=== PATIENT | female | born 1945 | race Caucasian/White ===

== ENCOUNTER 2021-10-17 12:26 | Inpatient (IN) | payer MEDICARE, OTHER ==
[~2021-10-17] VITALS: Ht 152.4 cm; Wt 55.3 kg
[2021-10-17 14:52] LABS: Mean Corpuscular Hgb Conc. 32.7 g/dL (32.0-36.0)
[2021-10-17 14:56] LABS: Hematocrit 18.5 % (36.0-46.0); Mean Corpuscular Hemoglobin 25.4 pg (28.0-32.0); Mean Corpuscular Volume 77.9 fL (80.0-100.0); Red Blood Cells 2.38 10^6/uL (4.0-5.20); White Blood Cell 13.1 10^3/uL (4.4-10.8)
[2021-10-17 15:13] LABS: Albumin 1.8 g/dL (3.4-5.0); BUN/Creatinine Ratio 8.9; Calcium 7.8 mg/dL (8.5-10.1); Potassium 3.3 mmol/L (3.5-5.1)
[2021-10-17 15:16] LABS: Bilirubin, Total 0.4 mg/dL (0.2-1.0); Total Protein 5.5 g/dL (6.4-8.2)
[2021-10-17 15:26] LABS: Red Cell Distribution Width 22.9 % (11.8-14.3)
[2021-10-17 15:28] LABS: Basophils % (manual) 0 (0.0-2.0); Blast Cells 0; Metamyelocytes % 0; Myelocytes % 0; Promyelocytes % 0; Reactive Lymphocytes 0
[2021-10-17 15:30] LABS: INR 1.09 (0.9-1.15); Partial Thromboplastin Time 49.6 sec (23.6-33.0)
[2021-10-17 15:41] LABS: Band Neutrophils % (manual) 1; Eosinophils % (manual) 1 (0-7); Lymphocytes % (manual) 7 (10.0-50.0); Monocytes % (manual) 2 (0-12)
[2021-10-17 20:47] VITALS: BP 120/39
[2021-10-17 21:04] VITALS: BP 115/40
[2021-10-17] MEDS ORDERED: DEXTROSE (50%) 50ML SYRG IV PRN (21:15)
[2021-10-17] MEDS ORDERED: ACETAMINOPHEN 325 MG TAB PO PRN (21:15)
[2021-10-17] MEDS ORDERED: POTASSIUM CHL 20 Meq TABLET PO ONE (21:15)
[2021-10-17] MEDS ORDERED: DOCUSATE SOD 100 MG CAP PO PRN (21:15)
[2021-10-17] MEDS ORDERED: ONDANSETRON HCL 4 MG/2 ML VIAL IV PRN (21:15)
[2021-10-17] MEDS ORDERED: HYDROcodone-ACET 5/325MG TAB PO PRN (21:15)
[2021-10-17] MEDS ORDERED: InsuLIN REG 1unit/0.01ml Soln (100units/ml) SC SCH (22:00)
[2021-10-17] MEDS ORDERED: FAMOTIDINE (10MG/ML) 2ML VL IV SCH (22:00)
[2021-10-17] MEDS: ALBUMIN 25% 50 ML IV SCH (22:30)
[2021-10-17] MEDS ORDERED: POTASSIUM EFFERVESENT TAB 25 MEQ GT ONE (23:00)
[2021-10-17 23:34] VITALS: BP 129/50
[2021-10-17] MEDS: ASCORBIC ACID 500 MG TAB PO SCH (23:36)
[2021-10-17] MEDS: APIXABAN 2.5 MG TAB PO SCH (23:36)
[2021-10-17] MEDS: ACCU-CHEK COMFORT CURVE STRIP VI SCH (23:37)
[2021-10-18 02:47] LABS: Basophils # (auto) 0 10 ^3/uL (0-0.2); Basophils % (auto) 0.3 % (0.0-2.0); Eosinophils # (auto) 0.1 10 ^3/uL (0-0.8); Eosinophils % (auto) 0.5 % (0.0-7.0); Hematocrit 24.2 % (36.0-46.0); Hemoglobin 8.1 g/dL (12.2-16.2); Lymphocytes # (auto) 1.2 10 ^3/uL (0.4-5.4); Lymphocytes % (auto) 8.6 % (10.0-50.0); Mean Corpuscular Hemoglobin 26.6 pg (28.0-32.0); Mean Corpuscular Hgb Conc. 33.5 g/dL (32.0-36.0); Mean Corpuscular Volume 79.4 fL (80.0-100.0); Monocytes % (auto) 6.8 % (0.0-12.0); Neutrophils # (auto) 11.8 10 ^3/uL (1.6-8.6); Neutrophils % (auto) 83.8 % (37.0-80.0); Nucleated Red Blood Cells % 0.2 %; Red Blood Cells 3.05 10^6/uL (4.0-5.20); White Blood Cell 14.1 10^3/uL (4.4-10.8)
[2021-10-18 03:11] LABS: Albumin 1.9 g/dL (3.4-5.0); Potassium 3.7 mmol/L (3.5-5.1)
[2021-10-18 03:13] LABS: BUN/Creatinine Ratio 9.6
[2021-10-18 03:25] LABS: Bilirubin, Total 0.5 mg/dL (0.2-1.0); Total Protein 5.7 g/dL (6.4-8.2)
[2021-10-18 04:59] VITALS: BP 150/58
[2021-10-18 05:00] VITALS: BP 150/58
[2021-10-18] MEDS ORDERED: ALBUMIN 25% 50 ML IV ONE ×2 (05:26→14:27)
[2021-10-18] MEDS: ALBUMIN 25% 50 ML IV SCH ×2 (05:36→14:37)
[2021-10-18] MEDS: InsuLIN REG 1unit/0.01ml Soln (100units/ml) SC SCH ×3 (05:44→17:00)
[2021-10-18] MEDS: ACCU-CHEK COMFORT CURVE STRIP VI SCH ×3 (05:44→17:16)
[2021-10-18 09:00] VITALS: BP 145/105
[2021-10-18] MEDS ORDERED: cefTRIAXone 1GM/50ML D5W 50 ML IV SCH (09:00)
[2021-10-18] MEDS ORDERED: cefTRIAXone 1GM/50ML D5W 50 ML IV ONE (09:01)
[2021-10-18] MEDS ORDERED: MULTIPLE VITAMIN TAB ONE (09:51)
[2021-10-18] MEDS ORDERED: APIXABAN 2.5 MG TAB ONE (09:51)
[2021-10-18] MEDS ORDERED: ASCORBIC ACID 500 MG TAB ONE (09:51)
[2021-10-18] MEDS ORDERED: AZITHROMYCIN 500MG/ 250ML 250 ML IV ONE (09:52)
[2021-10-18] MEDS ORDERED: MULTIPLE VITAMIN TAB PO SCH (10:00)
[2021-10-18] MEDS ORDERED: ZINC SULFATE 220mg CAP or TAB PO SCH (10:00)
[2021-10-18] MEDS ORDERED: AZITHROMYCIN 500MG/ 250ML 250 ML IV SCH (10:00)
[2021-10-18] MEDS: ASCORBIC ACID 500 MG TAB PO SCH (10:12)
[2021-10-18] MEDS: APIXABAN 2.5 MG TAB PO SCH (10:12)
[2021-10-18 13:07] VITALS: BP 156/49
[2021-10-18 17:10] VITALS: BP 150/57
[2021-10-18 21:38] VITALS: BP 155/64
[2021-10-18] MEDS ORDERED: NITROGLYCERIN 0.4 MG SL TAB SL PRN ×2 (23:45)
[2021-10-18] MEDS ORDERED: DEXTROSE (50%) 50ML SYRG IV PRN (23:45)
[2021-10-18] MEDS ORDERED: FAMOTIDINE (10MG/ML) 2ML VL IV SCH (23:45)
[2021-10-18] MEDS ORDERED: DOCUSATE SOD 100 MG CAP PO PRN (23:45)
[2021-10-18] MEDS ORDERED: MORPHINE SULFATE INJECTION 2 MG/ML SYRG IV PRN ×2 (23:45)
[2021-10-18] MEDS ORDERED: HYDROcodone-ACET 5/325MG TAB PO PRN (23:45)
[2021-10-18] MEDS ORDERED: ONDANSETRON HCL 4 MG/2 ML VIAL IV PRN (23:45)
[2021-10-18] MEDS ORDERED: InsuLIN REG 1unit/0.01ml Soln (100units/ml) SC SCH (23:45)
[2021-10-18] MEDS ORDERED: ACETAMINOPHEN 325 MG TAB PO PRN (23:45)
[2021-10-19] MEDS: ASCORBIC ACID 500 MG TAB PO SCH ×2 (00:25→09:19)
[2021-10-19] MEDS: APIXABAN 2.5 MG TAB PO SCH ×2 (00:25→09:19)
[2021-10-19] MEDS: ACCU-CHEK COMFORT CURVE STRIP VI SCH ×3 (00:26→11:09)
[2021-10-19 05:00] VITALS: BP 136/54
[2021-10-19] MEDS: InsuLIN REG 1unit/0.01ml Soln (100units/ml) SC SCH ×2 (06:48→11:09)
[2021-10-19 07:55] VITALS: BP 197/65
[2021-10-19] MEDS ORDERED: cefTRIAXone 1GM/50ML D5W 50 ML IV SCH (09:00)
[2021-10-19 09:59] VITALS: BP 186/63
[2021-10-19] MEDS ORDERED: ZINC SULFATE 220mg CAP or TAB PO SCH (10:00)
[2021-10-19] MEDS ORDERED: MULTIPLE VITAMIN TAB PO SCH (10:00)
[2021-10-19] MEDS ORDERED: AZITHROMYCIN 500MG/ 250ML 250 ML IV SCH (10:00)
[2021-10-19] MEDS ORDERED: hydrALAZINE HCL 20 MG/ML VL IV ONE (10:45)
[2021-10-19 12:11] VITALS: BP 158/50
== END 2021-10-19 14:00 | DRG 871 ==
LOC: ER 12:26 → EDBD 12:26 → CENTRAL 23:52 → ER 10-18 02:42
PROVIDERS: ADMIT Nurse Practitioner Family; ATTEND Nurse Practitioner Family
PROC: 30233N1 Transfusion of Nonautologous Red Blood Cells into Peripheral Vein, Percutaneous Approach (ICD-10-PCS; principal; 2021-10-17)
DX: A41.9 Sepsis, unspecified organism (principal); J18.9 Pneumonia, unspecified organism; N18.6 End stage renal disease; I13.2 Hypertensive heart and chronic kidney disease with heart failure and with stage 5 chronic kidney disease, or end stage renal disease; E87.6 Hypokalemia; E88.09 Other disorders of plasma-protein metabolism, not elsewhere classified; E11.40 Type 2 diabetes mellitus with diabetic neuropathy, unspecified; E78.00 Pure hypercholesterolemia, unspecified; F32.A Depression, unspecified; Z20.822 Contact with and (suspected) exposure to COVID-19; E11.22 Type 2 diabetes mellitus with diabetic chronic kidney disease; D63.8 Anemia in other chronic diseases classified elsewhere; E78.5 Hyperlipidemia, unspecified; F03.90 Unspecified dementia, unspecified severity, without behavioral disturbance, psychotic disturbance, mood disturbance, and anxiety; I48.91 Unspecified atrial fibrillation; I50.9 Heart failure, unspecified; Z99.2 Dependence on renal dialysis; Z79.01 Long term (current) use of anticoagulants; Z86.73 Personal history of transient ischemic attack (TIA), and cerebral infarction without residual deficits
CPT/HCPCS: 36415; 36430; 70450; 71045; 80053; 82962; 83036; 85007; 85025; 85027; 85610; 85730; 86850; 86900; 86901; 86920; 87040; 87081; 87426; 93005; 96365; 96372; G0378; J0696; J3490

== ENCOUNTER 2021-11-02 13:39 | Inpatient (IN) | payer MEDICARE ==
[~2021-11-02] VITALS: Ht 157.5 cm; Wt 57.4 kg
[2021-11-02 15:03] LABS: Basophils # (auto) 0.1 10 ^3/uL (0-0.2); Basophils % (auto) 0.6 % (0.0-2.0); Eosinophils # (auto) 0.1 10 ^3/uL (0-0.8); Hemoglobin 7.1 g/dL (12.2-16.2); Monocytes # (auto) 1.1 10 ^3/uL (0-1.3); White Blood Cell 18.7 10^3/uL (4.4-10.8)
[2021-11-02 15:04] LABS: Eosinophils % (auto) 0.5 % (0.0-7.0); Hematocrit 21.2 % (36.0-46.0); Lymphocytes # (auto) 1.1 10 ^3/uL (0.4-5.4); Mean Corpuscular Hgb Conc. 33.2 g/dL (32.0-36.0); Mean Corpuscular Volume 84.3 fL (80.0-100.0); Neutrophils # (auto) 16.2 10 ^3/uL (1.6-8.6); Neutrophils % (auto) 86.9 % (37.0-80.0); Nucleated Red Blood Cells % 0.8 %; Red Blood Cells 2.52 10^6/uL (4.0-5.20)
[2021-11-02 15:13] LABS: Red Cell Distribution Width 21.8 % (11.8-14.3)
[2021-11-02 15:17] LABS: Calcium 7.9 mg/dL (8.5-10.1)
[2021-11-02 15:23] LABS: BUN/Creatinine Ratio 6.1; Bilirubin, Total 0.5 mg/dL (0.2-1.0); Total Protein 6.3 g/dL (6.4-8.2)
[2021-11-02 15:28] LABS: Potassium 2.7 mmol/L (3.5-5.1)
[2021-11-02] MEDS ORDERED: NITROGLYCERIN 0.4 MG SL TAB SL PRN (16:15)
[2021-11-02] MEDS ORDERED: MORPHINE SULFATE INJECTION 2 MG/ML SYRG IV PRN (16:15)
[2021-11-02] MEDS ORDERED: ACETAMINOPHEN 325 MG TAB PO PRN (16:15)
[2021-11-02] MEDS: POTASSIUM CHL 10MEQ/50ML 50 ML IV SCH ×2 (19:10→20:10)
[2021-11-02] MEDS ORDERED: POTASSIUM CHL 10MEQ/50ML 50 ML IV ONE (20:06)
[2021-11-02] MEDS: ASCORBIC ACID 500 MG TAB PO SCH (22:00)
[2021-11-02 22:31] LABS: Urine Bacteria MANY /hpf (None Seen); Urine Blood 2+ /uL (Negative); Urine WBC 1510 /hpf (0 - 5); Urine WBC Clumps PRESENT /hpf (None Seen)
[2021-11-03] MEDS ORDERED: cefTRIAXone 1GM/50ML D5W 50 ML IV ONE (03:30)
[2021-11-03 04:05] VITALS: BP 150/56
[2021-11-03 04:35] VITALS: BP 142/53
[2021-11-03 07:06] VITALS: BP 164/70
[2021-11-03 09:20] LABS: Basophils # (auto) 0.1 10 ^3/uL (0-0.2); Basophils % (auto) 0.6 % (0.0-2.0); Eosinophils # (auto) 0.1 10 ^3/uL (0-0.8); Eosinophils % (auto) 0.6 % (0.0-7.0); Hematocrit 33.5 % (36.0-46.0); Hemoglobin 11.2 g/dL (12.2-16.2); Lymphocytes # (auto) 0.5 10 ^3/uL (0.4-5.4); Mean Corpuscular Hemoglobin 27.9 pg (28.0-32.0); Mean Corpuscular Hgb Conc. 33.4 g/dL (32.0-36.0); Mean Corpuscular Volume 83.6 fL (80.0-100.0); Monocytes # (auto) 0.4 10 ^3/uL (0-1.3); Monocytes % (auto) 2.9 % (0.0-12.0); Neutrophils # (auto) 14.1 10 ^3/uL (1.6-8.6); Neutrophils % (auto) 92.9 % (37.0-80.0); Nucleated Red Blood Cells % 0.4 %; Red Blood Cells 4.01 10^6/uL (4.0-5.20); Red Cell Distribution Width 18.1 % (11.8-14.3); White Blood Cell 15.2 10^3/uL (4.4-10.8)
[2021-11-03 09:31] LABS: Albumin 2.2 g/dL (3.4-5.0); Calcium 7.7 mg/dL (8.5-10.1); Potassium 3.5 mmol/L (3.5-5.1)
[2021-11-03 09:34] LABS: BUN/Creatinine Ratio 6.7; Bilirubin, Total 0.8 mg/dL (0.2-1.0)
[2021-11-03] MEDS: ZINC SULFATE 220mg CAP or TAB PO SCH (10:58)
[2021-11-03] MEDS: MULTIPLE VITAMIN TAB PO SCH (10:58)
[2021-11-03] MEDS: ASCORBIC ACID 500 MG TAB PO SCH ×2 (10:58→21:36)
[2021-11-03 23:00] VITALS: BP 150/87
[2021-11-04 08:00] VITALS: BP 165/66
[2021-11-04] MEDS: cefTRIAXone 1GM/50ML D5W 50 ML IV SCH (08:47)
[2021-11-04 09:00] VITALS: BP 165/66
[2021-11-04] MEDS: ASCORBIC ACID 500 MG TAB PO SCH ×2 (10:00→21:20)
[2021-11-04] MEDS: ZINC SULFATE 220mg CAP or TAB PO SCH (10:00)
[2021-11-04] MEDS: MULTIPLE VITAMIN TAB PO SCH (10:00)
[2021-11-04] MEDS ORDERED: D5W 5% 1,000 ML IV SCH (12:00)
[2021-11-04 13:00] VITALS: BP 158/64
[2021-11-04 17:14] VITALS: BP 167/62
[2021-11-04 22:16] VITALS: BP 130/50
[2021-11-05 04:00] VITALS: BP 136/51
[2021-11-05 05:47] LABS: Anion Gap 9 (5-15); BUN/Creatinine Ratio 6.3; Blood Urea Nitrogen 23 mg/dL (7-18); Calcium 7.4 mg/dL (8.5-10.1); Carbon Dioxide 22 mmol/L (21-32); Chloride 106 mmol/L (98-107); GFR African American 15 mL/min; GFR Non-African American 13 mL/min; Glucose 279 mg/dL (74-106); Potassium 3.3 mmol/L (3.5-5.1); Sodium 137 mmol/L (136-145)
[2021-11-05 08:00] VITALS: BP 142/57
[2021-11-05] MEDS ORDERED: SODIUM CHL 0.9% 1000 ML BAG XX ONE (08:15)
[2021-11-05 09:00] VITALS: BP 142/57
[2021-11-05] MEDS: ZINC SULFATE 220mg CAP or TAB PO SCH (09:13)
[2021-11-05] MEDS: MULTIPLE VITAMIN TAB PO SCH (09:13)
[2021-11-05] MEDS: ASCORBIC ACID 500 MG TAB PEG SCH ×2 (09:14→21:27)
[2021-11-05] MEDS: cefTRIAXone 1GM/50ML D5W 50 ML IV SCH (12:06)
[2021-11-05 13:00] VITALS: BP 144/65
[2021-11-05 16:52] VITALS: BP 134/58
[2021-11-05] MEDS: Nepro With Carb Steady 1 Liter Bottle GT SCH (21:49)
[2021-11-05 23:58] VITALS: BP 147/56
[2021-11-06] MEDS: Nepro With Carb Steady 1 Liter Bottle GT SCH ×6 (01:59→23:28)
[2021-11-06 05:23] VITALS: BP 136/61
[2021-11-06 05:48] LABS: Basophils # (auto) 0.1 10 ^3/uL (0-0.2); Basophils % (auto) 0.7 % (0.0-2.0); Eosinophils # (auto) 0.2 10 ^3/uL (0-0.8); Eosinophils % (auto) 0.9 % (0.0-7.0); Hematocrit 31.5 % (36.0-46.0); Hemoglobin 10.3 g/dL (12.2-16.2); Lymphocytes # (auto) 0.7 10 ^3/uL (0.4-5.4); Lymphocytes % (auto) 4.1 % (10.0-50.0); Mean Corpuscular Hgb Conc. 32.7 g/dL (32.0-36.0); Mean Corpuscular Volume 85.7 fL (80.0-100.0); Monocytes # (auto) 0.7 10 ^3/uL (0-1.3); Monocytes % (auto) 4.1 % (0.0-12.0); Neutrophils # (auto) 15.2 10 ^3/uL (1.6-8.6); Neutrophils % (auto) 90.2 % (37.0-80.0); Nucleated Red Blood Cells % 0.1 %; Red Blood Cells 3.67 10^6/uL (4.0-5.20); Red Cell Distribution Width 21.9 % (11.8-14.3); White Blood Cell 16.8 10^3/uL (4.4-10.8)
[2021-11-06 05:54] LABS: BUN/Creatinine Ratio 6.2; Calcium 7.7 mg/dL (8.5-10.1); Potassium 3.6 mmol/L (3.5-5.1)
[2021-11-06 08:00] VITALS: BP 181/63
[2021-11-06] MEDS: cefTRIAXone 1GM/50ML D5W 50 ML IV SCH (09:00)
[2021-11-06] MEDS: ZINC SULFATE 220mg CAP or TAB PO SCH (09:51)
[2021-11-06] MEDS: MULTIPLE VITAMIN TAB PO SCH (09:51)
[2021-11-06] MEDS: ASCORBIC ACID 500 MG TAB PEG SCH ×2 (09:51→23:29)
[2021-11-06] MEDS ORDERED: SIMV-8 PO (11:52)
[2021-11-06 12:50] VITALS: BP 164/75
[2021-11-06 16:38] VITALS: BP 163/79
[2021-11-06 22:00] VITALS: BP 155/74
[2021-11-07 05:00] VITALS: BP 140/65
[2021-11-07] MEDS: Nepro With Carb Steady 1 Liter Bottle GT SCH ×3 (06:07→14:00)
[2021-11-07] MEDS ORDERED: SODIUM CHL 0.9% 1000 ML BAG XX ONE (07:00)
[2021-11-07 09:00] VITALS: BP 167/91
[2021-11-07] MEDS: METOPROLOL TARTRATE 25 MG TAB PO SCH ×2 (10:00→11:00)
[2021-11-07] MEDS ORDERED: hydrALAZINE HCL 25 MG TAB PO SCH (10:00)
[2021-11-07] MEDS: MULTIPLE VITAMIN TAB PO SCH (10:00)
[2021-11-07] MEDS: ZINC SULFATE 220mg CAP or TAB PO SCH (10:00)
[2021-11-07] MEDS ORDERED: DOXYCYCLINE 100 MG TAB/CAP PO SCH (10:00)
[2021-11-07] MEDS: ASCORBIC ACID 500 MG TAB PEG SCH (10:00)
[2021-11-07] MEDS ORDERED: ACETAMINOPHEN 650 mg PER 20.3 mL UD GT PRN (10:45)
[2021-11-07] MEDS ORDERED: ACETAMINOPHEN 650 mg PER 20.3 mL UD PO PRN (10:45)
[2021-11-07 13:00] VITALS: BP 154/70
== END 2021-11-07 16:00 | DRG 640 ==
LOC: EDBD 13:39 → ER 13:39 → TELE 16:12 → TELE-CENTR 11-03 22:46
PROVIDERS: ADMIT Internal Medicine; ATTEND Internal Medicine
PROC: 30233N1 Transfusion of Nonautologous Red Blood Cells into Peripheral Vein, Percutaneous Approach (ICD-10-PCS; 2021-11-03)
PROC: 5A1D70Z Performance of Urinary Filtration, Intermittent, Less than 6 Hours Per Day (ICD-10-PCS; 2021-11-05)
PROC: 5A1D70Z Performance of Urinary Filtration, Intermittent, Less than 6 Hours Per Day (ICD-10-PCS; principal; 2021-11-07)
DX: E87.6 Hypokalemia (principal); N18.6 End stage renal disease; N39.0 Urinary tract infection, site not specified; I13.2 Hypertensive heart and chronic kidney disease with heart failure and with stage 5 chronic kidney disease, or end stage renal disease; F03.90 Unspecified dementia, unspecified severity, without behavioral disturbance, psychotic disturbance, mood disturbance, and anxiety; I48.91 Unspecified atrial fibrillation; I49.5 Sick sinus syndrome; D63.1 Anemia in chronic kidney disease; H91.90 Unspecified hearing loss, unspecified ear; E11.40 Type 2 diabetes mellitus with diabetic neuropathy, unspecified; Z20.822 Contact with and (suspected) exposure to COVID-19; I50.9 Heart failure, unspecified; Z86.73 Personal history of transient ischemic attack (TIA), and cerebral infarction without residual deficits; Z93.1 Gastrostomy status; Z99.2 Dependence on renal dialysis
CPT/HCPCS: 36415; 71045; 80048; 80053; 81001; 82962; 83735; 85025; 86850; 86900; 86901; 86920; 87081; 87086; 87088; 87186; 87426; 90935; 93005; 93306; 96365; 96366; 96368; G0378; J0696; J1642

== ENCOUNTER 2021-11-07 23:26 | Inpatient (IN) | payer MEDICARE, OTHER ==
[~2021-11-07] VITALS: Ht 154.9 cm; Wt 49.8 kg
[2021-11-08] MEDS ORDERED: PIPERACILLIN-TAZO 4.5GM 100 ML IV ONE
[2021-11-08 00:22] LABS: Urine Blood 2+ /uL (Negative); Urine WBC 2368 /hpf (0 - 5); Urine WBC Clumps PRESENT /hpf (None Seen)
[2021-11-08 00:22] LABS: Basophils # (auto) 0.1 10 ^3/uL (0-0.2); Basophils % (auto) 0.2 % (0.0-2.0); Eosinophils # (auto) 0.1 10 ^3/uL (0-0.8); Eosinophils % (auto) 0.4 % (0.0-7.0); Hematocrit 32.2 % (36.0-46.0); Hemoglobin 10.4 g/dL (12.2-16.2); Lymphocytes # (auto) 0.5 10 ^3/uL (0.4-5.4); Lymphocytes % (auto) 2.1 % (10.0-50.0); Mean Corpuscular Hemoglobin 27.6 pg (28.0-32.0); Mean Corpuscular Hgb Conc. 32.3 g/dL (32.0-36.0); Mean Corpuscular Volume 85.5 fL (80.0-100.0); Monocytes # (auto) 0.8 10 ^3/uL (0-1.3); Monocytes % (auto) 3.3 % (0.0-12.0); Neutrophils # (auto) 23.2 10 ^3/uL (1.6-8.6); Nucleated Red Blood Cells % 0.1 %; Red Blood Cells 3.76 10^6/uL (4.0-5.20); White Blood Cell 24.7 10^3/uL (4.4-10.8)
[2021-11-08 00:23] LABS: Urine Bacteria FEW /hpf (None Seen)
[2021-11-08 00:25] LABS: Albumin 1.9 g/dL (3.4-5.0); Calcium 7.8 mg/dL (8.5-10.1); Potassium 3.6 mmol/L (3.5-5.1)
[2021-11-08 00:30] LABS: BUN/Creatinine Ratio 6.9; Bilirubin, Total 0.4 mg/dL (0.2-1.0); Total Protein 6.6 g/dL (6.4-8.2)
[2021-11-08 00:40] LABS: INR 1.05 (0.9-1.15)
[2021-11-08] MEDS ORDERED: PIPERACILLIN-TAZOB 2.25GM 50 ML IV ONE (04:00)
[2021-11-08] MEDS ORDERED: ONDANSETRON HCL 4 MG/2 ML VIAL IV PRN (04:00)
[2021-11-08] MEDS ORDERED: ALBUMIN 25% 100 ML IV ONE ×2 (04:00→07:52)
[2021-11-08] MEDS ORDERED: DOCUSATE SOD 100 MG CAP PO PRN (04:00)
[2021-11-08] MEDS ORDERED: MORPHINE SULFATE INJ 2 MG/ml SYRG IV PRN (04:45)
[2021-11-08] MEDS ORDERED: NITROGLYCERIN 0.4 MG SL TAB SL PRN (04:45)
[2021-11-08] MEDS: SODIUM CHLOR 0.9% PF (SALINE LOCK) 10ML VIAL/SYR IV SCH ×3 (06:23→22:00)
[2021-11-08 07:12] LABS: Hematocrit 32.4 % (36.0-46.0); Hemoglobin 10.6 g/dL (12.2-16.2); Mean Corpuscular Hgb Conc. 32.8 g/dL (32.0-36.0); Mean Corpuscular Volume 85.4 fL (80.0-100.0); Red Cell Distribution Width 22.1 % (11.8-14.3); White Blood Cell 25.9 10^3/uL (4.4-10.8)
[2021-11-08 07:13] LABS: Albumin 1.8 g/dL (3.4-5.0); Calcium 7.9 mg/dL (8.5-10.1); Potassium 4.6 mmol/L (3.5-5.1)
[2021-11-08 07:16] LABS: Basophils % (manual) 0 (0.0-2.0); Blast Cells 0; Metamyelocytes % 0; Myelocytes % 0; Promyelocytes % 0; Reactive Lymphocytes 0
[2021-11-08 07:17] LABS: Bilirubin, Total 0.5 mg/dL (0.2-1.0); Total Protein 6.7 g/dL (6.4-8.2)
[2021-11-08 08:07] LABS: Band Neutrophils % (manual) 1; Eosinophils % (manual) 2 (0-7); Lymphocytes % (manual) 1 (10.0-50.0); Monocytes % (manual) 2 (0-12)
[2021-11-08] MEDS: SEVELAMER 800 MG TAB PO SCH ×3 (08:34→18:38)
[2021-11-08 09:00] VITALS: BP 168/77
[2021-11-08] MEDS: ASPirin 81 mg TAB PO SCH (09:38)
[2021-11-08] MEDS: FAMOTIDINE (10MG/ML) 2ML VL IV SCH (09:38)
[2021-11-08] MEDS: ZINC SULFATE 220mg CAP or TAB PO SCH (09:39)
[2021-11-08] MEDS: B-COMPLEX W/ C & FOLIC ACID(NEPHROVITE TAB) PO SCH (09:39)
[2021-11-08] MEDS: ASCORBIC ACID 500 MG TAB PO SCH ×2 (09:40→22:00)
[2021-11-08] MEDS: HEPARIN SODIUM (PORCINE) 5000 UNITS/ML 1ML VIAL SC SCH ×2 (09:41→22:00)
[2021-11-08] MEDS: PIPERACILLIN-TAZOB 2.25GM 50 ML IV SCH (11:34)
[2021-11-08 13:00] VITALS: BP 157/66
[2021-11-08 17:00] VITALS: BP 146/68
[2021-11-08 22:00] VITALS: BP 152/57
[2021-11-08] MEDS: ATORVASTATIN 20 MG TAB PO SCH (22:00)
[2021-11-09] MEDS: PIPERACILLIN-TAZOB 2.25GM 50 ML IV SCH (00:24)
[2021-11-09 05:00] VITALS: BP 138/53
[2021-11-09] MEDS: SODIUM CHLOR 0.9% PF (SALINE LOCK) 10ML VIAL/SYR IV SCH ×3 (05:31→22:43)
[2021-11-09 09:30] VITALS: BP 184/80
[2021-11-09] MEDS: ASPirin 81 mg TAB PO SCH (09:47)
[2021-11-09] MEDS: B-COMPLEX W/ C & FOLIC ACID(NEPHROVITE TAB) PO SCH (09:47)
[2021-11-09] MEDS: FAMOTIDINE (10MG/ML) 2ML VL IV SCH (09:47)
[2021-11-09] MEDS: ASCORBIC ACID 500 MG TAB PO SCH ×2 (09:48→22:43)
[2021-11-09] MEDS: HEPARIN SODIUM (PORCINE) 5000 UNITS/ML 1ML VIAL SC SCH ×2 (09:51→23:09)
[2021-11-09] MEDS: SEVELAMER 800 MG TAB PO SCH ×3 (09:55→19:35)
[2021-11-09] MEDS: ZINC SULFATE 220mg CAP or TAB PO SCH (10:15)
[2021-11-09] MEDS: hydrALAZINE HCL 20 MG/ML VL IV PRN (11:10)
[2021-11-09 12:00] VITALS: BP 137/52
[2021-11-09] MEDS ORDERED: VANCOMYCIN PER PHARMACY 0 MG IV SCH (12:30)
[2021-11-09] MEDS ORDERED: VANCOMYCIN 1GM/250ML 250 ML IV ONE (14:30)
[2021-11-09 17:00] VITALS: BP 145/76
[2021-11-09 22:00] VITALS: BP 174/63
[2021-11-09] MEDS: ATORVASTATIN 20 MG TAB PO SCH (22:43)
[2021-11-09] MEDS: ACETAMINOPHEN 325 MG TAB PO PRN (22:44)
[2021-11-10] MEDS: hydrALAZINE HCL 20 MG/ML VL IV PRN ×2 (05:33→18:03)
[2021-11-10] MEDS: SODIUM CHLOR 0.9% PF (SALINE LOCK) 10ML VIAL/SYR IV SCH ×3 (05:39→22:00)
[2021-11-10 05:56] LABS: Basophils # (auto) 0.1 10 ^3/uL (0-0.2); Basophils % (auto) 0.7 % (0.0-2.0); Eosinophils # (auto) 0.2 10 ^3/uL (0-0.8); Eosinophils % (auto) 0.9 % (0.0-7.0); Hematocrit 31.5 % (36.0-46.0); Hemoglobin 10.1 g/dL (12.2-16.2); Lymphocytes # (auto) 0.6 10 ^3/uL (0.4-5.4); Lymphocytes % (auto) 3.3 % (10.0-50.0); Mean Corpuscular Hemoglobin 27.6 pg (28.0-32.0); Mean Corpuscular Volume 86.1 fL (80.0-100.0); Monocytes # (auto) 0.8 10 ^3/uL (0-1.3); Monocytes % (auto) 4.5 % (0.0-12.0); Neutrophils % (auto) 90.6 % (37.0-80.0); Red Blood Cells 3.66 10^6/uL (4.0-5.20); White Blood Cell 17.6 10^3/uL (4.4-10.8)
[2021-11-10 06:00] VITALS: BP 178/76
[2021-11-10 06:04] LABS: Red Cell Distribution Width 22.3 % (11.8-14.3)
[2021-11-10 06:34] LABS: Calcium 8.2 mg/dL (8.5-10.1); Potassium 3.3 mmol/L (3.5-5.1)
[2021-11-10 06:36] LABS: BUN/Creatinine Ratio 7.7
[2021-11-10 09:30] VITALS: BP 153/75
[2021-11-10] MEDS: B-COMPLEX W/ C & FOLIC ACID(NEPHROVITE TAB) PO SCH (10:32)
[2021-11-10] MEDS: ASCORBIC ACID 500 MG TAB PO SCH ×2 (10:32→23:11)
[2021-11-10] MEDS: ZINC SULFATE 220mg CAP or TAB PO SCH (10:32)
[2021-11-10] MEDS: ASPirin 81 mg TAB PO SCH (10:32)
[2021-11-10] MEDS: SEVELAMER 800 MG TAB PO SCH ×3 (10:32→18:02)
[2021-11-10] MEDS: FAMOTIDINE (10MG/ML) 2ML VL IV SCH (10:33)
[2021-11-10] MEDS: HEPARIN SODIUM (PORCINE) 5000 UNITS/ML 1ML VIAL SC SCH ×2 (10:45→23:11)
[2021-11-10] MEDS ORDERED: VANCOMYCIN 1GM/250ML 250 ML IV ONE (12:00)
[2021-11-10 12:52] LABS: Magnesium 2.3 mg/dL (1.6-2.6); Phosphorus 2.3 mg/dL (2.5-4.90)
[2021-11-10 13:04] VITALS: BP 155/86
[2021-11-10] MEDS: POTASSIUM CHL 10MEQ/50ML 50 ML IV SCH ×4 (15:14→18:54)
[2021-11-10 17:55] VITALS: BP 170/85
[2021-11-10] MEDS: PANTOPRAZOLE 40 MG TAB PO SCH (22:00)
[2021-11-10] MEDS: ATORVASTATIN 20 MG TAB PO SCH (23:11)
[2021-11-11] MEDS: hydrALAZINE HCL 20 MG/ML VL IV PRN ×2 (03:11→22:09)
[2021-11-11] MEDS: SODIUM CHLOR 0.9% PF (SALINE LOCK) 10ML VIAL/SYR IV SCH ×3 (06:00→22:07)
[2021-11-11 06:46] LABS: Potassium 3.9 mmol/L (3.5-5.1)
[2021-11-11 06:53] LABS: Basophils # (auto) 0.1 10 ^3/uL (0-0.2); Basophils % (auto) 0.6 % (0.0-2.0); Eosinophils # (auto) 0.1 10 ^3/uL (0-0.8); Eosinophils % (auto) 0.3 % (0.0-7.0); Hematocrit 30.1 % (36.0-46.0); Hemoglobin 9.7 g/dL (12.2-16.2); Lymphocytes # (auto) 0.7 10 ^3/uL (0.4-5.4); Lymphocytes % (auto) 3.8 % (10.0-50.0); Mean Corpuscular Hemoglobin 27.7 pg (28.0-32.0); Mean Corpuscular Hgb Conc. 32.2 g/dL (32.0-36.0); Monocytes # (auto) 0.7 10 ^3/uL (0-1.3); Monocytes % (auto) 3.7 % (0.0-12.0); Neutrophils # (auto) 17.5 10 ^3/uL (1.6-8.6); Neutrophils % (auto) 91.6 % (37.0-80.0); Nucleated Red Blood Cells % 0.1 %; White Blood Cell 19.1 10^3/uL (4.4-10.8)
[2021-11-11] MEDS ORDERED: SODIUM CHL 0.9% 1000 ML BAG XX ONE (07:00)
[2021-11-11] MEDS: SEVELAMER 800 MG TAB PO SCH ×3 (08:00→17:52)
[2021-11-11 09:00] VITALS: BP 145/83
[2021-11-11] MEDS: PANTOPRAZOLE 40 MG TAB PO SCH (09:35)
[2021-11-11] MEDS: ZINC SULFATE 220mg CAP or TAB PO SCH (09:45)
[2021-11-11] MEDS: ASPirin 81 mg TAB PO SCH (09:45)
[2021-11-11] MEDS: B-COMPLEX W/ C & FOLIC ACID(NEPHROVITE TAB) PO SCH (09:47)
[2021-11-11] MEDS: METOPROLOL TARTRATE 25 MG TAB PO SCH ×2 (09:47→22:08)
[2021-11-11] MEDS: ASCORBIC ACID 500 MG TAB PO SCH ×2 (09:47→22:08)
[2021-11-11] MEDS: HEPARIN SODIUM (PORCINE) 5000 UNITS/ML 1ML VIAL SC SCH (10:39)
[2021-11-11] MEDS: Nepro With Carb Steady 1 Liter Bottle GT SCH ×3 (12:45→22:07)
[2021-11-11 13:00] VITALS: BP 171/77
[2021-11-11] MEDS: ACETAMINOPHEN 325 MG TAB PO PRN (15:27)
[2021-11-11 17:00] VITALS: BP 157/71
[2021-11-11] MEDS ORDERED: EPOETIN ALFA-EPBX 10,000 UNIT/1ML VIAL SC ONE (21:00)
[2021-11-11 22:00] VITALS: BP 179/68
[2021-11-11] MEDS: ATORVASTATIN 20 MG TAB PO SCH (22:07)
[2021-11-11] MEDS: HYDROcodone-ACET 5/325MG TAB PO PRN (22:10)
[2021-11-12 05:00] VITALS: BP 156/64
[2021-11-12] MEDS: Nepro With Carb Steady 1 Liter Bottle GT SCH ×4 (05:58→23:05)
[2021-11-12] MEDS: SODIUM CHLOR 0.9% PF (SALINE LOCK) 10ML VIAL/SYR IV SCH ×3 (05:59→21:20)
[2021-11-12] MEDS: HEPARIN SODIUM (PORCINE) 5000 UNITS/ML 1ML VIAL SC SCH ×3 (06:00→21:20)
[2021-11-12 06:34] LABS: Potassium 3.8 mmol/L (3.5-5.1)
[2021-11-12 06:36] LABS: BUN/Creatinine Ratio 7.8
[2021-11-12 09:09] VITALS: BP 156/63
[2021-11-12] MEDS: SEVELAMER 800 MG TAB PO SCH ×3 (09:30→17:16)
[2021-11-12] MEDS: OMEPRAZOLE 20MG/10ML ORAL SUSP GT SCH (09:31)
[2021-11-12] MEDS: ASPirin 81 mg TAB PO SCH (09:31)
[2021-11-12] MEDS: ZINC SULFATE 220mg CAP or TAB PO SCH (09:32)
[2021-11-12] MEDS: B-COMPLEX W/ C & FOLIC ACID(NEPHROVITE TAB) PO SCH (09:33)
[2021-11-12] MEDS: METOPROLOL TARTRATE 25 MG TAB PO SCH ×2 (09:33→21:19)
[2021-11-12] MEDS: ASCORBIC ACID 500 MG TAB PO SCH ×2 (09:34→21:19)
[2021-11-12] MEDS: ACETAMINOPHEN 325 MG TAB PO PRN (09:34)
[2021-11-12 12:10] LABS: Basophils # (auto) 0.1 10 ^3/uL (0-0.2); Basophils % (auto) 0.9 % (0.0-2.0); Eosinophils # (auto) 0.2 10 ^3/uL (0-0.8); Hematocrit 30.9 % (36.0-46.0); Hemoglobin 9.9 g/dL (12.2-16.2); Lymphocytes # (auto) 0.5 10 ^3/uL (0.4-5.4); Lymphocytes % (auto) 3.5 % (10.0-50.0); Mean Corpuscular Hemoglobin 27.9 pg (28.0-32.0); Mean Corpuscular Hgb Conc. 31.9 g/dL (32.0-36.0); Mean Corpuscular Volume 87.3 fL (80.0-100.0); Monocytes # (auto) 0.8 10 ^3/uL (0-1.3); Monocytes % (auto) 5.1 % (0.0-12.0); Neutrophils # (auto) 13.7 10 ^3/uL (1.6-8.6); Neutrophils % (auto) 89.5 % (37.0-80.0); Red Blood Cells 3.54 10^6/uL (4.0-5.20); Red Cell Distribution Width 22.1 % (11.8-14.3); White Blood Cell 15.3 10^3/uL (4.4-10.8)
[2021-11-12 12:55] VITALS: BP 110/65
[2021-11-12 16:37] VITALS: BP 173/80
[2021-11-12] MEDS: hydrALAZINE HCL 20 MG/ML VL IV PRN ×2 (17:19→23:07)
[2021-11-12] MEDS: ATORVASTATIN 20 MG TAB PO SCH (21:19)
[2021-11-12] MEDS: MEROPENEM 500MG IVPB 50 ML IV SCH (21:25)
[2021-11-12 22:00] VITALS: BP 188/89
[2021-11-12] MEDS ORDERED: MEROPENEM 500MG IVPB 50 ML IV SCH (22:00)
[2021-11-12] MEDS ORDERED: MEROPENEM 1GM IVPB 100 ML IV SCH (22:00)
[2021-11-13 05:00] VITALS: BP 168/69
[2021-11-13] MEDS: Nepro With Carb Steady 1 Liter Bottle GT SCH ×4 (05:45→22:03)
[2021-11-13] MEDS: SODIUM CHLOR 0.9% PF (SALINE LOCK) 10ML VIAL/SYR IV SCH ×3 (05:56→22:25)
[2021-11-13 05:58] LABS: Basophils # (auto) 0.2 10 ^3/uL (0-0.2); Basophils % (auto) 0.9 % (0.0-2.0); Eosinophils # (auto) 0.2 10 ^3/uL (0-0.8); Eosinophils % (auto) 1.5 % (0.0-7.0); Hematocrit 31.7 % (36.0-46.0); Hemoglobin 10.4 g/dL (12.2-16.2); Lymphocytes # (auto) 0.5 10 ^3/uL (0.4-5.4); Lymphocytes % (auto) 2.7 % (10.0-50.0); Mean Corpuscular Hemoglobin 28.9 pg (28.0-32.0); Mean Corpuscular Hgb Conc. 32.8 g/dL (32.0-36.0); Monocytes # (auto) 0.7 10 ^3/uL (0-1.3); Neutrophils # (auto) 15.5 10 ^3/uL (1.6-8.6); Neutrophils % (auto) 90.9 % (37.0-80.0); White Blood Cell 17.1 10^3/uL (4.4-10.8)
[2021-11-13 06:20] LABS: Red Cell Distribution Width 21.3 % (11.8-14.3)
[2021-11-13 06:33] LABS: Potassium 3.6 mmol/L (3.5-5.1)
[2021-11-13 06:38] LABS: BUN/Creatinine Ratio 10.1; Calcium 7.8 mg/dL (8.5-10.1)
[2021-11-13] MEDS: SEVELAMER 800 MG TAB PO SCH ×3 (08:00→18:00)
[2021-11-13] MEDS ORDERED: SODIUM CHL 0.9% 1000 ML BAG XX ONE (08:15)
[2021-11-13 09:00] VITALS: BP 169/70
[2021-11-13] MEDS: MEROPENEM 500MG IVPB 50 ML IV SCH (10:42)
[2021-11-13 13:00] VITALS: BP 158/65
[2021-11-13] MEDS ORDERED: LIDOCAINE 2%HCL (LOCAL ANESTH.) INJ 20ML MDV ONE (15:59)
[2021-11-13] MEDS ORDERED: VANCOMYCIN 1GM/250ML 250 ML IV ONE (16:00)
[2021-11-13] MEDS: OMEPRAZOLE 20MG/10ML ORAL SUSP GT SCH (16:40)
[2021-11-13] MEDS: ASPirin 81 mg TAB PO SCH (16:41)
[2021-11-13] MEDS: ZINC SULFATE 220mg CAP or TAB PO SCH (16:44)
[2021-11-13] MEDS: METOPROLOL TARTRATE 25 MG TAB PO SCH ×2 (16:45→22:25)
[2021-11-13] MEDS: ASCORBIC ACID 500 MG TAB PO SCH ×2 (16:46→22:04)
[2021-11-13] MEDS: B-COMPLEX W/ C & FOLIC ACID(NEPHROVITE TAB) PO SCH (16:46)
[2021-11-13] MEDS: HEPARIN SODIUM (PORCINE) 5000 UNITS/ML 1ML VIAL SC SCH ×2 (16:46→22:17)
[2021-11-13 17:00] VITALS: BP 171/67
[2021-11-13] MEDS ORDERED: MICAFUNGIN SODIUM 100 MG in SODIUM CHL 0.9% 100 ML IV ONE (17:00)
[2021-11-13] MEDS ORDERED: EPOETIN ALFA-EPBX 10,000 UNIT/1ML VIAL SC ONE (21:00)
[2021-11-13 22:00] VITALS: BP 165/72
[2021-11-13] MEDS: ATORVASTATIN 20 MG TAB PO SCH (22:04)
[2021-11-14 05:00] VITALS: BP 187/94
[2021-11-14] MEDS: Nepro With Carb Steady 1 Liter Bottle GT SCH ×4 (06:00→22:00)
[2021-11-14] MEDS: hydrALAZINE HCL 20 MG/ML VL IV PRN (06:03)
[2021-11-14] MEDS: SODIUM CHLOR 0.9% PF (SALINE LOCK) 10ML VIAL/SYR IV SCH ×3 (06:04→22:00)
[2021-11-14 06:56] LABS: INR 1.03 (0.9-1.15); Partial Thromboplastin Time 38.9 sec (23.6-33.0)
[2021-11-14 09:00] VITALS: BP 148/76
[2021-11-14] MEDS: OMEPRAZOLE 20MG/10ML ORAL SUSP GT SCH (10:00)
[2021-11-14] MEDS: HEPARIN SODIUM (PORCINE) 5000 UNITS/ML 1ML VIAL SC SCH ×2 (10:00→22:00)
[2021-11-14] MEDS: ASPirin 81 mg TAB PO SCH (10:00)
[2021-11-14] MEDS: B-COMPLEX W/ C & FOLIC ACID(NEPHROVITE TAB) PO SCH (10:00)
[2021-11-14] MEDS: ZINC SULFATE 220mg CAP or TAB PO SCH (11:05)
[2021-11-14] MEDS: SEVELAMER 800 MG TAB PO SCH ×3 (11:05→18:00)
[2021-11-14] MEDS: ASCORBIC ACID 500 MG TAB PO SCH ×2 (11:06→22:00)
[2021-11-14] MEDS: METOPROLOL TARTRATE 25 MG TAB PO SCH ×2 (11:06→22:00)
[2021-11-14 13:00] VITALS: BP 167/81
[2021-11-14] MEDS ORDERED: DEXTROSE (50%) 50ML SYRG IV PRN (15:45)
[2021-11-14 17:00] VITALS: BP 163/68
[2021-11-14] MEDS: ACCU-CHEK COMFORT CURVE STRIP VI SCH ×2 (17:00→22:00)
[2021-11-14] MEDS: MICAFUNGIN SODIUM 100 MG in SODIUM CHL 0.9% 100 ML IV SCH (17:00)
[2021-11-14] MEDS: InsuLIN REG 1unit/0.01ml Soln (100units/ml) SC SCH ×2 (17:00→22:00)
[2021-11-14 22:00] VITALS: BP 156/77
[2021-11-14] MEDS: ATORVASTATIN 20 MG TAB PO SCH (22:00)
[2021-11-15 05:00] VITALS: BP 174/87
[2021-11-15] MEDS: Nepro With Carb Steady 1 Liter Bottle GT SCH ×3 (06:00→22:00)
[2021-11-15] MEDS: SODIUM CHLOR 0.9% PF (SALINE LOCK) 10ML VIAL/SYR IV SCH ×3 (06:00→22:00)
[2021-11-15 06:38] LABS: Hematocrit 29.4 % (36.0-46.0); Hemoglobin 9.8 g/dL (12.2-16.2); Mean Corpuscular Hemoglobin 28.9 pg (28.0-32.0); Mean Corpuscular Hgb Conc. 33.3 g/dL (32.0-36.0); Mean Corpuscular Volume 86.6 fL (80.0-100.0); Red Blood Cells 3.39 10^6/uL (4.0-5.20); White Blood Cell 27.6 10^3/uL (4.4-10.8)
[2021-11-15 06:54] LABS: Albumin 1.7 g/dL (3.4-5.0); Calcium 8.1 mg/dL (8.5-10.1); Potassium 3.6 mmol/L (3.5-5.1)
[2021-11-15 06:58] LABS: BUN/Creatinine Ratio 10.9; Bilirubin, Total 0.4 mg/dL (0.2-1.0); Total Protein 6.1 g/dL (6.4-8.2)
[2021-11-15] MEDS: ACCU-CHEK COMFORT CURVE STRIP VI SCH ×4 (07:02→22:00)
[2021-11-15 07:03] LABS: Red Cell Distribution Width 20.9 % (11.8-14.3)
[2021-11-15] MEDS: InsuLIN REG 1unit/0.01ml Soln (100units/ml) SC SCH ×4 (07:03→22:00)
[2021-11-15 07:05] LABS: Basophils % (manual) 0 (0.0-2.0); Blast Cells 0; Eosinophils % (manual) 0 (0-7); Metamyelocytes % 0; Myelocytes % 0; Promyelocytes % 0; Reactive Lymphocytes 0
[2021-11-15 09:00] VITALS: BP 157/63
[2021-11-15] MEDS: ASPirin 81 mg TAB PO SCH (09:57)
[2021-11-15] MEDS: HEPARIN SODIUM (PORCINE) 5000 UNITS/ML 1ML VIAL SC SCH ×2 (09:57→22:00)
[2021-11-15] MEDS: SEVELAMER 800 MG TAB PO SCH ×3 (09:57→17:17)
[2021-11-15] MEDS: ZINC SULFATE 220mg CAP or TAB PO SCH (09:57)
[2021-11-15] MEDS: METOPROLOL TARTRATE 25 MG TAB PO SCH ×2 (09:58→22:00)
[2021-11-15] MEDS: ASCORBIC ACID 500 MG TAB PO SCH ×2 (09:58→22:00)
[2021-11-15 11:44] LABS: Band Neutrophils % (manual) 2; Lymphocytes % (manual) 3 (10.0-50.0); Monocytes % (manual) 1 (0-12)
[2021-11-15 13:00] VITALS: BP 157/61
[2021-11-15] MEDS: OMEPRAZOLE 20MG/10ML ORAL SUSP GT SCH (14:20)
[2021-11-15] MEDS: B-COMPLEX W/ C & FOLIC ACID(NEPHROVITE TAB) PO SCH (14:20)
[2021-11-15 17:00] VITALS: BP 137/58
[2021-11-15] MEDS: MICAFUNGIN SODIUM 100 MG in SODIUM CHL 0.9% 100 ML IV SCH (18:02)
[2021-11-15] MEDS: ATORVASTATIN 20 MG TAB PO SCH (22:00)
[2021-11-16 04:31] VITALS: BP 166/64
[2021-11-16] MEDS: SODIUM CHLOR 0.9% PF (SALINE LOCK) 10ML VIAL/SYR IV SCH ×3 (06:00→22:00)
[2021-11-16] MEDS: Nepro With Carb Steady 1 Liter Bottle GT SCH ×4 (06:00→22:00)
[2021-11-16] MEDS: InsuLIN REG 1unit/0.01ml Soln (100units/ml) SC SCH ×4 (07:02→22:00)
[2021-11-16] MEDS: ACCU-CHEK COMFORT CURVE STRIP VI SCH ×4 (07:02→22:00)
[2021-11-16] MEDS: SEVELAMER 800 MG TAB PO SCH ×3 (07:10→18:00)
[2021-11-16] MEDS: ASPirin 81 mg TAB PO SCH (08:14)
[2021-11-16] MEDS: METOPROLOL TARTRATE 25 MG TAB PO SCH ×2 (08:14→22:00)
[2021-11-16] MEDS: ZINC SULFATE 220mg CAP or TAB PO SCH (08:14)
[2021-11-16] MEDS: B-COMPLEX W/ C & FOLIC ACID(NEPHROVITE TAB) PO SCH (08:14)
[2021-11-16] MEDS: ASCORBIC ACID 500 MG TAB PO SCH ×2 (08:15→22:00)
[2021-11-16] MEDS: HYDROcodone-ACET 5/325MG TAB PO PRN (08:16)
[2021-11-16 09:00] VITALS: BP 133/56
[2021-11-16] MEDS: HEPARIN SODIUM (PORCINE) 5000 UNITS/ML 1ML VIAL SC SCH ×2 (10:36→22:00)
[2021-11-16] MEDS: OMEPRAZOLE 20MG/10ML ORAL SUSP GT SCH (11:46)
[2021-11-16 13:00] VITALS: BP 147/51
[2021-11-16 17:00] VITALS: BP 147/53
[2021-11-16] MEDS: MICAFUNGIN SODIUM 100 MG in SODIUM CHL 0.9% 100 ML IV SCH (18:26)
[2021-11-16] MEDS: ATORVASTATIN 20 MG TAB PO SCH (22:00)
[2021-11-17] MEDS: HYDROcodone-ACET 5/325MG TAB PO PRN (01:24)
[2021-11-17 05:36] VITALS: BP 189/85
[2021-11-17] MEDS: SODIUM CHLOR 0.9% PF (SALINE LOCK) 10ML VIAL/SYR IV SCH ×3 (06:26→22:00)
[2021-11-17] MEDS: Nepro With Carb Steady 1 Liter Bottle GT SCH ×4 (06:26→22:00)
[2021-11-17] MEDS: ACCU-CHEK COMFORT CURVE STRIP VI SCH ×4 (06:27→22:00)
[2021-11-17] MEDS: InsuLIN REG 1unit/0.01ml Soln (100units/ml) SC SCH ×4 (06:28→22:00)
[2021-11-17 09:00] VITALS: BP 119/69
[2021-11-17] MEDS: ASPirin 81 mg TAB PO SCH (11:33)
[2021-11-17] MEDS: METOPROLOL TARTRATE 25 MG TAB PO SCH ×3 (11:33→23:34)
[2021-11-17] MEDS: ZINC SULFATE 220mg CAP or TAB PO SCH (11:33)
[2021-11-17] MEDS: ASCORBIC ACID 500 MG TAB PO SCH ×2 (11:33→22:00)
[2021-11-17] MEDS: HEPARIN SODIUM (PORCINE) 5000 UNITS/ML 1ML VIAL SC SCH ×2 (11:44→22:00)
[2021-11-17] MEDS: SEVELAMER 800 MG TAB PO SCH ×3 (12:07→18:52)
[2021-11-17] MEDS: B-COMPLEX W/ C & FOLIC ACID(NEPHROVITE TAB) PO SCH (12:07)
[2021-11-17] MEDS: OMEPRAZOLE 20MG/10ML ORAL SUSP GT SCH (12:08)
[2021-11-17 13:00] VITALS: BP 151/66
[2021-11-17 16:44] LABS: Basophils # (auto) 0.2 10 ^3/uL (0-0.2); Basophils % (auto) 0.6 % (0.0-2.0); Eosinophils # (auto) 0 10 ^3/uL (0-0.8); Eosinophils % (auto) 0.1 % (0.0-7.0); Hematocrit 30.6 % (36.0-46.0); Hemoglobin 9.7 g/dL (12.2-16.2); Lymphocytes # (auto) 0.6 10 ^3/uL (0.4-5.4); Lymphocytes % (auto) 2.1 % (10.0-50.0); Mean Corpuscular Hemoglobin 27.8 pg (28.0-32.0); Mean Corpuscular Hgb Conc. 31.6 g/dL (32.0-36.0); Monocytes % (auto) 3.7 % (0.0-12.0); Neutrophils # (auto) 26.3 10 ^3/uL (1.6-8.6); Neutrophils % (auto) 93.5 % (37.0-80.0); Red Blood Cells 3.48 10^6/uL (4.0-5.20); White Blood Cell 28.1 10^3/uL (4.4-10.8)
[2021-11-17 16:48] LABS: Red Cell Distribution Width 21.2 % (11.8-14.3)
[2021-11-17 17:00] VITALS: BP 177/76
[2021-11-17 17:26] LABS: Albumin 1.8 g/dL (3.4-5.0); Calcium 8.4 mg/dL (8.5-10.1); Potassium 3.6 mmol/L (3.5-5.1)
[2021-11-17 17:30] LABS: BUN/Creatinine Ratio 14.9; Bilirubin, Total 0.3 mg/dL (0.2-1.0); Total Protein 6.8 g/dL (6.4-8.2)
[2021-11-17] MEDS: MICAFUNGIN SODIUM 100 MG in SODIUM CHL 0.9% 100 ML IV SCH (18:52)
[2021-11-17 20:00] VITALS: BP 177/74
[2021-11-17] MEDS: ATORVASTATIN 20 MG TAB PO SCH (22:00)
[2021-11-18] MEDS: Nepro With Carb Steady 1 Liter Bottle GT SCH ×4 (06:00→22:29)
[2021-11-18] MEDS: SODIUM CHLOR 0.9% PF (SALINE LOCK) 10ML VIAL/SYR IV SCH ×3 (06:00→22:00)
[2021-11-18] MEDS ORDERED: AMIODARONE 450mg/250ml AE 250 ML IV SCH (06:30)
[2021-11-18] MEDS ORDERED: AMIODARONE HCL 150 MG in D5W 5% 100 ML IV ONE (06:30)
[2021-11-18] MEDS: InsuLIN REG 1unit/0.01ml Soln (100units/ml) SC SCH ×4 (06:51→22:28)
[2021-11-18] MEDS: ACCU-CHEK COMFORT CURVE STRIP VI SCH ×4 (06:54→22:00)
[2021-11-18 08:43] LABS: Basophils # (auto) 0.1 10 ^3/uL (0-0.2); Basophils % (auto) 0.4 % (0.0-2.0); Eosinophils # (auto) 0 10 ^3/uL (0-0.8); Eosinophils % (auto) 0.1 % (0.0-7.0); Hematocrit 29.1 % (36.0-46.0); Hemoglobin 9.2 g/dL (12.2-16.2); Lymphocytes # (auto) 0.5 10 ^3/uL (0.4-5.4); Lymphocytes % (auto) 2.1 % (10.0-50.0); Mean Corpuscular Hemoglobin 27.5 pg (28.0-32.0); Mean Corpuscular Hgb Conc. 31.4 g/dL (32.0-36.0); Mean Corpuscular Volume 87.6 fL (80.0-100.0); Monocytes # (auto) 1.1 10 ^3/uL (0-1.3); Monocytes % (auto) 4.2 % (0.0-12.0); Neutrophils # (auto) 23.3 10 ^3/uL (1.6-8.6); Neutrophils % (auto) 93.2 % (37.0-80.0); Nucleated Red Blood Cells % 0.1 %; Red Blood Cells 3.33 10^6/uL (4.0-5.20); Red Cell Distribution Width 21.6 % (11.8-14.3)
[2021-11-18 09:00] VITALS: BP 128/51
[2021-11-18] MEDS ORDERED: HEPARIN SODIUM (PORCINE) 5000 UNITS/ML 1ML VIAL IV ONE ×2 (09:00→10:00)
[2021-11-18] MEDS ORDERED: HEPARIN DRIP/D5W 100UNITS/ML 250 ML IV SCH (09:15)
[2021-11-18] MEDS: ASCORBIC ACID 500 MG TAB PO SCH ×2 (11:37→22:00)
[2021-11-18] MEDS: B-COMPLEX W/ C & FOLIC ACID(NEPHROVITE TAB) PO SCH (11:37)
[2021-11-18] MEDS: METOPROLOL TARTRATE 25 MG TAB PO SCH ×3 (11:38→23:00)
[2021-11-18] MEDS: ASPirin 81 mg TAB PO SCH (11:39)
[2021-11-18] MEDS: OMEPRAZOLE 20MG/10ML ORAL SUSP GT SCH (11:40)
[2021-11-18] MEDS: SEVELAMER 800 MG TAB PO SCH ×3 (11:50→20:10)
[2021-11-18] MEDS: ZINC SULFATE 220mg CAP or TAB PO SCH (11:50)
[2021-11-18] MEDS: amLODIPine BESYLATE 5 MG TAB PEG SCH (11:51)
[2021-11-18] MEDS: HEPARIN DRIP/D5W 100UNITS/ML 250 ML IV SCH (12:50)
[2021-11-18 13:00] VITALS: BP 117/42
[2021-11-18] MEDS: AMIODARONE 450mg/250ml AE 250 ML IV SCH (14:48)
[2021-11-18 17:00] VITALS: BP 141/56
[2021-11-18] MEDS: MICAFUNGIN SODIUM 100 MG in SODIUM CHL 0.9% 100 ML IV SCH (17:00)
[2021-11-18 18:58] LABS: INR 0.97 (0.9-1.15)
[2021-11-18 19:48] LABS: Partial Thromboplastin Time > 139.0 sec (23.6-33.0)
[2021-11-18 22:00] VITALS: BP 144/59
[2021-11-18] MEDS: ATORVASTATIN 20 MG TAB PO SCH (22:00)
[2021-11-19] MEDS: AMIODARONE 450mg/250ml AE 250 ML IV SCH (03:30)
[2021-11-19 04:13] LABS: Basophils # (auto) 0.1 10 ^3/uL (0-0.2); Basophils % (auto) 0.5 % (0.0-2.0); Eosinophils # (auto) 0.3 10 ^3/uL (0-0.8); Eosinophils % (auto) 1.4 % (0.0-7.0); Hematocrit 27.7 % (36.0-46.0); Hemoglobin 8.9 g/dL (12.2-16.2); Lymphocytes # (auto) 0.6 10 ^3/uL (0.4-5.4); Lymphocytes % (auto) 2.5 % (10.0-50.0); Mean Corpuscular Hgb Conc. 32.3 g/dL (32.0-36.0); Mean Corpuscular Volume 86.8 fL (80.0-100.0); Monocytes # (auto) 1.1 10 ^3/uL (0-1.3); Monocytes % (auto) 4.8 % (0.0-12.0); Neutrophils # (auto) 21.4 10 ^3/uL (1.6-8.6); Neutrophils % (auto) 90.8 % (37.0-80.0); Red Blood Cells 3.19 10^6/uL (4.0-5.20); White Blood Cell 23.6 10^3/uL (4.4-10.8)
[2021-11-19 04:30] LABS: BUN/Creatinine Ratio 17.8; Calcium 8.1 mg/dL (8.5-10.1); Potassium 4.1 mmol/L (3.5-5.1)
[2021-11-19 04:33] LABS: INR 0.96 (0.9-1.15)
[2021-11-19 04:34] LABS: Red Cell Distribution Width 20.7 % (11.8-14.3)
[2021-11-19 05:00] VITALS: BP 152/71
[2021-11-19 05:05] LABS: Partial Thromboplastin Time 79.1 sec (23.6-33.0)
[2021-11-19] MEDS: SODIUM CHLOR 0.9% PF (SALINE LOCK) 10ML VIAL/SYR IV SCH ×3 (06:00→22:00)
[2021-11-19] MEDS: Nepro With Carb Steady 1 Liter Bottle GT SCH ×4 (06:00→22:00)
[2021-11-19] MEDS: InsuLIN REG 1unit/0.01ml Soln (100units/ml) SC SCH ×4 (06:58→22:00)
[2021-11-19] MEDS: HEPARIN DRIP/D5W 100UNITS/ML 250 ML IV SCH ×2 (07:17→20:27)
[2021-11-19] MEDS: ACCU-CHEK COMFORT CURVE STRIP VI SCH ×4 (07:18→22:00)
[2021-11-19] MEDS: SEVELAMER 800 MG TAB PO SCH ×3 (08:44→17:56)
[2021-11-19 09:00] VITALS: BP 123/54
[2021-11-19] MEDS: B-COMPLEX W/ C & FOLIC ACID(NEPHROVITE TAB) PO SCH (10:00)
[2021-11-19] MEDS: AMIODARONE HCL 200 MG TAB PO SCH ×2 (10:33→22:00)
[2021-11-19] MEDS: METOPROLOL TARTRATE 25 MG TAB PO SCH ×2 (10:34→22:00)
[2021-11-19] MEDS: amLODIPine BESYLATE 5 MG TAB PEG SCH (10:35)
[2021-11-19] MEDS: ZINC SULFATE 220mg CAP or TAB PO SCH (10:35)
[2021-11-19] MEDS: ASPirin 81 mg TAB PO SCH (10:35)
[2021-11-19] MEDS: OMEPRAZOLE 20MG/10ML ORAL SUSP GT SCH (10:36)
[2021-11-19] MEDS: ASCORBIC ACID 500 MG TAB PO SCH ×2 (10:36→22:00)
[2021-11-19 12:15] LABS: INR 0.94 (0.9-1.15); Partial Thromboplastin Time 53.2 sec (23.6-33.0)
[2021-11-19 12:36] VITALS: BP 150/62
[2021-11-19 16:36] VITALS: BP 114/53
[2021-11-19] MEDS: MICAFUNGIN SODIUM 100 MG in SODIUM CHL 0.9% 100 ML IV SCH (18:35)
[2021-11-19 19:41] LABS: INR 0.95 (0.9-1.15); Partial Thromboplastin Time 52.9 sec (23.6-33.0)
[2021-11-19 22:00] VITALS: BP 152/63
[2021-11-19] MEDS: ATORVASTATIN 20 MG TAB PO SCH (22:00)
[2021-11-20 02:24] LABS: INR 0.94 (0.9-1.15); Partial Thromboplastin Time 37.4 sec (23.6-33.0)
[2021-11-20] MEDS ORDERED: NOREPINEPHRINE 8 MG/250ML KIT 250 ML IV ONE (03:38)
[2021-11-20 05:00] VITALS: BP 171/70
[2021-11-20 05:58] LABS: Basophils # (auto) 0.2 10 ^3/uL (0-0.2); Eosinophils # (auto) 0.3 10 ^3/uL (0-0.8); Eosinophils % (auto) 1.1 % (0.0-7.0); Hematocrit 28.1 % (36.0-46.0); Hemoglobin 9.2 g/dL (12.2-16.2); Lymphocytes # (auto) 0.7 10 ^3/uL (0.4-5.4); Mean Corpuscular Hemoglobin 28.8 pg (28.0-32.0); Mean Corpuscular Hgb Conc. 32.9 g/dL (32.0-36.0); Mean Corpuscular Volume 87.5 fL (80.0-100.0); Monocytes % (auto) 4.3 % (0.0-12.0); Neutrophils # (auto) 21.5 10 ^3/uL (1.6-8.6); Neutrophils % (auto) 90.6 % (37.0-80.0); Nucleated Red Blood Cells % 0.1 %; White Blood Cell 23.8 10^3/uL (4.4-10.8)
[2021-11-20] MEDS: Nepro With Carb Steady 1 Liter Bottle GT SCH ×4 (06:00→23:46)
[2021-11-20 06:10] LABS: INR 0.95 (0.9-1.15); Partial Thromboplastin Time 32.4 sec (23.6-33.0)
[2021-11-20 06:21] LABS: Potassium 4.4 mmol/L (3.5-5.1)
[2021-11-20 06:24] LABS: BUN/Creatinine Ratio 19.6
[2021-11-20 06:25] LABS: Red Cell Distribution Width 20.3 % (11.8-14.3)
[2021-11-20] MEDS: ACCU-CHEK COMFORT CURVE STRIP VI SCH ×4 (06:26→23:46)
[2021-11-20] MEDS: SODIUM CHLOR 0.9% PF (SALINE LOCK) 10ML VIAL/SYR IV SCH ×3 (06:26→23:46)
[2021-11-20] MEDS: InsuLIN REG 1unit/0.01ml Soln (100units/ml) SC SCH ×4 (06:51→23:59)
[2021-11-20 08:34] VITALS: BP 138/72
[2021-11-20] MEDS: SEVELAMER 800 MG TAB PO SCH ×3 (08:42→18:30)
[2021-11-20] MEDS: ASPirin 81 mg TAB PO SCH (10:45)
[2021-11-20] MEDS: AMIODARONE HCL 200 MG TAB PO SCH (10:45)
[2021-11-20] MEDS: OMEPRAZOLE 20MG/10ML ORAL SUSP GT SCH (10:45)
[2021-11-20] MEDS: B-COMPLEX W/ C & FOLIC ACID(NEPHROVITE TAB) PO SCH (10:45)
[2021-11-20] MEDS: amLODIPine BESYLATE 5 MG TAB PEG SCH (10:45)
[2021-11-20] MEDS: ZINC SULFATE 220mg CAP or TAB PO SCH (10:45)
[2021-11-20] MEDS: METOPROLOL TARTRATE 25 MG TAB PO SCH (10:45)
[2021-11-20] MEDS: ASCORBIC ACID 500 MG TAB PO SCH (11:15)
[2021-11-20] MEDS ORDERED: VANCOMYCIN 750mg/250ml 250 ML IV ONE (16:00)
[2021-11-20 17:00] VITALS: BP 117/36
[2021-11-20 17:31] LABS: INR 0.97 (0.9-1.15); Partial Thromboplastin Time 27.6 sec (23.6-33.0)
[2021-11-20 22:00] VITALS: BP 145/50
[2021-11-20] MEDS: B-COMPLEX W/ C & FOLIC ACID(NEPHROVITE TAB) PEG SCH (23:30)
[2021-11-20] MEDS: AMIODARONE HCL 200 MG TAB PEG SCH (23:47)
[2021-11-20] MEDS: METOPROLOL TARTRATE 25 MG TAB GT SCH (23:47)
[2021-11-20] MEDS: ATORVASTATIN 20 MG TAB PEG SCH (23:48)
[2021-11-20] MEDS: ASCORBIC ACID 500 MG TAB PEG SCH (23:49)
[2021-11-20 23:57] LABS: INR 0.98 (0.9-1.15); Partial Thromboplastin Time 50.9 sec (23.6-33.0)
[2021-11-21] MEDS: MICAFUNGIN SODIUM 100 MG in SODIUM CHL 0.9% 100 ML IV SCH ×2 (00:38→20:28)
[2021-11-21] MEDS: HEPARIN DRIP/D5W 100UNITS/ML 250 ML IV SCH ×2 (00:38→22:56)
[2021-11-21 05:00] VITALS: BP 161/51
[2021-11-21 06:10] LABS: Basophils # (auto) 0.1 10 ^3/uL (0-0.2); Basophils % (auto) 0.5 % (0.0-2.0); Eosinophils # (auto) 0.2 10 ^3/uL (0-0.8); Eosinophils % (auto) 1.3 % (0.0-7.0); Hematocrit 24.4 % (36.0-46.0); Hemoglobin 8.4 g/dL (12.2-16.2); Lymphocytes # (auto) 0.6 10 ^3/uL (0.4-5.4); Lymphocytes % (auto) 4.2 % (10.0-50.0); Mean Corpuscular Hemoglobin 29.9 pg (28.0-32.0); Mean Corpuscular Hgb Conc. 34.3 g/dL (32.0-36.0); Mean Corpuscular Volume 87.2 fL (80.0-100.0); Monocytes # (auto) 0.6 10 ^3/uL (0-1.3); Monocytes % (auto) 4.2 % (0.0-12.0); Neutrophils # (auto) 13.7 10 ^3/uL (1.6-8.6); Neutrophils % (auto) 89.8 % (37.0-80.0); White Blood Cell 15.3 10^3/uL (4.4-10.8)
[2021-11-21 06:15] LABS: Red Cell Distribution Width 20.6 % (11.8-14.3)
[2021-11-21] MEDS: Nepro With Carb Steady 1 Liter Bottle GT SCH ×4 (06:23→23:30)
[2021-11-21] MEDS: SODIUM CHLOR 0.9% PF (SALINE LOCK) 10ML VIAL/SYR IV SCH ×3 (06:24→23:31)
[2021-11-21] MEDS: ACCU-CHEK COMFORT CURVE STRIP VI SCH ×4 (06:24→23:32)
[2021-11-21] MEDS: InsuLIN REG 1unit/0.01ml Soln (100units/ml) SC SCH ×4 (06:28→23:33)
[2021-11-21 06:41] LABS: Potassium 4.6 mmol/L (3.5-5.1)
[2021-11-21 06:48] LABS: Albumin 1.5 g/dL (3.4-5.0); BUN/Creatinine Ratio 19.7; Calcium 7.9 mg/dL (8.5-10.1)
[2021-11-21 06:54] LABS: Bilirubin, Total 0.3 mg/dL (0.2-1.0); Total Protein 6.1 g/dL (6.4-8.2)
[2021-11-21] MEDS ORDERED: SODIUM CHL 0.9% 1000 ML BAG XX ONE (07:00)
[2021-11-21] MEDS: SEVELAMER 800 MG TAB PO SCH ×3 (08:00→18:00)
[2021-11-21 09:00] VITALS: BP 158/81
[2021-11-21] MEDS: ASPirin 81 mg TAB PEG SCH (09:05)
[2021-11-21] MEDS: METOPROLOL TARTRATE 25 MG TAB GT SCH ×2 (09:05→22:00)
[2021-11-21] MEDS: OMEPRAZOLE 20MG/10ML ORAL SUSP GT SCH (09:05)
[2021-11-21] MEDS: B-COMPLEX W/ C & FOLIC ACID(NEPHROVITE TAB) PEG SCH (09:06)
[2021-11-21] MEDS: AMIODARONE HCL 200 MG TAB PEG SCH ×2 (09:06→22:00)
[2021-11-21] MEDS: ZINC SULFATE 220mg CAP or TAB PO SCH (09:07)
[2021-11-21] MEDS: ASCORBIC ACID 500 MG TAB PEG SCH ×2 (09:07→23:32)
[2021-11-21] MEDS ORDERED: APIXABAN 2.5 MG TAB PEG SCH (10:00)
[2021-11-21] MEDS ORDERED: amLODIPine BESYLATE 5 MG TAB PEG SCH (10:00)
[2021-11-21 10:24] LABS: INR 0.96 (0.9-1.15); Partial Thromboplastin Time 32.7 sec (23.6-33.0)
[2021-11-21] MEDS: amLODIPine BESYLATE 5 MG TAB PEG SCH (11:00)
[2021-11-21 13:00] VITALS: BP 145/59
[2021-11-21] MEDS ORDERED: LIDOCAINE 2%HCL (LOCAL ANESTH.) INJ 20ML MDV ONE (15:07)
[2021-11-21] MEDS ORDERED: HEPARIN SODIUM (PORCINE) 5000 UNITS/ML 1ML VIAL ONE (16:38)
[2021-11-21] MEDS ORDERED: HEPARIN SODIUM (PORCINE) 5000 UNITS/ML 1ML VIAL IV ONE (20:30)
[2021-11-21] MEDS ORDERED: EPOETIN ALFA-EPBX 10,000 UNIT/1ML VIAL SC ONE (21:00)
[2021-11-21 21:37] LABS: Basophils # (auto) 0 10 ^3/uL (0-0.2); Basophils % (auto) 0.1 % (0.0-2.0); Eosinophils # (auto) 0.1 10 ^3/uL (0-0.8); Eosinophils % (auto) 0.6 % (0.0-7.0); Hematocrit 27.3 % (36.0-46.0); Lymphocytes # (auto) 0.6 10 ^3/uL (0.4-5.4); Lymphocytes % (auto) 2.4 % (10.0-50.0); Mean Corpuscular Hemoglobin 28.5 pg (28.0-32.0); Mean Corpuscular Hgb Conc. 32.8 g/dL (32.0-36.0); Mean Corpuscular Volume 86.9 fL (80.0-100.0); Monocytes # (auto) 0.9 10 ^3/uL (0-1.3); Monocytes % (auto) 3.5 % (0.0-12.0); Neutrophils # (auto) 23.9 10 ^3/uL (1.6-8.6); Neutrophils % (auto) 93.4 % (37.0-80.0); Red Blood Cells 3.15 10^6/uL (4.0-5.20); Red Cell Distribution Width 21.1 % (11.8-14.3); White Blood Cell 25.6 10^3/uL (4.4-10.8)
[2021-11-21 22:00] VITALS: BP 132/46
[2021-11-21] MEDS: ATORVASTATIN 20 MG TAB PEG SCH (23:32)
[2021-11-22] MEDS: InsuLIN REG 1unit/0.01ml Soln (100units/ml) SC SCH ×5 (01:54→23:23)
[2021-11-22 02:59] LABS: INR 1.01 (0.9-1.15); Partial Thromboplastin Time 68.8 sec (23.6-33.0)
[2021-11-22 05:00] VITALS: BP 128/48
[2021-11-22 06:21] LABS: Basophils # (auto) 0 10 ^3/uL (0-0.2); Basophils % (auto) 0.1 % (0.0-2.0); Eosinophils # (auto) 0 10 ^3/uL (0-0.8); Eosinophils % (auto) 0.1 % (0.0-7.0); Hematocrit 26.6 % (36.0-46.0); Hemoglobin 8.7 g/dL (12.2-16.2); Lymphocytes # (auto) 0.5 10 ^3/uL (0.4-5.4); Lymphocytes % (auto) 2.2 % (10.0-50.0); Mean Corpuscular Hemoglobin 28.9 pg (28.0-32.0); Mean Corpuscular Hgb Conc. 32.8 g/dL (32.0-36.0); Monocytes # (auto) 0.6 10 ^3/uL (0-1.3); Monocytes % (auto) 2.9 % (0.0-12.0); Neutrophils # (auto) 20.7 10 ^3/uL (1.6-8.6); Neutrophils % (auto) 94.7 % (37.0-80.0); Red Blood Cells 3.03 10^6/uL (4.0-5.20); Red Cell Distribution Width 20.9 % (11.8-14.3); White Blood Cell 21.9 10^3/uL (4.4-10.8)
[2021-11-22 06:36] LABS: Calcium 7.8 mg/dL (8.5-10.1)
[2021-11-22 06:38] LABS: BUN/Creatinine Ratio 18.9
[2021-11-22] MEDS: SODIUM CHLOR 0.9% PF (SALINE LOCK) 10ML VIAL/SYR IV SCH ×3 (07:36→23:15)
[2021-11-22] MEDS: ACCU-CHEK COMFORT CURVE STRIP VI SCH ×4 (07:37→22:00)
[2021-11-22] MEDS: Nepro With Carb Steady 1 Liter Bottle GT SCH ×4 (07:37→23:15)
[2021-11-22] MEDS: SEVELAMER 800 MG TAB PO SCH ×3 (07:59→17:44)
[2021-11-22 08:43] VITALS: BP 123/55
[2021-11-22] MEDS: AMIODARONE HCL 200 MG TAB PEG SCH ×2 (10:00→23:16)
[2021-11-22] MEDS: amLODIPine BESYLATE 5 MG TAB PEG SCH (10:00)
[2021-11-22] MEDS: OMEPRAZOLE 20MG/10ML ORAL SUSP GT SCH (10:14)
[2021-11-22] MEDS: FUROSEMIDE 100 MG/10ML VIAL IV SCH (10:14)
[2021-11-22] MEDS: METOPROLOL TARTRATE 25 MG TAB GT SCH ×2 (10:14→23:15)
[2021-11-22] MEDS: ASPirin 81 mg TAB PEG SCH (10:15)
[2021-11-22] MEDS: B-COMPLEX W/ C & FOLIC ACID(NEPHROVITE TAB) PEG SCH (10:15)
[2021-11-22] MEDS: ZINC SULFATE 220mg CAP or TAB PO SCH (10:16)
[2021-11-22] MEDS: ASCORBIC ACID 500 MG TAB PEG SCH ×2 (10:16→23:17)
[2021-11-22 10:20] LABS: INR 0.97 (0.9-1.15)
[2021-11-22 12:00] VITALS: BP 137/61
[2021-11-22 16:31] VITALS: BP 154/58
[2021-11-22] MEDS: MICAFUNGIN SODIUM 100 MG in SODIUM CHL 0.9% 100 ML IV SCH (17:00)
[2021-11-22 18:18] LABS: INR 0.97 (0.9-1.15); Partial Thromboplastin Time 61.2 sec (23.6-33.0)
[2021-11-22 22:00] VITALS: BP 168/60
[2021-11-22] MEDS: ATORVASTATIN 20 MG TAB PEG SCH (23:17)
[2021-11-23] MEDS: HEPARIN DRIP/D5W 100UNITS/ML 250 ML IV SCH ×2 (00:27→20:30)
[2021-11-23 05:00] VITALS: BP 169/68
[2021-11-23 06:22] LABS: Basophils # (auto) 0.1 10 ^3/uL (0-0.2); Basophils % (auto) 0.3 % (0.0-2.0); Eosinophils # (auto) 0.1 10 ^3/uL (0-0.8); Eosinophils % (auto) 0.6 % (0.0-7.0); Hematocrit 26.6 % (36.0-46.0); Hemoglobin 8.7 g/dL (12.2-16.2); Lymphocytes # (auto) 0.5 10 ^3/uL (0.4-5.4); Lymphocytes % (auto) 2.1 % (10.0-50.0); Mean Corpuscular Hemoglobin 28.5 pg (28.0-32.0); Mean Corpuscular Hgb Conc. 32.7 g/dL (32.0-36.0); Monocytes # (auto) 0.7 10 ^3/uL (0-1.3); Monocytes % (auto) 3.1 % (0.0-12.0); Neutrophils % (auto) 93.9 % (37.0-80.0); Red Blood Cells 3.05 10^6/uL (4.0-5.20); White Blood Cell 21.4 10^3/uL (4.4-10.8)
[2021-11-23] MEDS: Nepro With Carb Steady 1 Liter Bottle GT SCH ×4 (06:23→23:08)
[2021-11-23] MEDS: SODIUM CHLOR 0.9% PF (SALINE LOCK) 10ML VIAL/SYR IV SCH ×3 (06:25→23:08)
[2021-11-23 07:00] LABS: Red Cell Distribution Width 20.4 % (11.8-14.3)
[2021-11-23] MEDS: ACCU-CHEK COMFORT CURVE STRIP VI SCH ×4 (07:09→23:11)
[2021-11-23 09:00] VITALS: BP 184/74
[2021-11-23] MEDS: ZINC SULFATE 220mg CAP or TAB PO SCH (09:03)
[2021-11-23] MEDS: B-COMPLEX W/ C & FOLIC ACID(NEPHROVITE TAB) PEG SCH (09:03)
[2021-11-23] MEDS: ASPirin 81 mg TAB PEG SCH (09:04)
[2021-11-23] MEDS: SEVELAMER 800 MG TAB PO SCH ×3 (09:04→17:30)
[2021-11-23] MEDS: ASCORBIC ACID 500 MG TAB PEG SCH ×2 (09:04→23:06)
[2021-11-23] MEDS: AMIODARONE HCL 200 MG TAB PEG SCH ×2 (09:04→23:07)
[2021-11-23] MEDS: OMEPRAZOLE 20MG/10ML ORAL SUSP GT SCH (09:05)
[2021-11-23] MEDS: FUROSEMIDE 100 MG/10ML VIAL IV SCH (09:07)
[2021-11-23] MEDS: METOPROLOL TARTRATE 25 MG TAB GT SCH ×2 (09:08→23:11)
[2021-11-23] MEDS: amLODIPine BESYLATE 5 MG TAB PEG SCH (09:08)
[2021-11-23] MEDS: InsuLIN REG 1unit/0.01ml Soln (100units/ml) SC SCH ×4 (09:09→23:32)
[2021-11-23 09:35] LABS: Partial Thromboplastin Time 34.5 sec (23.6-33.0)
[2021-11-23] MEDS ORDERED: SODIUM CHL 0.9% 1000 ML BAG XX ONE (10:00)
[2021-11-23 13:00] VITALS: BP 136/64
[2021-11-23] MEDS ORDERED: VANCOMYCIN 500 MG in D5W 5% 100 ML IV ONE (16:00)
[2021-11-23 17:00] VITALS: BP 158/59
[2021-11-23] MEDS: MICAFUNGIN SODIUM 100 MG in SODIUM CHL 0.9% 100 ML IV SCH (17:10)
[2021-11-23] MEDS ORDERED: EPOETIN ALFA-EPBX 10,000 UNIT/1ML VIAL SC ONE (21:00)
[2021-11-23 22:00] VITALS: BP 161/58
[2021-11-23] MEDS: ATORVASTATIN 20 MG TAB PEG SCH (23:06)
[2021-11-24 05:00] VITALS: BP 172/54
[2021-11-24 05:03] LABS: Basophils # (auto) 0.1 10 ^3/uL (0-0.2); Basophils % (auto) 0.3 % (0.0-2.0); Eosinophils # (auto) 0.2 10 ^3/uL (0-0.8); Eosinophils % (auto) 0.9 % (0.0-7.0)
[2021-11-24 05:06] LABS: Hematocrit 24.9 % (36.0-46.0); Hemoglobin 8.3 g/dL (12.2-16.2); Lymphocytes # (auto) 0.6 10 ^3/uL (0.4-5.4); Lymphocytes % (auto) 2.8 % (10.0-50.0); Mean Corpuscular Hemoglobin 28.7 pg (28.0-32.0); Mean Corpuscular Hgb Conc. 33.2 g/dL (32.0-36.0); Mean Corpuscular Volume 86.3 fL (80.0-100.0); Monocytes # (auto) 0.6 10 ^3/uL (0-1.3); Monocytes % (auto) 2.9 % (0.0-12.0); Neutrophils # (auto) 19.1 10 ^3/uL (1.6-8.6); Neutrophils % (auto) 93.1 % (37.0-80.0); Red Blood Cells 2.89 10^6/uL (4.0-5.20); White Blood Cell 20.5 10^3/uL (4.4-10.8)
[2021-11-24 05:20] LABS: Red Cell Distribution Width 20.8 % (11.8-14.3)
[2021-11-24 05:30] LABS: Calcium 8.1 mg/dL (8.5-10.1)
[2021-11-24] MEDS: Nepro With Carb Steady 1 Liter Bottle GT SCH ×4 (06:22→23:21)
[2021-11-24] MEDS: SODIUM CHLOR 0.9% PF (SALINE LOCK) 10ML VIAL/SYR IV SCH ×3 (06:22→23:21)
[2021-11-24] MEDS: ACCU-CHEK COMFORT CURVE STRIP VI SCH ×4 (07:28→23:22)
[2021-11-24] MEDS: InsuLIN REG 1unit/0.01ml Soln (100units/ml) SC SCH ×4 (08:00→23:24)
[2021-11-24] MEDS: SEVELAMER 800 MG TAB PO SCH ×3 (08:00→18:39)
[2021-11-24 09:26] VITALS: BP 210/50
[2021-11-24 12:40] VITALS: BP 155/39
[2021-11-24] MEDS: FUROSEMIDE 100 MG/10ML VIAL IV SCH (13:27)
[2021-11-24] MEDS: AMIODARONE HCL 200 MG TAB PEG SCH ×2 (13:27→23:22)
[2021-11-24] MEDS: ASPirin 81 mg TAB PEG SCH (13:27)
[2021-11-24] MEDS: METOPROLOL TARTRATE 25 MG TAB GT SCH ×2 (13:27→23:21)
[2021-11-24] MEDS: B-COMPLEX W/ C & FOLIC ACID(NEPHROVITE TAB) PEG SCH (13:28)
[2021-11-24] MEDS: ZINC SULFATE 220mg CAP or TAB PO SCH (13:28)
[2021-11-24] MEDS: ASCORBIC ACID 500 MG TAB PEG SCH ×2 (13:28→23:22)
[2021-11-24] MEDS: OMEPRAZOLE 20MG/10ML ORAL SUSP GT SCH (13:32)
[2021-11-24 16:52] VITALS: BP 167/43
[2021-11-24] MEDS: amLODIPine BESYLATE 5 MG TAB PEG SCH (17:25)
[2021-11-24] MEDS: MICAFUNGIN SODIUM 100 MG in SODIUM CHL 0.9% 100 ML IV SCH (17:26)
[2021-11-24] MEDS: HEPARIN DRIP/D5W 100UNITS/ML 250 ML IV SCH (20:30)
[2021-11-24] MEDS ORDERED: EPOETIN ALFA-EPBX 10,000 UNIT/1ML VIAL SC ONE (21:00)
[2021-11-24 22:21] VITALS: BP 125/74
[2021-11-24] MEDS: ATORVASTATIN 20 MG TAB PEG SCH (23:22)
[2021-11-25 04:39] VITALS: BP 105/66
[2021-11-25 05:09] LABS: Basophils # (auto) 0.2 10 ^3/uL (0-0.2); Eosinophils # (auto) 0.3 10 ^3/uL (0-0.8); Eosinophils % (auto) 1.5 % (0.0-7.0); Hematocrit 24.9 % (36.0-46.0); Hemoglobin 8.2 g/dL (12.2-16.2); Lymphocytes # (auto) 0.4 10 ^3/uL (0.4-5.4); Lymphocytes % (auto) 2.1 % (10.0-50.0); Mean Corpuscular Hemoglobin 28.9 pg (28.0-32.0); Mean Corpuscular Hgb Conc. 32.8 g/dL (32.0-36.0); Mean Corpuscular Volume 88.2 fL (80.0-100.0); Monocytes # (auto) 0.7 10 ^3/uL (0-1.3); Monocytes % (auto) 3.9 % (0.0-12.0); Neutrophils # (auto) 15.7 10 ^3/uL (1.6-8.6); Neutrophils % (auto) 91.5 % (37.0-80.0); Red Blood Cells 2.83 10^6/uL (4.0-5.20); White Blood Cell 17.2 10^3/uL (4.4-10.8)
[2021-11-25 05:11] LABS: Red Cell Distribution Width 20.9 % (11.8-14.3)
[2021-11-25 05:30] LABS: Potassium 3.6 mmol/L (3.5-5.1)
[2021-11-25 05:37] LABS: Calcium 8.4 mg/dL (8.5-10.1)
[2021-11-25] MEDS: Nepro With Carb Steady 1 Liter Bottle GT SCH ×4 (06:00→22:04)
[2021-11-25] MEDS: SODIUM CHLOR 0.9% PF (SALINE LOCK) 10ML VIAL/SYR IV SCH ×3 (06:00→22:04)
[2021-11-25] MEDS: InsuLIN REG 1unit/0.01ml Soln (100units/ml) SC SCH ×4 (07:00→22:27)
[2021-11-25] MEDS: ACCU-CHEK COMFORT CURVE STRIP VI SCH ×4 (07:00→22:05)
[2021-11-25] MEDS: SEVELAMER 800 MG TAB PO SCH ×3 (08:00→18:28)
[2021-11-25] MEDS: OMEPRAZOLE 20MG/10ML ORAL SUSP GT SCH (11:35)
[2021-11-25] MEDS: METOPROLOL TARTRATE 25 MG TAB GT SCH ×2 (11:35→22:00)
[2021-11-25] MEDS: AMIODARONE HCL 200 MG TAB PEG SCH ×2 (11:35→22:04)
[2021-11-25] MEDS: FUROSEMIDE 100 MG/10ML VIAL IV SCH (11:36)
[2021-11-25] MEDS: amLODIPine BESYLATE 5 MG TAB PEG SCH (11:36)
[2021-11-25] MEDS: B-COMPLEX W/ C & FOLIC ACID(NEPHROVITE TAB) PEG SCH (11:36)
[2021-11-25] MEDS: ASPirin 81 mg TAB PEG SCH (11:36)
[2021-11-25] MEDS: ASCORBIC ACID 500 MG TAB PEG SCH ×2 (11:37→22:05)
[2021-11-25] MEDS: ZINC SULFATE 220mg CAP or TAB PO SCH (11:37)
[2021-11-25 13:00] VITALS: BP 124/49
[2021-11-25 17:00] VITALS: BP 133/56
[2021-11-25] MEDS: MICAFUNGIN SODIUM 100 MG in SODIUM CHL 0.9% 100 ML IV SCH (18:28)
[2021-11-25] MEDS: HEPARIN DRIP/D5W 100UNITS/ML 250 ML IV SCH (20:30)
[2021-11-25 21:25] LABS: INR 1.02 (0.9-1.15); Partial Thromboplastin Time 33.9 sec (23.6-33.0)
[2021-11-25 21:53] VITALS: BP 128/49
[2021-11-25] MEDS: ATORVASTATIN 20 MG TAB PEG SCH (22:04)
[2021-11-26 03:17] LABS: Partial Thromboplastin Time 33.3 sec (23.6-33.0)
[2021-11-26 05:00] VITALS: BP 135/49
[2021-11-26] MEDS: Nepro With Carb Steady 1 Liter Bottle GT SCH ×4 (05:47→22:00)
[2021-11-26] MEDS: SODIUM CHLOR 0.9% PF (SALINE LOCK) 10ML VIAL/SYR IV SCH ×3 (05:47→23:05)
[2021-11-26] MEDS: ACCU-CHEK COMFORT CURVE STRIP VI SCH ×4 (06:17→22:00)
[2021-11-26] MEDS: InsuLIN REG 1unit/0.01ml Soln (100units/ml) SC SCH ×4 (06:19→23:08)
[2021-11-26] MEDS ORDERED: SODIUM CHL 0.9% 1000 ML BAG XX ONE (07:00)
[2021-11-26] MEDS: SEVELAMER 800 MG TAB PO SCH ×3 (08:00→18:00)
[2021-11-26 08:19] LABS: Calcium 8.7 mg/dL (8.5-10.1); Potassium 3.8 mmol/L (3.5-5.1)
[2021-11-26 08:21] LABS: BUN/Creatinine Ratio 18.3
[2021-11-26 08:22] LABS: INR 0.98 (0.9-1.15); Partial Thromboplastin Time 32.8 sec (23.6-33.0)
[2021-11-26 09:00] VITALS: BP 194/68
[2021-11-26] MEDS: amLODIPine BESYLATE 5 MG TAB PEG SCH (10:00)
[2021-11-26] MEDS: ZINC SULFATE 220mg CAP or TAB PO SCH (10:00)
[2021-11-26] MEDS: FUROSEMIDE 100 MG/10ML VIAL IV SCH (10:00)
[2021-11-26] MEDS: OMEPRAZOLE 20MG/10ML ORAL SUSP GT SCH (10:00)
[2021-11-26] MEDS: APIXABAN 2.5 MG TAB PO SCH ×2 (10:00→23:06)
[2021-11-26] MEDS: ASPirin 81 mg TAB PEG SCH (10:00)
[2021-11-26] MEDS: B-COMPLEX W/ C & FOLIC ACID(NEPHROVITE TAB) PEG SCH (10:00)
[2021-11-26] MEDS: ASCORBIC ACID 500 MG TAB PEG SCH ×2 (10:00→23:05)
[2021-11-26] MEDS: AMIODARONE HCL 200 MG TAB PEG SCH ×2 (10:00→23:05)
[2021-11-26] MEDS: METOPROLOL TARTRATE 25 MG TAB GT SCH ×2 (10:00→22:00)
[2021-11-26 12:30] VITALS: BP 153/48
[2021-11-26 17:00] VITALS: BP 156/41
[2021-11-26] MEDS: MICAFUNGIN SODIUM 100 MG in SODIUM CHL 0.9% 100 ML IV SCH ×2 (17:00→18:12)
[2021-11-26] MEDS ORDERED: EPOETIN ALFA-EPBX 10,000 UNIT/1ML VIAL SC ONE (21:00)
[2021-11-26 22:00] VITALS: BP 107/46
[2021-11-26] MEDS: ATORVASTATIN 20 MG TAB PEG SCH (23:05)
[2021-11-27 05:00] VITALS: BP 153/72
[2021-11-27 06:30] LABS: Potassium 3.7 mmol/L (3.5-5.1)
[2021-11-27 06:36] LABS: BUN/Creatinine Ratio 16.9; Calcium 8.6 mg/dL (8.5-10.1)
[2021-11-27] MEDS: Nepro With Carb Steady 1 Liter Bottle GT SCH ×3 (06:45→21:51)
[2021-11-27] MEDS: SODIUM CHLOR 0.9% PF (SALINE LOCK) 10ML VIAL/SYR IV SCH ×3 (06:45→21:51)
[2021-11-27] MEDS: ACCU-CHEK COMFORT CURVE STRIP VI SCH ×4 (06:45→21:52)
[2021-11-27] MEDS: InsuLIN REG 1unit/0.01ml Soln (100units/ml) SC SCH ×4 (06:58→22:22)
[2021-11-27] MEDS: SEVELAMER 800 MG TAB PO SCH ×2 (08:00→12:00)
[2021-11-27 08:42] VITALS: BP 164/61
[2021-11-27] MEDS: OMEPRAZOLE 20MG/10ML ORAL SUSP GT SCH (10:00)
[2021-11-27] MEDS: ZINC SULFATE 220mg CAP or TAB PO SCH (10:00)
[2021-11-27] MEDS: ASCORBIC ACID 500 MG TAB PEG SCH ×2 (11:21→21:52)
[2021-11-27] MEDS: amLODIPine BESYLATE 5 MG TAB PEG SCH (11:22)
[2021-11-27] MEDS: APIXABAN 2.5 MG TAB PO SCH (11:22)
[2021-11-27] MEDS: AMIODARONE HCL 200 MG TAB PEG SCH ×2 (11:22→21:51)
[2021-11-27] MEDS: B-COMPLEX W/ C & FOLIC ACID(NEPHROVITE TAB) PEG SCH (11:22)
[2021-11-27] MEDS: ASPirin 81 mg TAB PEG SCH (11:22)
[2021-11-27] MEDS: METOPROLOL TARTRATE 25 MG TAB GT SCH ×2 (11:23→21:52)
[2021-11-27] MEDS: FUROSEMIDE 100 MG/10ML VIAL IV SCH (11:32)
[2021-11-27 13:00] VITALS: BP 149/49
[2021-11-27 16:48] VITALS: BP 138/51
[2021-11-27] MEDS: CALCIUM ACETATE 667 MG CAP PEG SCH (17:51)
[2021-11-27 21:18] VITALS: BP 142/59
[2021-11-27] MEDS: APIXABAN 2.5 MG TAB PEG SCH (21:52)
[2021-11-27] MEDS: ATORVASTATIN 20 MG TAB PEG SCH (21:52)
[2021-11-28] VITALS (22 sets, daily range): BP systolic 95–163; BP diastolic 32–60
[2021-11-28] MEDS: METOPROLOL TARTRATE 25 MG TAB GT SCH ×2 (01:03→10:00)
[2021-11-28 05:55] LABS: Basophils # (auto) 0.1 10 ^3/uL (0-0.2); Eosinophils # (auto) 0.1 10 ^3/uL (0-0.8); Eosinophils % (auto) 0.6 % (0.0-7.0); Lymphocytes # (auto) 0.7 10 ^3/uL (0.4-5.4); Monocytes # (auto) 0.6 10 ^3/uL (0-1.3); White Blood Cell 23.3 10^3/uL (4.4-10.8)
[2021-11-28 05:57] LABS: Basophils % (auto) 0.3 % (0.0-2.0); Hematocrit 24.9 % (36.0-46.0); Mean Corpuscular Hemoglobin 28.9 pg (28.0-32.0); Mean Corpuscular Hgb Conc. 32.1 g/dL (32.0-36.0); Monocytes % (auto) 2.6 % (0.0-12.0); Neutrophils # (auto) 21.8 10 ^3/uL (1.6-8.6); Neutrophils % (auto) 93.5 % (37.0-80.0); Nucleated Red Blood Cells % 0.1 %; Red Blood Cells 2.77 10^6/uL (4.0-5.20)
[2021-11-28 06:11] LABS: Calcium 8.4 mg/dL (8.5-10.1); Potassium 4.2 mmol/L (3.5-5.1)
[2021-11-28 06:13] LABS: BUN/Creatinine Ratio 18.3
[2021-11-28 06:23] LABS: Red Cell Distribution Width 20.9 % (11.8-14.3)
[2021-11-28] MEDS: SODIUM CHLOR 0.9% PF (SALINE LOCK) 10ML VIAL/SYR IV SCH ×3 (06:40→22:06)
[2021-11-28] MEDS: Nepro With Carb Steady 1 Liter Bottle GT SCH ×4 (06:40→22:06)
[2021-11-28] MEDS: InsuLIN REG 1unit/0.01ml Soln (100units/ml) SC SCH ×4 (06:41→22:08)
[2021-11-28] MEDS: ACCU-CHEK COMFORT CURVE STRIP VI SCH ×4 (06:42→22:06)
[2021-11-28] MEDS ORDERED: SODIUM CHL 0.9% 1000 ML BAG XX ONE (07:00)
[2021-11-28] MEDS: CALCIUM ACETATE 667 MG CAP PEG SCH ×3 (08:00→17:49)
[2021-11-28] MEDS: OMEPRAZOLE 20MG/10ML ORAL SUSP GT SCH (10:00)
[2021-11-28] MEDS: ASPirin 81 mg TAB PEG SCH (10:00)
[2021-11-28] MEDS: ASCORBIC ACID 500 MG TAB PEG SCH ×2 (10:00→22:06)
[2021-11-28] MEDS: ZINC SULFATE 220mg CAP or TAB PO SCH (10:00)
[2021-11-28] MEDS: amLODIPine BESYLATE 5 MG TAB PEG SCH (10:00)
[2021-11-28] MEDS: FUROSEMIDE 100 MG/10ML VIAL IV SCH (10:00)
[2021-11-28] MEDS: APIXABAN 2.5 MG TAB PEG SCH ×2 (10:00→22:06)
[2021-11-28] MEDS: AMIODARONE HCL 200 MG TAB PEG SCH (10:00)
[2021-11-28] MEDS: B-COMPLEX W/ C & FOLIC ACID(NEPHROVITE TAB) PEG SCH (10:00)
[2021-11-28] MEDS: MICAFUNGIN SODIUM 100 MG in SODIUM CHL 0.9% 100 ML IV SCH (17:00)
[2021-11-28] MEDS: PROPOFOL 100 ML IV SCH (20:30)
[2021-11-28] MEDS ORDERED: MORPHINE SULFATE 4 MG/ML SYR/VIAL IV PRN (20:30)
[2021-11-28] MEDS: fentaNYL Drip 2500mCg/250mlNS 250 ML IV SCH (20:47)
[2021-11-28] MEDS ORDERED: EPOETIN ALFA-EPBX 10,000 UNIT/1ML VIAL SC ONE (21:00)
[2021-11-28] MEDS ORDERED: VANCOMYCIN PER PHARMACY 0 MG IV SCH (21:15)
[2021-11-28 21:31] LABS: Basophils # (auto) 0 10 ^3/uL (0-0.2); Basophils % (auto) 0.2 % (0.0-2.0); Eosinophils # (auto) 0.1 10 ^3/uL (0-0.8); Eosinophils % (auto) 0.3 % (0.0-7.0); Hemoglobin 7.1 g/dL (12.2-16.2); Lymphocytes # (auto) 0.3 10 ^3/uL (0.4-5.4); Mean Corpuscular Hemoglobin 29.1 pg (28.0-32.0); Mean Corpuscular Hgb Conc. 32.4 g/dL (32.0-36.0); Mean Corpuscular Volume 89.6 fL (80.0-100.0); Monocytes # (auto) 0.5 10 ^3/uL (0-1.3); Monocytes % (auto) 1.8 % (0.0-12.0); Neutrophils % (auto) 96.7 % (37.0-80.0); Red Blood Cells 2.46 10^6/uL (4.0-5.20); White Blood Cell 26.8 10^3/uL (4.4-10.8)
[2021-11-28 21:44] LABS: Albumin 1.5 g/dL (3.4-5.0); Calcium 8.5 mg/dL (8.5-10.1)
[2021-11-28 21:50] LABS: BUN/Creatinine Ratio 16.1; Bilirubin, Total 0.3 mg/dL (0.2-1.0); Total Protein 5.9 g/dL (6.4-8.2)
[2021-11-28 22:00] LABS: Red Cell Distribution Width 20.8 % (11.8-14.3)
[2021-11-28] MEDS ORDERED: IPRATROPIUM BROM 0.5 MG/2.5ML INH SOL NEB SCH (22:00)
[2021-11-28] MEDS: DOPamine 1600MCG/ML D5W 250 ML IV SCH (22:05)
[2021-11-28] MEDS: ATORVASTATIN 20 MG TAB PEG SCH (22:06)
[2021-11-29] VITALS (93 sets, daily range): BP systolic 63–173; BP diastolic 25–113
[2021-11-29] MEDS: ACCU-CHEK COMFORT CURVE STRIP VI SCH ×4 (06:33→22:50)
[2021-11-29] MEDS: SODIUM CHLOR 0.9% PF (SALINE LOCK) 10ML VIAL/SYR IV SCH ×3 (06:33→22:55)
[2021-11-29] MEDS: Nepro With Carb Steady 1 Liter Bottle GT SCH ×4 (06:33→22:55)
[2021-11-29] MEDS: InsuLIN REG 1unit/0.01ml Soln (100units/ml) SC SCH ×4 (06:34→22:00)
[2021-11-29] MEDS: CALCIUM ACETATE 667 MG CAP PEG SCH ×3 (09:52→17:55)
[2021-11-29] MEDS: ZINC SULFATE 220mg CAP or TAB PO SCH (09:53)
[2021-11-29] MEDS: APIXABAN 2.5 MG TAB PEG SCH ×2 (09:53→22:54)
[2021-11-29] MEDS: ASPirin 81 mg TAB PEG SCH (09:53)
[2021-11-29] MEDS: amLODIPine BESYLATE 5 MG TAB PEG SCH (09:53)
[2021-11-29] MEDS: ASCORBIC ACID 500 MG TAB PEG SCH ×2 (09:53→22:56)
[2021-11-29] MEDS: B-COMPLEX W/ C & FOLIC ACID(NEPHROVITE TAB) PEG SCH (09:54)
[2021-11-29] MEDS: FUROSEMIDE 100 MG/10ML VIAL IV SCH (09:54)
[2021-11-29] MEDS: OMEPRAZOLE 20MG/10ML ORAL SUSP GT SCH (10:30)
[2021-11-29] MEDS ORDERED: NOREPINEPHRINE 8 MG/250ML KIT 250 ML IV ONE (11:30)
[2021-11-29] MEDS: NOREPINEPHRINE 8 MG/250ML KIT 250 ML IV SCH (14:58)
[2021-11-29] MEDS ORDERED: VANCOMYCIN 750mg/250ml 250 ML IV ONE (15:30)
[2021-11-29] MEDS: MICAFUNGIN SODIUM 100 MG in SODIUM CHL 0.9% 100 ML IV SCH (17:54)
[2021-11-29] MEDS: DOPamine 1600MCG/ML D5W 250 ML IV SCH (17:56)
[2021-11-29] MEDS: PROPOFOL 100 ML IV SCH (20:30)
[2021-11-29] MEDS: fentaNYL Drip 2500mCg/250mlNS 250 ML IV SCH (20:30)
[2021-11-29 22:32] LABS: Albumin 1.7 g/dL (3.4-5.0); Calcium 8.9 mg/dL (8.5-10.1); Magnesium 2.4 mg/dL (1.6-2.6); Potassium 3.9 mmol/L (3.5-5.1)
[2021-11-29 22:34] LABS: BUN/Creatinine Ratio 17.3
[2021-11-29 22:37] LABS: Bilirubin, Total 0.3 mg/dL (0.2-1.0); Total Protein 6.5 g/dL (6.4-8.2)
[2021-11-29] MEDS: ATORVASTATIN 20 MG TAB PEG SCH (22:54)
[2021-11-30] VITALS (90 sets, daily range): BP systolic 87–172; BP diastolic 24–98
[2021-11-30] MEDS: fentaNYL Drip 2500mCg/250mlNS 250 ML IV SCH (06:17)
[2021-11-30] MEDS: Nepro With Carb Steady 1 Liter Bottle GT SCH ×4 (06:18→22:40)
[2021-11-30] MEDS: SODIUM CHLOR 0.9% PF (SALINE LOCK) 10ML VIAL/SYR IV SCH ×3 (06:19→22:40)
[2021-11-30] MEDS: InsuLIN REG 1unit/0.01ml Soln (100units/ml) SC SCH ×4 (06:20→21:53)
[2021-11-30] MEDS: ACCU-CHEK COMFORT CURVE STRIP VI SCH ×4 (06:23→21:54)
[2021-11-30] MEDS: ACETAMINOPHEN 325 MG TAB PO PRN ×2 (06:53→17:00)
[2021-11-30] MEDS: CALCIUM ACETATE 667 MG CAP PEG SCH ×3 (08:44→18:10)
[2021-11-30] MEDS: B-COMPLEX W/ C & FOLIC ACID(NEPHROVITE TAB) PEG SCH (09:11)
[2021-11-30] MEDS: ASPirin 81 mg TAB PEG SCH (09:11)
[2021-11-30] MEDS: ZINC SULFATE 220mg CAP or TAB PO SCH (09:11)
[2021-11-30] MEDS: APIXABAN 2.5 MG TAB PEG SCH ×2 (09:11→22:40)
[2021-11-30] MEDS: ASCORBIC ACID 500 MG TAB PEG SCH ×2 (09:11→22:40)
[2021-11-30] MEDS: OMEPRAZOLE 20MG/10ML ORAL SUSP GT SCH (09:12)
[2021-11-30] MEDS: FUROSEMIDE 100 MG/10ML VIAL IV SCH (09:12)
[2021-11-30] MEDS: amLODIPine BESYLATE 5 MG TAB PEG SCH (10:00)
[2021-11-30] MEDS: NOREPINEPHRINE 8 MG/250ML KIT 250 ML IV SCH (11:00)
[2021-11-30] MEDS: DOPamine 1600MCG/ML D5W 250 ML IV SCH (14:22)
[2021-11-30] MEDS: MICAFUNGIN SODIUM 100 MG in SODIUM CHL 0.9% 100 ML IV SCH (16:59)
[2021-11-30] MEDS: ATORVASTATIN 20 MG TAB PEG SCH (22:40)
[2021-12-01] VITALS (62 sets, daily range): BP systolic 93–182; BP diastolic 32–92
[2021-12-01 04:49] LABS: Hematocrit 20.5 % (36.0-46.0); Mean Corpuscular Hemoglobin 28.9 pg (28.0-32.0); Mean Corpuscular Hgb Conc. 31.9 g/dL (32.0-36.0); Red Blood Cells 2.26 10^6/uL (4.0-5.20)
[2021-12-01 04:54] LABS: Mean Corpuscular Volume 90.6 fL (80.0-100.0); White Blood Cell 27.3 10^3/uL (4.4-10.8)
[2021-12-01 05:43] LABS: Hemoglobin 6.5 g/dL (12.2-16.2)
[2021-12-01 05:45] LABS: Basophils % (manual) 0 (0.0-2.0); Blast Cells 0; Eosinophils % (manual) 0 (0-7); Metamyelocytes % 0; Myelocytes % 0; Promyelocytes % 0; Reactive Lymphocytes 0
[2021-12-01 05:51] LABS: Albumin 1.4 g/dL (3.4-5.0); Calcium 8.6 mg/dL (8.5-10.1); Potassium 4.1 mmol/L (3.5-5.1)
[2021-12-01 05:54] LABS: BUN/Creatinine Ratio 17.4
[2021-12-01 05:56] LABS: Bilirubin, Total 0.4 mg/dL (0.2-1.0); Total Protein 5.7 g/dL (6.4-8.2)
[2021-12-01] MEDS: Nepro With Carb Steady 1 Liter Bottle GT SCH ×4 (06:00→21:33)
[2021-12-01] MEDS: SODIUM CHLOR 0.9% PF (SALINE LOCK) 10ML VIAL/SYR IV SCH ×3 (06:00→21:33)
[2021-12-01] MEDS ORDERED: SODIUM CHL 0.9% 1000 ML BAG XX ONE (06:15)
[2021-12-01] MEDS: InsuLIN REG 1unit/0.01ml Soln (100units/ml) SC SCH ×4 (06:32→21:34)
[2021-12-01] MEDS: ACCU-CHEK COMFORT CURVE STRIP VI SCH ×4 (06:32→21:34)
[2021-12-01 07:01] LABS: Band Neutrophils % (manual) 7; Lymphocytes % (manual) 3 (10.0-50.0); Monocytes % (manual) 2 (0-12)
[2021-12-01] MEDS: CALCIUM ACETATE 667 MG CAP PEG SCH ×3 (07:14→17:24)
[2021-12-01] MEDS: PROPOFOL 100 ML IV SCH ×2 (07:16→20:30)
[2021-12-01] MEDS: APIXABAN 2.5 MG TAB PEG SCH ×2 (07:16→21:33)
[2021-12-01] MEDS: ASPirin 81 mg TAB PEG SCH (07:17)
[2021-12-01] MEDS: amLODIPine BESYLATE 5 MG TAB PEG SCH (07:17)
[2021-12-01] MEDS: B-COMPLEX W/ C & FOLIC ACID(NEPHROVITE TAB) PEG SCH (07:18)
[2021-12-01] MEDS: fentaNYL Drip 2500mCg/250mlNS 250 ML IV SCH ×2 (07:59→18:37)
[2021-12-01] MEDS: FUROSEMIDE 100 MG/10ML VIAL IV SCH (08:25)
[2021-12-01] MEDS: ASCORBIC ACID 500 MG TAB PEG SCH ×2 (08:25→21:33)
[2021-12-01] MEDS: OMEPRAZOLE 20MG/10ML ORAL SUSP GT SCH ×2 (08:25→15:24)
[2021-12-01] MEDS: ZINC SULFATE 220mg CAP or TAB PO SCH (08:25)
[2021-12-01] MEDS: NOREPINEPHRINE 8 MG/250ML KIT 250 ML IV SCH (08:26)
[2021-12-01] MEDS: DOPamine 1600MCG/ML D5W 250 ML IV SCH (08:26)
[2021-12-01] MEDS: MEROPENEM 500MG IVPB 50 ML IV SCH (14:42)
[2021-12-01] MEDS: MICAFUNGIN SODIUM 100 MG in SODIUM CHL 0.9% 100 ML IV SCH (18:05)
[2021-12-01] MEDS: ACETAMINOPHEN 325 MG TAB PO PRN (19:30)
[2021-12-01] MEDS ORDERED: EPOETIN ALFA-EPBX 4,000 UNIT/ML VIAL SC ONE (21:00)
[2021-12-01] MEDS: ATORVASTATIN 20 MG TAB PEG SCH (21:33)
[2021-12-02] VITALS (70 sets, daily range): BP systolic 92–163; BP diastolic 33–102
[2021-12-02] MEDS: MEROPENEM 500MG IVPB 50 ML IV SCH ×2 (03:27→14:09)
[2021-12-02 04:47] LABS: Hematocrit 28.5 % (36.0-46.0); Mean Corpuscular Volume 85.3 fL (80.0-100.0); Red Blood Cells 3.34 10^6/uL (4.0-5.20)
[2021-12-02 04:51] LABS: Hemoglobin 9.3 g/dL (12.2-16.2); Mean Corpuscular Hemoglobin 27.8 pg (28.0-32.0); Mean Corpuscular Hgb Conc. 32.6 g/dL (32.0-36.0)
[2021-12-02 05:08] LABS: Potassium 3.6 mmol/L (3.5-5.1)
[2021-12-02 05:15] LABS: Albumin 1.5 g/dL (3.4-5.0); BUN/Creatinine Ratio 13.5; Calcium 8.4 mg/dL (8.5-10.1)
[2021-12-02 05:28] LABS: Bilirubin, Total 0.7 mg/dL (0.2-1.0); Total Protein 6.3 g/dL (6.4-8.2)
[2021-12-02] MEDS: SODIUM CHLOR 0.9% PF (SALINE LOCK) 10ML VIAL/SYR IV SCH ×3 (05:44→22:05)
[2021-12-02] MEDS: Nepro With Carb Steady 1 Liter Bottle GT SCH ×5 (05:44→22:00)
[2021-12-02] MEDS: fentaNYL Drip 2500mCg/250mlNS 250 ML IV SCH (05:49)
[2021-12-02 05:53] LABS: White Blood Cell 38.9 10^3/uL (4.4-10.8)
[2021-12-02 05:54] LABS: Basophils % (manual) 0 (0.0-2.0); Blast Cells 0; Eosinophils % (manual) 0 (0-7); Metamyelocytes % 0; Myelocytes % 0; Promyelocytes % 0; Reactive Lymphocytes 0; Red Cell Distribution Width 22.6 % (11.8-14.3)
[2021-12-02] MEDS ORDERED: AMIODARONE 450mg/250ml AE 250 ML IV ONE (06:20)
[2021-12-02] MEDS ORDERED: AMIODARONE 450mg/250ml AE 250 ML IV SCH ×2 (06:30→12:30)
[2021-12-02] MEDS: InsuLIN REG 1unit/0.01ml Soln (100units/ml) SC SCH ×4 (07:00→22:08)
[2021-12-02] MEDS: ACCU-CHEK COMFORT CURVE STRIP VI SCH ×4 (07:00→22:07)
[2021-12-02] MEDS: DOPamine 1600MCG/ML D5W 250 ML IV SCH (07:14)
[2021-12-02] MEDS: CALCIUM ACETATE 667 MG CAP PEG SCH ×3 (08:00→18:00)
[2021-12-02 09:15] LABS: Band Neutrophils % (manual) 18; Lymphocytes % (manual) 1 (10.0-50.0); Monocytes % (manual) 1 (0-12)
[2021-12-02] MEDS: amLODIPine BESYLATE 5 MG TAB PEG SCH (09:59)
[2021-12-02] MEDS: ASCORBIC ACID 500 MG TAB PEG SCH ×2 (10:17→22:06)
[2021-12-02] MEDS: B-COMPLEX W/ C & FOLIC ACID(NEPHROVITE TAB) PEG SCH (10:17)
[2021-12-02] MEDS: APIXABAN 2.5 MG TAB PEG SCH ×2 (10:17→22:06)
[2021-12-02] MEDS: ZINC SULFATE 220mg CAP or TAB PO SCH (10:17)
[2021-12-02] MEDS: FUROSEMIDE 100 MG/10ML VIAL IV SCH (10:18)
[2021-12-02] MEDS: OMEPRAZOLE 20MG/10ML ORAL SUSP GT SCH (10:30)
[2021-12-02] MEDS: NOREPINEPHRINE 8 MG/250ML KIT 250 ML IV SCH (11:00)
[2021-12-02 11:50] LABS: INR 1.21 (0.9-1.15); Partial Thromboplastin Time 44.8 sec (23.6-33.0)
[2021-12-02] MEDS ORDERED: AMIODARONE HCL 200 MG TAB PO ONE (12:45)
[2021-12-02] MEDS: MICAFUNGIN SODIUM 100 MG in SODIUM CHL 0.9% 100 ML IV SCH (17:28)
[2021-12-02] MEDS: PROPOFOL 100 ML IV SCH (20:30)
[2021-12-02] MEDS ORDERED: AMIODARONE HCL 200 MG TAB PO SCH (22:00)
[2021-12-02] MEDS: ATORVASTATIN 20 MG TAB PEG SCH (22:06)
[2021-12-03] VITALS (96 sets, daily range): BP systolic 69–207; BP diastolic 26–107
[2021-12-03] MEDS: ACETAMINOPHEN 325 MG TAB PO PRN (00:20)
[2021-12-03] MEDS: MEROPENEM 500MG IVPB 50 ML IV SCH (02:58)
[2021-12-03] MEDS: DOPamine 1600MCG/ML D5W 250 ML IV SCH ×3 (03:45→10:45)
[2021-12-03 04:14] LABS: Hemoglobin 9.3 g/dL (12.2-16.2); Mean Corpuscular Volume 82.7 fL (80.0-100.0)
[2021-12-03 04:16] LABS: Calcium 8.5 mg/dL (8.5-10.1); Potassium 3.6 mmol/L (3.5-5.1)
[2021-12-03 04:18] LABS: Hematocrit 27.9 % (36.0-46.0); Mean Corpuscular Hemoglobin 27.7 pg (28.0-32.0); Mean Corpuscular Hgb Conc. 33.4 g/dL (32.0-36.0); Red Blood Cells 3.37 10^6/uL (4.0-5.20)
[2021-12-03 04:19] LABS: Albumin 1.6 g/dL (3.4-5.0); BUN/Creatinine Ratio 14.3
[2021-12-03 04:22] LABS: Bilirubin, Total 0.5 mg/dL (0.2-1.0); Total Protein 6.3 g/dL (6.4-8.2)
[2021-12-03 04:49] LABS: Red Cell Distribution Width 22.8 % (11.8-14.3); White Blood Cell 38.6 10^3/uL (4.4-10.8)
[2021-12-03 04:50] LABS: Basophils % (manual) 0 (0.0-2.0); Blast Cells 0; Metamyelocytes % 0; Promyelocytes % 0; Reactive Lymphocytes 0
[2021-12-03 05:25] LABS: Band Neutrophils % (manual) 15; Eosinophils % (manual) 1 (0-7); Lymphocytes % (manual) 1 (10.0-50.0); Monocytes % (manual) 3 (0-12); Myelocytes % 2
[2021-12-03] MEDS: Nepro With Carb Steady 1 Liter Bottle GT SCH ×4 (06:41→22:51)
[2021-12-03] MEDS: SODIUM CHLOR 0.9% PF (SALINE LOCK) 10ML VIAL/SYR IV SCH ×3 (06:42→22:34)
[2021-12-03] MEDS: ACCU-CHEK COMFORT CURVE STRIP VI SCH ×4 (06:42→22:35)
[2021-12-03] MEDS: InsuLIN REG 1unit/0.01ml Soln (100units/ml) SC SCH ×4 (06:45→22:54)
[2021-12-03] MEDS ORDERED: LORazepam 2MG/ML-1ML VIAL IV ONE (07:15)
[2021-12-03] MEDS: CALCIUM ACETATE 667 MG CAP PEG SCH ×3 (07:37→18:00)
[2021-12-03] MEDS: amLODIPine BESYLATE 5 MG TAB PEG SCH (10:00)
[2021-12-03] MEDS: Pro-Stat SF 30ml Vanilla GT SCH ×2 (10:00→22:00)
[2021-12-03] MEDS: OMEPRAZOLE 20MG/10ML ORAL SUSP GT SCH (10:14)
[2021-12-03] MEDS: APIXABAN 2.5 MG TAB PEG SCH ×2 (10:15→22:34)
[2021-12-03] MEDS: FUROSEMIDE 100 MG/10ML VIAL IV SCH (10:15)
[2021-12-03] MEDS: ASCORBIC ACID 500 MG TAB PEG SCH ×2 (10:16→22:35)
[2021-12-03] MEDS: ZINC SULFATE 220mg CAP or TAB PO SCH (10:16)
[2021-12-03] MEDS: B-COMPLEX W/ C & FOLIC ACID(NEPHROVITE TAB) PEG SCH (10:16)
[2021-12-03] MEDS: AMIODARONE HCL 200 MG TAB PO SCH (10:16)
[2021-12-03] MEDS: NOREPINEPHRINE 8 MG/250ML KIT 250 ML IV SCH (11:00)
[2021-12-03] MEDS ORDERED: CeftoloZANE-TAZOB 1g/0.5g VL 1.5 GM in SODIUM CHL 0.9% 100 ML IV ONE (12:30)
[2021-12-03] MEDS: METOCLOPRAMIDE HCL 5MG/ml INJ 2ml VIAL IV SCH ×2 (15:35→22:34)
[2021-12-03] MEDS ORDERED: VANCOMYCIN 1GM/250ML 250 ML IV ONE (16:00)
[2021-12-03] MEDS: [UNRECOGNIZED DRUG - OTHER] IV SCH (18:00)
[2021-12-03] MEDS: CEFTOLOZANE TAZOB IV SCH (18:00)
[2021-12-03] MEDS: SODIUM CHL 0.9% IV SCH (18:00)
[2021-12-03] MEDS: PROPOFOL 100 ML IV SCH (20:30)
[2021-12-03] MEDS: fentaNYL Drip 2500mCg/250mlNS 250 ML IV SCH (21:12)
[2021-12-03] MEDS: ATORVASTATIN 20 MG TAB PEG SCH (22:35)
[2021-12-04] VITALS (90 sets, daily range): BP systolic 65–187; BP diastolic 34–158
[2021-12-04] MEDS: [UNRECOGNIZED DRUG - OTHER] IV SCH ×3 (01:30→18:10)
[2021-12-04] MEDS: CEFTOLOZANE TAZOB IV SCH ×3 (01:30→18:10)
[2021-12-04] MEDS: SODIUM CHL 0.9% IV SCH ×3 (01:30→18:10)
[2021-12-04 04:28] LABS: BUN/Creatinine Ratio 14.2; Calcium 8.5 mg/dL (8.5-10.1); Potassium 3.9 mmol/L (3.5-5.1)
[2021-12-04] MEDS: METOCLOPRAMIDE HCL 5MG/ml INJ 2ml VIAL IV SCH ×3 (06:39→21:57)
[2021-12-04] MEDS: Nepro With Carb Steady 1 Liter Bottle GT SCH ×4 (06:39→22:00)
[2021-12-04] MEDS: SODIUM CHLOR 0.9% PF (SALINE LOCK) 10ML VIAL/SYR IV SCH ×3 (06:40→22:00)
[2021-12-04] MEDS: ACCU-CHEK COMFORT CURVE STRIP VI SCH ×4 (06:40→21:59)
[2021-12-04] MEDS: InsuLIN REG 1unit/0.01ml Soln (100units/ml) SC SCH ×4 (06:42→22:14)
[2021-12-04] MEDS: DOPamine 1600MCG/ML D5W 250 ML IV SCH (06:43)
[2021-12-04] MEDS: CALCIUM ACETATE 667 MG CAP PEG SCH ×3 (08:33→18:10)
[2021-12-04] MEDS: Pro-Stat SF 30ml Vanilla GT SCH ×2 (09:38→21:59)
[2021-12-04] MEDS: OMEPRAZOLE 20MG/10ML ORAL SUSP GT SCH (09:38)
[2021-12-04] MEDS: FUROSEMIDE 100 MG/10ML VIAL IV SCH (09:39)
[2021-12-04] MEDS: amLODIPine BESYLATE 5 MG TAB PEG SCH (09:40)
[2021-12-04] MEDS: B-COMPLEX W/ C & FOLIC ACID(NEPHROVITE TAB) PEG SCH (09:40)
[2021-12-04] MEDS: APIXABAN 2.5 MG TAB PEG SCH ×2 (09:40→21:59)
[2021-12-04] MEDS: ZINC SULFATE 220mg CAP or TAB PO SCH (09:41)
[2021-12-04] MEDS: ASCORBIC ACID 500 MG TAB PEG SCH ×2 (09:41→21:59)
[2021-12-04] MEDS: AMIODARONE HCL 200 MG TAB PO SCH (09:42)
[2021-12-04] MEDS: NOREPINEPHRINE 8 MG/250ML KIT 250 ML IV SCH (10:50)
[2021-12-04] MEDS: ACETAMINOPHEN 325 MG TAB PO PRN (11:11)
[2021-12-04] MEDS: fentaNYL Drip 2500mCg/250mlNS 250 ML IV SCH ×2 (12:21→22:26)
[2021-12-04] MEDS: PROPOFOL 100 ML IV SCH (20:30)
[2021-12-04] MEDS: ATORVASTATIN 20 MG TAB PEG SCH (21:59)
[2021-12-05] VITALS (98 sets, daily range): BP systolic 81–180; BP diastolic 35–105
[2021-12-05] MEDS: [UNRECOGNIZED DRUG - OTHER] IV SCH ×3 (01:50→18:00)
[2021-12-05] MEDS: SODIUM CHL 0.9% IV SCH ×3 (01:50→18:00)
[2021-12-05] MEDS: CEFTOLOZANE TAZOB IV SCH ×3 (01:50→18:00)
[2021-12-05] MEDS: DOPamine 1600MCG/ML D5W 250 ML IV SCH ×2 (03:37→06:25)
[2021-12-05] MEDS: PROPOFOL 100 ML IV SCH ×2 (04:45→15:52)
[2021-12-05 04:55] LABS: Basophils # (auto) 0.2 10 ^3/uL (0-0.2); Basophils % (auto) 0.6 % (0.0-2.0); Eosinophils # (auto) 0.3 10 ^3/uL (0-0.8); Eosinophils % (auto) 1.4 % (0.0-7.0); Hematocrit 25.9 % (36.0-46.0); Hemoglobin 8.7 g/dL (12.2-16.2); Lymphocytes % (auto) 4.1 % (10.0-50.0); Mean Corpuscular Hemoglobin 27.5 pg (28.0-32.0); Mean Corpuscular Hgb Conc. 33.4 g/dL (32.0-36.0); Mean Corpuscular Volume 82.4 fL (80.0-100.0); Monocytes # (auto) 1.2 10 ^3/uL (0-1.3); Monocytes % (auto) 5.2 % (0.0-12.0); Neutrophils # (auto) 21.1 10 ^3/uL (1.6-8.6); Neutrophils % (auto) 88.7 % (37.0-80.0); Red Blood Cells 3.14 10^6/uL (4.0-5.20); White Blood Cell 23.8 10^3/uL (4.4-10.8)
[2021-12-05 05:00] LABS: Red Cell Distribution Width 22.1 % (11.8-14.3)
[2021-12-05 05:13] LABS: BUN/Creatinine Ratio 15.5; Calcium 8.2 mg/dL (8.5-10.1); Magnesium 2.2 mg/dL (1.6-2.6); Potassium 3.5 mmol/L (3.5-5.1)
[2021-12-05 05:18] LABS: % Iron Saturation 23.6 % (15-50)
[2021-12-05] MEDS: SODIUM CHLOR 0.9% PF (SALINE LOCK) 10ML VIAL/SYR IV SCH ×3 (06:12→21:05)
[2021-12-05] MEDS: METOCLOPRAMIDE HCL 5MG/ml INJ 2ml VIAL IV SCH ×3 (06:12→21:05)
[2021-12-05] MEDS: Nepro With Carb Steady 1 Liter Bottle GT SCH ×4 (06:12→21:06)
[2021-12-05] MEDS: ACCU-CHEK COMFORT CURVE STRIP VI SCH ×4 (06:12→21:07)
[2021-12-05] MEDS: InsuLIN REG 1unit/0.01ml Soln (100units/ml) SC SCH ×4 (06:18→21:22)
[2021-12-05] MEDS ORDERED: SODIUM CHL 0.9% 1000 ML BAG XX ONE (07:00)
[2021-12-05] MEDS: CALCIUM ACETATE 667 MG CAP PEG SCH ×3 (08:00→18:00)
[2021-12-05] MEDS: ZINC SULFATE 220mg CAP or TAB PO SCH (10:00)
[2021-12-05] MEDS: Pro-Stat SF 30ml Vanilla GT SCH ×2 (10:00→21:06)
[2021-12-05] MEDS: OMEPRAZOLE 20MG/10ML ORAL SUSP GT SCH (10:00)
[2021-12-05] MEDS: FUROSEMIDE 100 MG/10ML VIAL IV SCH (10:00)
[2021-12-05] MEDS: ASCORBIC ACID 500 MG TAB PEG SCH ×2 (10:18→21:05)
[2021-12-05] MEDS: AMIODARONE HCL 200 MG TAB PO SCH (10:18)
[2021-12-05] MEDS: APIXABAN 2.5 MG TAB PEG SCH ×2 (10:18→21:05)
[2021-12-05] MEDS: B-COMPLEX W/ C & FOLIC ACID(NEPHROVITE TAB) PEG SCH (10:18)
[2021-12-05] MEDS: amLODIPine BESYLATE 5 MG TAB PEG SCH (10:20)
[2021-12-05] MEDS: NOREPINEPHRINE 8 MG/250ML KIT 250 ML IV SCH (11:00)
[2021-12-05] MEDS: fentaNYL Drip 2500mCg/250mlNS 250 ML IV SCH (15:51)
[2021-12-05] MEDS ORDERED: VANCOMYCIN 1GM/250ML 250 ML IV ONE (17:00)
[2021-12-05 20:10] LABS: Folate (Folic Acid) 19.6 ng/mL (5.38-24)
[2021-12-05] MEDS: ATORVASTATIN 20 MG TAB PEG SCH (21:05)
[2021-12-06] VITALS (100 sets, daily range): BP systolic 92–151; BP diastolic 35–85
[2021-12-06] MEDS: CEFTOLOZANE TAZOB IV SCH ×3 (03:33→18:41)
[2021-12-06] MEDS: [UNRECOGNIZED DRUG - OTHER] IV SCH ×3 (03:33→18:41)
[2021-12-06] MEDS: SODIUM CHL 0.9% IV SCH ×3 (03:33→18:41)
[2021-12-06] MEDS: PROPOFOL 100 ML IV SCH ×2 (04:25→07:49)
[2021-12-06 04:42] LABS: Basophils # (auto) 0.1 10 ^3/uL (0-0.2); Eosinophils # (auto) 0.5 10 ^3/uL (0-0.8); Eosinophils % (auto) 3.1 % (0.0-7.0); Hemoglobin 8.2 g/dL (12.2-16.2); Lymphocytes # (auto) 0.8 10 ^3/uL (0.4-5.4); Monocytes # (auto) 0.8 10 ^3/uL (0-1.3)
[2021-12-06 04:44] LABS: Basophils % (auto) 0.8 % (0.0-2.0); Hematocrit 24.3 % (36.0-46.0); Lymphocytes % (auto) 4.9 % (10.0-50.0); Mean Corpuscular Hgb Conc. 33.8 g/dL (32.0-36.0); Mean Corpuscular Volume 82.7 fL (80.0-100.0); Monocytes % (auto) 5.3 % (0.0-12.0); Neutrophils # (auto) 13.7 10 ^3/uL (1.6-8.6); Neutrophils % (auto) 85.9 % (37.0-80.0); Nucleated Red Blood Cells % 0.1 %; Red Blood Cells 2.93 10^6/uL (4.0-5.20); Red Cell Distribution Width 21.7 % (11.8-14.3); White Blood Cell 15.9 10^3/uL (4.4-10.8)
[2021-12-06 04:47] LABS: BUN/Creatinine Ratio 16.1; Calcium 7.3 mg/dL (8.5-10.1); Magnesium 2.1 mg/dL (1.6-2.6); Potassium 3.2 mmol/L (3.5-5.1)
[2021-12-06] MEDS: fentaNYL Drip 2500mCg/250mlNS 250 ML IV SCH (05:27)
[2021-12-06] MEDS: METOCLOPRAMIDE HCL 5MG/ml INJ 2ml VIAL IV SCH ×3 (05:32→21:56)
[2021-12-06] MEDS: Nepro With Carb Steady 1 Liter Bottle GT SCH ×4 (05:32→21:56)
[2021-12-06] MEDS: SODIUM CHLOR 0.9% PF (SALINE LOCK) 10ML VIAL/SYR IV SCH ×3 (05:33→21:56)
[2021-12-06] MEDS: ACCU-CHEK COMFORT CURVE STRIP VI SCH ×4 (06:14→21:57)
[2021-12-06] MEDS: InsuLIN REG 1unit/0.01ml Soln (100units/ml) SC SCH ×4 (06:15→22:09)
[2021-12-06] MEDS: CALCIUM ACETATE 667 MG CAP PEG SCH ×3 (08:25→18:41)
[2021-12-06] MEDS: OMEPRAZOLE 20MG/10ML ORAL SUSP GT SCH (10:11)
[2021-12-06] MEDS: FUROSEMIDE 100 MG/10ML VIAL IV SCH (10:12)
[2021-12-06] MEDS: B-COMPLEX W/ C & FOLIC ACID(NEPHROVITE TAB) PEG SCH (10:12)
[2021-12-06] MEDS: APIXABAN 2.5 MG TAB PEG SCH ×2 (10:12→21:56)
[2021-12-06] MEDS: ASCORBIC ACID 500 MG TAB PEG SCH ×2 (10:12→21:57)
[2021-12-06] MEDS: ZINC SULFATE 220mg CAP or TAB PO SCH (10:12)
[2021-12-06] MEDS: AMIODARONE HCL 200 MG TAB PO SCH (10:12)
[2021-12-06] MEDS: NOREPINEPHRINE 8 MG/250ML KIT 250 ML IV SCH (11:00)
[2021-12-06] MEDS: amLODIPine BESYLATE 5 MG TAB PEG SCH (12:51)
[2021-12-06] MEDS ORDERED: POTASSIUM EFFERVESENT TAB 25 MEQ ONE (14:07)
[2021-12-06] MEDS: Pro-Stat SF 30ml Vanilla GT SCH ×2 (14:11→21:56)
[2021-12-06] MEDS ORDERED: POTASSIUM EFFERVESENT TAB 25 MEQ GT ONE (14:15)
[2021-12-06] MEDS: DOPamine 1600MCG/ML D5W 250 ML IV SCH (20:29)
[2021-12-06] MEDS: ATORVASTATIN 20 MG TAB PEG SCH (21:56)
[2021-12-07] VITALS (85 sets, daily range): BP systolic 94–146; BP diastolic 37–85
[2021-12-07] MEDS: SODIUM CHL 0.9% IV SCH ×3 (03:29→17:48)
[2021-12-07] MEDS: [UNRECOGNIZED DRUG - OTHER] IV SCH ×3 (03:29→17:48)
[2021-12-07] MEDS: CEFTOLOZANE TAZOB IV SCH ×3 (03:29→17:48)
[2021-12-07] MEDS: fentaNYL Drip 2500mCg/250mlNS 250 ML IV SCH (04:31)
[2021-12-07 04:34] LABS: Basophils # (auto) 0.1 10 ^3/uL (0-0.2); Basophils % (auto) 0.6 % (0.0-2.0); Eosinophils # (auto) 0.7 10 ^3/uL (0-0.8); Eosinophils % (auto) 4.2 % (0.0-7.0); Hematocrit 25.2 % (36.0-46.0); Hemoglobin 8.4 g/dL (12.2-16.2); Lymphocytes % (auto) 6.6 % (10.0-50.0); Mean Corpuscular Hemoglobin 27.4 pg (28.0-32.0); Mean Corpuscular Hgb Conc. 33.1 g/dL (32.0-36.0); Mean Corpuscular Volume 82.8 fL (80.0-100.0); Monocytes # (auto) 0.7 10 ^3/uL (0-1.3); Monocytes % (auto) 4.3 % (0.0-12.0); Neutrophils # (auto) 13.1 10 ^3/uL (1.6-8.6); Neutrophils % (auto) 84.3 % (37.0-80.0); Nucleated Red Blood Cells % 0.2 %; Red Blood Cells 3.05 10^6/uL (4.0-5.20); White Blood Cell 15.5 10^3/uL (4.4-10.8)
[2021-12-07 04:35] LABS: Red Cell Distribution Width 21.8 % (11.8-14.3)
[2021-12-07 05:04] LABS: Calcium 7.7 mg/dL (8.5-10.1); Magnesium 2.2 mg/dL (1.6-2.6); Potassium 4.2 mmol/L (3.5-5.1)
[2021-12-07 05:06] LABS: BUN/Creatinine Ratio 18.4
[2021-12-07] MEDS: Nepro With Carb Steady 1 Liter Bottle GT SCH ×4 (06:03→22:20)
[2021-12-07] MEDS: SODIUM CHLOR 0.9% PF (SALINE LOCK) 10ML VIAL/SYR IV SCH ×3 (06:04→22:20)
[2021-12-07] MEDS: METOCLOPRAMIDE HCL 5MG/ml INJ 2ml VIAL IV SCH ×3 (06:04→22:20)
[2021-12-07] MEDS: ACCU-CHEK COMFORT CURVE STRIP VI SCH ×4 (06:04→22:00)
[2021-12-07] MEDS: InsuLIN REG 1unit/0.01ml Soln (100units/ml) SC SCH ×4 (06:05→22:00)
[2021-12-07] MEDS: amLODIPine BESYLATE 5 MG TAB PEG SCH (10:00)
[2021-12-07] MEDS: NOREPINEPHRINE 8 MG/250ML KIT 250 ML IV SCH (11:00)
[2021-12-07] MEDS: PROPOFOL 100 ML IV SCH ×2 (11:48→16:48)
[2021-12-07] MEDS: B-COMPLEX W/ C & FOLIC ACID(NEPHROVITE TAB) PEG SCH (13:59)
[2021-12-07] MEDS: APIXABAN 2.5 MG TAB PEG SCH ×2 (13:59→22:20)
[2021-12-07] MEDS: ASCORBIC ACID 500 MG TAB PEG SCH ×2 (13:59→22:20)
[2021-12-07] MEDS: ZINC SULFATE 220mg CAP or TAB PO SCH (13:59)
[2021-12-07] MEDS: AMIODARONE HCL 200 MG TAB PO SCH (14:00)
[2021-12-07] MEDS: OMEPRAZOLE 20MG/10ML ORAL SUSP GT SCH (14:04)
[2021-12-07] MEDS: Pro-Stat SF 30ml Vanilla GT SCH ×2 (14:05→22:00)
[2021-12-07] MEDS: DOPamine 1600MCG/ML D5W 250 ML IV SCH (15:41)
[2021-12-07] MEDS: ATORVASTATIN 20 MG TAB PEG SCH (22:20)
[2021-12-08] VITALS (90 sets, daily range): BP systolic 91–136; BP diastolic 34–53
[2021-12-08] MEDS: PROPOFOL 100 ML IV SCH ×2 (01:00→14:27)
[2021-12-08] MEDS: [UNRECOGNIZED DRUG - OTHER] IV SCH ×3 (02:05→18:00)
[2021-12-08] MEDS: CEFTOLOZANE TAZOB IV SCH ×3 (02:05→18:00)
[2021-12-08] MEDS: SODIUM CHL 0.9% IV SCH ×3 (02:05→18:00)
[2021-12-08] MEDS: fentaNYL Drip 2500mCg/250mlNS 250 ML IV SCH (03:45)
[2021-12-08 04:47] LABS: Hematocrit 21.1 % (36.0-46.0); Hemoglobin 7.1 g/dL (12.2-16.2); Mean Corpuscular Hemoglobin 27.9 pg (28.0-32.0); Mean Corpuscular Hgb Conc. 33.9 g/dL (32.0-36.0); Mean Corpuscular Volume 82.4 fL (80.0-100.0); Red Blood Cells 2.56 10^6/uL (4.0-5.20); White Blood Cell 25.6 10^3/uL (4.4-10.8)
[2021-12-08 04:49] LABS: Red Cell Distribution Width 21.8 % (11.8-14.3)
[2021-12-08 04:50] LABS: Basophils % (manual) 0 (0.0-2.0); Blast Cells 0; Metamyelocytes % 0; Myelocytes % 0; Promyelocytes % 0; Reactive Lymphocytes 0
[2021-12-08 05:05] LABS: BUN/Creatinine Ratio 20.4; Calcium 7.3 mg/dL (8.5-10.1); Magnesium 2.1 mg/dL (1.6-2.6)
[2021-12-08] MEDS: METOCLOPRAMIDE HCL 5MG/ml INJ 2ml VIAL IV SCH ×3 (05:45→22:00)
[2021-12-08] MEDS: Nepro With Carb Steady 1 Liter Bottle GT SCH ×4 (05:45→22:00)
[2021-12-08] MEDS: SODIUM CHLOR 0.9% PF (SALINE LOCK) 10ML VIAL/SYR IV SCH (05:45)
[2021-12-08] MEDS: InsuLIN REG 1unit/0.01ml Soln (100units/ml) SC SCH ×4 (06:54→17:27)
[2021-12-08] MEDS: ACCU-CHEK COMFORT CURVE STRIP VI SCH ×4 (06:54→22:00)
[2021-12-08] MEDS: OMEPRAZOLE 20MG/10ML ORAL SUSP GT SCH (10:00)
[2021-12-08] MEDS: Pro-Stat SF 30ml Vanilla GT SCH ×2 (10:00→22:00)
[2021-12-08] MEDS: ASCORBIC ACID 500 MG TAB PEG SCH ×2 (10:11→22:00)
[2021-12-08] MEDS: B-COMPLEX W/ C & FOLIC ACID(NEPHROVITE TAB) PEG SCH (10:11)
[2021-12-08] MEDS: APIXABAN 2.5 MG TAB PEG SCH ×2 (10:11→22:00)
[2021-12-08] MEDS: AMIODARONE HCL 200 MG TAB PO SCH (10:11)
[2021-12-08] MEDS: NOREPINEPHRINE 8 MG/250ML KIT 250 ML IV SCH (10:11)
[2021-12-08 12:14] LABS: Band Neutrophils % (manual) 7; Eosinophils % (manual) 1 (0-7); Lymphocytes % (manual) 4 (10.0-50.0); Monocytes % (manual) 2 (0-12)
[2021-12-08] MEDS: DOPamine 1600MCG/ML D5W 250 ML IV SCH (13:21)
[2021-12-08] MEDS: ATORVASTATIN 20 MG TAB PEG SCH (22:00)
[2021-12-09] VITALS (83 sets, daily range): BP systolic 83–132; BP diastolic 32–90
[2021-12-09] MEDS: [UNRECOGNIZED DRUG - OTHER] IV SCH ×3 (02:00→18:00)
[2021-12-09] MEDS: CEFTOLOZANE TAZOB IV SCH ×3 (02:00→18:00)
[2021-12-09] MEDS: SODIUM CHL 0.9% IV SCH ×3 (02:00→18:00)
[2021-12-09 04:27] LABS: Hemoglobin 7.2 g/dL (12.2-16.2); Mean Corpuscular Hemoglobin 26.9 pg (28.0-32.0); Mean Corpuscular Hgb Conc. 32.9 g/dL (32.0-36.0); Mean Corpuscular Volume 81.8 fL (80.0-100.0); Red Blood Cells 2.69 10^6/uL (4.0-5.20)
[2021-12-09 04:31] LABS: BUN/Creatinine Ratio 18.7; Calcium 7.3 mg/dL (8.5-10.1); Magnesium 2.1 mg/dL (1.6-2.6); Potassium 3.9 mmol/L (3.5-5.1)
[2021-12-09 05:07] LABS: Red Cell Distribution Width 21.1 % (11.8-14.3); White Blood Cell 33.7 10^3/uL (4.4-10.8)
[2021-12-09 05:09] LABS: Basophils % (manual) 0 (0.0-2.0); Blast Cells 0; Metamyelocytes % 0; Myelocytes % 0; Promyelocytes % 0; Reactive Lymphocytes 0
[2021-12-09 05:38] LABS: Band Neutrophils % (manual) 18; Eosinophils % (manual) 1 (0-7); Lymphocytes % (manual) 4 (10.0-50.0); Monocytes % (manual) 1 (0-12)
[2021-12-09] MEDS: METOCLOPRAMIDE HCL 5MG/ml INJ 2ml VIAL IV SCH ×3 (06:00→22:00)
[2021-12-09] MEDS: Nepro With Carb Steady 1 Liter Bottle GT SCH ×4 (06:00→22:15)
[2021-12-09] MEDS ORDERED: SODIUM CHL 0.9% 1000 ML BAG XX ONE (07:00)
[2021-12-09] MEDS: InsuLIN REG 1unit/0.01ml Soln (100units/ml) SC SCH ×4 (07:00→22:00)
[2021-12-09] MEDS: ACCU-CHEK COMFORT CURVE STRIP VI SCH ×4 (07:01→22:18)
[2021-12-09] MEDS: DOPamine 1600MCG/ML D5W 250 ML IV SCH (09:47)
[2021-12-09] MEDS: OMEPRAZOLE 20MG/10ML ORAL SUSP GT SCH (10:00)
[2021-12-09] MEDS: PROPOFOL 100 ML IV SCH (10:00)
[2021-12-09] MEDS: Pro-Stat SF 30ml Vanilla GT SCH ×2 (10:00→22:16)
[2021-12-09] MEDS: B-COMPLEX W/ C & FOLIC ACID(NEPHROVITE TAB) PEG SCH (10:21)
[2021-12-09] MEDS: AMIODARONE HCL 200 MG TAB PO SCH (10:21)
[2021-12-09] MEDS: APIXABAN 2.5 MG TAB PEG SCH ×2 (10:21→22:16)
[2021-12-09] MEDS: ASCORBIC ACID 500 MG TAB PEG SCH ×2 (10:21→22:17)
[2021-12-09] MEDS: NOREPINEPHRINE 8 MG/250ML KIT 250 ML IV SCH (11:00)
[2021-12-09] MEDS ORDERED: VANCOMYCIN 1GM/250ML 250 ML IV ONE (17:00)
[2021-12-09] MEDS ORDERED: EPOETIN ALFA-EPBX 10,000 UNIT/1ML VIAL SC ONE (21:00)
[2021-12-09] MEDS: ATORVASTATIN 20 MG TAB PEG SCH (22:17)
[2021-12-10] VITALS (82 sets, daily range): BP systolic 89–131; BP diastolic 31–55
[2021-12-10] MEDS: CEFTOLOZANE TAZOB IV SCH ×3 (02:40→18:23)
[2021-12-10] MEDS: [UNRECOGNIZED DRUG - OTHER] IV SCH ×3 (02:40→18:23)
[2021-12-10] MEDS: SODIUM CHL 0.9% IV SCH ×3 (02:40→18:23)
[2021-12-10 04:23] LABS: Basophils # (auto) 0.1 10 ^3/uL (0-0.2); Eosinophils # (auto) 0.6 10 ^3/uL (0-0.8); Mean Corpuscular Volume 82.1 fL (80.0-100.0); Monocytes # (auto) 0.7 10 ^3/uL (0-1.3); Red Blood Cells 2.53 10^6/uL (4.0-5.20)
[2021-12-10 04:25] LABS: Basophils % (auto) 0.2 % (0.0-2.0); Eosinophils % (auto) 2.4 % (0.0-7.0); Hematocrit 20.8 % (36.0-46.0); Lymphocytes # (auto) 0.7 10 ^3/uL (0.4-5.4); Lymphocytes % (auto) 2.7 % (10.0-50.0); Mean Corpuscular Hemoglobin 26.9 pg (28.0-32.0); Mean Corpuscular Hgb Conc. 32.8 g/dL (32.0-36.0); Monocytes % (auto) 2.9 % (0.0-12.0); Neutrophils # (auto) 22.6 10 ^3/uL (1.6-8.6); Neutrophils % (auto) 91.8 % (37.0-80.0); White Blood Cell 24.6 10^3/uL (4.4-10.8)
[2021-12-10 04:40] LABS: Calcium 7.3 mg/dL (8.5-10.1); Hemoglobin 6.8 g/dL (12.2-16.2); Magnesium 2.1 mg/dL (1.6-2.6); Potassium 3.6 mmol/L (3.5-5.1); Red Cell Distribution Width 20.1 % (11.8-14.3)
[2021-12-10] MEDS: Nepro With Carb Steady 1 Liter Bottle GT SCH ×4 (06:00→22:00)
[2021-12-10] MEDS: METOCLOPRAMIDE HCL 5MG/ml INJ 2ml VIAL IV SCH ×3 (06:00→22:00)
[2021-12-10] MEDS: DOPamine 1600MCG/ML D5W 250 ML IV SCH (06:13)
[2021-12-10] MEDS: ACCU-CHEK COMFORT CURVE STRIP VI SCH ×4 (06:55→22:00)
[2021-12-10] MEDS: InsuLIN REG 1unit/0.01ml Soln (100units/ml) SC SCH ×4 (06:56→22:00)
[2021-12-10] MEDS: fentaNYL Drip 2500mCg/250mlNS 250 ML IV SCH ×2 (08:45→17:52)
[2021-12-10] MEDS: NOREPINEPHRINE 8 MG/250ML KIT 250 ML IV SCH (11:00)
[2021-12-10] MEDS: APIXABAN 2.5 MG TAB PEG SCH ×2 (11:21→22:00)
[2021-12-10] MEDS: ASCORBIC ACID 500 MG TAB PEG SCH ×2 (11:21→22:00)
[2021-12-10] MEDS: B-COMPLEX W/ C & FOLIC ACID(NEPHROVITE TAB) PEG SCH (11:21)
[2021-12-10] MEDS: OMEPRAZOLE 20MG/10ML ORAL SUSP GT SCH (11:22)
[2021-12-10] MEDS: AMIODARONE HCL 200 MG TAB PO SCH (11:22)
[2021-12-10] MEDS: Pro-Stat SF 30ml Vanilla GT SCH ×2 (11:22→22:00)
[2021-12-10] MEDS: PROPOFOL 100 ML IV SCH ×2 (17:05→20:30)
[2021-12-10] MEDS: ATORVASTATIN 20 MG TAB PEG SCH (22:00)
[2021-12-11] VITALS (87 sets, daily range): BP systolic 90–141; BP diastolic 36–104
[2021-12-11] MEDS: [UNRECOGNIZED DRUG - OTHER] IV SCH ×2 (02:00→10:10)
[2021-12-11] MEDS: CEFTOLOZANE TAZOB IV SCH ×3 (02:00→17:22)
[2021-12-11] MEDS: SODIUM CHL 0.9% IV SCH ×2 (02:00→10:10)
[2021-12-11] MEDS: DOPamine 1600MCG/ML D5W 250 ML IV SCH ×2 (02:39→23:05)
[2021-12-11] MEDS: METOCLOPRAMIDE HCL 5MG/ml INJ 2ml VIAL IV SCH ×3 (06:00→21:38)
[2021-12-11] MEDS: Nepro With Carb Steady 1 Liter Bottle GT SCH ×4 (06:14→21:55)
[2021-12-11] MEDS: ACCU-CHEK COMFORT CURVE STRIP VI SCH ×4 (06:28→21:55)
[2021-12-11] MEDS: InsuLIN REG 1unit/0.01ml Soln (100units/ml) SC SCH ×4 (06:28→21:51)
[2021-12-11] MEDS ORDERED: SODIUM CHL 0.9% 1000 ML BAG XX ONE (07:00)
[2021-12-11 07:03] LABS: Basophils # (auto) 0.1 10 ^3/uL (0-0.2); Basophils % (auto) 0.3 % (0.0-2.0); Eosinophils # (auto) 0.5 10 ^3/uL (0-0.8); Eosinophils % (auto) 2.5 % (0.0-7.0); Hematocrit 27.8 % (36.0-46.0); Hemoglobin 9.2 g/dL (12.2-16.2); Lymphocytes # (auto) 0.5 10 ^3/uL (0.4-5.4); Lymphocytes % (auto) 2.8 % (10.0-50.0); Mean Corpuscular Hemoglobin 27.4 pg (28.0-32.0); Mean Corpuscular Hgb Conc. 33.2 g/dL (32.0-36.0); Mean Corpuscular Volume 82.5 fL (80.0-100.0); Monocytes # (auto) 0.5 10 ^3/uL (0-1.3); Monocytes % (auto) 2.8 % (0.0-12.0); Neutrophils # (auto) 17.6 10 ^3/uL (1.6-8.6); Neutrophils % (auto) 91.6 % (37.0-80.0); Red Blood Cells 3.37 10^6/uL (4.0-5.20); Red Cell Distribution Width 19.4 % (11.8-14.3); White Blood Cell 19.2 10^3/uL (4.4-10.8)
[2021-12-11 07:37] LABS: Potassium 3.6 mmol/L (3.5-5.1)
[2021-12-11 07:44] LABS: BUN/Creatinine Ratio 14.6; Calcium 7.3 mg/dL (8.5-10.1); Magnesium 2.3 mg/dL (1.6-2.6)
[2021-12-11] MEDS: fentaNYL Drip 2500mCg/250mlNS 250 ML IV SCH ×2 (08:45→16:00)
[2021-12-11] MEDS: OMEPRAZOLE 20MG/10ML ORAL SUSP GT SCH (10:09)
[2021-12-11] MEDS: ASCORBIC ACID 500 MG TAB PEG SCH ×2 (10:09→21:38)
[2021-12-11] MEDS: Pro-Stat SF 30ml Vanilla GT SCH ×2 (10:09→23:26)
[2021-12-11] MEDS: APIXABAN 2.5 MG TAB PEG SCH ×2 (10:09→21:38)
[2021-12-11] MEDS: B-COMPLEX W/ C & FOLIC ACID(NEPHROVITE TAB) PEG SCH (10:09)
[2021-12-11] MEDS: AMIODARONE HCL 200 MG TAB PO SCH (10:10)
[2021-12-11] MEDS: NOREPINEPHRINE 8 MG/250ML KIT 250 ML IV SCH (10:43)
[2021-12-11] MEDS: PROPOFOL 100 ML IV SCH ×2 (13:55→18:51)
[2021-12-11] MEDS: [UNRECOGNIZED DRUG - OTHER] IV SCH (17:22)
[2021-12-11] MEDS: D5W 5% IV SCH (17:22)
[2021-12-11] MEDS ORDERED: EPOETIN ALFA-EPBX 10,000 UNIT/1ML VIAL SC ONE (21:00)
[2021-12-11] MEDS: ATORVASTATIN 20 MG TAB PEG SCH (21:38)
[2021-12-12] VITALS (101 sets, daily range): BP systolic 104–171; BP diastolic 38–101
[2021-12-12] MEDS: [UNRECOGNIZED DRUG - OTHER] IV SCH ×2 (02:28→10:42)
[2021-12-12] MEDS: CEFTOLOZANE TAZOB IV SCH ×3 (02:28→18:32)
[2021-12-12] MEDS: D5W 5% IV SCH ×2 (02:28→10:42)
[2021-12-12 02:51] LABS: Basophils # (auto) 0.1 10 ^3/uL (0-0.2); Basophils % (auto) 0.4 % (0.0-2.0); Eosinophils # (auto) 0.4 10 ^3/uL (0-0.8); Eosinophils % (auto) 2.6 % (0.0-7.0); Hematocrit 27.8 % (36.0-46.0); Hemoglobin 9.1 g/dL (12.2-16.2); Lymphocytes # (auto) 0.6 10 ^3/uL (0.4-5.4); Lymphocytes % (auto) 3.4 % (10.0-50.0); Mean Corpuscular Hemoglobin 27.2 pg (28.0-32.0); Mean Corpuscular Hgb Conc. 32.8 g/dL (32.0-36.0); Mean Corpuscular Volume 82.9 fL (80.0-100.0); Monocytes # (auto) 0.6 10 ^3/uL (0-1.3); Monocytes % (auto) 3.2 % (0.0-12.0); Neutrophils # (auto) 15.6 10 ^3/uL (1.6-8.6); Neutrophils % (auto) 90.4 % (37.0-80.0); Red Blood Cells 3.35 10^6/uL (4.0-5.20); Red Cell Distribution Width 19.2 % (11.8-14.3); White Blood Cell 17.2 10^3/uL (4.4-10.8)
[2021-12-12 02:52] LABS: Calcium 7.3 mg/dL (8.5-10.1); Potassium 3.7 mmol/L (3.5-5.1)
[2021-12-12 02:54] LABS: BUN/Creatinine Ratio 11.6
[2021-12-12] MEDS: METOCLOPRAMIDE HCL 5MG/ml INJ 2ml VIAL IV SCH ×3 (05:29→22:51)
[2021-12-12] MEDS: Nepro With Carb Steady 1 Liter Bottle GT SCH ×4 (05:30→22:50)
[2021-12-12] MEDS: InsuLIN REG 1unit/0.01ml Soln (100units/ml) SC SCH ×4 (06:14→22:00)
[2021-12-12] MEDS: ACCU-CHEK COMFORT CURVE STRIP VI SCH ×4 (07:06→22:52)
[2021-12-12] MEDS: PROPOFOL 100 ML IV SCH ×2 (08:46→15:18)
[2021-12-12] MEDS: B-COMPLEX W/ C & FOLIC ACID(NEPHROVITE TAB) PEG SCH (10:42)
[2021-12-12] MEDS: APIXABAN 2.5 MG TAB PEG SCH ×2 (10:42→22:51)
[2021-12-12] MEDS: OMEPRAZOLE 20MG/10ML ORAL SUSP GT SCH (10:42)
[2021-12-12] MEDS: Pro-Stat SF 30ml Vanilla GT SCH ×2 (10:42→22:00)
[2021-12-12] MEDS: AMIODARONE HCL 200 MG TAB PO SCH (10:43)
[2021-12-12] MEDS: ASCORBIC ACID 500 MG TAB PEG SCH ×2 (10:43→22:51)
[2021-12-12] MEDS: NOREPINEPHRINE 8 MG/250ML KIT 250 ML IV SCH (11:00)
[2021-12-12] MEDS: [UNRECOGNIZED DRUG - OTHER] IV SCH (18:32)
[2021-12-12] MEDS: SODIUM CHL 0.9% IV SCH (18:32)
[2021-12-12] MEDS: DOPamine 1600MCG/ML D5W 250 ML IV SCH (19:31)
[2021-12-12] MEDS: ATORVASTATIN 20 MG TAB PEG SCH (22:51)
[2021-12-13] VITALS (84 sets, daily range): BP systolic 99–188; BP diastolic 44–83
[2021-12-13] MEDS: [UNRECOGNIZED DRUG - OTHER] IV SCH ×3 (02:00→17:34)
[2021-12-13] MEDS: CEFTOLOZANE TAZOB IV SCH ×3 (02:00→17:34)
[2021-12-13] MEDS: SODIUM CHL 0.9% IV SCH ×3 (02:00→17:34)
[2021-12-13 03:53] LABS: Basophils # (auto) 0.2 10 ^3/uL (0-0.2); Basophils % (auto) 1.3 % (0.0-2.0); Eosinophils # (auto) 0.4 10 ^3/uL (0-0.8); Eosinophils % (auto) 2.4 % (0.0-7.0); Hematocrit 28.2 % (36.0-46.0); Hemoglobin 9.4 g/dL (12.2-16.2); Lymphocytes # (auto) 0.7 10 ^3/uL (0.4-5.4); Mean Corpuscular Hemoglobin 27.4 pg (28.0-32.0); Mean Corpuscular Hgb Conc. 33.4 g/dL (32.0-36.0); Mean Corpuscular Volume 82.1 fL (80.0-100.0); Monocytes # (auto) 0.7 10 ^3/uL (0-1.3); Neutrophils # (auto) 14.9 10 ^3/uL (1.6-8.6); Neutrophils % (auto) 88.3 % (37.0-80.0); Red Blood Cells 3.43 10^6/uL (4.0-5.20); White Blood Cell 16.9 10^3/uL (4.4-10.8)
[2021-12-13 04:53] LABS: BUN/Creatinine Ratio 12.8; Calcium 7.8 mg/dL (8.5-10.1); Magnesium 2.2 mg/dL (1.6-2.6)
[2021-12-13] MEDS: METOCLOPRAMIDE HCL 5MG/ml INJ 2ml VIAL IV SCH ×3 (05:42→22:00)
[2021-12-13] MEDS: Nepro With Carb Steady 1 Liter Bottle GT SCH ×4 (05:42→22:35)
[2021-12-13] MEDS: PROPOFOL 100 ML IV SCH (05:43)
[2021-12-13] MEDS: ACCU-CHEK COMFORT CURVE STRIP VI SCH ×4 (06:29→22:00)
[2021-12-13] MEDS: InsuLIN REG 1unit/0.01ml Soln (100units/ml) SC SCH ×4 (06:41→22:00)
[2021-12-13] MEDS ORDERED: SODIUM CHL 0.9% 1000 ML BAG XX ONE (07:00)
[2021-12-13] MEDS: fentaNYL Drip 2500mCg/250mlNS 250 ML IV SCH (08:45)
[2021-12-13] MEDS: AMIODARONE HCL 200 MG TAB PO SCH (09:59)
[2021-12-13] MEDS: ASCORBIC ACID 500 MG TAB PEG SCH ×2 (09:59→22:36)
[2021-12-13] MEDS: APIXABAN 2.5 MG TAB PEG SCH ×2 (09:59→22:36)
[2021-12-13] MEDS: B-COMPLEX W/ C & FOLIC ACID(NEPHROVITE TAB) PEG SCH (09:59)
[2021-12-13] MEDS: Pro-Stat SF 30ml Vanilla GT SCH ×2 (09:59→22:36)
[2021-12-13] MEDS: NOREPINEPHRINE 8 MG/250ML KIT 250 ML IV SCH (10:40)
[2021-12-13] MEDS: ALBUMIN 25% 100 ML IV SCH ×2 (13:42→14:47)
[2021-12-13] MEDS: DOPamine 1600MCG/ML D5W 250 ML IV SCH (15:39)
[2021-12-13] MEDS ORDERED: VANCOMYCIN 500 MG in D5W 5% 100 ML IV ONE ×2 (18:00→20:00)
[2021-12-13] MEDS: hydrALAZINE HCL 20 MG/ML VL IV PRN (19:16)
[2021-12-13] MEDS ORDERED: EPOETIN ALFA-EPBX 10,000 UNIT/1ML VIAL SC ONE (21:00)
[2021-12-13] MEDS: ATORVASTATIN 20 MG TAB PEG SCH (22:36)
[2021-12-14] VITALS (88 sets, daily range): BP systolic 101–188; BP diastolic 29–93
[2021-12-14] MEDS: fentaNYL Drip 2500mCg/250mlNS 250 ML IV SCH
[2021-12-14] MEDS: CEFTOLOZANE TAZOB IV SCH ×3 (01:55→18:29)
[2021-12-14] MEDS: [UNRECOGNIZED DRUG - OTHER] IV SCH ×3 (01:55→18:29)
[2021-12-14] MEDS: SODIUM CHL 0.9% IV SCH ×3 (01:55→18:29)
[2021-12-14 04:12] LABS: Basophils # (auto) 0.1 10 ^3/uL (0-0.2); Basophils % (auto) 0.9 % (0.0-2.0); Eosinophils # (auto) 0.3 10 ^3/uL (0-0.8); Eosinophils % (auto) 2.4 % (0.0-7.0); Hematocrit 27.8 % (36.0-46.0); Hemoglobin 9.3 g/dL (12.2-16.2); Lymphocytes # (auto) 0.8 10 ^3/uL (0.4-5.4); Lymphocytes % (auto) 5.6 % (10.0-50.0); Mean Corpuscular Hemoglobin 27.5 pg (28.0-32.0); Mean Corpuscular Hgb Conc. 33.4 g/dL (32.0-36.0); Mean Corpuscular Volume 82.3 fL (80.0-100.0); Monocytes # (auto) 0.6 10 ^3/uL (0-1.3); Monocytes % (auto) 4.3 % (0.0-12.0); Neutrophils # (auto) 12.5 10 ^3/uL (1.6-8.6); Neutrophils % (auto) 86.8 % (37.0-80.0); Nucleated Red Blood Cells % 0.1 %; Red Blood Cells 3.38 10^6/uL (4.0-5.20); Red Cell Distribution Width 19.1 % (11.8-14.3); White Blood Cell 14.4 10^3/uL (4.4-10.8)
[2021-12-14 04:28] LABS: BUN/Creatinine Ratio 11.1; Calcium 7.7 mg/dL (8.5-10.1); Magnesium 2.2 mg/dL (1.6-2.6); Potassium 3.7 mmol/L (3.5-5.1)
[2021-12-14] MEDS: METOCLOPRAMIDE HCL 5MG/ml INJ 2ml VIAL IV SCH ×3 (06:00→22:22)
[2021-12-14] MEDS: Nepro With Carb Steady 1 Liter Bottle GT SCH ×4 (06:00→22:21)
[2021-12-14] MEDS: hydrALAZINE HCL 20 MG/ML VL IV PRN ×2 (06:19→16:59)
[2021-12-14] MEDS: InsuLIN REG 1unit/0.01ml Soln (100units/ml) SC SCH ×4 (06:37→22:46)
[2021-12-14] MEDS: ACCU-CHEK COMFORT CURVE STRIP VI SCH ×3 (06:38→18:00)
[2021-12-14] MEDS: APIXABAN 2.5 MG TAB PEG SCH ×2 (09:59→22:22)
[2021-12-14] MEDS: AMIODARONE HCL 200 MG TAB PO SCH (09:59)
[2021-12-14] MEDS: ASCORBIC ACID 500 MG TAB PEG SCH ×2 (09:59→22:22)
[2021-12-14] MEDS: B-COMPLEX W/ C & FOLIC ACID(NEPHROVITE TAB) PEG SCH (09:59)
[2021-12-14] MEDS: Pro-Stat SF 30ml Vanilla GT SCH ×2 (09:59→22:22)
[2021-12-14] MEDS: NOREPINEPHRINE 8 MG/250ML KIT 250 ML IV SCH (11:00)
[2021-12-14] MEDS: DOPamine 1600MCG/ML D5W 250 ML IV SCH (12:23)
[2021-12-14] MEDS: PROPOFOL 100 ML IV SCH ×2 (14:28→22:00)
[2021-12-14] MEDS ORDERED: AMIODARONE 450mg/250ml AE 250 ML IV SCH (17:45)
[2021-12-14] MEDS: ATORVASTATIN 20 MG TAB PEG SCH (22:22)
[2021-12-14] MEDS: AMIODARONE 450mg/250ml AE 250 ML IV SCH (23:45)
[2021-12-15] VITALS (106 sets, daily range): BP systolic 106–186; BP diastolic 41–114
[2021-12-15] MEDS: [UNRECOGNIZED DRUG - OTHER] IV SCH ×3 (02:00→17:21)
[2021-12-15] MEDS: CEFTOLOZANE TAZOB IV SCH ×3 (02:00→17:21)
[2021-12-15] MEDS: SODIUM CHL 0.9% IV SCH ×3 (02:00→17:21)
[2021-12-15 04:11] LABS: Basophils # (auto) 0.2 10 ^3/uL (0-0.2); Basophils % (auto) 1.3 % (0.0-2.0); Eosinophils # (auto) 0.4 10 ^3/uL (0-0.8); Eosinophils % (auto) 3.5 % (0.0-7.0); Hematocrit 27.9 % (36.0-46.0); Hemoglobin 9.2 g/dL (12.2-16.2); Lymphocytes % (auto) 8.2 % (10.0-50.0); Mean Corpuscular Hemoglobin 27.1 pg (28.0-32.0); Mean Corpuscular Hgb Conc. 32.9 g/dL (32.0-36.0); Mean Corpuscular Volume 82.3 fL (80.0-100.0); Monocytes # (auto) 0.6 10 ^3/uL (0-1.3); Monocytes % (auto) 5.1 % (0.0-12.0); Neutrophils % (auto) 81.9 % (37.0-80.0); Nucleated Red Blood Cells % 0.3 %; Red Blood Cells 3.39 10^6/uL (4.0-5.20); Red Cell Distribution Width 18.9 % (11.8-14.3); White Blood Cell 12.2 10^3/uL (4.4-10.8)
[2021-12-15 04:29] LABS: Calcium 7.7 mg/dL (8.5-10.1); Potassium 3.7 mmol/L (3.5-5.1)
[2021-12-15 04:50] LABS: BUN/Creatinine Ratio 12.3
[2021-12-15] MEDS: hydrALAZINE HCL 20 MG/ML VL IV PRN (05:01)
[2021-12-15] MEDS: METOCLOPRAMIDE HCL 5MG/ml INJ 2ml VIAL IV SCH ×3 (06:00→22:00)
[2021-12-15] MEDS: Nepro With Carb Steady 1 Liter Bottle GT SCH ×4 (06:21→22:00)
[2021-12-15] MEDS: InsuLIN REG 1unit/0.01ml Soln (100units/ml) SC SCH ×3 (06:30→17:00)
[2021-12-15] MEDS: fentaNYL Drip 2500mCg/250mlNS 250 ML IV SCH (08:45)
[2021-12-15] MEDS: DOPamine 1600MCG/ML D5W 250 ML IV SCH (08:49)
[2021-12-15] MEDS: NOREPINEPHRINE 8 MG/250ML KIT 250 ML IV SCH (09:21)
[2021-12-15] MEDS: ASCORBIC ACID 500 MG TAB PEG SCH ×2 (09:21→22:07)
[2021-12-15] MEDS: B-COMPLEX W/ C & FOLIC ACID(NEPHROVITE TAB) PEG SCH (09:21)
[2021-12-15] MEDS: APIXABAN 2.5 MG TAB PEG SCH ×2 (09:21→22:07)
[2021-12-15] MEDS: Pro-Stat SF 30ml Vanilla GT SCH ×2 (09:21→22:00)
[2021-12-15] MEDS ORDERED: ONDANSETRON HCL 4 MG/2 ML VIAL IV PRN (13:00)
[2021-12-15] MEDS: AMIODARONE 450mg/250ml AE 250 ML IV SCH (14:03)
[2021-12-15] MEDS: PROPOFOL 100 ML IV SCH (16:00)
[2021-12-15] MEDS: ATORVASTATIN 20 MG TAB PEG SCH (22:07)
[2021-12-15] MEDS ORDERED: AMIODARONE 450mg/250ml AE 250 ML IV SCH (22:45)
[2021-12-16] VITALS (91 sets, daily range): BP systolic 64–223; BP diastolic 32–81
[2021-12-16] MEDS: SODIUM CHL 0.9% IV SCH ×3 (02:00→17:33)
[2021-12-16] MEDS: [UNRECOGNIZED DRUG - OTHER] IV SCH ×3 (02:00→17:33)
[2021-12-16] MEDS: CEFTOLOZANE TAZOB IV SCH ×3 (02:00→17:33)
[2021-12-16 04:53] LABS: Basophils # (auto) 0.2 10 ^3/uL (0-0.2); Basophils % (auto) 1.2 % (0.0-2.0); Eosinophils # (auto) 0.3 10 ^3/uL (0-0.8); Hematocrit 28.5 % (36.0-46.0); Hemoglobin 9.5 g/dL (12.2-16.2); Lymphocytes # (auto) 1.1 10 ^3/uL (0.4-5.4); Lymphocytes % (auto) 6.6 % (10.0-50.0); Mean Corpuscular Hemoglobin 27.4 pg (28.0-32.0); Mean Corpuscular Hgb Conc. 33.3 g/dL (32.0-36.0); Mean Corpuscular Volume 82.1 fL (80.0-100.0); Monocytes # (auto) 0.5 10 ^3/uL (0-1.3); Monocytes % (auto) 3.2 % (0.0-12.0); Neutrophils # (auto) 14.6 10 ^3/uL (1.6-8.6); Nucleated Red Blood Cells % 0.5 %; Red Blood Cells 3.47 10^6/uL (4.0-5.20); Red Cell Distribution Width 19.1 % (11.8-14.3); White Blood Cell 16.8 10^3/uL (4.4-10.8)
[2021-12-16 05:13] LABS: BUN/Creatinine Ratio 13.3; Potassium 3.5 mmol/L (3.5-5.1)
[2021-12-16] MEDS: DOPamine 1600MCG/ML D5W 250 ML IV SCH (05:15)
[2021-12-16] MEDS: AMIODARONE 450mg/250ml AE 250 ML IV SCH (05:45)
[2021-12-16] MEDS: METOCLOPRAMIDE HCL 5MG/ml INJ 2ml VIAL IV SCH ×3 (06:00→22:00)
[2021-12-16] MEDS: Nepro With Carb Steady 1 Liter Bottle GT SCH ×4 (06:00→22:00)
[2021-12-16] MEDS: InsuLIN REG 1unit/0.01ml Soln (100units/ml) SC SCH ×3 (07:00→17:00)
[2021-12-16] MEDS ORDERED: SODIUM CHL 0.9% 1000 ML BAG XX ONE (07:00)
[2021-12-16] MEDS: fentaNYL Drip 2500mCg/250mlNS 250 ML IV SCH (08:45)
[2021-12-16] MEDS: NOREPINEPHRINE 8 MG/250ML KIT 250 ML IV SCH (09:00)
[2021-12-16] MEDS: ASCORBIC ACID 500 MG TAB PEG SCH ×2 (09:53→22:00)
[2021-12-16] MEDS: APIXABAN 2.5 MG TAB PEG SCH ×2 (09:53→22:00)
[2021-12-16] MEDS: Pro-Stat SF 30ml Vanilla GT SCH ×2 (09:53→22:00)
[2021-12-16] MEDS: B-COMPLEX W/ C & FOLIC ACID(NEPHROVITE TAB) PEG SCH (09:53)
[2021-12-16] MEDS: PROPOFOL 100 ML IV SCH (10:30)
[2021-12-16] MEDS ORDERED: EPOETIN ALFA-EPBX 10,000 UNIT/1ML VIAL SC ONE (21:00)
[2021-12-16] MEDS: ATORVASTATIN 20 MG TAB PEG SCH (22:00)
[2021-12-17] VITALS (79 sets, daily range): BP systolic 121–177; BP diastolic 45–78
[2021-12-17] MEDS: AMIODARONE 450mg/250ml AE 250 ML IV SCH ×2 (01:00→10:30)
[2021-12-17] MEDS: DOPamine 1600MCG/ML D5W 250 ML IV SCH ×2 (01:41→22:07)
[2021-12-17] MEDS: CEFTOLOZANE TAZOB IV SCH ×2 (02:00→10:04)
[2021-12-17] MEDS: SODIUM CHL 0.9% IV SCH ×2 (02:00→10:04)
[2021-12-17] MEDS: [UNRECOGNIZED DRUG - OTHER] IV SCH ×2 (02:00→10:04)
[2021-12-17] MEDS: Nepro With Carb Steady 1 Liter Bottle GT SCH ×4 (06:00→21:33)
[2021-12-17] MEDS: METOCLOPRAMIDE HCL 5MG/ml INJ 2ml VIAL IV SCH ×3 (06:00→21:34)
[2021-12-17] MEDS: InsuLIN REG 1unit/0.01ml Soln (100units/ml) SC SCH ×3 (07:00→17:00)
[2021-12-17 07:20] LABS: BUN/Creatinine Ratio 10.3; Calcium 7.9 mg/dL (8.5-10.1); Potassium 3.6 mmol/L (3.5-5.1)
[2021-12-17] MEDS: fentaNYL Drip 2500mCg/250mlNS 250 ML IV SCH (08:45)
[2021-12-17] MEDS: PROPOFOL 100 ML IV SCH (09:30)
[2021-12-17] MEDS: NOREPINEPHRINE 8 MG/250ML KIT 250 ML IV SCH (10:00)
[2021-12-17] MEDS: Pro-Stat SF 30ml Vanilla GT SCH ×2 (10:03→21:33)
[2021-12-17] MEDS: ASCORBIC ACID 500 MG TAB PEG SCH ×2 (10:04→21:34)
[2021-12-17] MEDS: APIXABAN 2.5 MG TAB PEG SCH ×2 (10:04→21:34)
[2021-12-17] MEDS: B-COMPLEX W/ C & FOLIC ACID(NEPHROVITE TAB) PEG SCH (10:04)
[2021-12-17] MEDS: ATORVASTATIN 20 MG TAB PEG SCH (21:34)
[2021-12-17] MEDS: hydrALAZINE HCL 20 MG/ML VL IV PRN (22:48)
[2021-12-18] VITALS (102 sets, daily range): BP systolic 96–184; BP diastolic 37–104
[2021-12-18] MEDS: AMIODARONE 450mg/250ml AE 250 ML IV SCH ×2 (00:40→17:19)
[2021-12-18] MEDS: hydrALAZINE HCL 20 MG/ML VL IV PRN (05:36)
[2021-12-18] MEDS: METOCLOPRAMIDE HCL 5MG/ml INJ 2ml VIAL IV SCH ×3 (05:37→20:52)
[2021-12-18] MEDS: Nepro With Carb Steady 1 Liter Bottle GT SCH ×4 (05:37→20:51)
[2021-12-18] MEDS: PROPOFOL 100 ML IV SCH (05:58)
[2021-12-18] MEDS: InsuLIN REG 1unit/0.01ml Soln (100units/ml) SC SCH ×3 (06:40→17:00)
[2021-12-18] MEDS ORDERED: SODIUM CHL 0.9% 1000 ML BAG XX ONE (07:00)
[2021-12-18] MEDS: fentaNYL Drip 2500mCg/250mlNS 250 ML IV SCH (08:45)
[2021-12-18] MEDS: APIXABAN 2.5 MG TAB PEG SCH ×2 (09:20→21:04)
[2021-12-18] MEDS: B-COMPLEX W/ C & FOLIC ACID(NEPHROVITE TAB) PEG SCH (09:20)
[2021-12-18] MEDS: Pro-Stat SF 30ml Vanilla GT SCH ×2 (09:20→21:00)
[2021-12-18] MEDS: ASCORBIC ACID 500 MG TAB PEG SCH ×2 (09:21→21:04)
[2021-12-18] MEDS: NOREPINEPHRINE 8 MG/250ML KIT 250 ML IV SCH (13:30)
[2021-12-18] MEDS: DOPamine 1600MCG/ML D5W 250 ML IV SCH (17:19)
[2021-12-18] MEDS: ATORVASTATIN 20 MG TAB PEG SCH (21:04)
[2021-12-19] VITALS (96 sets, daily range): BP systolic 83–177; BP diastolic 41–81
[2021-12-19] MEDS: hydrALAZINE HCL 20 MG/ML VL IV PRN (01:53)
[2021-12-19] MEDS: METOCLOPRAMIDE HCL 5MG/ml INJ 2ml VIAL IV SCH ×3 (01:56→21:38)
[2021-12-19 04:34] LABS: Hematocrit 27.7 % (36.0-46.0); Hemoglobin 9.1 g/dL (12.2-16.2)
[2021-12-19] MEDS: Nepro With Carb Steady 1 Liter Bottle GT SCH ×4 (05:10→21:38)
[2021-12-19] MEDS: InsuLIN REG 1unit/0.01ml Soln (100units/ml) SC SCH ×3 (05:29→17:00)
[2021-12-19] MEDS ORDERED: SODIUM CHL 0.9% 1000 ML BAG XX ONE (07:00)
[2021-12-19] MEDS: fentaNYL Drip 2500mCg/250mlNS 250 ML IV SCH (08:45)
[2021-12-19] MEDS: NOREPINEPHRINE 8 MG/250ML KIT 250 ML IV SCH (10:00)
[2021-12-19] MEDS: Pro-Stat SF 30ml Vanilla GT SCH ×2 (10:17→21:38)
[2021-12-19] MEDS: APIXABAN 2.5 MG TAB PEG SCH ×2 (10:17→21:39)
[2021-12-19] MEDS: B-COMPLEX W/ C & FOLIC ACID(NEPHROVITE TAB) PEG SCH (10:17)
[2021-12-19] MEDS: ASCORBIC ACID 500 MG TAB PEG SCH ×2 (10:17→21:39)
[2021-12-19] MEDS: AMIODARONE HCL 200 MG TAB PO SCH (10:21)
[2021-12-19] MEDS: DOPamine 1600MCG/ML D5W 250 ML IV SCH (13:12)
[2021-12-19] MEDS: PROPOFOL 100 ML IV SCH (20:26)
[2021-12-19] MEDS ORDERED: EPOETIN ALFA-EPBX 10,000 UNIT/1ML VIAL SC ONE (21:00)
[2021-12-19] MEDS: ATORVASTATIN 20 MG TAB PEG SCH (21:39)
[2021-12-20] VITALS (96 sets, daily range): BP systolic 104–150; BP diastolic 41–58
[2021-12-20] MEDS: METOCLOPRAMIDE HCL 5MG/ml INJ 2ml VIAL IV SCH ×3 (01:55→22:22)
[2021-12-20] MEDS: Nepro With Carb Steady 1 Liter Bottle GT SCH ×4 (01:55→22:00)
[2021-12-20 04:25] LABS: Basophils # (auto) 0.1 10 ^3/uL (0-0.2); Hemoglobin 9.2 g/dL (12.2-16.2); Lymphocytes # (auto) 0.7 10 ^3/uL (0.4-5.4); Neutrophils # (auto) 19.5 10 ^3/uL (1.6-8.6); Red Blood Cells 3.41 10^6/uL (4.0-5.20); White Blood Cell 21.1 10^3/uL (4.4-10.8)
[2021-12-20 04:27] LABS: Basophils % (auto) 0.6 % (0.0-2.0); Eosinophils # (auto) 0 10 ^3/uL (0-0.8); Eosinophils % (auto) 0.1 % (0.0-7.0); Hematocrit 27.9 % (36.0-46.0); Lymphocytes % (auto) 3.4 % (10.0-50.0); Monocytes # (auto) 0.6 10 ^3/uL (0-1.3); Monocytes % (auto) 3.1 % (0.0-12.0); Neutrophils % (auto) 92.8 % (37.0-80.0); Nucleated Red Blood Cells % 0.3 %; Red Cell Distribution Width 18.9 % (11.8-14.3)
[2021-12-20 04:48] LABS: Calcium 7.9 mg/dL (8.5-10.1); Potassium 3.8 mmol/L (3.5-5.1)
[2021-12-20 04:50] LABS: Albumin 1.3 g/dL (3.4-5.0); BUN/Creatinine Ratio 9.6
[2021-12-20 04:54] LABS: Bilirubin, Total 0.3 mg/dL (0.2-1.0); Total Protein 5.7 g/dL (6.4-8.2)
[2021-12-20] MEDS: InsuLIN REG 1unit/0.01ml Soln (100units/ml) SC SCH ×3 (05:39→17:00)
[2021-12-20] MEDS: fentaNYL Drip 2500mCg/250mlNS 250 ML IV SCH (08:45)
[2021-12-20] MEDS: APIXABAN 2.5 MG TAB PEG SCH ×2 (09:51→22:22)
[2021-12-20] MEDS: B-COMPLEX W/ C & FOLIC ACID(NEPHROVITE TAB) PEG SCH (09:51)
[2021-12-20] MEDS: ASCORBIC ACID 500 MG TAB PEG SCH ×2 (09:51→22:22)
[2021-12-20] MEDS: Pro-Stat SF 30ml Vanilla GT SCH ×2 (09:51→22:00)
[2021-12-20] MEDS: AMIODARONE HCL 200 MG TAB PO SCH (09:55)
[2021-12-20] MEDS: DOPamine 1600MCG/ML D5W 250 ML IV SCH (10:06)
[2021-12-20] MEDS: NOREPINEPHRINE 8 MG/250ML KIT 250 ML IV SCH (10:06)
[2021-12-20] MEDS: PROPOFOL 100 ML IV SCH (20:30)
[2021-12-20] MEDS: ATORVASTATIN 20 MG TAB PEG SCH (22:22)
[2021-12-21] VITALS (101 sets, daily range): BP systolic 83–185; BP diastolic 38–60
[2021-12-21 04:50] LABS: Basophils # (auto) 0.1 10 ^3/uL (0-0.2); Eosinophils # (auto) 0.1 10 ^3/uL (0-0.8); Lymphocytes # (auto) 0.9 10 ^3/uL (0.4-5.4)
[2021-12-21 04:51] LABS: Basophils % (auto) 0.8 % (0.0-2.0); Eosinophils % (auto) 0.4 % (0.0-7.0); Hematocrit 29.3 % (36.0-46.0); Hemoglobin 9.6 g/dL (12.2-16.2); Lymphocytes % (auto) 4.8 % (10.0-50.0); Mean Corpuscular Hemoglobin 26.8 pg (28.0-32.0); Mean Corpuscular Hgb Conc. 32.8 g/dL (32.0-36.0); Mean Corpuscular Volume 81.9 fL (80.0-100.0); Monocytes # (auto) 0.8 10 ^3/uL (0-1.3); Monocytes % (auto) 4.5 % (0.0-12.0); Neutrophils # (auto) 15.8 10 ^3/uL (1.6-8.6); Neutrophils % (auto) 89.5 % (37.0-80.0); Nucleated Red Blood Cells % 0.1 %; Red Blood Cells 3.57 10^6/uL (4.0-5.20); Red Cell Distribution Width 19.1 % (11.8-14.3); White Blood Cell 17.7 10^3/uL (4.4-10.8)
[2021-12-21 05:07] LABS: Albumin 1.2 g/dL (3.4-5.0); Calcium 7.8 mg/dL (8.5-10.1); Potassium 3.7 mmol/L (3.5-5.1)
[2021-12-21 05:11] LABS: BUN/Creatinine Ratio 9.1; Bilirubin, Total 0.4 mg/dL (0.2-1.0); Total Protein 5.7 g/dL (6.4-8.2)
[2021-12-21] MEDS: Nepro With Carb Steady 1 Liter Bottle GT SCH ×4 (06:00→23:15)
[2021-12-21] MEDS: METOCLOPRAMIDE HCL 5MG/ml INJ 2ml VIAL IV SCH ×3 (06:02→23:16)
[2021-12-21] MEDS: InsuLIN REG 1unit/0.01ml Soln (100units/ml) SC SCH ×3 (06:54→17:00)
[2021-12-21] MEDS: DOPamine 1600MCG/ML D5W 250 ML IV SCH (07:51)
[2021-12-21] MEDS: fentaNYL Drip 2500mCg/250mlNS 250 ML IV SCH (08:45)
[2021-12-21] MEDS: AMIODARONE HCL 200 MG TAB PO SCH (09:11)
[2021-12-21] MEDS: Pro-Stat SF 30ml Vanilla GT SCH ×2 (09:11→22:00)
[2021-12-21] MEDS: APIXABAN 2.5 MG TAB PEG SCH ×2 (09:11→23:16)
[2021-12-21] MEDS: NOREPINEPHRINE 8 MG/250ML KIT 250 ML IV SCH (09:11)
[2021-12-21] MEDS: PROPOFOL 100 ML IV SCH (20:30)
[2021-12-22] VITALS (99 sets, daily range): BP systolic 120–175; BP diastolic 45–67
[2021-12-22] MEDS: DOPamine 1600MCG/ML D5W 250 ML IV SCH (04:17)
[2021-12-22] MEDS: METOCLOPRAMIDE HCL 5MG/ml INJ 2ml VIAL IV SCH ×3 (05:58→21:16)
[2021-12-22] MEDS: Nepro With Carb Steady 1 Liter Bottle GT SCH ×4 (05:58→22:07)
[2021-12-22] MEDS: InsuLIN REG 1unit/0.01ml Soln (100units/ml) SC SCH (06:36)
[2021-12-22] MEDS: NOREPINEPHRINE 8 MG/250ML KIT 250 ML IV SCH (09:47)
[2021-12-22] MEDS: Pro-Stat SF 30ml Vanilla GT SCH ×2 (09:47→21:16)
[2021-12-22] MEDS: AMIODARONE HCL 200 MG TAB PO SCH (09:47)
[2021-12-22] MEDS: APIXABAN 2.5 MG TAB PEG SCH ×2 (09:47→22:08)
[2021-12-22] MEDS: PROPOFOL 100 ML IV SCH (20:30)
[2021-12-23] VITALS (69 sets, daily range): BP systolic 91–182; BP diastolic 38–70
[2021-12-23] MEDS: hydrALAZINE HCL 20 MG/ML VL IV PRN (00:27)
[2021-12-23] MEDS: DOPamine 1600MCG/ML D5W 250 ML IV SCH ×2 (00:43→21:09)
[2021-12-23 05:21] LABS: Hematocrit 29.7 % (36.0-46.0); Hemoglobin 9.8 g/dL (12.2-16.2)
[2021-12-23] MEDS: METOCLOPRAMIDE HCL 5MG/ml INJ 2ml VIAL IV SCH ×3 (05:53→22:00)
[2021-12-23] MEDS: Nepro With Carb Steady 1 Liter Bottle GT SCH ×4 (05:53→22:00)
[2021-12-23] MEDS: ALBUMIN 25% 100 ML IV SCH ×2 (07:00→08:00)
[2021-12-23] MEDS ORDERED: SODIUM CHL 0.9% 1000 ML BAG XX ONE (07:00)
[2021-12-23] MEDS: APIXABAN 2.5 MG TAB PEG SCH ×2 (10:00→22:00)
[2021-12-23] MEDS: Pro-Stat SF 30ml Vanilla GT SCH ×2 (10:04→22:00)
[2021-12-23] MEDS: AMIODARONE HCL 200 MG TAB PO SCH (10:05)
[2021-12-23] MEDS: NOREPINEPHRINE 8 MG/250ML KIT 250 ML IV SCH (10:06)
[2021-12-23] MEDS: PROPOFOL 100 ML IV SCH (20:30)
[2021-12-23] MEDS ORDERED: EPOETIN ALFA-EPBX 10,000 UNIT/1ML VIAL SC ONE (21:00)
[2021-12-24] VITALS (57 sets, daily range): BP systolic 118–163; BP diastolic 44–63
[2021-12-24 05:56] LABS: Basophils # (auto) 0.1 10 ^3/uL (0-0.2); Lymphocytes # (auto) 0.7 10 ^3/uL (0.4-5.4); Lymphocytes % (auto) 4.6 % (10.0-50.0); Monocytes # (auto) 0.7 10 ^3/uL (0-1.3); Nucleated Red Blood Cells % 0.1 %
[2021-12-24 05:59] LABS: Basophils % (auto) 0.6 % (0.0-2.0); Eosinophils # (auto) 0 10 ^3/uL (0-0.8); Eosinophils % (auto) 0.2 % (0.0-7.0); Hematocrit 29.2 % (36.0-46.0); Hemoglobin 9.4 g/dL (12.2-16.2); Mean Corpuscular Hemoglobin 26.7 pg (28.0-32.0); Mean Corpuscular Hgb Conc. 32.4 g/dL (32.0-36.0); Mean Corpuscular Volume 82.4 fL (80.0-100.0); Monocytes % (auto) 4.2 % (0.0-12.0); Neutrophils # (auto) 14.5 10 ^3/uL (1.6-8.6); Neutrophils % (auto) 90.4 % (37.0-80.0); Red Blood Cells 3.54 10^6/uL (4.0-5.20); Red Cell Distribution Width 19.5 % (11.8-14.3); White Blood Cell 16.1 10^3/uL (4.4-10.8)
[2021-12-24] MEDS: Nepro With Carb Steady 1 Liter Bottle GT SCH ×4 (06:00→22:31)
[2021-12-24 06:14] LABS: BUN/Creatinine Ratio 6.8; Calcium 7.7 mg/dL (8.5-10.1); Magnesium 2.1 mg/dL (1.6-2.6); Potassium 3.2 mmol/L (3.5-5.1)
[2021-12-24] MEDS: METOCLOPRAMIDE HCL 5MG/ml INJ 2ml VIAL IV SCH ×3 (06:45→22:31)
[2021-12-24] MEDS: APIXABAN 2.5 MG TAB PEG SCH ×2 (10:00→22:00)
[2021-12-24] MEDS: Pro-Stat SF 30ml Vanilla GT SCH ×2 (10:00→22:00)
[2021-12-24] MEDS: AMIODARONE HCL 200 MG TAB PO SCH (10:00)
[2021-12-24] MEDS: NOREPINEPHRINE 8 MG/250ML KIT 250 ML IV SCH (10:41)
[2021-12-24] MEDS: POTASSIUM CHL 20MEQ/100ML 100 ML IV SCH ×3 (11:15→15:15)
[2021-12-24] MEDS: DOPamine 1600MCG/ML D5W 250 ML IV SCH (12:43)
[2021-12-24] MEDS: PROPOFOL 100 ML IV SCH (20:30)
[2021-12-25] VITALS (56 sets, daily range): BP systolic 95–185; BP diastolic 34–88
[2021-12-25] MEDS: Nepro With Carb Steady 1 Liter Bottle GT SCH ×5 (06:00→21:06)
[2021-12-25 06:43] LABS: Basophils # (auto) 0.1 10 ^3/uL (0-0.2); Basophils % (auto) 0.4 % (0.0-2.0); Eosinophils # (auto) 0.1 10 ^3/uL (0-0.8); Hemoglobin 10.1 g/dL (12.2-16.2); Nucleated Red Blood Cells % 0.1 %
[2021-12-25 06:46] LABS: Eosinophils % (auto) 0.6 % (0.0-7.0); Hematocrit 30.8 % (36.0-46.0); INR 1.18 (0.9-1.15); Lymphocytes % (auto) 5.3 % (10.0-50.0); Mean Corpuscular Hgb Conc. 32.7 g/dL (32.0-36.0); Mean Corpuscular Volume 82.6 fL (80.0-100.0); Monocytes # (auto) 0.8 10 ^3/uL (0-1.3); Monocytes % (auto) 4.1 % (0.0-12.0); Neutrophils # (auto) 17.3 10 ^3/uL (1.6-8.6); Neutrophils % (auto) 89.6 % (37.0-80.0); Partial Thromboplastin Time 36.2 sec (23.6-33.0); Red Blood Cells 3.73 10^6/uL (4.0-5.20); Red Cell Distribution Width 19.3 % (11.8-14.3); White Blood Cell 19.3 10^3/uL (4.4-10.8)
[2021-12-25] MEDS: METOCLOPRAMIDE HCL 5MG/ml INJ 2ml VIAL IV SCH ×4 (06:48→21:06)
[2021-12-25] MEDS: hydrALAZINE HCL 20 MG/ML VL IV PRN (06:55)
[2021-12-25] MEDS ORDERED: SODIUM CHL 0.9% 1000 ML BAG XX ONE (07:00)
[2021-12-25 07:24] LABS: BUN/Creatinine Ratio 6.6; Calcium 7.8 mg/dL (8.5-10.1); Magnesium 2.3 mg/dL (1.6-2.6); Potassium 4.4 mmol/L (3.5-5.1)
[2021-12-25] MEDS: APIXABAN 2.5 MG TAB PEG SCH ×2 (09:42→20:52)
[2021-12-25] MEDS: Pro-Stat SF 30ml Vanilla GT SCH ×2 (09:42→19:37)
[2021-12-25] MEDS: AMIODARONE HCL 200 MG TAB PO SCH (09:42)
[2021-12-25] MEDS ORDERED: SUCCINYLCHOLINE CHLORIDE 20 MG/ML 10ML VIAL IV ONE (10:28)
[2021-12-25] MEDS ORDERED: ROCURONIUM 10MG/ML 10ML VIAL IV ONE (10:28)
[2021-12-25] MEDS ORDERED: MIDAZOLAM HCL 2MG/2ML 2ml VIAL (1mg/ml) ONE (10:36)
[2021-12-25] MEDS ORDERED: ceFAZolin 1GM VL ONE (10:53)
[2021-12-25] MEDS ORDERED: fentaNYL CITRATE 100 MCG/2 ML VL ONE (10:54)
[2021-12-25] MEDS: NOREPINEPHRINE 8 MG/250ML KIT 250 ML IV SCH (11:00)
[2021-12-25] MEDS ORDERED: DEXMEDETOMIDINE IV ONE (12:29)
[2021-12-25] MEDS: DOPamine 1600MCG/ML D5W 250 ML IV SCH (14:01)
[2021-12-25] MEDS: PROPOFOL 100 ML IV SCH (19:33)
[2021-12-26] VITALS (39 sets, daily range): BP systolic 93–171; BP diastolic 41–72
[2021-12-26 04:24] LABS: Hematocrit 29.5 % (36.0-46.0); Hemoglobin 9.6 g/dL (12.2-16.2); Mean Corpuscular Hgb Conc. 32.6 g/dL (32.0-36.0); Mean Corpuscular Volume 82.7 fL (80.0-100.0); Red Blood Cells 3.56 10^6/uL (4.0-5.20); Red Cell Distribution Width 19.7 % (11.8-14.3)
[2021-12-26 04:39] LABS: Calcium 7.7 mg/dL (8.5-10.1); Magnesium 2.1 mg/dL (1.6-2.6); Potassium 4.2 mmol/L (3.5-5.1)
[2021-12-26 04:43] LABS: BUN/Creatinine Ratio 6.8
[2021-12-26 04:53] LABS: White Blood Cell 30.3 10^3/uL (4.4-10.8)
[2021-12-26 04:54] LABS: Band Neutrophils % (manual) 0; Basophils % (manual) 0 (0.0-2.0); Blast Cells 0; Eosinophils % (manual) 0 (0-7); Metamyelocytes % 0; Myelocytes % 0; Promyelocytes % 0; Reactive Lymphocytes 0
[2021-12-26] MEDS: Nepro With Carb Steady 1 Liter Bottle GT SCH ×4 (06:00→20:14)
[2021-12-26] MEDS ORDERED: SODIUM CHLORIDE 0.9% 2,000 ML IV ONE (07:00)
[2021-12-26] MEDS ORDERED: HEPARIN 1,000 UNITS/ml 1ML VIAL IV ONE ×2 (07:00)
[2021-12-26] MEDS: DOPamine 1600MCG/ML D5W 250 ML IV SCH ×2 (10:27→19:32)
[2021-12-26 10:59] LABS: Lymphocytes % (manual) 3 (10.0-50.0); Monocytes % (manual) 4 (0-12)
[2021-12-26] MEDS: NOREPINEPHRINE 8 MG/250ML KIT 250 ML IV SCH (11:00)
[2021-12-26 13:47] LABS: Hemoglobin 8.4 g/dL (12.2-16.2); Red Blood Cells 3.13 10^6/uL (4.0-5.20); White Blood Cell 24.5 10^3/uL (4.4-10.8)
[2021-12-26 13:49] LABS: Hematocrit 25.6 % (36.0-46.0); Mean Corpuscular Hemoglobin 26.8 pg (28.0-32.0); Mean Corpuscular Hgb Conc. 32.7 g/dL (32.0-36.0); Mean Corpuscular Volume 81.9 fL (80.0-100.0); Red Cell Distribution Width 19.6 % (11.8-14.3)
[2021-12-26 13:55] LABS: Basophils % (manual) 0 (0.0-2.0); Blast Cells 0; Eosinophils % (manual) 0 (0-7); Metamyelocytes % 0; Myelocytes % 0; Promyelocytes % 0; Reactive Lymphocytes 0
[2021-12-26] MEDS: METOCLOPRAMIDE HCL 5MG/ml INJ 2ml VIAL IV SCH ×2 (14:00→19:29)
[2021-12-26 15:06] LABS: Band Neutrophils % (manual) 6; Lymphocytes % (manual) 4 (10.0-50.0); Monocytes % (manual) 3 (0-12)
[2021-12-26] MEDS ORDERED: CHOLESTYRAMINE 4 GM POWDER GT ONE (16:30)
[2021-12-26] MEDS: Pro-Stat SF 30ml Vanilla GT SCH ×2 (19:04→20:14)
[2021-12-26] MEDS: ALBUMIN 25% 100 ML IV SCH ×2 (19:05→19:13)
[2021-12-26] MEDS: APIXABAN 2.5 MG TAB PEG SCH ×2 (19:05→20:14)
[2021-12-26] MEDS: AMIODARONE HCL 200 MG TAB PO SCH (19:06)
[2021-12-26] MEDS: PROPOFOL 100 ML IV SCH (19:29)
[2021-12-26] MEDS ORDERED: EPOETIN ALFA-EPBX 10,000 UNIT/1ML VIAL SC ONE (21:00)
[2021-12-26] MEDS: CHOLESTYRAMINE 4 GM POWDER GT SCH (23:15)
[2021-12-27] VITALS (41 sets, daily range): BP systolic 120–176; BP diastolic 53–98
[2021-12-27 04:15] LABS: Hemoglobin 9.4 g/dL (12.2-16.2); Mean Corpuscular Hemoglobin 26.5 pg (28.0-32.0)
[2021-12-27 04:22] LABS: BUN/Creatinine Ratio 5.8; Calcium 8.2 mg/dL (8.5-10.1); Magnesium 2.1 mg/dL (1.6-2.6); Potassium 3.8 mmol/L (3.5-5.1)
[2021-12-27 04:27] LABS: Hematocrit 29.4 % (36.0-46.0); Mean Corpuscular Hgb Conc. 32.1 g/dL (32.0-36.0); Mean Corpuscular Volume 82.7 fL (80.0-100.0); Red Blood Cells 3.55 10^6/uL (4.0-5.20); White Blood Cell 29.8 10^3/uL (4.4-10.8)
[2021-12-27 04:28] LABS: Red Cell Distribution Width 20.2 % (11.8-14.3)
[2021-12-27 04:29] LABS: Basophils % (manual) 0 (0.0-2.0); Blast Cells 0; Metamyelocytes % 0; Myelocytes % 0; Promyelocytes % 0; Reactive Lymphocytes 0
[2021-12-27] MEDS: METOCLOPRAMIDE HCL 5MG/ml INJ 2ml VIAL IV SCH ×3 (04:47→22:48)
[2021-12-27] MEDS: Nepro With Carb Steady 1 Liter Bottle GT SCH ×3 (04:47→18:00)
[2021-12-27 06:28] LABS: Band Neutrophils % (manual) 2; Eosinophils % (manual) 1 (0-7); Lymphocytes % (manual) 4 (10.0-50.0); Monocytes % (manual) 6 (0-12)
[2021-12-27] MEDS: NOREPINEPHRINE 8 MG/250ML KIT 250 ML IV SCH (11:00)
[2021-12-27] MEDS: Pro-Stat SF 30ml Vanilla GT SCH ×2 (11:11→22:48)
[2021-12-27] MEDS: APIXABAN 2.5 MG TAB PEG SCH ×2 (11:12→22:49)
[2021-12-27] MEDS: AMIODARONE HCL 200 MG TAB PO SCH (11:21)
[2021-12-27] MEDS: CHOLESTYRAMINE 4 GM POWDER GT SCH ×2 (11:22→22:49)
[2021-12-27] MEDS: PROPOFOL 100 ML IV SCH (20:30)
[2021-12-27] MEDS: hydrALAZINE HCL 20 MG/ML VL IV PRN (22:50)
[2021-12-28] VITALS (94 sets, daily range): BP systolic 125–175; BP diastolic 34–73
[2021-12-28] MEDS: DOPamine 1600MCG/ML D5W 250 ML IV SCH ×2 (03:19→23:45)
[2021-12-28 03:49] LABS: Basophils # (auto) 0.1 10 ^3/uL (0-0.2); Basophils % (auto) 0.4 % (0.0-2.0); Eosinophils # (auto) 0.1 10 ^3/uL (0-0.8); Eosinophils % (auto) 0.2 % (0.0-7.0); Red Cell Distribution Width 19.9 % (11.8-14.3)
[2021-12-28 03:53] LABS: Hematocrit 26.7 % (36.0-46.0); Hemoglobin 8.9 g/dL (12.2-16.2); Lymphocytes # (auto) 0.5 10 ^3/uL (0.4-5.4); Lymphocytes % (auto) 2.2 % (10.0-50.0); Mean Corpuscular Hemoglobin 27.7 pg (28.0-32.0); Mean Corpuscular Hgb Conc. 33.5 g/dL (32.0-36.0); Mean Corpuscular Volume 82.7 fL (80.0-100.0); Monocytes % (auto) 4.2 % (0.0-12.0); Neutrophils # (auto) 21.8 10 ^3/uL (1.6-8.6); Red Blood Cells 3.23 10^6/uL (4.0-5.20); White Blood Cell 23.4 10^3/uL (4.4-10.8)
[2021-12-28 04:05] LABS: BUN/Creatinine Ratio 6.1; Calcium 7.7 mg/dL (8.5-10.1); Magnesium 2.1 mg/dL (1.6-2.6); Potassium 3.9 mmol/L (3.5-5.1)
[2021-12-28] MEDS: hydrALAZINE HCL 20 MG/ML VL IV PRN (04:41)
[2021-12-28] MEDS: METOCLOPRAMIDE HCL 5MG/ml INJ 2ml VIAL IV SCH ×3 (06:54→22:01)
[2021-12-28] MEDS: AMIODARONE HCL 200 MG TAB PO SCH (09:51)
[2021-12-28] MEDS: Pro-Stat SF 30ml Vanilla GT SCH ×2 (09:52→22:01)
[2021-12-28] MEDS: METOPROLOL TARTRATE 25 MG TAB PO SCH ×2 (09:52→22:01)
[2021-12-28] MEDS: CHOLESTYRAMINE 4 GM POWDER GT SCH ×2 (10:40→23:56)
[2021-12-28] MEDS: NOREPINEPHRINE 8 MG/250ML KIT 250 ML IV SCH (11:00)
[2021-12-28] MEDS ORDERED: HALOPERIDOL LACTATE 5 MG/ML INJ VIAL IM PRN (15:30)
[2021-12-28] MEDS: PROPOFOL 100 ML IV SCH (20:03)
[2021-12-29] VITALS (93 sets, daily range): BP systolic 112–179; BP diastolic 33–113
[2021-12-29] MEDS: hydrALAZINE HCL 20 MG/ML VL IV PRN ×2 (00:27→12:02)
[2021-12-29 03:21] LABS: Eosinophils # (auto) 0.2 10 ^3/uL (0-0.8); Eosinophils % (auto) 1.2 % (0.0-7.0); Hematocrit 27.4 % (36.0-46.0); Lymphocytes # (auto) 0.7 10 ^3/uL (0.4-5.4)
[2021-12-29 03:23] LABS: Basophils # (auto) 0.1 10 ^3/uL (0-0.2); Basophils % (auto) 0.6 % (0.0-2.0); Hemoglobin 8.7 g/dL (12.2-16.2); Mean Corpuscular Hemoglobin 26.3 pg (28.0-32.0); Mean Corpuscular Hgb Conc. 31.9 g/dL (32.0-36.0); Mean Corpuscular Volume 82.7 fL (80.0-100.0); Monocytes % (auto) 5.3 % (0.0-12.0); Neutrophils # (auto) 16.1 10 ^3/uL (1.6-8.6); Neutrophils % (auto) 88.9 % (37.0-80.0); Nucleated Red Blood Cells % 0.1 %; Red Blood Cells 3.32 10^6/uL (4.0-5.20); Red Cell Distribution Width 19.8 % (11.8-14.3); White Blood Cell 18.1 10^3/uL (4.4-10.8)
[2021-12-29 03:29] LABS: BUN/Creatinine Ratio 6.6; Magnesium 2.2 mg/dL (1.6-2.6); Potassium 3.9 mmol/L (3.5-5.1)
[2021-12-29] MEDS: METOCLOPRAMIDE HCL 5MG/ml INJ 2ml VIAL IV SCH ×3 (06:03→21:18)
[2021-12-29] MEDS: Pro-Stat SF 30ml Vanilla GT SCH ×2 (10:00→21:08)
[2021-12-29] MEDS: AMIODARONE HCL 200 MG TAB PO SCH (10:02)
[2021-12-29] MEDS: METOPROLOL TARTRATE 25 MG TAB PO SCH ×2 (10:03→21:19)
[2021-12-29] MEDS: CHOLESTYRAMINE 4 GM POWDER GT SCH ×2 (11:17→23:03)
[2021-12-29] MEDS ORDERED: TPN PER PHARMACY 0 ML IV SCH (16:15)
[2021-12-29] MEDS: CLINIMIX PER PHARMACY IV NR (19:58)
[2021-12-29] MEDS: DOPamine 1600MCG/ML D5W 250 ML IV SCH (20:11)
[2021-12-29] MEDS: ACCU-CHEK COMFORT CURVE STRIP VI SCH (23:55)
[2021-12-29] MEDS: InsuLIN REG 1unit/0.01ml Soln (100units/ml) SC SCH (23:55)
[2021-12-30] VITALS (66 sets, daily range): BP systolic 115–176; BP diastolic 52–76
[2021-12-30] MEDS ORDERED: DEXTROSE (50%) 50ML SYRG IV SCH
[2021-12-30] MEDS: hydrALAZINE HCL 20 MG/ML VL IV PRN ×2 (00:26→20:42)
[2021-12-30 03:34] LABS: Basophils # (auto) 0.1 10 ^3/uL (0-0.2); Basophils % (auto) 0.6 % (0.0-2.0); Eosinophils # (auto) 0.1 10 ^3/uL (0-0.8); Eosinophils % (auto) 0.6 % (0.0-7.0); Hematocrit 30.1 % (36.0-46.0); Hemoglobin 9.6 g/dL (12.2-16.2); Lymphocytes # (auto) 0.9 10 ^3/uL (0.4-5.4); Lymphocytes % (auto) 4.5 % (10.0-50.0); Mean Corpuscular Hemoglobin 26.3 pg (28.0-32.0); Mean Corpuscular Hgb Conc. 31.9 g/dL (32.0-36.0); Mean Corpuscular Volume 82.4 fL (80.0-100.0); Monocytes # (auto) 1.3 10 ^3/uL (0-1.3); Monocytes % (auto) 6.9 % (0.0-12.0); Neutrophils # (auto) 16.6 10 ^3/uL (1.6-8.6); Neutrophils % (auto) 87.4 % (37.0-80.0); Nucleated Red Blood Cells % 0.1 %; Red Blood Cells 3.65 10^6/uL (4.0-5.20); Red Cell Distribution Width 19.8 % (11.8-14.3)
[2021-12-30 04:10] LABS: Albumin 1.7 g/dL (3.4-5.0); Anion Gap 8 (5-15); Blood Urea Nitrogen 25 mg/dL (7-18); Carbon Dioxide 23 mmol/L (21-32); Chloride 105 mmol/L (98-107); Glucose 213 mg/dL (74-106); Magnesium 2.3 mg/dL (1.6-2.6); Sodium 136 mmol/L (136-145)
[2021-12-30 04:16] LABS: Alanine Aminotransferase < 6 U/L (13-56); Alkaline Phosphatase 207 U/L (45-117); Aspartate Aminotransferase 17 U/L (15-37); BUN/Creatinine Ratio 7.2; Bilirubin, Total 0.3 mg/dL (0.2-1.0); GFR African American 16 mL/min; GFR Non-African American 13 mL/min; Phosphorus 2.1 mg/dL (2.5-4.90); Pre Albumin 9.6 mg/dL (20.0-40.0); Total Protein 6.3 g/dL (6.4-8.2); Triglycerides 96 mg/dL (< 150)
[2021-12-30] MEDS: METOCLOPRAMIDE HCL 5MG/ml INJ 2ml VIAL IV SCH (05:29)
[2021-12-30] MEDS: ACCU-CHEK COMFORT CURVE STRIP VI SCH ×3 (05:29→18:18)
[2021-12-30] MEDS: InsuLIN REG 1unit/0.01ml Soln (100units/ml) SC SCH ×3 (05:32→18:19)
[2021-12-30] MEDS: AMIODARONE HCL 200 MG TAB PO SCH (09:56)
[2021-12-30] MEDS: METOPROLOL TARTRATE 25 MG TAB PO SCH ×2 (09:56→22:22)
[2021-12-30] MEDS ORDERED: SODIUM PHOSP 20MEQ(15MMOL) IN NS 100 ML IV ONE (10:00)
[2021-12-30] MEDS: Pro-Stat SF 30ml Vanilla GT SCH ×2 (10:00→22:00)
[2021-12-30] MEDS: CHOLESTYRAMINE 4 GM POWDER GT SCH ×2 (11:27→22:22)
[2021-12-30] MEDS ORDERED: PANTOPRAZOLE 40 MG/10 ML VIAL INJ IV ONE (14:45)
[2021-12-30] MEDS: DOPamine 1600MCG/ML D5W 250 ML IV SCH (15:01)
[2021-12-30] MEDS: CLINIMIX PER PHARMACY IV NR (19:35)
[2021-12-30] MEDS ORDERED: TPN PER PHARMACY IV NR ×9 (20:00)
[2021-12-31] VITALS (102 sets, daily range): BP systolic 119–180; BP diastolic 48–109
[2021-12-31] MEDS: InsuLIN REG 1unit/0.01ml Soln (100units/ml) SC SCH ×5 (00:05→23:58)
[2021-12-31] MEDS: ACCU-CHEK COMFORT CURVE STRIP VI SCH ×5 (00:07→23:58)
[2021-12-31 04:27] LABS: Hematocrit 30.1 % (36.0-46.0); Hemoglobin 10.2 g/dL (12.2-16.2); Mean Corpuscular Hemoglobin 27.7 pg (28.0-32.0); Mean Corpuscular Hgb Conc. 33.8 g/dL (32.0-36.0); Red Blood Cells 3.67 10^6/uL (4.0-5.20); Red Cell Distribution Width 19.2 % (11.8-14.3); White Blood Cell 28.4 10^3/uL (4.4-10.8)
[2021-12-31 04:29] LABS: Band Neutrophils % (manual) 0; Basophils % (manual) 0 (0.0-2.0); Blast Cells 0; Metamyelocytes % 0; Myelocytes % 0; Promyelocytes % 0; Reactive Lymphocytes 0
[2021-12-31 05:01] LABS: Magnesium 2.2 mg/dL (1.6-2.6)
[2021-12-31 05:48] LABS: Albumin 1.5 g/dL (3.4-5.0); Anion Gap 11 (5-15); BUN/Creatinine Ratio 9.4; Blood Urea Nitrogen 34 mg/dL (7-18); Calcium 7.8 mg/dL (8.5-10.1); Carbon Dioxide 22 mmol/L (21-32); Chloride 102 mmol/L (98-107); GFR African American 16 mL/min; GFR Non-African American 13 mL/min; Glucose 153 mg/dL (74-106); Potassium 3.8 mmol/L (3.5-5.1); Sodium 135 mmol/L (136-145)
[2021-12-31 05:51] LABS: Alanine Aminotransferase < 6 U/L (13-56); Alkaline Phosphatase 169 U/L (45-117); Aspartate Aminotransferase 15 U/L (15-37); Bilirubin, Total 0.3 mg/dL (0.2-1.0); Total Protein 5.9 g/dL (6.4-8.2)
[2021-12-31] MEDS ORDERED: SODIUM CHL 0.9% 1000 ML BAG XX ONE (07:00)
[2021-12-31 07:34] LABS: Eosinophils % (manual) 2 (0-7); Lymphocytes % (manual) 2 (10.0-50.0); Monocytes % (manual) 5 (0-12)
[2021-12-31] MEDS: PANTOPRAZOLE 40 MG/10 ML VIAL INJ IV SCH (09:17)
[2021-12-31] MEDS: AMIODARONE HCL 200 MG TAB PO SCH (09:18)
[2021-12-31] MEDS: Pro-Stat SF 30ml Vanilla GT SCH ×2 (09:18→22:00)
[2021-12-31] MEDS: METOPROLOL TARTRATE 25 MG TAB PO SCH ×2 (09:18→22:58)
[2021-12-31] MEDS: CHOLESTYRAMINE 4 GM POWDER GT SCH ×2 (12:06→22:58)
[2021-12-31] MEDS: DOPamine 1600MCG/ML D5W 250 ML IV SCH (13:03)
[2021-12-31] MEDS ORDERED: CATHFLO ACTIVASE (ALTEPLASE) 2 MG VIAL IV ONE (16:30)
[2021-12-31] MEDS ORDERED: TPN PER PHARMACY IV NR ×8 (20:00)
[2021-12-31] MEDS ORDERED: EPOETIN ALFA-EPBX 10,000 UNIT/1ML VIAL SC ONE (21:00)
[2022-01-01] VITALS (47 sets, daily range): BP systolic 126–173; BP diastolic 50–89
[2022-01-01 04:03] LABS: Hematocrit 28.4 % (36.0-46.0); Hemoglobin 9.1 g/dL (12.2-16.2); Mean Corpuscular Hemoglobin 26.3 pg (28.0-32.0); Mean Corpuscular Hgb Conc. 32.1 g/dL (32.0-36.0); Mean Corpuscular Volume 81.9 fL (80.0-100.0); Red Blood Cells 3.46 10^6/uL (4.0-5.20); Red Cell Distribution Width 19.6 % (11.8-14.3)
[2022-01-01 04:27] LABS: Alanine Aminotransferase < 6 U/L (13-56); Albumin 1.4 g/dL (3.4-5.0); Anion Gap 8 (5-15); Aspartate Aminotransferase 23 U/L (15-37); BUN/Creatinine Ratio 9.6; Blood Urea Nitrogen 26 mg/dL (7-18); Calcium 7.3 mg/dL (8.5-10.1); Carbon Dioxide 26 mmol/L (21-32); Chloride 103 mmol/L (98-107); GFR African American 22 mL/min; GFR Non-African American 18 mL/min; Glucose 146 mg/dL (74-106); Potassium 3.6 mmol/L (3.5-5.1); Sodium 137 mmol/L (136-145)
[2022-01-01 04:29] LABS: Alkaline Phosphatase 177 U/L (45-117); Bilirubin, Total 0.3 mg/dL (0.2-1.0); Phosphorus 2.6 mg/dL (2.5-4.90); Total Protein 5.6 g/dL (6.4-8.2)
[2022-01-01 04:49] LABS: White Blood Cell 33.1 10^3/uL (4.4-10.8)
[2022-01-01 04:50] LABS: Basophils % (manual) 0 (0.0-2.0); Blast Cells 0; Metamyelocytes % 0; Myelocytes % 0; Promyelocytes % 0; Reactive Lymphocytes 0
[2022-01-01] MEDS: ACCU-CHEK COMFORT CURVE STRIP VI SCH ×4 (06:04→23:53)
[2022-01-01] MEDS: InsuLIN REG 1unit/0.01ml Soln (100units/ml) SC SCH ×4 (06:04→23:55)
[2022-01-01 06:47] LABS: Band Neutrophils % (manual) 4; Eosinophils % (manual) 1 (0-7); Lymphocytes % (manual) 3 (10.0-50.0); Monocytes % (manual) 5 (0-12)
[2022-01-01] MEDS: DOPamine 1600MCG/ML D5W 250 ML IV SCH (08:42)
[2022-01-01] MEDS: PANTOPRAZOLE 40 MG/10 ML VIAL INJ IV SCH (09:59)
[2022-01-01] MEDS: METOPROLOL TARTRATE 25 MG TAB PO SCH ×2 (10:00→21:25)
[2022-01-01] MEDS: AMIODARONE HCL 200 MG TAB PO SCH (10:00)
[2022-01-01] MEDS: Pro-Stat SF 30ml Vanilla GT SCH ×2 (10:00→21:16)
[2022-01-01] MEDS: CHOLESTYRAMINE 4 GM POWDER GT SCH ×2 (11:35→21:25)
[2022-01-01] MEDS: hydrALAZINE HCL 20 MG/ML VL IV PRN ×2 (13:45→23:53)
[2022-01-01] MEDS: MEROPENEM 500MG IVPB 50 ML IV SCH (17:05)
[2022-01-01] MEDS ORDERED: TPN PER PHARMACY IV NR ×9 (20:00)
[2022-01-02] VITALS (54 sets, daily range): BP systolic 100–153; BP diastolic 45–97
[2022-01-02 03:48] LABS: Eosinophils # (auto) 0.3 10 ^3/uL (0-0.8); Eosinophils % (auto) 1.1 % (0.0-7.0); Neutrophils % (auto) 91.1 % (37.0-80.0)
[2022-01-02 03:51] LABS: Basophils # (auto) 0.1 10 ^3/uL (0-0.2); Basophils % (auto) 0.6 % (0.0-2.0); Hematocrit 25.1 % (36.0-46.0); Hemoglobin 8.3 g/dL (12.2-16.2); Lymphocytes # (auto) 0.7 10 ^3/uL (0.4-5.4); Mean Corpuscular Hemoglobin 26.9 pg (28.0-32.0); Mean Corpuscular Hgb Conc. 33.1 g/dL (32.0-36.0); Mean Corpuscular Volume 81.5 fL (80.0-100.0); Monocytes % (auto) 4.2 % (0.0-12.0); Neutrophils # (auto) 22.5 10 ^3/uL (1.6-8.6); Red Blood Cells 3.08 10^6/uL (4.0-5.20); Red Cell Distribution Width 19.3 % (11.8-14.3); White Blood Cell 24.7 10^3/uL (4.4-10.8)
[2022-01-02 04:06] LABS: Albumin 1.2 g/dL (3.4-5.0); Calcium 7.2 mg/dL (8.5-10.1); Potassium 3.5 mmol/L (3.5-5.1)
[2022-01-02 04:11] LABS: Bilirubin, Total 0.2 mg/dL (0.2-1.0); Phosphorus 3.4 mg/dL (2.5-4.90); Total Protein 5.2 g/dL (6.4-8.2)
[2022-01-02 04:15] LABS: BUN/Creatinine Ratio 12.7
[2022-01-02] MEDS: MEROPENEM 500MG IVPB 50 ML IV SCH ×2 (05:10→16:55)
[2022-01-02] MEDS: ACCU-CHEK COMFORT CURVE STRIP VI SCH ×3 (05:11→18:01)
[2022-01-02] MEDS: InsuLIN REG 1unit/0.01ml Soln (100units/ml) SC SCH ×3 (05:11→18:03)
[2022-01-02] MEDS: DOPamine 1600MCG/ML D5W 250 ML IV SCH (05:55)
[2022-01-02] MEDS ORDERED: SODIUM CHL 0.9% 1000 ML BAG XX ONE (07:00)
[2022-01-02] MEDS: Pro-Stat SF 30ml Vanilla GT SCH (10:00)
[2022-01-02] MEDS: CHOLESTYRAMINE 4 GM POWDER GT SCH ×2 (12:15→22:04)
[2022-01-02] MEDS: METOPROLOL TARTRATE 25 MG TAB PO SCH ×2 (12:16→22:04)
[2022-01-02] MEDS: AMIODARONE HCL 200 MG TAB PO SCH (12:16)
[2022-01-02] MEDS: PANTOPRAZOLE 40 MG/10 ML VIAL INJ IV SCH (12:23)
[2022-01-02] MEDS ORDERED: TPN PER PHARMACY IV NR ×10 (20:00)
[2022-01-02] MEDS ORDERED: EPOETIN ALFA-EPBX 10,000 UNIT/1ML VIAL SC ONE (21:00)
[2022-01-03] VITALS (69 sets, daily range): BP systolic 55–173; BP diastolic 43–62
[2022-01-03] MEDS: ACCU-CHEK COMFORT CURVE STRIP VI SCH ×5 (00:06→23:53)
[2022-01-03] MEDS: InsuLIN REG 1unit/0.01ml Soln (100units/ml) SC SCH ×5 (00:27→23:53)
[2022-01-03 04:16] LABS: Potassium 3.3 mmol/L (3.5-5.1)
[2022-01-03 04:21] LABS: Albumin 1.3 g/dL (3.4-5.0); BUN/Creatinine Ratio 14.9; Calcium 7.3 mg/dL (8.5-10.1); Magnesium 2.1 mg/dL (1.6-2.6)
[2022-01-03 04:35] LABS: Bilirubin, Total 0.3 mg/dL (0.2-1.0); Total Protein 5.5 g/dL (6.4-8.2)
[2022-01-03] MEDS: MEROPENEM 500MG IVPB 50 ML IV SCH ×2 (05:00→18:23)
[2022-01-03] MEDS: hydrALAZINE HCL 20 MG/ML VL IV PRN (05:01)
[2022-01-03] MEDS: AMIODARONE HCL 200 MG TAB PO SCH (10:07)
[2022-01-03] MEDS: METOPROLOL TARTRATE 25 MG TAB PO SCH ×2 (10:07→22:00)
[2022-01-03] MEDS: PANTOPRAZOLE 40 MG/10 ML VIAL INJ IV SCH (10:07)
[2022-01-03] MEDS ORDERED: POTASSIUM CHL 20MEQ/100ML 100 ML IV ONE (10:45)
[2022-01-03] MEDS: CHOLESTYRAMINE 4 GM POWDER GT SCH ×2 (11:30→23:01)
[2022-01-03 19:14] LABS: Albumin 1.3 g/dL (3.4-5.0); BUN/Creatinine Ratio 17.9; Calcium 7.3 mg/dL (8.5-10.1)
[2022-01-03 19:16] LABS: Bilirubin, Total 0.2 mg/dL (0.2-1.0); Total Protein 5.6 g/dL (6.4-8.2)
[2022-01-03] MEDS ORDERED: TPN PER PHARMACY IV NR ×9 (20:00)
[2022-01-04] VITALS (71 sets, daily range): BP systolic 125–164; BP diastolic 50–72
[2022-01-04] MEDS: MEROPENEM 500MG IVPB 50 ML IV SCH ×2 (04:54→16:28)
[2022-01-04 05:07] LABS: Basophils # (auto) 0.1 10 ^3/uL (0-0.2); Basophils % (auto) 0.7 % (0.0-2.0); Eosinophils # (auto) 0.2 10 ^3/uL (0-0.8); Eosinophils % (auto) 1.5 % (0.0-7.0); Monocytes # (auto) 0.7 10 ^3/uL (0-1.3)
[2022-01-04 05:11] LABS: Hematocrit 25.9 % (36.0-46.0); Hemoglobin 8.4 g/dL (12.2-16.2); Lymphocytes % (auto) 6.2 % (10.0-50.0); Mean Corpuscular Hemoglobin 26.5 pg (28.0-32.0); Mean Corpuscular Hgb Conc. 32.4 g/dL (32.0-36.0); Mean Corpuscular Volume 81.7 fL (80.0-100.0); Monocytes % (auto) 4.5 % (0.0-12.0); Neutrophils # (auto) 14.2 10 ^3/uL (1.6-8.6); Neutrophils % (auto) 87.1 % (37.0-80.0); Red Blood Cells 3.17 10^6/uL (4.0-5.20); Red Cell Distribution Width 18.5 % (11.8-14.3); White Blood Cell 16.2 10^3/uL (4.4-10.8)
[2022-01-04 05:33] LABS: Albumin 1.3 g/dL (3.4-5.0); BUN/Creatinine Ratio 19.2; Calcium 7.2 mg/dL (8.5-10.1); Magnesium 2.4 mg/dL (1.6-2.6); Potassium 4.1 mmol/L (3.5-5.1)
[2022-01-04 05:36] LABS: Bilirubin, Total 0.3 mg/dL (0.2-1.0); Phosphorus 3.8 mg/dL (2.5-4.90); Total Protein 5.9 g/dL (6.4-8.2)
[2022-01-04] MEDS: InsuLIN REG 1unit/0.01ml Soln (100units/ml) SC SCH ×4 (05:55→23:40)
[2022-01-04] MEDS: ACCU-CHEK COMFORT CURVE STRIP VI SCH ×4 (05:56→23:40)
[2022-01-04] MEDS: AMIODARONE HCL 200 MG TAB PO SCH (09:33)
[2022-01-04] MEDS: METOPROLOL TARTRATE 25 MG TAB PO SCH ×2 (09:34→21:55)
[2022-01-04] MEDS: PANTOPRAZOLE 40 MG/10 ML VIAL INJ IV SCH (09:34)
[2022-01-04] MEDS: CHOLESTYRAMINE 4 GM POWDER GT SCH ×2 (14:24→22:57)
[2022-01-04] MEDS: TPN PER PHARMACY IV NR ×8 (20:00)
[2022-01-04] MEDS: LINEZOLID 600MG/300ML 300 ML IV SCH (21:55)
[2022-01-05] VITALS (84 sets, daily range): BP systolic 103–170; BP diastolic 40–67
[2022-01-05 03:15] LABS: Hemoglobin 7.8 g/dL (12.2-16.2)
[2022-01-05 03:16] LABS: Hematocrit 24.2 % (36.0-46.0); Mean Corpuscular Hemoglobin 26.2 pg (28.0-32.0); Mean Corpuscular Hgb Conc. 32.3 g/dL (32.0-36.0); Red Blood Cells 2.98 10^6/uL (4.0-5.20); Red Cell Distribution Width 18.8 % (11.8-14.3); White Blood Cell 18.1 10^3/uL (4.4-10.8)
[2022-01-05 03:22] LABS: Basophils % (manual) 0 (0.0-2.0); Blast Cells 0; Metamyelocytes % 0; Promyelocytes % 0; Reactive Lymphocytes 0
[2022-01-05 03:34] LABS: Albumin 1.3 g/dL (3.4-5.0); BUN/Creatinine Ratio 24.2; Calcium 7.1 mg/dL (8.5-10.1); Magnesium 2.2 mg/dL (1.6-2.6); Potassium 3.9 mmol/L (3.5-5.1)
[2022-01-05 03:36] LABS: Bilirubin, Total 0.2 mg/dL (0.2-1.0); Phosphorus 4.2 mg/dL (2.5-4.90); Total Protein 5.5 g/dL (6.4-8.2)
[2022-01-05] MEDS: MEROPENEM 500MG IVPB 50 ML IV SCH ×2 (04:55→20:50)
[2022-01-05] MEDS: ACCU-CHEK COMFORT CURVE STRIP VI SCH ×4 (05:56→23:05)
[2022-01-05] MEDS: InsuLIN REG 1unit/0.01ml Soln (100units/ml) SC SCH ×4 (05:56→23:13)
[2022-01-05] MEDS: hydrALAZINE HCL 20 MG/ML VL IV PRN ×2 (06:03→17:11)
[2022-01-05 06:40] LABS: Band Neutrophils % (manual) 4; Eosinophils % (manual) 2 (0-7); Lymphocytes % (manual) 7 (10.0-50.0); Myelocytes % 1
[2022-01-05 06:41] LABS: Monocytes % (manual) 5 (0-12)
[2022-01-05] MEDS ORDERED: SODIUM CHL 0.9% 1000 ML BAG XX ONE (07:00)
[2022-01-05] MEDS: PANTOPRAZOLE 40 MG/10 ML VIAL INJ IV SCH (09:59)
[2022-01-05] MEDS: LINEZOLID 600MG/300ML 300 ML IV SCH ×2 (10:00→22:58)
[2022-01-05] MEDS: METOPROLOL TARTRATE 25 MG TAB PO SCH ×2 (10:00→11:42)
[2022-01-05] MEDS: CHOLESTYRAMINE 4 GM POWDER GT SCH ×2 (11:00→23:04)
[2022-01-05] MEDS ORDERED: TPN PER PHARMACY IV NR ×16 (20:00)
[2022-01-05] MEDS ORDERED: EPOETIN ALFA-EPBX 10,000 UNIT/1ML VIAL SC ONE (21:00)
[2022-01-05] MEDS: TPN PER PHARMACY IV NR ×8 (21:36)
[2022-01-06] VITALS (67 sets, daily range): BP systolic 121–180; BP diastolic 50–75
[2022-01-06] MEDS: ACCU-CHEK COMFORT CURVE STRIP VI SCH ×4 (06:01→23:32)
[2022-01-06] MEDS: InsuLIN REG 1unit/0.01ml Soln (100units/ml) SC SCH ×4 (06:02→23:34)
[2022-01-06] MEDS: MEROPENEM 500MG IVPB 50 ML IV SCH ×2 (06:03→17:30)
[2022-01-06 06:57] LABS: Albumin 1.2 g/dL (3.4-5.0); Calcium 7.1 mg/dL (8.5-10.1); Magnesium 2.4 mg/dL (1.6-2.6)
[2022-01-06 07:02] LABS: BUN/Creatinine Ratio 28.5; Bilirubin, Total 0.3 mg/dL (0.2-1.0); Phosphorus 4.2 mg/dL (2.5-4.90); Total Protein 5.7 g/dL (6.4-8.2)
[2022-01-06 07:18] LABS: Mean Corpuscular Volume 80.2 fL (80.0-100.0); White Blood Cell 17.7 10^3/uL (4.4-10.8)
[2022-01-06 07:19] LABS: Hematocrit 23.5 % (36.0-46.0); Hemoglobin 7.7 g/dL (12.2-16.2); Mean Corpuscular Hemoglobin 26.4 pg (28.0-32.0); Red Blood Cells 2.93 10^6/uL (4.0-5.20); Red Cell Distribution Width 18.4 % (11.8-14.3)
[2022-01-06 07:24] LABS: Basophils % (manual) 0 (0.0-2.0); Blast Cells 0; Eosinophils % (manual) 0 (0-7); Metamyelocytes % 0; Myelocytes % 0; Promyelocytes % 0; Reactive Lymphocytes 0
[2022-01-06 07:55] LABS: Band Neutrophils % (manual) 2; Lymphocytes % (manual) 9 (10.0-50.0); Monocytes % (manual) 4 (0-12)
[2022-01-06] MEDS: PANTOPRAZOLE 40 MG/10 ML VIAL INJ IV SCH (09:34)
[2022-01-06] MEDS: LINEZOLID 600MG/300ML 300 ML IV SCH (09:34)
[2022-01-06] MEDS: METOPROLOL TARTRATE 25 MG TAB PO SCH ×2 (09:35→21:52)
[2022-01-06] MEDS: AMIODARONE HCL 200 MG TAB PEG SCH (09:35)
[2022-01-06] MEDS: ALBUMIN 25% 100 ML IV SCH ×4 (11:00→18:00)
[2022-01-06] MEDS: CHOLESTYRAMINE 4 GM POWDER GT SCH ×2 (12:10→23:32)
[2022-01-06] MEDS: NOREPINEPHRINE 8 MG/250ML KIT 250 ML IV SCH (16:45)
[2022-01-06] MEDS ORDERED: TPN*HIGH CONC* PER PHARMACY IV NR ×8 (20:00)
[2022-01-06] MEDS ORDERED: EPOETIN ALFA-EPBX 10,000 UNIT/1ML VIAL SC ONE (21:00)
[2022-01-06] MEDS: LINEZOLID 600MG TABLET PO SCH (21:52)
[2022-01-07] VITALS (64 sets, daily range): BP systolic 124–173; BP diastolic 44–65
[2022-01-07] MEDS: MEROPENEM 500MG IVPB 50 ML IV SCH ×2 (05:05→17:14)
[2022-01-07 05:16] LABS: Basophils # (auto) 0.1 10 ^3/uL (0-0.2); Basophils % (auto) 0.6 % (0.0-2.0); Eosinophils # (auto) 0.2 10 ^3/uL (0-0.8); Eosinophils % (auto) 1.8 % (0.0-7.0); Hemoglobin 7.5 g/dL (12.2-16.2); Lymphocytes # (auto) 1.1 10 ^3/uL (0.4-5.4); Lymphocytes % (auto) 8.1 % (10.0-50.0); Mean Corpuscular Hgb Conc. 32.4 g/dL (32.0-36.0); Mean Corpuscular Volume 80.2 fL (80.0-100.0); Monocytes # (auto) 0.8 10 ^3/uL (0-1.3); Monocytes % (auto) 6.1 % (0.0-12.0); Neutrophils # (auto) 11.4 10 ^3/uL (1.6-8.6); Neutrophils % (auto) 83.4 % (37.0-80.0); Red Blood Cells 2.86 10^6/uL (4.0-5.20); Red Cell Distribution Width 18.6 % (11.8-14.3); White Blood Cell 13.6 10^3/uL (4.4-10.8)
[2022-01-07 05:25] LABS: Albumin 1.9 g/dL (3.4-5.0); Calcium 7.3 mg/dL (8.5-10.1); Magnesium 2.3 mg/dL (1.6-2.6); Potassium 3.6 mmol/L (3.5-5.1)
[2022-01-07 05:30] LABS: BUN/Creatinine Ratio 26.8; Bilirubin, Total 0.3 mg/dL (0.2-1.0); Phosphorus 2.8 mg/dL (2.5-4.90); Total Protein 5.8 g/dL (6.4-8.2)
[2022-01-07 05:33] LABS: INR 1.2 (0.9-1.15); Partial Thromboplastin Time 40.8 sec (23.6-33.0)
[2022-01-07] MEDS: hydrALAZINE HCL 20 MG/ML VL IV PRN (05:42)
[2022-01-07] MEDS: InsuLIN REG 1unit/0.01ml Soln (100units/ml) SC SCH ×3 (06:00→18:00)
[2022-01-07] MEDS: ACCU-CHEK COMFORT CURVE STRIP VI SCH ×3 (06:11→18:23)
[2022-01-07] MEDS ORDERED: SODIUM CHL 0.9% 1000 ML BAG XX ONE (08:45)
[2022-01-07] MEDS: METOPROLOL TARTRATE 25 MG TAB PO SCH ×2 (10:00→21:12)
[2022-01-07] MEDS: PANTOPRAZOLE 40 MG/10 ML VIAL INJ IV SCH (10:22)
[2022-01-07] MEDS: ALBUMIN 25% 100 ML IV SCH ×2 (11:31→11:32)
[2022-01-07] MEDS: LINEZOLID 600MG TABLET PO SCH ×2 (13:34→21:13)
[2022-01-07] MEDS: AMIODARONE HCL 200 MG TAB PEG SCH (13:36)
[2022-01-07] MEDS: CHOLESTYRAMINE 4 GM POWDER GT SCH (15:29)
[2022-01-07] MEDS: NOREPINEPHRINE 8 MG/250ML KIT 250 ML IV SCH (16:45)
[2022-01-07] MEDS ORDERED: TPN*HIGH CONC* PER PHARMACY IV NR ×10 (20:00)
[2022-01-07] MEDS ORDERED: EPOETIN ALFA-EPBX 10,000 UNIT/1ML VIAL SC ONE (21:00)
[2022-01-08] VITALS (87 sets, daily range): BP systolic 133–170; BP diastolic 35–68
[2022-01-08] MEDS: ACCU-CHEK COMFORT CURVE STRIP VI SCH ×5 (00:02→23:45)
[2022-01-08] MEDS: CHOLESTYRAMINE 4 GM POWDER GT SCH ×3 (00:03→23:00)
[2022-01-08 04:45] LABS: BUN/Creatinine Ratio 27.6; Magnesium 1.8 mg/dL (1.6-2.6)
[2022-01-08 04:48] LABS: Bilirubin, Total 0.3 mg/dL (0.2-1.0); Phosphorus 2.3 mg/dL (2.5-4.90); Total Protein 5.7 g/dL (6.4-8.2)
[2022-01-08] MEDS: MEROPENEM 500MG IVPB 50 ML IV SCH ×2 (05:07→17:50)
[2022-01-08] MEDS: InsuLIN REG 1unit/0.01ml Soln (100units/ml) SC SCH ×4 (06:00→17:50)
[2022-01-08] MEDS ORDERED: SODIUM CHL 0.9% 1000 ML BAG XX ONE (07:00)
[2022-01-08] MEDS ORDERED: ALBUMIN 25% 100 ML IV ONE ×2 (08:30)
[2022-01-08] MEDS ORDERED: SODIUM PHOSPHATES 20 MEQ in SODIUM CHL 0.9% 100 ML IV ONE (11:00)
[2022-01-08] MEDS: LINEZOLID 600MG TABLET PO SCH ×2 (12:16→23:45)
[2022-01-08] MEDS: Nepro With Carb Steady 1 Liter Bottle GT SCH (12:16)
[2022-01-08] MEDS: PANTOPRAZOLE 40 MG/10 ML VIAL INJ IV SCH (12:16)
[2022-01-08] MEDS: AMIODARONE HCL 200 MG TAB PEG SCH (12:17)
[2022-01-08] MEDS: METOPROLOL TARTRATE 25 MG TAB PO SCH ×2 (12:17→23:47)
[2022-01-08] MEDS: NOREPINEPHRINE 8 MG/250ML KIT 250 ML IV SCH (16:45)
[2022-01-08] MEDS ORDERED: TPN*HIGH CONC* PER PHARMACY IV NR ×9 (20:00)
[2022-01-08] MEDS ORDERED: SODIUM CHLORIDE IV NR ×9 (20:00)
[2022-01-08] MEDS ORDERED: [UNRECOGNIZED DRUG - OTHER] IV NR ×9 (20:00)
[2022-01-08] MEDS ORDERED: SODIUM PHOSPHATES IV NR ×9 (20:00)
[2022-01-08] MEDS ORDERED: SODIUM ACETATE IV NR ×9 (20:00)
[2022-01-08] MEDS ORDERED: EPOETIN ALFA-EPBX 10,000 UNIT/1ML VIAL SC ONE (21:00)
[2022-01-09] VITALS (53 sets, daily range): BP systolic 111–181; BP diastolic 33–72
[2022-01-09] MEDS: hydrALAZINE HCL 20 MG/ML VL IV PRN ×2 (03:03→17:00)
[2022-01-09 05:17] LABS: Albumin 2.5 g/dL (3.4-5.0); Calcium 7.4 mg/dL (8.5-10.1); Magnesium 2.2 mg/dL (1.6-2.6); Potassium 4.3 mmol/L (3.5-5.1)
[2022-01-09 05:20] LABS: BUN/Creatinine Ratio 26.6; Bilirubin, Total 0.4 mg/dL (0.2-1.0); Total Protein 6.2 g/dL (6.4-8.2)
[2022-01-09] MEDS: MEROPENEM 500MG IVPB 50 ML IV SCH ×2 (05:36→17:03)
[2022-01-09] MEDS: ACCU-CHEK COMFORT CURVE STRIP VI SCH ×3 (05:36→18:15)
[2022-01-09] MEDS: InsuLIN REG 1unit/0.01ml Soln (100units/ml) SC SCH ×4 (06:00→18:17)
[2022-01-09] MEDS: LINEZOLID 600MG TABLET PO SCH ×2 (10:23→21:01)
[2022-01-09] MEDS: PANTOPRAZOLE 40 MG/10 ML VIAL INJ IV SCH (10:23)
[2022-01-09] MEDS: AMIODARONE HCL 200 MG TAB PEG SCH (10:23)
[2022-01-09] MEDS: METOPROLOL TARTRATE 25 MG TAB PO SCH ×2 (10:23→21:01)
[2022-01-09] MEDS: CHOLESTYRAMINE 4 GM POWDER GT SCH ×2 (12:00→22:12)
[2022-01-09] MEDS ORDERED: ONDANSETRON HCL 4 MG/2 ML VIAL IV ONE (12:28)
[2022-01-09] MEDS ORDERED: fentaNYL CITRATE 100 MCG/2 ML VL ONE (12:33)
[2022-01-09] MEDS ORDERED: MIDAZOLAM HCL 2MG/2ML 2ml VIAL (1mg/ml) ONE (12:33)
[2022-01-09] MEDS ORDERED: ceFAZolin 1GM VL ONE (12:34)
[2022-01-09] MEDS ORDERED: BUPIVACAINE 0.25% INJ 50ML VIAL ONE (12:34)
[2022-01-09] MEDS ORDERED: PROPOFOL 10 MG/ML 20 ML IV ONE (12:39)
[2022-01-09] MEDS: NOREPINEPHRINE 8 MG/250ML KIT 250 ML IV SCH (16:45)
[2022-01-09] MEDS: Nepro With Carb Steady 1 Liter Bottle GT SCH (17:00)
[2022-01-09] MEDS ORDERED: TPN*HIGH CONC* PER PHARMACY IV NR ×9 (20:00)
[2022-01-10] VITALS (48 sets, daily range): BP systolic 94–194; BP diastolic 34–77
[2022-01-10] MEDS: MORPHINE SULFATE INJ 2 MG/ml SYRG IV PRN ×3 (00:31→22:15)
[2022-01-10] MEDS: ACCU-CHEK COMFORT CURVE STRIP VI SCH ×4 (00:36→17:39)
[2022-01-10] MEDS: InsuLIN REG 1unit/0.01ml Soln (100units/ml) SC SCH ×4 (00:36→17:40)
[2022-01-10] MEDS: hydrALAZINE HCL 20 MG/ML VL IV PRN (01:07)
[2022-01-10 04:27] LABS: Albumin 2.2 g/dL (3.4-5.0); Calcium 7.6 mg/dL (8.5-10.1); Magnesium 1.9 mg/dL (1.6-2.6)
[2022-01-10 04:32] LABS: BUN/Creatinine Ratio 30.8; Bilirubin, Total 0.3 mg/dL (0.2-1.0); Phosphorus 5.6 mg/dL (2.5-4.90); Total Protein 6.2 g/dL (6.4-8.2)
[2022-01-10] MEDS: MEROPENEM 500MG IVPB 50 ML IV SCH ×2 (05:08→16:50)
[2022-01-10 08:34] LABS: Eosinophils # (auto) 0.2 10 ^3/uL (0-0.8); Lymphocytes # (auto) 1.3 10 ^3/uL (0.4-5.4); Lymphocytes % (auto) 9.4 % (10.0-50.0); Mean Corpuscular Volume 83.4 fL (80.0-100.0); White Blood Cell 13.5 10^3/uL (4.4-10.8)
[2022-01-10 08:37] LABS: Basophils # (auto) 0.2 10 ^3/uL (0-0.2); Basophils % (auto) 1.2 % (0.0-2.0); Eosinophils % (auto) 1.3 % (0.0-7.0); Hematocrit 25.5 % (36.0-46.0); Mean Corpuscular Hemoglobin 26.2 pg (28.0-32.0); Mean Corpuscular Hgb Conc. 31.4 g/dL (32.0-36.0); Monocytes # (auto) 0.6 10 ^3/uL (0-1.3); Monocytes % (auto) 4.4 % (0.0-12.0); Neutrophils # (auto) 11.3 10 ^3/uL (1.6-8.6); Neutrophils % (auto) 83.7 % (37.0-80.0); Nucleated Red Blood Cells % 0.1 %; Red Blood Cells 3.06 10^6/uL (4.0-5.20); Red Cell Distribution Width 18.7 % (11.8-14.3)
[2022-01-10] MEDS: PANTOPRAZOLE 40 MG/10 ML VIAL INJ IV SCH (09:31)
[2022-01-10] MEDS: METOPROLOL TARTRATE 25 MG TAB PO SCH ×2 (09:33→22:14)
[2022-01-10] MEDS: AMIODARONE HCL 200 MG TAB PEG SCH (09:33)
[2022-01-10] MEDS: CHOLESTYRAMINE 4 GM POWDER GT SCH (09:42)
[2022-01-10] MEDS: LINEZOLID 600MG TABLET PO SCH ×2 (09:42→22:14)
[2022-01-10] MEDS ORDERED: INSULIN R IV NR ×2 (10:30)
[2022-01-10] MEDS ORDERED: AMINO ACID INFUSION IV NR ×2 (10:30)
[2022-01-10] MEDS ORDERED: D10W IV NR ×2 (10:30)
[2022-01-10] MEDS: NOREPINEPHRINE 8 MG/250ML KIT 250 ML IV SCH (10:48)
[2022-01-10] MEDS: HYDROcodone-ACET 5/325MG TAB PO PRN (12:27)
[2022-01-10] MEDS: Nepro With Carb Steady 1 Liter Bottle GT SCH (15:43)
[2022-01-10] MEDS ORDERED: TPN*HIGH CONC* PER PHARMACY IV NR ×8 (20:00)
[2022-01-11] VITALS (50 sets, daily range): BP systolic 124–179; BP diastolic 35–125
[2022-01-11] MEDS: CHOLESTYRAMINE 4 GM POWDER GT SCH ×3 (00:31→22:47)
[2022-01-11] MEDS: ACCU-CHEK COMFORT CURVE STRIP VI SCH ×5 (00:41→23:31)
[2022-01-11] MEDS: InsuLIN REG 1unit/0.01ml Soln (100units/ml) SC SCH ×5 (00:42→23:32)
[2022-01-11] MEDS: hydrALAZINE HCL 20 MG/ML VL IV PRN (00:43)
[2022-01-11] MEDS: HYDROcodone-ACET 5/325MG TAB PO PRN ×2 (00:49→14:54)
[2022-01-11 03:52] LABS: Albumin 2.2 g/dL (3.4-5.0); Anion Gap 14 (5-15); Blood Urea Nitrogen 72 mg/dL (7-18); Calcium 7.2 mg/dL (8.5-10.1); Carbon Dioxide 22 mmol/L (21-32); Chloride 102 mmol/L (98-107); Magnesium 2.1 mg/dL (1.6-2.6); Potassium 4.2 mmol/L (3.5-5.1); Sodium 138 mmol/L (136-145)
[2022-01-11 03:55] LABS: Alanine Aminotransferase 58 U/L (13-56); Aspartate Aminotransferase 53 U/L (15-37); GFR African American 26 mL/min; GFR Non-African American 22 mL/min; Glucose 164 mg/dL (74-106)
[2022-01-11 03:58] LABS: Alkaline Phosphatase 324 U/L (45-117); Bilirubin, Total 0.4 mg/dL (0.2-1.0); Phosphorus 5.1 mg/dL (2.5-4.90); Total Protein 6.2 g/dL (6.4-8.2)
[2022-01-11] MEDS: MEROPENEM 500MG IVPB 50 ML IV SCH ×2 (05:35→16:40)
[2022-01-11] MEDS: PANTOPRAZOLE 40 MG/10 ML VIAL INJ IV SCH (09:37)
[2022-01-11] MEDS: LINEZOLID 600MG TABLET PO SCH ×2 (09:38→21:27)
[2022-01-11] MEDS: METOPROLOL TARTRATE 25 MG TAB PO SCH ×2 (09:38→21:27)
[2022-01-11] MEDS: AMIODARONE HCL 200 MG TAB PEG SCH (09:38)
[2022-01-11] MEDS: MORPHINE SULFATE INJ 2 MG/ml SYRG IV PRN (09:39)
[2022-01-11] MEDS: NOREPINEPHRINE 8 MG/250ML KIT 250 ML IV SCH (16:41)
[2022-01-11] MEDS ORDERED: TPN*HIGH CONC* PER PHARMACY IV NR ×8 (20:00)
[2022-01-12] VITALS (34 sets, daily range): BP systolic 116–165; BP diastolic 36–60
[2022-01-12] MEDS: MORPHINE SULFATE INJ 2 MG/ml SYRG IV PRN (00:15)
[2022-01-12] MEDS: HYDROcodone-ACET 5/325MG TAB PO PRN (00:46)
[2022-01-12] MEDS: hydrALAZINE HCL 20 MG/ML VL IV PRN (00:55)
[2022-01-12 04:09] LABS: Albumin 2.1 g/dL (3.4-5.0); Calcium 7.3 mg/dL (8.5-10.1); Potassium 4.2 mmol/L (3.5-5.1)
[2022-01-12 04:11] LABS: BUN/Creatinine Ratio 36.6
[2022-01-12 04:14] LABS: Bilirubin, Total 0.4 mg/dL (0.2-1.0); Phosphorus 4.8 mg/dL (2.5-4.90); Total Protein 6.1 g/dL (6.4-8.2)
[2022-01-12] MEDS: MEROPENEM 500MG IVPB 50 ML IV SCH (04:52)
[2022-01-12] MEDS: ACCU-CHEK COMFORT CURVE STRIP VI SCH ×4 (05:33→23:52)
[2022-01-12] MEDS: InsuLIN REG 1unit/0.01ml Soln (100units/ml) SC SCH ×4 (05:34→23:52)
[2022-01-12] MEDS: METOPROLOL TARTRATE 25 MG TAB PO SCH ×2 (10:00→21:29)
[2022-01-12] MEDS: PANTOPRAZOLE 40 MG/10 ML VIAL INJ IV SCH (10:30)
[2022-01-12] MEDS ORDERED: SODIUM CHL 0.9% 1000 ML BAG XX ONE (12:15)
[2022-01-12] MEDS: NOREPINEPHRINE 8 MG/250ML KIT 250 ML IV SCH (16:45)
[2022-01-12] MEDS: CHOLESTYRAMINE 4 GM POWDER GT SCH ×2 (18:50→23:09)
[2022-01-12] MEDS: LINEZOLID 600MG TABLET PO SCH ×2 (18:50→21:29)
[2022-01-12] MEDS: AMIODARONE HCL 200 MG TAB PEG SCH (19:23)
[2022-01-12] MEDS ORDERED: TPN*HIGH CONC* PER PHARMACY IV NR ×10 (20:00)
[2022-01-12] MEDS ORDERED: EPOETIN ALFA-EPBX 10,000 UNIT/1ML VIAL SC ONE (21:00)
[2022-01-13] VITALS (43 sets, daily range): BP systolic 127–169; BP diastolic 33–107
[2022-01-13 04:48] LABS: Potassium 3.6 mmol/L (3.5-5.1)
[2022-01-13 04:56] LABS: Albumin 1.9 g/dL (3.4-5.0); BUN/Creatinine Ratio 38.8; Bilirubin, Total 0.3 mg/dL (0.2-1.0); Calcium 7.4 mg/dL (8.5-10.1); Magnesium 2.2 mg/dL (1.6-2.6); Phosphorus 3.4 mg/dL (2.5-4.90); Total Protein 6.1 g/dL (6.4-8.2)
[2022-01-13] MEDS: MORPHINE SULFATE INJ 2 MG/ml SYRG IV PRN (05:01)
[2022-01-13] MEDS: InsuLIN REG 1unit/0.01ml Soln (100units/ml) SC SCH ×3 (05:36→18:00)
[2022-01-13] MEDS: ACCU-CHEK COMFORT CURVE STRIP VI SCH ×3 (05:36→18:01)
[2022-01-13 08:51] LABS: INR 1.32 (0.9-1.15); Partial Thromboplastin Time 43.6 sec (23.6-33.0)
[2022-01-13] MEDS: PANTOPRAZOLE 40 MG/10 ML VIAL INJ IV SCH (10:23)
[2022-01-13] MEDS: AMIODARONE HCL 200 MG TAB PEG SCH (10:23)
[2022-01-13] MEDS: METOPROLOL TARTRATE 25 MG TAB PO SCH ×2 (10:24→21:37)
[2022-01-13] MEDS: amLODIPine BESYLATE 5 MG TAB PO SCH (10:24)
[2022-01-13] MEDS: LINEZOLID 600MG TABLET PO SCH ×2 (10:25→21:37)
[2022-01-13] MEDS ORDERED: SODIUM CHL 0.9% 1000 ML BAG XX ONE (11:00)
[2022-01-13 11:46] LABS: Basophils # (auto) 0.2 10 ^3/uL (0-0.2); Eosinophils # (auto) 0.3 10 ^3/uL (0-0.8); Lymphocytes # (auto) 1.1 10 ^3/uL (0.4-5.4); White Blood Cell 11.9 10^3/uL (4.4-10.8)
[2022-01-13 11:48] LABS: Basophils % (auto) 1.3 % (0.0-2.0); Eosinophils % (auto) 2.2 % (0.0-7.0); Hematocrit 21.4 % (36.0-46.0); Mean Corpuscular Hemoglobin 26.5 pg (28.0-32.0); Mean Corpuscular Hgb Conc. 32.4 g/dL (32.0-36.0); Mean Corpuscular Volume 81.9 fL (80.0-100.0); Monocytes # (auto) 0.3 10 ^3/uL (0-1.3); Monocytes % (auto) 2.9 % (0.0-12.0); Neutrophils # (auto) 10.1 10 ^3/uL (1.6-8.6); Neutrophils % (auto) 84.6 % (37.0-80.0); Red Blood Cells 2.61 10^6/uL (4.0-5.20); Red Cell Distribution Width 18.5 % (11.8-14.3)
[2022-01-13 11:52] LABS: Hemoglobin 6.9 g/dL (12.2-16.2)
[2022-01-13] MEDS: CHOLESTYRAMINE 4 GM POWDER GT SCH (12:18)
[2022-01-13] MEDS: NOREPINEPHRINE 8 MG/250ML KIT 250 ML IV SCH (16:45)
[2022-01-13] MEDS: hydrALAZINE HCL 20 MG/ML VL IV PRN (17:59)
[2022-01-13] MEDS ORDERED: TPN*HIGH CONC* PER PHARMACY IV NR ×8 (20:00)
[2022-01-13] MEDS ORDERED: EPOETIN ALFA-EPBX 10,000 UNIT/1ML VIAL SC ONE (21:00)
[2022-01-13 22:38] LABS: Alanine Aminotransferase 54 U/L (13-56); Alkaline Phosphatase 309 U/L (45-117); Anion Gap 6 (5-15); Aspartate Aminotransferase 67 U/L (15-37); BUN/Creatinine Ratio 32.6; Blood Urea Nitrogen 42 mg/dL (7-18); Carbon Dioxide 30 mmol/L (21-32); Chloride 106 mmol/L (98-107); GFR African American 51 mL/min; GFR Non-African American 42 mL/min; Glucose 85 mg/dL (74-106); Potassium 4.1 mmol/L (3.5-5.1); Sodium 142 mmol/L (136-145)
[2022-01-13 22:39] LABS: Albumin 2.1 g/dL (3.4-5.0); Bilirubin, Total 0.5 mg/dL (0.2-1.0); Calcium 7.5 mg/dL (8.5-10.1); Total Protein 6.7 g/dL (6.4-8.2)
[2022-01-14] VITALS (41 sets, daily range): BP systolic 134–172; BP diastolic 45–68
[2022-01-14] MEDS: ACCU-CHEK COMFORT CURVE STRIP VI SCH ×5 (00:21→23:39)
[2022-01-14] MEDS: CHOLESTYRAMINE 4 GM POWDER GT SCH ×3 (00:22→23:21)
[2022-01-14] MEDS: MORPHINE SULFATE INJ 2 MG/ml SYRG IV PRN (01:09)
[2022-01-14] MEDS: hydrALAZINE HCL 20 MG/ML VL IV PRN ×2 (04:18→22:40)
[2022-01-14 04:44] LABS: BUN/Creatinine Ratio 32.9; Calcium 7.7 mg/dL (8.5-10.1); Magnesium 2.1 mg/dL (1.6-2.6); Potassium 4.2 mmol/L (3.5-5.1)
[2022-01-14 04:46] LABS: Bilirubin, Total 0.4 mg/dL (0.2-1.0); Phosphorus 2.6 mg/dL (2.5-4.90); Total Protein 6.2 g/dL (6.4-8.2)
[2022-01-14 05:24] LABS: Basophils # (auto) 0.1 10 ^3/uL (0-0.2); Basophils % (auto) 1.3 % (0.0-2.0); Eosinophils # (auto) 0.1 10 ^3/uL (0-0.8); Eosinophils % (auto) 1.7 % (0.0-7.0); Hematocrit 25.9 % (36.0-46.0); Hemoglobin 8.6 g/dL (12.2-16.2); Lymphocytes # (auto) 0.8 10 ^3/uL (0.4-5.4); Lymphocytes % (auto) 9.6 % (10.0-50.0); Mean Corpuscular Hgb Conc. 33.1 g/dL (32.0-36.0); Mean Corpuscular Volume 81.6 fL (80.0-100.0); Monocytes # (auto) 0.3 10 ^3/uL (0-1.3); Neutrophils # (auto) 7.4 10 ^3/uL (1.6-8.6); Neutrophils % (auto) 83.4 % (37.0-80.0); Nucleated Red Blood Cells % 0.2 %; Red Blood Cells 3.18 10^6/uL (4.0-5.20); Red Cell Distribution Width 17.5 % (11.8-14.3); White Blood Cell 8.8 10^3/uL (4.4-10.8)
[2022-01-14] MEDS: InsuLIN REG 1unit/0.01ml Soln (100units/ml) SC SCH ×5 (06:05→23:39)
[2022-01-14] MEDS ORDERED: SODIUM CHL 0.9% 1000 ML BAG XX ONE (09:45)
[2022-01-14] MEDS: LINEZOLID 600MG TABLET PO SCH ×2 (10:37→22:00)
[2022-01-14] MEDS: METOPROLOL TARTRATE 25 MG TAB PO SCH ×2 (10:37→22:39)
[2022-01-14] MEDS: amLODIPine BESYLATE 5 MG TAB PO SCH (10:37)
[2022-01-14] MEDS: PANTOPRAZOLE 40 MG/10 ML VIAL INJ IV SCH (10:38)
[2022-01-14] MEDS: AMIODARONE HCL 200 MG TAB PEG SCH (10:38)
[2022-01-14] MEDS: NOREPINEPHRINE 8 MG/250ML KIT 250 ML IV SCH (16:45)
[2022-01-14] MEDS ORDERED: TPN*HIGH CONC* PER PHARMACY IV NR ×9 (20:00)
[2022-01-14] MEDS ORDERED: EPOETIN ALFA-EPBX 10,000 UNIT/1ML VIAL SC ONE (21:00)
[2022-01-15] VITALS (97 sets, daily range): BP systolic 118–182; BP diastolic 10–86
[2022-01-15 04:35] LABS: Albumin 1.7 g/dL (3.4-5.0); BUN/Creatinine Ratio 32.5; Calcium 7.2 mg/dL (8.5-10.1)
[2022-01-15 04:38] LABS: Bilirubin, Total 0.4 mg/dL (0.2-1.0); Total Protein 5.3 g/dL (6.4-8.2)
[2022-01-15] MEDS: InsuLIN REG 1unit/0.01ml Soln (100units/ml) SC SCH ×3 (06:00→23:32)
[2022-01-15] MEDS: ACCU-CHEK COMFORT CURVE STRIP VI SCH ×3 (06:16→23:31)
[2022-01-15] MEDS: PANTOPRAZOLE 40 MG/10 ML VIAL INJ IV SCH (10:37)
[2022-01-15] MEDS: amLODIPine BESYLATE 5 MG TAB PO SCH (10:37)
[2022-01-15] MEDS: AMIODARONE HCL 200 MG TAB PEG SCH (10:38)
[2022-01-15] MEDS: LINEZOLID 600MG TABLET PO SCH ×2 (12:19→21:09)
[2022-01-15] MEDS: METOPROLOL TARTRATE 50 MG TAB PO SCH ×2 (12:20→21:10)
[2022-01-15] MEDS ORDERED: ALBUMIN 25% 100 ML IV ONE (14:45)
[2022-01-15] MEDS: CHOLESTYRAMINE 4 GM POWDER GT SCH ×2 (15:17→23:27)
[2022-01-15] MEDS: NOREPINEPHRINE 8 MG/250ML KIT 250 ML IV SCH (16:45)
[2022-01-15] MEDS ORDERED: TPN*HIGH CONC* PER PHARMACY IV NR ×8 (20:00)
[2022-01-16] VITALS (57 sets, daily range): BP systolic 119–164; BP diastolic 39–79
[2022-01-16] MEDS: ACCU-CHEK COMFORT CURVE STRIP VI SCH ×4 (05:40→23:27)
[2022-01-16] MEDS: InsuLIN REG 1unit/0.01ml Soln (100units/ml) SC SCH ×4 (05:41→23:30)
[2022-01-16] MEDS ORDERED: SODIUM CHL 0.9% 1000 ML BAG XX ONE (07:00)
[2022-01-16 07:41] LABS: Basophils # (auto) 0.1 10 ^3/uL (0-0.2); Basophils % (auto) 0.9 % (0.0-2.0); Eosinophils # (auto) 0.2 10 ^3/uL (0-0.8); Eosinophils % (auto) 2.5 % (0.0-7.0); Hematocrit 24.3 % (36.0-46.0); Lymphocytes # (auto) 0.6 10 ^3/uL (0.4-5.4); Mean Corpuscular Hemoglobin 26.9 pg (28.0-32.0); Mean Corpuscular Hgb Conc. 32.8 g/dL (32.0-36.0); Mean Corpuscular Volume 81.9 fL (80.0-100.0); Monocytes # (auto) 0.2 10 ^3/uL (0-1.3); Monocytes % (auto) 1.9 % (0.0-12.0); Neutrophils # (auto) 7.4 10 ^3/uL (1.6-8.6); Neutrophils % (auto) 87.7 % (37.0-80.0); Nucleated Red Blood Cells % 0.1 %; Red Blood Cells 2.97 10^6/uL (4.0-5.20); Red Cell Distribution Width 17.4 % (11.8-14.3); White Blood Cell 8.5 10^3/uL (4.4-10.8)
[2022-01-16 08:01] LABS: Albumin 2.3 g/dL (3.4-5.0); BUN/Creatinine Ratio 31.9; Calcium 7.7 mg/dL (8.5-10.1); Magnesium 2.2 mg/dL (1.6-2.6); Potassium 3.4 mmol/L (3.5-5.1)
[2022-01-16 08:04] LABS: Bilirubin, Total 0.5 mg/dL (0.2-1.0); Phosphorus 1.9 mg/dL (2.5-4.90); Total Protein 6.4 g/dL (6.4-8.2)
[2022-01-16 09:15] LABS: INR 1.23 (0.9-1.15); Partial Thromboplastin Time 45.4 sec (23.6-33.0)
[2022-01-16] MEDS: PANTOPRAZOLE 40 MG/10 ML VIAL INJ IV SCH (09:18)
[2022-01-16] MEDS: AMIODARONE HCL 200 MG TAB PEG SCH (09:19)
[2022-01-16] MEDS: LINEZOLID 600MG TABLET PO SCH (09:19)
[2022-01-16] MEDS: amLODIPine BESYLATE 5 MG TAB PO SCH (09:20)
[2022-01-16] MEDS: METOPROLOL TARTRATE 50 MG TAB PO SCH ×2 (09:30→21:29)
[2022-01-16] MEDS ORDERED: POTASSIUM PHOSPHATE 44 MEQ in D5W 5% 250 ML IV ONE (11:00)
[2022-01-16] MEDS: CHOLESTYRAMINE 4 GM POWDER GT SCH ×2 (11:37→23:27)
[2022-01-16] MEDS: NOREPINEPHRINE 8 MG/250ML KIT 250 ML IV SCH (16:45)
[2022-01-16] MEDS ORDERED: AMINO ACID INFUSION IN D10W 1,000 ML IV NR (18:10)
[2022-01-16] MEDS ORDERED: TPN*HIGH CONC* PER PHARMACY IV NR ×8 (20:00)
[2022-01-16] MEDS ORDERED: EPOETIN ALFA-EPBX 10,000 UNIT/1ML VIAL SC ONE (21:00)
[2022-01-17] VITALS (40 sets, daily range): BP systolic 112–162; BP diastolic 44–112
[2022-01-17 04:28] LABS: Albumin 2.3 g/dL (3.4-5.0); Calcium 7.6 mg/dL (8.5-10.1); Magnesium 1.9 mg/dL (1.6-2.6); Potassium 4.6 mmol/L (3.5-5.1)
[2022-01-17 04:32] LABS: BUN/Creatinine Ratio 32.4; Bilirubin, Total 0.5 mg/dL (0.2-1.0); Phosphorus 4.8 mg/dL (2.5-4.90); Total Protein 6.7 g/dL (6.4-8.2)
[2022-01-17] MEDS: ACCU-CHEK COMFORT CURVE STRIP VI SCH ×4 (05:58→23:32)
[2022-01-17] MEDS: InsuLIN REG 1unit/0.01ml Soln (100units/ml) SC SCH ×4 (05:58→23:32)
[2022-01-17] MEDS: AMIODARONE HCL 200 MG TAB PEG SCH (09:27)
[2022-01-17] MEDS: PANTOPRAZOLE 40 MG/10 ML VIAL INJ IV SCH (09:27)
[2022-01-17] MEDS: CHOLESTYRAMINE 4 GM POWDER GT SCH ×2 (09:28→22:24)
[2022-01-17] MEDS: METOPROLOL TARTRATE 50 MG TAB PO SCH ×2 (09:28→22:24)
[2022-01-17] MEDS: amLODIPine BESYLATE 5 MG TAB PO SCH (09:28)
[2022-01-17] MEDS: NOREPINEPHRINE 8 MG/250ML KIT 250 ML IV SCH (16:45)
[2022-01-17] MEDS: AMINO ACID INFUSION IN D10W 1,000 ML IV NR (20:32)
[2022-01-18] VITALS (43 sets, daily range): BP systolic 126–176; BP diastolic 38–118
[2022-01-18] MEDS: hydrALAZINE HCL 20 MG/ML VL IV PRN (02:25)
[2022-01-18 04:10] LABS: Albumin 2.4 g/dL (3.4-5.0); Potassium 4.6 mmol/L (3.5-5.1)
[2022-01-18 04:16] LABS: BUN/Creatinine Ratio 34.2; Bilirubin, Total 0.6 mg/dL (0.2-1.0); Calcium 7.5 mg/dL (8.5-10.1); Magnesium 1.9 mg/dL (1.6-2.6); Phosphorus 4.4 mg/dL (2.5-4.90); Total Protein 6.9 g/dL (6.4-8.2)
[2022-01-18] MEDS: InsuLIN REG 1unit/0.01ml Soln (100units/ml) SC SCH ×3 (06:00→18:00)
[2022-01-18] MEDS: ACCU-CHEK COMFORT CURVE STRIP VI SCH ×3 (06:06→18:29)
[2022-01-18] MEDS ORDERED: SODIUM CHL 0.9% 1000 ML BAG XX ONE (07:00)
[2022-01-18 08:53] LABS: Eosinophils # (auto) 0.1 10 ^3/uL (0-0.8); Hemoglobin 8.5 g/dL (12.2-16.2); Monocytes # (auto) 0.5 10 ^3/uL (0-1.3); Monocytes % (auto) 7.2 % (0.0-12.0); Neutrophils # (auto) 5.7 10 ^3/uL (1.6-8.6)
[2022-01-18 08:55] LABS: Basophils # (auto) 0.1 10 ^3/uL (0-0.2); Basophils % (auto) 0.9 % (0.0-2.0); Eosinophils % (auto) 1.8 % (0.0-7.0); Hematocrit 25.5 % (36.0-46.0); Lymphocytes # (auto) 0.9 10 ^3/uL (0.4-5.4); Lymphocytes % (auto) 12.9 % (10.0-50.0); Mean Corpuscular Hgb Conc. 33.4 g/dL (32.0-36.0); Mean Corpuscular Volume 80.9 fL (80.0-100.0); Neutrophils % (auto) 77.2 % (37.0-80.0); Red Blood Cells 3.15 10^6/uL (4.0-5.20); Red Cell Distribution Width 17.6 % (11.8-14.3); White Blood Cell 7.3 10^3/uL (4.4-10.8)
[2022-01-18] MEDS: PANTOPRAZOLE 40 MG/10 ML VIAL INJ IV SCH (12:16)
[2022-01-18] MEDS: METOPROLOL TARTRATE 50 MG TAB PO SCH ×2 (12:16→22:10)
[2022-01-18] MEDS: AMIODARONE HCL 200 MG TAB PEG SCH (12:18)
[2022-01-18] MEDS: amLODIPine BESYLATE 5 MG TAB PO SCH (12:18)
[2022-01-18] MEDS: ALBUTEROL SULF 2.5 MG/0.5ML(0.5%) NEB SOLN NEB SCH ×3 (14:18→22:01)
[2022-01-18] MEDS: ACETYLCYSTEINE 20%(200MG/ML) SOL 4ML NEB SCH ×2 (14:19→22:01)
[2022-01-18] MEDS: CHOLESTYRAMINE 4 GM POWDER GT SCH ×2 (15:30→21:14)
[2022-01-18] MEDS: Nepro With Carb Steady 1 Liter Bottle GT SCH (15:53)
[2022-01-18] MEDS: NOREPINEPHRINE 8 MG/250ML KIT 250 ML IV SCH (16:45)
[2022-01-18] MEDS ORDERED: EPOETIN ALFA-EPBX 10,000 UNIT/1ML VIAL SC ONE (21:00)
[2022-01-18] MEDS: AMINO ACID INFUSION IN D10W 1,000 ML IV NR (21:13)
[2022-01-19] VITALS (34 sets, daily range): BP systolic 122–161; BP diastolic 48–88
[2022-01-19] MEDS: ACCU-CHEK COMFORT CURVE STRIP VI SCH ×4 (00:01→17:52)
[2022-01-19 04:21] LABS: Potassium 3.3 mmol/L (3.5-5.1)
[2022-01-19 04:27] LABS: Albumin 2.2 g/dL (3.4-5.0); BUN/Creatinine Ratio 24.3; Calcium 7.3 mg/dL (8.5-10.1)
[2022-01-19 04:29] LABS: Bilirubin, Total 0.4 mg/dL (0.2-1.0); Phosphorus 2.4 mg/dL (2.5-4.90); Total Protein 6.3 g/dL (6.4-8.2)
[2022-01-19] MEDS: InsuLIN REG 1unit/0.01ml Soln (100units/ml) SC SCH ×4 (05:29→18:21)
[2022-01-19] MEDS: ACETYLCYSTEINE 20%(200MG/ML) SOL 4ML NEB SCH ×3 (06:42→18:51)
[2022-01-19] MEDS: ALBUTEROL SULF 2.5 MG/0.5ML(0.5%) NEB SOLN NEB SCH ×5 (06:42→22:00)
[2022-01-19] MEDS ORDERED: POTASSIUM PHOSPHATE 26.4 MEQ in SODIUM CHL 0.9% 100 ML IV ONE (09:15)
[2022-01-19] MEDS: PANTOPRAZOLE 40 MG/10 ML VIAL INJ IV SCH (10:19)
[2022-01-19] MEDS: METOPROLOL TARTRATE 50 MG TAB PO SCH ×2 (10:20→21:37)
[2022-01-19] MEDS: AMIODARONE HCL 200 MG TAB PEG SCH (10:20)
[2022-01-19] MEDS: amLODIPine BESYLATE 5 MG TAB PO SCH (10:20)
[2022-01-19] MEDS: CHOLESTYRAMINE 4 GM POWDER GT SCH ×2 (11:25→21:35)
[2022-01-19] MEDS: NOREPINEPHRINE 8 MG/250ML KIT 250 ML IV SCH (16:45)
[2022-01-19] MEDS ORDERED: TPN*HIGH CONC* PER PHARMACY IV NR ×8 (20:00)
[2022-01-20] VITALS (48 sets, daily range): BP systolic 121–173; BP diastolic 23–75
[2022-01-20] MEDS: ACCU-CHEK COMFORT CURVE STRIP VI SCH ×5 (00:04→23:43)
[2022-01-20] MEDS: InsuLIN REG 1unit/0.01ml Soln (100units/ml) SC SCH ×4 (00:07→23:44)
[2022-01-20] MEDS: Nepro With Carb Steady 1 Liter Bottle GT SCH (03:02)
[2022-01-20 04:26] LABS: Basophils # (auto) 0.1 10 ^3/uL (0-0.2); Basophils % (auto) 0.4 % (0.0-2.0); Eosinophils # (auto) 0.3 10 ^3/uL (0-0.8); Eosinophils % (auto) 2.6 % (0.0-7.0); Hematocrit 21.6 % (36.0-46.0); Hemoglobin 7.1 g/dL (12.2-16.2); Lymphocytes # (auto) 0.7 10 ^3/uL (0.4-5.4); Lymphocytes % (auto) 6.1 % (10.0-50.0); Mean Corpuscular Hemoglobin 26.8 pg (28.0-32.0); Mean Corpuscular Volume 81.3 fL (80.0-100.0); Monocytes # (auto) 0.8 10 ^3/uL (0-1.3); Monocytes % (auto) 7.2 % (0.0-12.0); Neutrophils # (auto) 9.5 10 ^3/uL (1.6-8.6); Neutrophils % (auto) 83.7 % (37.0-80.0); Red Blood Cells 2.66 10^6/uL (4.0-5.20); Red Cell Distribution Width 17.7 % (11.8-14.3); White Blood Cell 11.4 10^3/uL (4.4-10.8)
[2022-01-20 04:39] LABS: Albumin 2.2 g/dL (3.4-5.0); Calcium 7.5 mg/dL (8.5-10.1); Magnesium 1.9 mg/dL (1.6-2.6); Potassium 3.4 mmol/L (3.5-5.1)
[2022-01-20 04:42] LABS: Bilirubin, Total 0.4 mg/dL (0.2-1.0); Phosphorus 3.2 mg/dL (2.5-4.90); Total Protein 6.3 g/dL (6.4-8.2)
[2022-01-20] MEDS: ALBUTEROL SULF 2.5 MG/0.5ML(0.5%) NEB SOLN NEB SCH ×5 (06:18→23:40)
[2022-01-20] MEDS: ACETYLCYSTEINE 20%(200MG/ML) SOL 4ML NEB SCH ×3 (06:19→23:40)
[2022-01-20] MEDS ORDERED: SODIUM CHL 0.9% 1000 ML BAG XX ONE (07:00)
[2022-01-20] MEDS ORDERED: ALBUMIN 25% 300 ML IV ONE (08:38)
[2022-01-20] MEDS: ALBUMIN 25% 100 ML IV PRN ×3 (08:45→10:35)
[2022-01-20] MEDS ORDERED: POTASSIUM CHL 20MEQ/100ML 100 ML IV ONE (09:15)
[2022-01-20] MEDS: PANTOPRAZOLE 40 MG/10 ML VIAL INJ IV SCH (12:03)
[2022-01-20] MEDS: METOPROLOL TARTRATE 50 MG TAB PO SCH ×2 (12:24→21:19)
[2022-01-20] MEDS: AMIODARONE HCL 200 MG TAB PEG SCH (12:24)
[2022-01-20] MEDS: amLODIPine BESYLATE 5 MG TAB PO SCH (13:50)
[2022-01-20] MEDS ORDERED: TPN*HIGH CONC* PER PHARMACY IV NR ×9 (20:00)
[2022-01-20] MEDS ORDERED: EPOETIN ALFA-EPBX 10,000 UNIT/1ML VIAL SC ONE (21:00)
[2022-01-20] MEDS: CHOLESTYRAMINE 4 GM POWDER GT SCH ×2 (21:20→23:00)
[2022-01-20] MEDS: NOREPINEPHRINE 8 MG/250ML KIT 250 ML IV SCH (23:48)
[2022-01-21] VITALS (36 sets, daily range): BP systolic 135–168; BP diastolic 50–71
[2022-01-21 04:30] LABS: Albumin 2.8 g/dL (3.4-5.0); BUN/Creatinine Ratio 26.2; Calcium 7.7 mg/dL (8.5-10.1); Magnesium 2.2 mg/dL (1.6-2.6); Potassium 3.9 mmol/L (3.5-5.1)
[2022-01-21 04:33] LABS: Bilirubin, Total 0.5 mg/dL (0.2-1.0); Phosphorus 2.2 mg/dL (2.5-4.90); Total Protein 6.6 g/dL (6.4-8.2)
[2022-01-21] MEDS: ACCU-CHEK COMFORT CURVE STRIP VI SCH (05:30)
[2022-01-21] MEDS: InsuLIN REG 1unit/0.01ml Soln (100units/ml) SC SCH (05:53)
[2022-01-21] MEDS: ACETYLCYSTEINE 20%(200MG/ML) SOL 4ML NEB SCH ×3 (06:15→22:35)
[2022-01-21] MEDS: ALBUTEROL SULF 2.5 MG/0.5ML(0.5%) NEB SOLN NEB SCH ×5 (06:15→21:53)
[2022-01-21] MEDS: METOPROLOL TARTRATE 50 MG TAB PO SCH ×2 (10:00→22:03)
[2022-01-21] MEDS: amLODIPine BESYLATE 5 MG TAB PO SCH (10:00)
[2022-01-21] MEDS: AMIODARONE HCL 200 MG TAB PEG SCH (10:27)
[2022-01-21] MEDS: PANTOPRAZOLE 40 MG/10 ML VIAL INJ IV SCH (10:27)
[2022-01-21] MEDS: CHOLESTYRAMINE 4 GM POWDER GT SCH ×2 (11:00→23:00)
[2022-01-21] MEDS: Nepro With Carb Steady 1 Liter Bottle GT SCH (11:00)
[2022-01-21] MEDS ORDERED: SODIUM CHL 0.9% 1000 ML BAG XX ONE (11:45)
[2022-01-21] MEDS: ALBUMIN 25% 100 ML IV SCH ×2 (13:35→14:15)
[2022-01-21] MEDS: NOREPINEPHRINE 8 MG/250ML KIT 250 ML IV SCH (16:45)
[2022-01-21] MEDS ORDERED: EPOETIN ALFA-EPBX 10,000 UNIT/1ML VIAL SC ONE (21:00)
[2022-01-22] VITALS (37 sets, daily range): BP systolic 135–164; BP diastolic 43–69
[2022-01-22] MEDS ORDERED: ONDANSETRON HCL 4 MG/2 ML VIAL IV ONE (02:00)
[2022-01-22 03:51] LABS: Basophils # (auto) 0.1 10 ^3/uL (0-0.2); Eosinophils # (auto) 0.1 10 ^3/uL (0-0.8); Lymphocytes # (auto) 0.7 10 ^3/uL (0.4-5.4); Mean Corpuscular Volume 81.5 fL (80.0-100.0); Neutrophils # (auto) 9.3 10 ^3/uL (1.6-8.6); Red Cell Distribution Width 17.6 % (11.8-14.3)
[2022-01-22 03:54] LABS: Basophils % (auto) 0.5 % (0.0-2.0); Eosinophils % (auto) 1.3 % (0.0-7.0); Hematocrit 20.5 % (36.0-46.0); Lymphocytes % (auto) 5.9 % (10.0-50.0); Mean Corpuscular Hemoglobin 26.9 pg (28.0-32.0); Mean Corpuscular Hgb Conc. 33.1 g/dL (32.0-36.0); Monocytes # (auto) 1.1 10 ^3/uL (0-1.3); Monocytes % (auto) 9.7 % (0.0-12.0); Neutrophils % (auto) 82.6 % (37.0-80.0); Nucleated Red Blood Cells % 0.1 %; Red Blood Cells 2.52 10^6/uL (4.0-5.20); White Blood Cell 11.2 10^3/uL (4.4-10.8)
[2022-01-22 04:04] LABS: Hemoglobin 6.8 g/dL (12.2-16.2)
[2022-01-22 04:10] LABS: BUN/Creatinine Ratio 24.4; Calcium 7.8 mg/dL (8.5-10.1)
[2022-01-22] MEDS: ACETYLCYSTEINE 20%(200MG/ML) SOL 4ML NEB SCH ×3 (06:33→22:09)
[2022-01-22] MEDS: ALBUTEROL SULF 2.5 MG/0.5ML(0.5%) NEB SOLN NEB SCH ×5 (06:34→22:09)
[2022-01-22] MEDS ORDERED: SODIUM CHL 0.9% 1000 ML BAG XX ONE (07:00)
[2022-01-22] MEDS: PANTOPRAZOLE 40 MG/10 ML VIAL INJ IV SCH (08:56)
[2022-01-22] MEDS: amLODIPine BESYLATE 5 MG TAB PO SCH (10:00)
[2022-01-22] MEDS: METOPROLOL TARTRATE 50 MG TAB PO SCH ×2 (10:00→22:00)
[2022-01-22] MEDS: AMIODARONE HCL 200 MG TAB PEG SCH (10:00)
[2022-01-22] MEDS: CHOLESTYRAMINE 4 GM POWDER GT SCH ×2 (11:00→23:00)
[2022-01-22] MEDS ORDERED: EPOETIN ALFA-EPBX 10,000 UNIT/1ML VIAL SC ONE (21:00)
[2022-01-23] VITALS (33 sets, daily range): BP systolic 97–160; BP diastolic 34–72
[2022-01-23 03:44] LABS: Basophils # (auto) 0.1 10 ^3/uL (0-0.2); Basophils % (auto) 0.5 % (0.0-2.0); Eosinophils # (auto) 0.1 10 ^3/uL (0-0.8); Eosinophils % (auto) 0.8 % (0.0-7.0); Hematocrit 25.8 % (36.0-46.0); Hemoglobin 8.7 g/dL (12.2-16.2); Lymphocytes # (auto) 0.7 10 ^3/uL (0.4-5.4); Lymphocytes % (auto) 7.1 % (10.0-50.0); Mean Corpuscular Hemoglobin 27.9 pg (28.0-32.0); Mean Corpuscular Hgb Conc. 33.5 g/dL (32.0-36.0); Mean Corpuscular Volume 83.2 fL (80.0-100.0); Monocytes # (auto) 1.2 10 ^3/uL (0-1.3); Monocytes % (auto) 11.6 % (0.0-12.0); Neutrophils # (auto) 8.4 10 ^3/uL (1.6-8.6); Nucleated Red Blood Cells % 0.2 %; Red Cell Distribution Width 18.1 % (11.8-14.3); White Blood Cell 10.5 10^3/uL (4.4-10.8)
[2022-01-23 04:04] LABS: Calcium 8.7 mg/dL (8.5-10.1); Potassium 4.2 mmol/L (3.5-5.1)
[2022-01-23] MEDS: ACETYLCYSTEINE 20%(200MG/ML) SOL 4ML NEB SCH ×3 (05:58→22:03)
[2022-01-23] MEDS: ALBUTEROL SULF 2.5 MG/0.5ML(0.5%) NEB SOLN NEB SCH ×5 (05:58→22:03)
[2022-01-23] MEDS ORDERED: SODIUM CHLORIDE LOCK 10 ML ONE (07:52)
[2022-01-23] MEDS ORDERED: fentaNYL CITRATE 100 MCG/2 ML VL ONE (07:53)
[2022-01-23] MEDS ORDERED: MIDAZOLAM HCL 5 MG/ML-1ML VIAL ONE (07:53)
[2022-01-23] MEDS ORDERED: diphenhdrAMINE HCL 50 MG/1 ML VL ONE (07:53)
[2022-01-23] MEDS ORDERED: LIDOCAINE VISCOUS 2% 15ML UD ONE (08:02)
[2022-01-23] MEDS: CHOLESTYRAMINE 4 GM POWDER GT SCH ×2 (11:00→23:43)
[2022-01-23] MEDS ORDERED: Nepro With Carb Steady 1 Liter Bottle GT SCH (11:30)
[2022-01-23] MEDS: PANTOPRAZOLE 40 MG/10 ML VIAL INJ IV SCH (12:04)
[2022-01-23] MEDS: METOPROLOL TARTRATE 50 MG TAB PO SCH ×2 (12:05→22:00)
[2022-01-23] MEDS: amLODIPine BESYLATE 5 MG TAB PO SCH (12:06)
[2022-01-23] MEDS: AMIODARONE HCL 200 MG TAB PEG SCH (12:07)
[2022-01-24] VITALS (40 sets, daily range): BP systolic 122–164; BP diastolic 44–68
[2022-01-24] MEDS: ALBUTEROL SULF 2.5 MG/0.5ML(0.5%) NEB SOLN NEB SCH ×5 (05:44→22:23)
[2022-01-24] MEDS: ACETYLCYSTEINE 20%(200MG/ML) SOL 4ML NEB SCH ×3 (05:44→22:23)
[2022-01-24] MEDS: PANTOPRAZOLE 40 MG/10 ML VIAL INJ IV SCH (10:00)
[2022-01-24] MEDS: amLODIPine BESYLATE 5 MG TAB PO SCH (10:48)
[2022-01-24] MEDS: AMIODARONE HCL 200 MG TAB PEG SCH (10:49)
[2022-01-24] MEDS: METOPROLOL TARTRATE 50 MG TAB PO SCH ×2 (10:49→21:37)
[2022-01-24] MEDS: CHOLESTYRAMINE 4 GM POWDER GT SCH ×2 (10:50→23:29)
[2022-01-24] MEDS: HYDROcodone-ACET 5/325MG TAB PO PRN (21:38)
[2022-01-25] VITALS (37 sets, daily range): BP systolic 131–162; BP diastolic 43–77
[2022-01-25] MEDS: ACETYLCYSTEINE 20%(200MG/ML) SOL 4ML NEB SCH ×3 (06:27→22:02)
[2022-01-25] MEDS: ALBUTEROL SULF 2.5 MG/0.5ML(0.5%) NEB SOLN NEB SCH ×5 (06:27→22:02)
[2022-01-25] MEDS: NOREPINEPHRINE 8 MG/250ML KIT 250 ML IV SCH ×2 (10:04→16:45)
[2022-01-25] MEDS: PANTOPRAZOLE 40 MG/10 ML VIAL INJ IV SCH (10:35)
[2022-01-25] MEDS: CHOLESTYRAMINE 4 GM POWDER GT SCH ×2 (10:36→23:10)
[2022-01-25] MEDS: amLODIPine BESYLATE 5 MG TAB PO SCH (10:36)
[2022-01-25] MEDS: AMIODARONE HCL 200 MG TAB PEG SCH (10:36)
[2022-01-25] MEDS: METOPROLOL TARTRATE 50 MG TAB PO SCH ×2 (10:36→22:10)
[2022-01-25] MEDS: HYDROcodone-ACET 5/325MG TAB PO PRN (22:11)
[2022-01-26] VITALS (35 sets, daily range): BP systolic 131–169; BP diastolic 46–67
[2022-01-26] MEDS: ACETYLCYSTEINE 20%(200MG/ML) SOL 4ML NEB SCH ×3 (05:45→22:05)
[2022-01-26] MEDS: ALBUTEROL SULF 2.5 MG/0.5ML(0.5%) NEB SOLN NEB SCH ×5 (05:45→22:05)
[2022-01-26] MEDS: hydrALAZINE HCL 20 MG/ML VL IV PRN (06:33)
[2022-01-26] MEDS: PANTOPRAZOLE 40 MG/10 ML VIAL INJ IV SCH (09:59)
[2022-01-26] MEDS: CHOLESTYRAMINE 4 GM POWDER GT SCH ×2 (09:59→23:09)
[2022-01-26] MEDS: METOPROLOL TARTRATE 50 MG TAB PO SCH ×2 (10:00→22:11)
[2022-01-26] MEDS: amLODIPine BESYLATE 5 MG TAB PO SCH (10:00)
[2022-01-26] MEDS: AMIODARONE HCL 200 MG TAB PEG SCH (10:01)
[2022-01-26] MEDS: NOREPINEPHRINE 8 MG/250ML KIT 250 ML IV SCH (16:45)
[2022-01-27] VITALS (36 sets, daily range): BP systolic 137–166; BP diastolic 51–76
[2022-01-27 04:33] LABS: Basophils # (auto) 0.1 10 ^3/uL (0-0.2); Eosinophils # (auto) 0.1 10 ^3/uL (0-0.8); Eosinophils % (auto) 0.3 % (0.0-7.0); Lymphocytes # (auto) 0.4 10 ^3/uL (0.4-5.4)
[2022-01-27 04:39] LABS: Basophils % (auto) 0.2 % (0.0-2.0); Hemoglobin 8.3 g/dL (12.2-16.2); Lymphocytes % (auto) 1.8 % (10.0-50.0); Mean Corpuscular Hemoglobin 26.7 pg (28.0-32.0); Mean Corpuscular Volume 83.5 fL (80.0-100.0); Monocytes % (auto) 4.1 % (0.0-12.0); Neutrophils # (auto) 22.4 10 ^3/uL (1.6-8.6); Neutrophils % (auto) 93.6 % (37.0-80.0); Red Blood Cells 3.11 10^6/uL (4.0-5.20); Red Cell Distribution Width 18.7 % (11.8-14.3); White Blood Cell 23.9 10^3/uL (4.4-10.8)
[2022-01-27 05:01] LABS: Albumin 3.4 g/dL (3.4-5.0); Calcium 9.7 mg/dL (8.5-10.1); Potassium 4.8 mmol/L (3.5-5.1)
[2022-01-27 05:04] LABS: % Iron Saturation 6.7 % (15-50)
[2022-01-27 05:06] LABS: BUN/Creatinine Ratio 29.3; Bilirubin, Total 0.7 mg/dL (0.2-1.0)
[2022-01-27] MEDS: ACETYLCYSTEINE 20%(200MG/ML) SOL 4ML NEB SCH ×3 (06:52→18:36)
[2022-01-27] MEDS: ALBUTEROL SULF 2.5 MG/0.5ML(0.5%) NEB SOLN NEB SCH ×5 (06:53→22:14)
[2022-01-27] MEDS ORDERED: SODIUM CHL 0.9% 1000 ML BAG XX ONE (07:00)
[2022-01-27] MEDS: PANTOPRAZOLE 40 MG/10 ML VIAL INJ IV SCH (10:57)
[2022-01-27] MEDS: AMIODARONE HCL 200 MG TAB PEG SCH (10:58)
[2022-01-27] MEDS: amLODIPine BESYLATE 5 MG TAB PO SCH (10:58)
[2022-01-27] MEDS: METOPROLOL TARTRATE 50 MG TAB PO SCH ×2 (10:59→22:17)
[2022-01-27] MEDS: CHOLESTYRAMINE 4 GM POWDER GT SCH ×2 (11:00→23:22)
[2022-01-27] MEDS: SODIUM FERR GLUC 62.5MG/5ML 125 MG in SODIUM CHL 0.9% 100 ML IV SCH (12:00)
[2022-01-27] MEDS: NOREPINEPHRINE 8 MG/250ML KIT 250 ML IV SCH (16:45)
[2022-01-27] MEDS ORDERED: EPOETIN ALFA-EPBX 10,000 UNIT/1ML VIAL SC ONE (21:00)
[2022-01-28] VITALS (59 sets, daily range): BP systolic 118–168; BP diastolic 46–84
[2022-01-28 04:23] LABS: BUN/Creatinine Ratio 22.5; Calcium 9.4 mg/dL (8.5-10.1); Potassium 3.5 mmol/L (3.5-5.1)
[2022-01-28] MEDS: ALBUTEROL SULF 2.5 MG/0.5ML(0.5%) NEB SOLN NEB SCH ×5 (06:29→22:28)
[2022-01-28] MEDS ORDERED: DEXTROSE (50%) 50ML SYRG IV PRN (06:30)
[2022-01-28] MEDS: ACETYLCYSTEINE 20%(200MG/ML) SOL 4ML NEB SCH ×3 (06:30→22:28)
[2022-01-28] MEDS ORDERED: SODIUM CHL 0.9% 1000 ML BAG XX ONE (07:00)
[2022-01-28 08:01] LABS: Mean Corpuscular Hemoglobin 26.3 pg (28.0-32.0); Mean Corpuscular Hgb Conc. 31.6 g/dL (32.0-36.0); Mean Corpuscular Volume 83.2 fL (80.0-100.0); Monocytes # (auto) 0.8 10 ^3/uL (0-1.3); Neutrophils # (auto) 17.4 10 ^3/uL (1.6-8.6)
[2022-01-28 08:02] LABS: Basophils # (auto) 0 10 ^3/uL (0-0.2); Basophils % (auto) 0.2 % (0.0-2.0); Eosinophils # (auto) 0.1 10 ^3/uL (0-0.8); Eosinophils % (auto) 0.3 % (0.0-7.0); Hematocrit 26.3 % (36.0-46.0); Hemoglobin 8.3 g/dL (12.2-16.2); Lymphocytes # (auto) 0.8 10 ^3/uL (0.4-5.4); Lymphocytes % (auto) 4.1 % (10.0-50.0); Monocytes % (auto) 4.2 % (0.0-12.0); Neutrophils % (auto) 91.2 % (37.0-80.0); Red Blood Cells 3.16 10^6/uL (4.0-5.20); Red Cell Distribution Width 19.3 % (11.8-14.3); White Blood Cell 19.1 10^3/uL (4.4-10.8)
[2022-01-28] MEDS: METOPROLOL TARTRATE 50 MG TAB PO SCH ×2 (10:41→21:22)
[2022-01-28] MEDS: PANTOPRAZOLE 40 MG/10 ML VIAL INJ IV SCH (10:41)
[2022-01-28] MEDS: amLODIPine BESYLATE 5 MG TAB PO SCH (10:42)
[2022-01-28] MEDS: AMIODARONE HCL 200 MG TAB PEG SCH (11:01)
[2022-01-28 11:14] LABS: Basophils # (auto) 0.1 10 ^3/uL (0-0.2); Basophils % (auto) 0.3 % (0.0-2.0); Eosinophils # (auto) 0.1 10 ^3/uL (0-0.8); Mean Corpuscular Hemoglobin 26.7 pg (28.0-32.0)
[2022-01-28 11:16] LABS: Eosinophils % (auto) 0.6 % (0.0-7.0); Hematocrit 26.4 % (36.0-46.0); Hemoglobin 8.4 g/dL (12.2-16.2); Lymphocytes # (auto) 0.5 10 ^3/uL (0.4-5.4); Lymphocytes % (auto) 2.7 % (10.0-50.0); Mean Corpuscular Hgb Conc. 31.9 g/dL (32.0-36.0); Mean Corpuscular Volume 83.5 fL (80.0-100.0); Monocytes % (auto) 5.1 % (0.0-12.0); Neutrophils # (auto) 17.5 10 ^3/uL (1.6-8.6); Neutrophils % (auto) 91.3 % (37.0-80.0); Nucleated Red Blood Cells % 0.1 %; Red Blood Cells 3.16 10^6/uL (4.0-5.20); Red Cell Distribution Width 19.2 % (11.8-14.3); White Blood Cell 19.1 10^3/uL (4.4-10.8)
[2022-01-28] MEDS: ACCU-CHEK COMFORT CURVE STRIP VI SCH ×3 (12:26→23:05)
[2022-01-28] MEDS: SODIUM FERR GLUC 62.5MG/5ML 125 MG in SODIUM CHL 0.9% 100 ML IV SCH (12:29)
[2022-01-28] MEDS: InsuLIN REG 1unit/0.01ml Soln (100units/ml) SC SCH ×3 (12:30→23:06)
[2022-01-28] MEDS: CHOLESTYRAMINE 4 GM POWDER GT SCH ×2 (12:45→23:00)
[2022-01-28] MEDS: NOREPINEPHRINE 8 MG/250ML KIT 250 ML IV SCH (16:45)
[2022-01-28] MEDS ORDERED: EPOETIN ALFA-EPBX 10,000 UNIT/1ML VIAL SC ONE (21:00)
[2022-01-29] VITALS (90 sets, daily range): BP systolic 127–183; BP diastolic 52–104
[2022-01-29 03:49] LABS: BUN/Creatinine Ratio 19.9; Calcium 9.4 mg/dL (8.5-10.1); Potassium 3.3 mmol/L (3.5-5.1)
[2022-01-29] MEDS: InsuLIN REG 1unit/0.01ml Soln (100units/ml) SC SCH ×4 (05:02→22:58)
[2022-01-29] MEDS: ACCU-CHEK COMFORT CURVE STRIP VI SCH ×4 (05:05→22:59)
[2022-01-29] MEDS: ACETYLCYSTEINE 20%(200MG/ML) SOL 4ML NEB SCH ×3 (06:58→22:19)
[2022-01-29] MEDS: ALBUTEROL SULF 2.5 MG/0.5ML(0.5%) NEB SOLN NEB SCH ×5 (06:58→22:19)
[2022-01-29] MEDS: METOPROLOL TARTRATE 50 MG TAB PO SCH ×2 (10:00→21:42)
[2022-01-29] MEDS: PANTOPRAZOLE 40 MG/10 ML VIAL INJ IV SCH (10:00)
[2022-01-29] MEDS: AMIODARONE HCL 200 MG TAB PEG SCH (10:00)
[2022-01-29] MEDS: CHOLESTYRAMINE 4 GM POWDER GT SCH ×2 (11:00→21:42)
[2022-01-29] MEDS: SODIUM FERR GLUC 62.5MG/5ML 125 MG in SODIUM CHL 0.9% 100 ML IV SCH (12:00)
[2022-01-29] MEDS: NOREPINEPHRINE 8 MG/250ML KIT 250 ML IV SCH (16:45)
[2022-01-29] MEDS: amLODIPine BESYLATE 5 MG TAB PO SCH (18:30)
[2022-01-29] MEDS: hydrALAZINE HCL 20 MG/ML VL IV PRN (22:50)
[2022-01-30] VITALS (43 sets, daily range): BP systolic 109–166; BP diastolic 50–85
[2022-01-30 04:19] LABS: Basophils # (auto) 0.1 10 ^3/uL (0-0.2); Eosinophils # (auto) 0.1 10 ^3/uL (0-0.8); Hemoglobin 9.2 g/dL (12.2-16.2); Monocytes # (auto) 0.9 10 ^3/uL (0-1.3); Nucleated Red Blood Cells % 0.2 %
[2022-01-30 04:28] LABS: Basophils % (auto) 0.5 % (0.0-2.0); Eosinophils % (auto) 0.8 % (0.0-7.0); Hematocrit 28.8 % (36.0-46.0); Lymphocytes % (auto) 5.4 % (10.0-50.0); Mean Corpuscular Hemoglobin 26.2 pg (28.0-32.0); Mean Corpuscular Hgb Conc. 31.8 g/dL (32.0-36.0); Mean Corpuscular Volume 82.4 fL (80.0-100.0); Monocytes % (auto) 5.2 % (0.0-12.0); Neutrophils # (auto) 15.6 10 ^3/uL (1.6-8.6); Neutrophils % (auto) 88.1 % (37.0-80.0); Red Blood Cells 3.49 10^6/uL (4.0-5.20); Red Cell Distribution Width 19.1 % (11.8-14.3); White Blood Cell 17.7 10^3/uL (4.4-10.8)
[2022-01-30 04:42] LABS: BUN/Creatinine Ratio 21.8; Potassium 3.6 mmol/L (3.5-5.1)
[2022-01-30] MEDS: InsuLIN REG 1unit/0.01ml Soln (100units/ml) SC SCH ×3 (05:08→18:00)
[2022-01-30] MEDS: ACCU-CHEK COMFORT CURVE STRIP VI SCH ×3 (05:08→18:28)
[2022-01-30] MEDS: ACETYLCYSTEINE 20%(200MG/ML) SOL 4ML NEB SCH ×3 (06:17→17:39)
[2022-01-30] MEDS: ALBUTEROL SULF 2.5 MG/0.5ML(0.5%) NEB SOLN NEB SCH ×5 (06:17→21:49)
[2022-01-30] MEDS ORDERED: SODIUM CHL 0.9% 1000 ML BAG XX ONE (07:00)
[2022-01-30] MEDS: METOPROLOL TARTRATE 50 MG TAB PO SCH (10:00)
[2022-01-30] MEDS: amLODIPine BESYLATE 5 MG TAB PO SCH (10:00)
[2022-01-30] MEDS: AMIODARONE HCL 200 MG TAB PEG SCH (10:00)
[2022-01-30] MEDS: PANTOPRAZOLE 40 MG/10 ML VIAL INJ IV SCH (10:00)
[2022-01-30] MEDS: CHOLESTYRAMINE 4 GM POWDER GT SCH (11:00)
[2022-01-30] MEDS: SODIUM FERR GLUC 62.5MG/5ML 125 MG in SODIUM CHL 0.9% 100 ML IV SCH (12:30)
[2022-01-30] MEDS: NOREPINEPHRINE 8 MG/250ML KIT 250 ML IV SCH (16:45)
[2022-01-30] MEDS ORDERED: EPOETIN ALFA-EPBX 10,000 UNIT/1ML VIAL SC ONE (21:00)
[2022-01-30] MEDS: METOPROLOL TARTRATE 50 MG TAB GT SCH (23:03)
[2022-01-30] MEDS: ACETAMINOPHEN 650 mg PER 20.3 mL UD PEG PRN (23:04)
[2022-01-31] MEDS: ACCU-CHEK COMFORT CURVE STRIP VI SCH ×4 (00:13→18:29)
[2022-01-31] MEDS: CHOLESTYRAMINE 4 GM POWDER GT SCH ×3 (00:13→22:42)
[2022-01-31] MEDS: InsuLIN REG 1unit/0.01ml Soln (100units/ml) SC SCH ×4 (01:05→18:35)
[2022-01-31] MEDS ORDERED: SODIUM CHLORIDE 0.9 % NEB SOLN 3ML NEB ONE (02:52)
[2022-01-31 05:00] VITALS: BP 141/55
[2022-01-31] MEDS: ALBUTEROL SULF 2.5 MG/0.5ML(0.5%) NEB SOLN NEB SCH ×5 (05:51→22:13)
[2022-01-31] MEDS: ACETYLCYSTEINE 20%(200MG/ML) SOL 4ML NEB SCH ×2 (05:52→22:13)
[2022-01-31] MEDS ORDERED: SODIUM CHL 0.9% 1000 ML BAG XX ONE (07:00)
[2022-01-31 07:15] LABS: Basophils # (auto) 0.1 10 ^3/uL (0-0.2); Basophils % (auto) 0.6 % (0.0-2.0); Eosinophils # (auto) 0.3 10 ^3/uL (0-0.8); Eosinophils % (auto) 2.1 % (0.0-7.0); Hematocrit 27.6 % (36.0-46.0); Hemoglobin 8.7 g/dL (12.2-16.2); Lymphocytes # (auto) 1.1 10 ^3/uL (0.4-5.4); Lymphocytes % (auto) 7.9 % (10.0-50.0); Mean Corpuscular Hemoglobin 26.4 pg (28.0-32.0); Mean Corpuscular Hgb Conc. 31.6 g/dL (32.0-36.0); Mean Corpuscular Volume 83.3 fL (80.0-100.0); Monocytes # (auto) 0.8 10 ^3/uL (0-1.3); Monocytes % (auto) 5.7 % (0.0-12.0); Neutrophils # (auto) 11.8 10 ^3/uL (1.6-8.6); Neutrophils % (auto) 83.7 % (37.0-80.0); Nucleated Red Blood Cells % 0.3 %; Red Blood Cells 3.32 10^6/uL (4.0-5.20); Red Cell Distribution Width 19.1 % (11.8-14.3); White Blood Cell 14.1 10^3/uL (4.4-10.8)
[2022-01-31 07:26] LABS: Calcium 9.2 mg/dL (8.5-10.1); Potassium 3.5 mmol/L (3.5-5.1)
[2022-01-31 07:30] LABS: BUN/Creatinine Ratio 14.4
[2022-01-31 09:00] VITALS: BP 125/48
[2022-01-31] MEDS: amLODIPine BESYLATE 5 MG TAB PO SCH (10:00)
[2022-01-31] MEDS: METOPROLOL TARTRATE 50 MG TAB GT SCH ×2 (10:00→22:37)
[2022-01-31] MEDS: AMIODARONE HCL 200 MG TAB PEG SCH (11:01)
[2022-01-31] MEDS: PANTOPRAZOLE 40 MG/10 ML VIAL INJ IV SCH (11:01)
[2022-01-31 13:00] VITALS: BP 116/36
[2022-01-31] MEDS: SODIUM FERR GLUC 62.5MG/5ML 125 MG in SODIUM CHL 0.9% 100 ML IV SCH (14:15)
[2022-01-31] MEDS: NOREPINEPHRINE 8 MG/250ML KIT 250 ML IV SCH (16:45)
[2022-01-31 17:00] VITALS: BP 129/81
[2022-01-31] MEDS ORDERED: EPOETIN ALFA-EPBX 10,000 UNIT/1ML VIAL SC ONE ×2 (21:00→22:15)
[2022-01-31 22:00] VITALS: BP 140/54
[2022-01-31] MEDS: ACETAMINOPHEN 650 mg PER 20.3 mL UD PEG PRN (22:37)
[2022-02-01 00:15] VITALS: BP 155/59
[2022-02-01] MEDS: InsuLIN REG 1unit/0.01ml Soln (100units/ml) SC SCH ×5 (00:43→23:28)
[2022-02-01] MEDS: ACETAMINOPHEN 650 mg PER 20.3 mL UD PEG PRN (04:08)
[2022-02-01 05:00] VITALS: BP 146/54
[2022-02-01 05:44] LABS: BUN/Creatinine Ratio 14.4; Potassium 4.3 mmol/L (3.5-5.1)
[2022-02-01] MEDS: ACCU-CHEK COMFORT CURVE STRIP VI SCH ×5 (06:00→23:30)
[2022-02-01] MEDS: ALBUTEROL SULF 2.5 MG/0.5ML(0.5%) NEB SOLN NEB SCH ×4 (06:47→20:42)
[2022-02-01] MEDS: ACETYLCYSTEINE 20%(200MG/ML) SOL 4ML NEB SCH ×3 (06:47→22:00)
[2022-02-01 09:00] VITALS: BP 139/46
[2022-02-01] MEDS: PANTOPRAZOLE 40 MG/10 ML VIAL INJ IV SCH (09:57)
[2022-02-01] MEDS: amLODIPine BESYLATE 5 MG TAB PO SCH (09:59)
[2022-02-01] MEDS: METOPROLOL TARTRATE 50 MG TAB GT SCH ×2 (10:00→22:29)
[2022-02-01] MEDS: AMIODARONE HCL 200 MG TAB PEG SCH (10:01)
[2022-02-01] MEDS: CHOLESTYRAMINE 4 GM POWDER GT SCH ×2 (12:23→22:29)
[2022-02-01 12:52] VITALS: BP 111/60
[2022-02-01] MEDS: SODIUM FERR GLUC 62.5MG/5ML 125 MG in SODIUM CHL 0.9% 100 ML IV SCH (12:53)
[2022-02-01 16:32] VITALS: BP 154/59
[2022-02-01 22:00] VITALS: BP 119/56
[2022-02-02] VITALS (7 sets, daily range): BP systolic 123–174; BP diastolic 49–67
[2022-02-02] MEDS: ALBUTEROL SULF 2.5 MG/0.5ML(0.5%) NEB SOLN NEB SCH ×6 (04:49→23:00)
[2022-02-02] MEDS: ACETYLCYSTEINE 20%(200MG/ML) SOL 4ML NEB SCH ×3 (05:53→18:54)
[2022-02-02] MEDS: ACETAMINOPHEN 650 mg PER 20.3 mL UD PEG PRN (06:06)
[2022-02-02] MEDS: ACCU-CHEK COMFORT CURVE STRIP VI SCH ×3 (06:11→18:07)
[2022-02-02] MEDS: InsuLIN REG 1unit/0.01ml Soln (100units/ml) SC SCH ×3 (06:11→18:07)
[2022-02-02 06:50] LABS: BUN/Creatinine Ratio 14.5; Calcium 9.4 mg/dL (8.5-10.1)
[2022-02-02 08:25] LABS: Basophils # (auto) 0.1 10 ^3/uL (0-0.2); Basophils % (auto) 0.4 % (0.0-2.0); Eosinophils # (auto) 0.1 10 ^3/uL (0-0.8); Eosinophils % (auto) 0.7 % (0.0-7.0); Hematocrit 31.9 % (36.0-46.0); Hemoglobin 10.2 g/dL (12.2-16.2); Lymphocytes % (auto) 5.6 % (10.0-50.0); Mean Corpuscular Hemoglobin 27.1 pg (28.0-32.0); Mean Corpuscular Hgb Conc. 31.9 g/dL (32.0-36.0); Mean Corpuscular Volume 84.8 fL (80.0-100.0); Monocytes # (auto) 0.9 10 ^3/uL (0-1.3); Monocytes % (auto) 5.1 % (0.0-12.0); Neutrophils # (auto) 15.9 10 ^3/uL (1.6-8.6); Neutrophils % (auto) 88.2 % (37.0-80.0); Nucleated Red Blood Cells % 0.5 %; Red Blood Cells 3.76 10^6/uL (4.0-5.20)
[2022-02-02 08:35] LABS: Red Cell Distribution Width 20.2 % (11.8-14.3)
[2022-02-02] MEDS: PANTOPRAZOLE 40 MG/10 ML VIAL INJ IV SCH (09:57)
[2022-02-02] MEDS: METOPROLOL TARTRATE 50 MG TAB GT SCH ×2 (09:58→22:17)
[2022-02-02] MEDS: amLODIPine BESYLATE 5 MG TAB PO SCH (09:59)
[2022-02-02] MEDS: AMIODARONE HCL 200 MG TAB PEG SCH (09:59)
[2022-02-02] MEDS: CHOLESTYRAMINE 4 GM POWDER GT SCH ×2 (11:59→22:16)
[2022-02-02] MEDS: SODIUM FERR GLUC 62.5MG/5ML 125 MG in SODIUM CHL 0.9% 100 ML IV SCH (12:57)
[2022-02-03 05:00] VITALS: BP 151/62
[2022-02-03] MEDS: InsuLIN REG 1unit/0.01ml Soln (100units/ml) SC SCH ×4 (06:03→17:32)
[2022-02-03] MEDS: ACCU-CHEK COMFORT CURVE STRIP VI SCH ×4 (06:08→17:32)
[2022-02-03] MEDS: ALBUTEROL SULF 2.5 MG/0.5ML(0.5%) NEB SOLN NEB SCH ×5 (06:08→22:29)
[2022-02-03] MEDS: ACETYLCYSTEINE 20%(200MG/ML) SOL 4ML NEB SCH ×3 (06:09→18:30)
[2022-02-03 06:15] LABS: Albumin 3.1 g/dL (3.4-5.0); Potassium 4.2 mmol/L (3.5-5.1)
[2022-02-03 06:19] LABS: BUN/Creatinine Ratio 16.1; Bilirubin, Total 0.5 mg/dL (0.2-1.0); Calcium 9.5 mg/dL (8.5-10.1); Magnesium 2.7 mg/dL (1.6-2.6)
[2022-02-03] MEDS ORDERED: SODIUM CHL 0.9% 1000 ML BAG XX ONE (07:00)
[2022-02-03 08:48] VITALS: BP 147/56
[2022-02-03 12:50] VITALS: BP 159/98
[2022-02-03] MEDS: SODIUM FERR GLUC 62.5MG/5ML 125 MG in SODIUM CHL 0.9% 100 ML IV SCH (12:51)
[2022-02-03] MEDS: CHOLESTYRAMINE 4 GM POWDER GT SCH (15:24)
[2022-02-03] MEDS: amLODIPine BESYLATE 5 MG TAB PO SCH (15:25)
[2022-02-03] MEDS: PANTOPRAZOLE 40 MG/10 ML VIAL INJ IV SCH (15:26)
[2022-02-03] MEDS: AMIODARONE HCL 200 MG TAB PEG SCH (15:26)
[2022-02-03] MEDS: METOPROLOL TARTRATE 50 MG TAB GT SCH ×2 (15:27→22:58)
[2022-02-03] MEDS ORDERED: EPOETIN ALFA-EPBX 10,000 UNIT/1ML VIAL SC ONE ×2 (21:00→22:00)
[2022-02-03 21:29] VITALS: BP 122/47
[2022-02-03 21:44] LABS: Hemoglobin 8.9 g/dL (12.2-16.2)
[2022-02-03 21:46] LABS: Hematocrit 27.9 % (36.0-46.0)
[2022-02-04] MEDS: CHOLESTYRAMINE 4 GM POWDER GT SCH ×2 (00:57→10:28)
[2022-02-04 05:00] VITALS: BP 134/46
[2022-02-04] MEDS: ACETAMINOPHEN 650 mg PER 20.3 mL UD PEG PRN (05:09)
[2022-02-04] MEDS: ALBUTEROL SULF 2.5 MG/0.5ML(0.5%) NEB SOLN NEB SCH ×5 (05:55→21:40)
[2022-02-04] MEDS: ACETYLCYSTEINE 20%(200MG/ML) SOL 4ML NEB SCH ×3 (05:55→17:34)
[2022-02-04] MEDS: InsuLIN REG 1unit/0.01ml Soln (100units/ml) SC SCH ×4 (06:00→17:20)
[2022-02-04] MEDS: ACCU-CHEK COMFORT CURVE STRIP VI SCH ×4 (06:00→17:19)
[2022-02-04 09:00] VITALS: BP 112/51
[2022-02-04] MEDS: amLODIPine BESYLATE 5 MG TAB PO SCH (10:29)
[2022-02-04] MEDS: AMIODARONE HCL 200 MG TAB PEG SCH (10:30)
[2022-02-04] MEDS: PANTOPRAZOLE 40 MG/10 ML VIAL INJ IV SCH (10:31)
[2022-02-04] MEDS: METOPROLOL TARTRATE 50 MG TAB GT SCH ×2 (10:31→22:08)
[2022-02-04 10:34] LABS: Basophils # (auto) 0.1 10 ^3/uL (0-0.2); Eosinophils # (auto) 0.1 10 ^3/uL (0-0.8); Monocytes # (auto) 0.6 10 ^3/uL (0-1.3); Nucleated Red Blood Cells % 0.1 %
[2022-02-04 10:36] LABS: Basophils % (auto) 0.6 % (0.0-2.0); Eosinophils % (auto) 0.3 % (0.0-7.0); Hematocrit 30.9 % (36.0-46.0); Hemoglobin 9.8 g/dL (12.2-16.2); Lymphocytes # (auto) 1.3 10 ^3/uL (0.4-5.4); Lymphocytes % (auto) 6.9 % (10.0-50.0); Mean Corpuscular Hemoglobin 27.4 pg (28.0-32.0); Mean Corpuscular Hgb Conc. 31.8 g/dL (32.0-36.0); Mean Corpuscular Volume 86.3 fL (80.0-100.0); Monocytes % (auto) 3.5 % (0.0-12.0); Neutrophils # (auto) 16.1 10 ^3/uL (1.6-8.6); Neutrophils % (auto) 88.7 % (37.0-80.0); Red Blood Cells 3.58 10^6/uL (4.0-5.20); White Blood Cell 18.1 10^3/uL (4.4-10.8)
[2022-02-04 10:42] LABS: Red Cell Distribution Width 22.3 % (11.8-14.3)
[2022-02-04 11:01] LABS: Albumin 3.1 g/dL (3.4-5.0); Calcium 9.5 mg/dL (8.5-10.1); Potassium 3.8 mmol/L (3.5-5.1)
[2022-02-04 11:12] LABS: BUN/Creatinine Ratio 12.4; Bilirubin, Total 0.5 mg/dL (0.2-1.0)
[2022-02-04] MEDS: SODIUM FERR GLUC 62.5MG/5ML 125 MG in SODIUM CHL 0.9% 100 ML IV SCH (12:27)
[2022-02-04 13:00] VITALS: BP 140/52
[2022-02-04 14:33] LABS: Eosinophils # (auto) 0.1 10 ^3/uL (0-0.8); Lymphocytes # (auto) 1.1 10 ^3/uL (0.4-5.4); Monocytes # (auto) 0.8 10 ^3/uL (0-1.3); Monocytes % (auto) 4.5 % (0.0-12.0)
[2022-02-04 14:35] LABS: Basophils # (auto) 0 10 ^3/uL (0-0.2); Basophils % (auto) 0.3 % (0.0-2.0); Eosinophils % (auto) 0.5 % (0.0-7.0); Hematocrit 30.4 % (36.0-46.0); Hemoglobin 9.6 g/dL (12.2-16.2); Mean Corpuscular Hgb Conc. 31.5 g/dL (32.0-36.0); Mean Corpuscular Volume 85.7 fL (80.0-100.0); Neutrophils % (auto) 88.7 % (37.0-80.0); Red Blood Cells 3.54 10^6/uL (4.0-5.20)
[2022-02-04 14:36] LABS: Red Cell Distribution Width 22.3 % (11.8-14.3)
[2022-02-04 17:00] VITALS: BP 147/50
[2022-02-04 21:39] VITALS: BP 147/88
[2022-02-05] MEDS: InsuLIN REG 1unit/0.01ml Soln (100units/ml) SC SCH ×5 (02:06→23:54)
[2022-02-05] MEDS: ACCU-CHEK COMFORT CURVE STRIP VI SCH ×5 (02:07→23:55)
[2022-02-05] MEDS: CHOLESTYRAMINE 4 GM POWDER GT SCH ×3 (02:07→23:17)
[2022-02-05 05:00] VITALS: BP 139/71
[2022-02-05] MEDS: ALBUTEROL SULF 2.5 MG/0.5ML(0.5%) NEB SOLN NEB SCH ×3 (05:55→21:57)
[2022-02-05] MEDS: ACETYLCYSTEINE 20%(200MG/ML) SOL 4ML NEB SCH ×3 (05:55→21:57)
[2022-02-05] MEDS ORDERED: SODIUM CHL 0.9% 1000 ML BAG XX ONE (07:00)
[2022-02-05 07:05] LABS: BUN/Creatinine Ratio 12.8
[2022-02-05 08:52] VITALS: BP 130/59
[2022-02-05] MEDS: METOPROLOL TARTRATE 50 MG TAB GT SCH ×2 (10:00→23:17)
[2022-02-05] MEDS: PANTOPRAZOLE 40 MG/10 ML VIAL INJ IV SCH (10:00)
[2022-02-05] MEDS: amLODIPine BESYLATE 5 MG TAB PO SCH (10:00)
[2022-02-05] MEDS: AMIODARONE HCL 200 MG TAB PEG SCH (10:00)
[2022-02-05 12:51] VITALS: BP 107/62
[2022-02-05] MEDS ORDERED: AZITHROMYCIN 200 MG/5 ML ORAL SUSP GT SCH (13:15)
[2022-02-05] MEDS: SODIUM FERR GLUC 62.5MG/5ML 125 MG in SODIUM CHL 0.9% 100 ML IV SCH (15:30)
[2022-02-05 17:18] VITALS: BP 110/72
[2022-02-05] MEDS ORDERED: EPOETIN ALFA-EPBX 10,000 UNIT/1ML VIAL SC ONE (21:00)
[2022-02-05 22:00] VITALS: BP 104/40
[2022-02-05 22:45] VITALS: BP 159/65
[2022-02-06 04:40] VITALS: BP 133/52
[2022-02-06] MEDS: ALBUTEROL SULF 2.5 MG/0.5ML(0.5%) NEB SOLN NEB SCH ×5 (06:05→22:18)
[2022-02-06] MEDS: ACETYLCYSTEINE 20%(200MG/ML) SOL 4ML NEB SCH ×3 (06:06→22:19)
[2022-02-06] MEDS: ACCU-CHEK COMFORT CURVE STRIP VI SCH ×4 (06:45→23:15)
[2022-02-06] MEDS: InsuLIN REG 1unit/0.01ml Soln (100units/ml) SC SCH ×4 (06:48→23:23)
[2022-02-06 06:55] LABS: Calcium 9.6 mg/dL (8.5-10.1)
[2022-02-06 07:52] LABS: Basophils # (auto) 0.1 10 ^3/uL (0-0.2); Basophils % (auto) 0.4 % (0.0-2.0); Eosinophils # (auto) 0.1 10 ^3/uL (0-0.8); Eosinophils % (auto) 0.4 % (0.0-7.0); Hematocrit 29.7 % (36.0-46.0); Hemoglobin 9.2 g/dL (12.2-16.2); Lymphocytes # (auto) 0.9 10 ^3/uL (0.4-5.4); Lymphocytes % (auto) 3.8 % (10.0-50.0); Mean Corpuscular Hemoglobin 26.9 pg (28.0-32.0); Mean Corpuscular Hgb Conc. 31.1 g/dL (32.0-36.0); Mean Corpuscular Volume 86.6 fL (80.0-100.0); Monocytes # (auto) 0.8 10 ^3/uL (0-1.3); Monocytes % (auto) 3.2 % (0.0-12.0); Neutrophils # (auto) 22.7 10 ^3/uL (1.6-8.6); Neutrophils % (auto) 92.2 % (37.0-80.0); Red Blood Cells 3.43 10^6/uL (4.0-5.20); Red Cell Distribution Width 22.9 % (11.8-14.3); White Blood Cell 24.6 10^3/uL (4.4-10.8)
[2022-02-06 09:07] VITALS: BP 137/71
[2022-02-06] MEDS ORDERED: MEROPENEM 500MG IVPB 50 ML IV ONE (10:45)
[2022-02-06] MEDS: METOPROLOL TARTRATE 50 MG TAB GT SCH ×2 (11:47→21:34)
[2022-02-06] MEDS: AMIODARONE HCL 200 MG TAB PEG SCH (11:47)
[2022-02-06] MEDS: amLODIPine BESYLATE 5 MG TAB PO SCH (11:48)
[2022-02-06] MEDS: CHOLESTYRAMINE 4 GM POWDER GT SCH ×2 (11:48→23:08)
[2022-02-06] MEDS: PANTOPRAZOLE 40 MG/10 ML VIAL INJ IV SCH (11:58)
[2022-02-06] MEDS: ACETAMINOPHEN 650 mg PER 20.3 mL UD PEG PRN (12:33)
[2022-02-06 13:19] VITALS: BP 136/65
[2022-02-06 17:00] VITALS: BP 131/52
[2022-02-06] MEDS: MEROPENEM 500MG IVPB 50 ML IV SCH (21:35)
[2022-02-06 21:50] VITALS: BP 139/55
[2022-02-07 04:45] VITALS: BP 149/62
[2022-02-07] MEDS: ACCU-CHEK COMFORT CURVE STRIP VI SCH ×3 (05:31→18:22)
[2022-02-07] MEDS: InsuLIN REG 1unit/0.01ml Soln (100units/ml) SC SCH ×3 (05:38→18:23)
[2022-02-07] MEDS: ACETYLCYSTEINE 20%(200MG/ML) SOL 4ML NEB SCH ×3 (05:56→22:14)
[2022-02-07] MEDS: ALBUTEROL SULF 2.5 MG/0.5ML(0.5%) NEB SOLN NEB SCH ×5 (05:56→22:14)
[2022-02-07 06:35] LABS: BUN/Creatinine Ratio 13.9; Calcium 9.9 mg/dL (8.5-10.1); Potassium 3.7 mmol/L (3.5-5.1)
[2022-02-07 09:00] VITALS: BP 152/59
[2022-02-07] MEDS: METOPROLOL TARTRATE 50 MG TAB GT SCH ×2 (11:49→22:26)
[2022-02-07] MEDS: amLODIPine BESYLATE 5 MG TAB PO SCH (11:49)
[2022-02-07] MEDS: PANTOPRAZOLE 40 MG/10 ML VIAL INJ IV SCH (11:50)
[2022-02-07] MEDS: CHOLESTYRAMINE 4 GM POWDER GT SCH (11:51)
[2022-02-07] MEDS: AMIODARONE HCL 200 MG TAB PEG SCH (11:51)
[2022-02-07] MEDS: MEROPENEM 500MG IVPB 50 ML IV SCH ×2 (11:52→22:26)
[2022-02-07 13:05] VITALS: BP 151/52
[2022-02-07 17:00] VITALS: BP 156/60
[2022-02-07 22:00] VITALS: BP 147/61
[2022-02-08] MEDS: CHOLESTYRAMINE 4 GM POWDER GT SCH ×2 (00:01→12:52)
[2022-02-08] MEDS: ACCU-CHEK COMFORT CURVE STRIP VI SCH ×5 (00:01→23:48)
[2022-02-08] MEDS: InsuLIN REG 1unit/0.01ml Soln (100units/ml) SC SCH ×5 (00:06→23:51)
[2022-02-08 05:00] VITALS: BP 189/112
[2022-02-08] MEDS: ACETYLCYSTEINE 20%(200MG/ML) SOL 4ML NEB SCH ×3 (06:46→22:42)
[2022-02-08] MEDS: ALBUTEROL SULF 2.5 MG/0.5ML(0.5%) NEB SOLN NEB SCH ×5 (06:46→22:42)
[2022-02-08] MEDS: hydrALAZINE HCL 20 MG/ML VL IV PRN (07:04)
[2022-02-08 08:49] LABS: Calcium 10.4 mg/dL (8.5-10.1); Potassium 3.4 mmol/L (3.5-5.1)
[2022-02-08 08:51] LABS: BUN/Creatinine Ratio 14.9
[2022-02-08 09:00] VITALS: BP 123/72
[2022-02-08] MEDS: AMIODARONE HCL 200 MG TAB PEG SCH (10:00)
[2022-02-08] MEDS: PANTOPRAZOLE 40 MG/10 ML VIAL INJ IV SCH (11:22)
[2022-02-08] MEDS: MEROPENEM 500MG IVPB 50 ML IV SCH ×2 (11:22→23:38)
[2022-02-08] MEDS: METOPROLOL TARTRATE 50 MG TAB GT SCH ×2 (11:23→23:29)
[2022-02-08] MEDS: amLODIPine BESYLATE 5 MG TAB PO SCH (11:24)
[2022-02-08 13:00] VITALS: BP 125/49
[2022-02-08 17:00] VITALS: BP 144/54
[2022-02-08 22:00] VITALS: BP 133/61
[2022-02-09] VITALS (9 sets, daily range): BP systolic 115–153; BP diastolic 42–81
[2022-02-09] MEDS: CHOLESTYRAMINE 4 GM POWDER GT SCH ×3 (00:56→22:41)
[2022-02-09] MEDS: ACCU-CHEK COMFORT CURVE STRIP VI SCH ×3 (05:55→18:07)
[2022-02-09] MEDS: InsuLIN REG 1unit/0.01ml Soln (100units/ml) SC SCH ×3 (05:57→18:30)
[2022-02-09] MEDS: ALBUTEROL SULF 2.5 MG/0.5ML(0.5%) NEB SOLN NEB SCH ×5 (05:57→22:30)
[2022-02-09] MEDS: ACETYLCYSTEINE 20%(200MG/ML) SOL 4ML NEB SCH ×3 (05:57→18:42)
[2022-02-09 08:33] LABS: Basophils # (auto) 0.1 10 ^3/uL (0-0.2); Basophils % (auto) 0.5 % (0.0-2.0); Eosinophils # (auto) 0.3 10 ^3/uL (0-0.8); Eosinophils % (auto) 1.4 % (0.0-7.0); Hematocrit 29.8 % (36.0-46.0); Hemoglobin 9.6 g/dL (12.2-16.2); Lymphocytes # (auto) 0.7 10 ^3/uL (0.4-5.4); Lymphocytes % (auto) 3.2 % (10.0-50.0); Mean Corpuscular Hemoglobin 27.3 pg (28.0-32.0); Mean Corpuscular Hgb Conc. 32.3 g/dL (32.0-36.0); Monocytes # (auto) 0.7 10 ^3/uL (0-1.3); Monocytes % (auto) 3.1 % (0.0-12.0); Neutrophils # (auto) 19.2 10 ^3/uL (1.6-8.6); Neutrophils % (auto) 91.8 % (37.0-80.0); Nucleated Red Blood Cells % 0.1 %; Red Blood Cells 3.53 10^6/uL (4.0-5.20); White Blood Cell 20.9 10^3/uL (4.4-10.8)
[2022-02-09 08:54] LABS: Albumin 2.7 g/dL (3.4-5.0); Calcium 11.2 mg/dL (8.5-10.1); Potassium 3.8 mmol/L (3.5-5.1)
[2022-02-09 08:57] LABS: Mean Corpuscular Volume 84.5 fL (80.0-100.0); Red Cell Distribution Width 22.6 % (11.8-14.3)
[2022-02-09 09:00] LABS: BUN/Creatinine Ratio 16.5; Bilirubin, Total 0.4 mg/dL (0.2-1.0)
[2022-02-09] MEDS: MEROPENEM 500MG IVPB 50 ML IV SCH ×2 (09:27→22:44)
[2022-02-09] MEDS: PANTOPRAZOLE 40 MG/10 ML VIAL INJ IV SCH (09:34)
[2022-02-09] MEDS: METOPROLOL TARTRATE 50 MG TAB GT SCH ×2 (09:39→23:23)
[2022-02-09] MEDS: AMIODARONE HCL 200 MG TAB PEG SCH (09:39)
[2022-02-09] MEDS: amLODIPine BESYLATE 5 MG TAB PO SCH (09:39)
[2022-02-09] MEDS: ACETAMINOPHEN 650 mg PER 20.3 mL UD PEG PRN (22:40)
[2022-02-10] VITALS (7 sets, daily range): BP systolic 114–230; BP diastolic 44–65
[2022-02-10] MEDS: InsuLIN REG 1unit/0.01ml Soln (100units/ml) SC SCH ×4 (00:55→18:00)
[2022-02-10] MEDS: ACCU-CHEK COMFORT CURVE STRIP VI SCH ×4 (06:06→18:19)
[2022-02-10] MEDS: ALBUTEROL SULF 2.5 MG/0.5ML(0.5%) NEB SOLN NEB SCH ×5 (06:08→22:06)
[2022-02-10] MEDS: ACETYLCYSTEINE 20%(200MG/ML) SOL 4ML NEB SCH ×3 (06:09→19:08)
[2022-02-10] MEDS: amLODIPine BESYLATE 5 MG TAB PO SCH (10:00)
[2022-02-10] MEDS: METOPROLOL TARTRATE 50 MG TAB GT SCH ×2 (10:00→22:40)
[2022-02-10] MEDS: AMIODARONE HCL 200 MG TAB PEG SCH (10:00)
[2022-02-10] MEDS: PANTOPRAZOLE 40 MG/10 ML VIAL INJ IV SCH (10:00)
[2022-02-10 10:01] LABS: BUN/Creatinine Ratio 12.9; Calcium 10.2 mg/dL (8.5-10.1)
[2022-02-10 10:29] LABS: Potassium 2.9 mmol/L (3.5-5.1)
[2022-02-10] MEDS: CHOLESTYRAMINE 4 GM POWDER GT SCH ×2 (13:49→23:30)
[2022-02-10] MEDS: POTASSIUM CHL 20MEQ/100ML 100 ML IV SCH ×2 (13:49→14:00)
[2022-02-10] MEDS: MEROPENEM 500MG IVPB 50 ML IV SCH ×2 (13:50→22:15)
[2022-02-11] MEDS: InsuLIN REG 1unit/0.01ml Soln (100units/ml) SC SCH ×4 (01:00→16:40)
[2022-02-11] MEDS: ACCU-CHEK COMFORT CURVE STRIP VI SCH ×5 (01:00→23:48)
[2022-02-11] MEDS: ALBUTEROL SULF 2.5 MG/0.5ML(0.5%) NEB SOLN NEB SCH ×6 (02:06→21:53)
[2022-02-11 05:00] VITALS: BP 151/55
[2022-02-11] MEDS: ACETYLCYSTEINE 20%(200MG/ML) SOL 4ML NEB SCH ×3 (05:42→18:14)
[2022-02-11 06:31] LABS: Basophils # (auto) 0.1 10 ^3/uL (0-0.2); Basophils % (auto) 0.5 % (0.0-2.0); Eosinophils # (auto) 0.4 10 ^3/uL (0-0.8); Eosinophils % (auto) 1.7 % (0.0-7.0); Hematocrit 31.5 % (36.0-46.0); Lymphocytes % (auto) 4.6 % (10.0-50.0); Mean Corpuscular Hemoglobin 27.3 pg (28.0-32.0); Mean Corpuscular Hgb Conc. 31.9 g/dL (32.0-36.0); Mean Corpuscular Volume 85.4 fL (80.0-100.0); Monocytes # (auto) 0.9 10 ^3/uL (0-1.3); Monocytes % (auto) 4.3 % (0.0-12.0); Neutrophils # (auto) 19.4 10 ^3/uL (1.6-8.6); Neutrophils % (auto) 88.9 % (37.0-80.0); Nucleated Red Blood Cells % 0.1 %; Red Blood Cells 3.69 10^6/uL (4.0-5.20); White Blood Cell 21.8 10^3/uL (4.4-10.8)
[2022-02-11 06:40] LABS: BUN/Creatinine Ratio 13.3; Calcium 10.9 mg/dL (8.5-10.1)
[2022-02-11 06:47] LABS: Hemoglobin 10.1 g/dL (12.2-16.2); Red Cell Distribution Width 22.8 % (11.8-14.3)
[2022-02-11] MEDS ORDERED: SODIUM CHL 0.9% 1000 ML BAG XX ONE (07:00)
[2022-02-11 09:00] VITALS: BP 151/52
[2022-02-11] MEDS: PANTOPRAZOLE 40 MG/10 ML VIAL INJ IV SCH (09:34)
[2022-02-11] MEDS: METOPROLOL TARTRATE 50 MG TAB GT SCH ×2 (09:35→22:28)
[2022-02-11] MEDS: amLODIPine BESYLATE 5 MG TAB PO SCH (09:35)
[2022-02-11] MEDS: MEROPENEM 500MG IVPB 50 ML IV SCH ×2 (09:36→22:28)
[2022-02-11] MEDS: AMIODARONE HCL 200 MG TAB PEG SCH (09:37)
[2022-02-11] MEDS: CHOLESTYRAMINE 4 GM POWDER GT SCH ×2 (11:41→23:27)
[2022-02-11 13:00] VITALS: BP 124/36
[2022-02-11 19:55] LABS: Hepatitis A Ab IgM Negative; Hepatitis B Core IgM Negative; Hepatitis C Antibody Negative (Negative)
[2022-02-11] MEDS ORDERED: EPOETIN ALFA-EPBX 10,000 UNIT/1ML VIAL SC ONE (21:00)
[2022-02-11 22:00] VITALS: BP 125/49
[2022-02-12] MEDS: InsuLIN REG 1unit/0.01ml Soln (100units/ml) SC SCH ×4 (00:15→18:04)
[2022-02-12 05:00] VITALS: BP 116/49
[2022-02-12] MEDS: ACCU-CHEK COMFORT CURVE STRIP VI SCH ×3 (06:05→17:50)
[2022-02-12] MEDS: ALBUTEROL SULF 2.5 MG/0.5ML(0.5%) NEB SOLN NEB SCH ×5 (06:10→21:59)
[2022-02-12] MEDS: ACETYLCYSTEINE 20%(200MG/ML) SOL 4ML NEB SCH ×3 (06:10→21:59)
[2022-02-12 06:26] LABS: Calcium 10.2 mg/dL (8.5-10.1); Potassium 4.2 mmol/L (3.5-5.1)
[2022-02-12 06:29] LABS: BUN/Creatinine Ratio 11.9
[2022-02-12 08:30] VITALS: BP 127/59
[2022-02-12] MEDS: PANTOPRAZOLE 40 MG/10 ML VIAL INJ IV SCH (11:27)
[2022-02-12] MEDS: METOPROLOL TARTRATE 50 MG TAB GT SCH ×2 (11:27→22:12)
[2022-02-12] MEDS: MEROPENEM 500MG IVPB 50 ML IV SCH ×2 (11:27→23:28)
[2022-02-12] MEDS: AMIODARONE HCL 200 MG TAB PEG SCH (11:28)
[2022-02-12] MEDS: amLODIPine BESYLATE 5 MG TAB PO SCH (11:28)
[2022-02-12] MEDS: CHOLESTYRAMINE 4 GM POWDER GT SCH ×2 (11:30→23:28)
[2022-02-12 13:00] VITALS: BP 124/53
[2022-02-12 16:42] VITALS: BP 110/56
[2022-02-12] MEDS: ACETAMINOPHEN 650 mg PER 20.3 mL UD PEG PRN (20:40)
[2022-02-12 22:00] VITALS: BP 115/50
[2022-02-13] MEDS: ACCU-CHEK COMFORT CURVE STRIP VI SCH ×4 (00:33→18:00)
[2022-02-13] MEDS: InsuLIN REG 1unit/0.01ml Soln (100units/ml) SC SCH ×4 (00:34→18:05)
[2022-02-13] MEDS: ALBUTEROL SULF 2.5 MG/0.5ML(0.5%) NEB SOLN NEB SCH ×6 (02:40→21:47)
[2022-02-13 05:00] VITALS: BP 141/64
[2022-02-13 06:10] LABS: Basophils # (auto) 0.1 10 ^3/uL (0-0.2); Basophils % (auto) 0.7 % (0.0-2.0); Eosinophils # (auto) 0.3 10 ^3/uL (0-0.8); Eosinophils % (auto) 1.9 % (0.0-7.0); Hematocrit 30.8 % (36.0-46.0); Lymphocytes % (auto) 5.7 % (10.0-50.0); Mean Corpuscular Hemoglobin 28.1 pg (28.0-32.0); Mean Corpuscular Hgb Conc. 32.6 g/dL (32.0-36.0); Mean Corpuscular Volume 86.2 fL (80.0-100.0); Monocytes # (auto) 0.8 10 ^3/uL (0-1.3); Monocytes % (auto) 4.6 % (0.0-12.0); Neutrophils # (auto) 15.5 10 ^3/uL (1.6-8.6); Neutrophils % (auto) 87.1 % (37.0-80.0); Nucleated Red Blood Cells % 0.1 %; Red Blood Cells 3.57 10^6/uL (4.0-5.20); White Blood Cell 17.8 10^3/uL (4.4-10.8)
[2022-02-13 06:16] LABS: Red Cell Distribution Width 22.4 % (11.8-14.3)
[2022-02-13] MEDS: ACETYLCYSTEINE 20%(200MG/ML) SOL 4ML NEB SCH ×3 (06:28→18:10)
[2022-02-13 06:29] LABS: BUN/Creatinine Ratio 14.3; Calcium 10.5 mg/dL (8.5-10.1); Potassium 4.4 mmol/L (3.5-5.1)
[2022-02-13] MEDS ORDERED: SODIUM CHL 0.9% 1000 ML BAG XX ONE (07:00)
[2022-02-13 09:00] VITALS: BP 129/50
[2022-02-13] MEDS: PANTOPRAZOLE 40 MG/10 ML VIAL INJ IV SCH (10:00)
[2022-02-13] MEDS: AMIODARONE HCL 200 MG TAB PEG SCH (10:00)
[2022-02-13] MEDS: METOPROLOL TARTRATE 50 MG TAB GT SCH (10:00)
[2022-02-13] MEDS: amLODIPine BESYLATE 5 MG TAB PO SCH (10:00)
[2022-02-13] MEDS: MEROPENEM 500MG IVPB 50 ML IV SCH ×2 (10:00→21:20)
[2022-02-13] MEDS: CHOLESTYRAMINE 4 GM POWDER GT SCH (11:00)
[2022-02-13 13:00] VITALS: BP 110/48
[2022-02-13] MEDS: ALBUMIN 25% 100 ML IV PRN (13:15)
[2022-02-13 17:00] VITALS: BP 100/45
[2022-02-13] MEDS ORDERED: EPOETIN ALFA-EPBX 4,000 UNIT/ML VIAL SC ONE (21:00)
[2022-02-13 22:00] VITALS: BP_SYST 115; BP_SYST 118; BP_DIAS 43; BP_DIAS 63
[2022-02-14 05:00] VITALS: BP 129/65
[2022-02-14] MEDS: InsuLIN REG 1unit/0.01ml Soln (100units/ml) SC SCH ×5 (06:00→22:50)
[2022-02-14] MEDS: ACCU-CHEK COMFORT CURVE STRIP VI SCH ×5 (06:03→22:50)
[2022-02-14 06:51] LABS: BUN/Creatinine Ratio 12.2; Calcium 9.7 mg/dL (8.5-10.1); Potassium 4.1 mmol/L (3.5-5.1)
[2022-02-14] MEDS: ALBUTEROL SULF 2.5 MG/0.5ML(0.5%) NEB SOLN NEB SCH ×5 (06:59→22:10)
[2022-02-14] MEDS: ACETYLCYSTEINE 20%(200MG/ML) SOL 4ML NEB SCH ×3 (06:59→18:35)
[2022-02-14 08:50] VITALS: BP 128/66
[2022-02-14] MEDS: MEROPENEM 500MG IVPB 50 ML IV SCH ×2 (10:00→22:52)
[2022-02-14] MEDS: amLODIPine BESYLATE 5 MG TAB PO SCH (10:00)
[2022-02-14] MEDS: PANTOPRAZOLE 40 MG/10 ML VIAL INJ IV SCH (11:22)
[2022-02-14] MEDS ORDERED: GASTROGRAFIN 30 ML SOL ONE (11:26)
[2022-02-14 12:40] VITALS: BP 147/61
[2022-02-14 16:58] VITALS: BP 127/55
[2022-02-14 22:00] VITALS: BP 130/54
[2022-02-15 05:00] VITALS: BP 121/59
[2022-02-15 05:48] LABS: Calcium 9.6 mg/dL (8.5-10.1); Potassium 4.2 mmol/L (3.5-5.1)
[2022-02-15 05:51] LABS: BUN/Creatinine Ratio 11.7
[2022-02-15] MEDS: InsuLIN REG 1unit/0.01ml Soln (100units/ml) SC SCH ×3 (06:00→18:00)
[2022-02-15] MEDS: ACCU-CHEK COMFORT CURVE STRIP VI SCH ×3 (06:00→18:00)
[2022-02-15] MEDS: ALBUTEROL SULF 2.5 MG/0.5ML(0.5%) NEB SOLN NEB SCH ×5 (06:12→22:11)
[2022-02-15] MEDS: ACETYLCYSTEINE 20%(200MG/ML) SOL 4ML NEB SCH ×3 (06:12→18:49)
[2022-02-15 08:58] VITALS: BP 130/62
[2022-02-15] MEDS ORDERED: GASTROGRAFIN 30 ML SOL XX ONE (09:00)
[2022-02-15] MEDS: amLODIPine BESYLATE 5 MG TAB PO SCH (10:00)
[2022-02-15] MEDS: MEROPENEM 500MG IVPB 50 ML IV SCH ×2 (11:35→22:22)
[2022-02-15 12:48] VITALS: BP 150/64
[2022-02-15 12:51] VITALS: BP 140/63
[2022-02-15 17:00] VITALS: BP 142/71
[2022-02-15] MEDS ORDERED: GASTROGRAFIN 30 ML SOL ONE (17:19)
[2022-02-15 22:00] VITALS: BP 109/49
[2022-02-16] MEDS: ACCU-CHEK COMFORT CURVE STRIP VI SCH ×3 (00:41→12:00)
[2022-02-16] MEDS: InsuLIN REG 1unit/0.01ml Soln (100units/ml) SC SCH ×3 (05:51→12:00)
[2022-02-16] MEDS ORDERED: SODIUM CHL 0.9% 1000 ML BAG XX ONE (07:00)
[2022-02-16 07:04] LABS: Basophils # (auto) 0.1 10 ^3/uL (0-0.2); Basophils % (auto) 0.6 % (0.0-2.0); Eosinophils # (auto) 0.3 10 ^3/uL (0-0.8); Eosinophils % (auto) 1.7 % (0.0-7.0); Hematocrit 29.5 % (36.0-46.0); Hemoglobin 9.3 g/dL (12.2-16.2); Lymphocytes # (auto) 0.8 10 ^3/uL (0.4-5.4); Lymphocytes % (auto) 4.3 % (10.0-50.0); Mean Corpuscular Hemoglobin 26.6 pg (28.0-32.0); Mean Corpuscular Hgb Conc. 31.4 g/dL (32.0-36.0); Mean Corpuscular Volume 84.6 fL (80.0-100.0); Monocytes # (auto) 0.8 10 ^3/uL (0-1.3); Monocytes % (auto) 4.1 % (0.0-12.0); Neutrophils # (auto) 17.5 10 ^3/uL (1.6-8.6); Neutrophils % (auto) 89.3 % (37.0-80.0); Red Blood Cells 3.49 10^6/uL (4.0-5.20); White Blood Cell 19.6 10^3/uL (4.4-10.8)
[2022-02-16 07:06] LABS: Red Cell Distribution Width 21.7 % (11.8-14.3)
[2022-02-16] MEDS: ACETYLCYSTEINE 20%(200MG/ML) SOL 4ML NEB SCH ×3 (07:08→21:37)
[2022-02-16] MEDS: ALBUTEROL SULF 2.5 MG/0.5ML(0.5%) NEB SOLN NEB SCH ×5 (07:08→21:37)
[2022-02-16 07:16] LABS: BUN/Creatinine Ratio 12.1; Potassium 4.2 mmol/L (3.5-5.1)
[2022-02-16] MEDS ORDERED: PANTOPRAZOLE 40 MG/10 ML VIAL INJ IV SCH (10:00)
[2022-02-16] MEDS: amLODIPine BESYLATE 5 MG TAB PO SCH (10:17)
[2022-02-16 13:00] VITALS: BP 121/57
[2022-02-16] MEDS ORDERED: Nepro With Carb Steady 1 Liter Bottle GT SCH (19:45)
[2022-02-16] MEDS ORDERED: EPOETIN ALFA-EPBX 4,000 UNIT/ML VIAL SC ONE (21:00)
[2022-02-16] MEDS: CHOLESTYRAMINE 4 GM POWDER GT SCH (21:33)
[2022-02-16] MEDS: METOPROLOL TARTRATE 50 MG TAB GT SCH (21:33)
[2022-02-16 22:00] VITALS: BP 165/68
[2022-02-16] MEDS ORDERED: ACETAMINOPHEN 650 mg PER 20.3 mL UD PEG PRN (22:00)
[2022-02-16] MEDS ORDERED: MEROPENEM 500MG IVPB 50 ML IV SCH (22:00)
[2022-02-17] MEDS: ACCU-CHEK COMFORT CURVE STRIP VI SCH ×4 (00:14→19:00)
[2022-02-17] MEDS: InsuLIN REG 1unit/0.01ml Soln (100units/ml) SC SCH ×4 (00:15→19:00)
[2022-02-17 05:00] VITALS: BP 146/75
[2022-02-17] MEDS: ACETYLCYSTEINE 20%(200MG/ML) SOL 4ML NEB SCH ×3 (06:11→22:08)
[2022-02-17] MEDS: ALBUTEROL SULF 2.5 MG/0.5ML(0.5%) NEB SOLN NEB SCH ×3 (06:11→13:42)
[2022-02-17 08:24] LABS: BUN/Creatinine Ratio 12.6; Calcium 9.6 mg/dL (8.5-10.1); Potassium 4.3 mmol/L (3.5-5.1)
[2022-02-17 09:00] VITALS: BP 130/63
[2022-02-17] MEDS: PANTOPRAZOLE 40 MG/10 ML VIAL INJ IV SCH (11:17)
[2022-02-17] MEDS: METOPROLOL TARTRATE 50 MG TAB GT SCH ×2 (11:17→21:42)
[2022-02-17] MEDS: AMIODARONE HCL 200 MG TAB PEG SCH (11:17)
[2022-02-17] MEDS: CHOLESTYRAMINE 4 GM POWDER GT SCH ×2 (11:18→23:04)
[2022-02-17] MEDS: amLODIPine BESYLATE 5 MG TAB PO SCH (11:18)
[2022-02-17 13:00] VITALS: BP 128/64
[2022-02-17 21:32] VITALS: BP 149/93
[2022-02-17] MEDS: ALBUTEROL SULF 2.5 MG/0.5ML(0.5%) NEB SOLN NEB PRN (22:08)
[2022-02-18 04:53] VITALS: BP 153/73
[2022-02-18] MEDS: ACCU-CHEK COMFORT CURVE STRIP VI SCH ×4 (05:42→18:00)
[2022-02-18] MEDS: InsuLIN REG 1unit/0.01ml Soln (100units/ml) SC SCH ×4 (05:43→18:35)
[2022-02-18] MEDS: ACETYLCYSTEINE 20%(200MG/ML) SOL 4ML NEB SCH ×2 (06:16→17:55)
[2022-02-18] MEDS: ALBUTEROL SULF 2.5 MG/0.5ML(0.5%) NEB SOLN NEB PRN ×2 (06:16→17:55)
[2022-02-18 09:00] VITALS: BP 167/81
[2022-02-18] MEDS: amLODIPine BESYLATE 5 MG TAB PO SCH (09:00)
[2022-02-18] MEDS: METOPROLOL TARTRATE 50 MG TAB GT SCH ×2 (09:00→21:45)
[2022-02-18 09:15] LABS: Eosinophils # (auto) 0.5 10 ^3/uL (0-0.8); Hematocrit 32.6 % (36.0-46.0); Hemoglobin 9.9 g/dL (12.2-16.2); Lymphocytes # (auto) 0.9 10 ^3/uL (0.4-5.4); Red Blood Cells 3.75 10^6/uL (4.0-5.20)
[2022-02-18 09:22] LABS: Basophils # (auto) 0.1 10 ^3/uL (0-0.2); Basophils % (auto) 0.5 % (0.0-2.0); Eosinophils % (auto) 2.6 % (0.0-7.0); Lymphocytes % (auto) 4.6 % (10.0-50.0); Mean Corpuscular Hemoglobin 26.3 pg (28.0-32.0); Monocytes # (auto) 0.8 10 ^3/uL (0-1.3); Monocytes % (auto) 3.8 % (0.0-12.0); Neutrophils # (auto) 17.9 10 ^3/uL (1.6-8.6); Neutrophils % (auto) 88.5 % (37.0-80.0); White Blood Cell 20.2 10^3/uL (4.4-10.8)
[2022-02-18 09:27] LABS: Mean Corpuscular Hgb Conc. 30.3 g/dL (32.0-36.0); Red Cell Distribution Width 21.2 % (11.8-14.3)
[2022-02-18 09:39] LABS: Potassium 4.2 mmol/L (3.5-5.1)
[2022-02-18 09:44] LABS: BUN/Creatinine Ratio 13.8; Calcium 9.7 mg/dL (8.5-10.1)
[2022-02-18] MEDS: PANTOPRAZOLE 40 MG/10 ML VIAL INJ IV SCH (10:00)
[2022-02-18] MEDS: AMIODARONE HCL 200 MG TAB PEG SCH (10:01)
[2022-02-18] MEDS ORDERED: SODIUM CHL 0.9% 1000 ML BAG XX ONE (11:30)
[2022-02-18] MEDS: CHOLESTYRAMINE 4 GM POWDER GT SCH ×2 (12:33→22:36)
[2022-02-18] MEDS: MORPHINE SULFATE INJ 2 MG/ml SYRG IV PRN ×2 (15:27→21:46)
[2022-02-18 17:00] VITALS: BP 141/83
[2022-02-18] MEDS ORDERED: EPOETIN ALFA-EPBX 10,000 UNIT/1ML VIAL SC ONE (21:00)
[2022-02-18 22:00] VITALS: BP 124/56
[2022-02-19] MEDS: ACCU-CHEK COMFORT CURVE STRIP VI SCH ×4 (00:20→17:29)
[2022-02-19 05:00] VITALS: BP 109/41
[2022-02-19] MEDS: InsuLIN REG 1unit/0.01ml Soln (100units/ml) SC SCH ×4 (05:39→17:27)
[2022-02-19] MEDS: ACETYLCYSTEINE 20%(200MG/ML) SOL 4ML NEB SCH ×3 (06:49→21:50)
[2022-02-19] MEDS: ALBUTEROL SULF 2.5 MG/0.5ML(0.5%) NEB SOLN NEB PRN ×2 (06:49→21:51)
[2022-02-19 08:00] VITALS: BP 91/52
[2022-02-19 08:42] LABS: Albumin 3.2 g/dL (3.4-5.0); BUN/Creatinine Ratio 11.1; Calcium 9.1 mg/dL (8.5-10.1); Potassium 3.9 mmol/L (3.5-5.1)
[2022-02-19] MEDS: amLODIPine BESYLATE 5 MG TAB PO SCH (09:00)
[2022-02-19] MEDS: METOPROLOL TARTRATE 50 MG TAB GT SCH ×2 (09:00→21:00)
[2022-02-19] MEDS: PANTOPRAZOLE 40 MG/10 ML VIAL INJ IV SCH (09:48)
[2022-02-19] MEDS: AMIODARONE HCL 200 MG TAB PEG SCH (09:48)
[2022-02-19] MEDS: CHOLESTYRAMINE 4 GM POWDER GT SCH ×2 (11:40→23:00)
[2022-02-19 12:00] VITALS: BP 97/43
[2022-02-19 16:00] VITALS: BP 108/45
[2022-02-19 22:00] VITALS: BP 96/47
[2022-02-20 04:54] VITALS: BP 91/46
[2022-02-20] MEDS: ACETYLCYSTEINE 20%(200MG/ML) SOL 4ML NEB SCH ×3 (05:37→17:50)
[2022-02-20] MEDS: ALBUTEROL SULF 2.5 MG/0.5ML(0.5%) NEB SOLN NEB PRN ×3 (05:37→17:49)
[2022-02-20] MEDS: InsuLIN REG 1unit/0.01ml Soln (100units/ml) SC SCH ×4 (05:42→18:36)
[2022-02-20] MEDS: ACCU-CHEK COMFORT CURVE STRIP VI SCH ×4 (05:42→18:37)
[2022-02-20 06:55] LABS: BUN/Creatinine Ratio 11.6; Calcium 9.7 mg/dL (8.5-10.1); Potassium 3.9 mmol/L (3.5-5.1)
[2022-02-20] MEDS ORDERED: SODIUM CHL 0.9% 1000 ML BAG XX ONE (07:00)
[2022-02-20 09:00] VITALS: BP 118/55
[2022-02-20] MEDS: AMIODARONE HCL 200 MG TAB PEG SCH (09:00)
[2022-02-20] MEDS: METOPROLOL TARTRATE 50 MG TAB GT SCH ×2 (09:00→21:00)
[2022-02-20] MEDS ORDERED: ALBUMIN 25% 100 ML IV PRN (09:00)
[2022-02-20] MEDS: amLODIPine BESYLATE 5 MG TAB PO SCH (09:00)
[2022-02-20 10:10] LABS: Basophils # (auto) 0.2 10 ^3/uL (0-0.2); Basophils % (auto) 0.6 % (0.0-2.0); Eosinophils # (auto) 0.2 10 ^3/uL (0-0.8); Hemoglobin 8.3 g/dL (12.2-16.2); Lymphocytes # (auto) 0.7 10 ^3/uL (0.4-5.4); Mean Corpuscular Hemoglobin 26.7 pg (28.0-32.0)
[2022-02-20 10:13] LABS: Eosinophils % (auto) 0.9 % (0.0-7.0); Hematocrit 26.6 % (36.0-46.0); Lymphocytes % (auto) 2.7 % (10.0-50.0); Mean Corpuscular Hgb Conc. 31.3 g/dL (32.0-36.0); Mean Corpuscular Volume 85.2 fL (80.0-100.0); Monocytes # (auto) 0.5 10 ^3/uL (0-1.3); Monocytes % (auto) 1.8 % (0.0-12.0); Neutrophils # (auto) 24.8 10 ^3/uL (1.6-8.6); Red Blood Cells 3.13 10^6/uL (4.0-5.20); Red Cell Distribution Width 20.9 % (11.8-14.3); White Blood Cell 26.4 10^3/uL (4.4-10.8)
[2022-02-20] MEDS: CHOLESTYRAMINE 4 GM POWDER GT SCH ×2 (11:00→22:43)
[2022-02-20] MEDS: MORPHINE SULFATE INJ 2 MG/ml SYRG IV PRN ×2 (11:45→18:35)
[2022-02-20] MEDS: PANTOPRAZOLE 40 MG/10 ML VIAL INJ IV SCH (11:45)
[2022-02-20 13:00] VITALS: BP 117/47
[2022-02-20 17:00] VITALS: BP 130/55
[2022-02-20] MEDS ORDERED: EPOETIN ALFA-EPBX 10,000 UNIT/1ML VIAL SC ONE (21:00)
[2022-02-20 22:00] VITALS: BP 115/56
[2022-02-21] VITALS (9 sets, daily range): BP systolic 96–152; BP diastolic 48–70
[2022-02-21] MEDS: ACCU-CHEK COMFORT CURVE STRIP VI SCH ×4 (00:06→17:27)
[2022-02-21] MEDS: InsuLIN REG 1unit/0.01ml Soln (100units/ml) SC SCH ×4 (06:00→17:28)
[2022-02-21 07:26] LABS: BUN/Creatinine Ratio 10.3; Calcium 10.4 mg/dL (8.5-10.1); Potassium 4.2 mmol/L (3.5-5.1)
[2022-02-21] MEDS ORDERED: TPN PER PHARMACY 0 ML IV SCH (08:30)
[2022-02-21] MEDS: AMIODARONE HCL 200 MG TAB PEG SCH (09:00)
[2022-02-21] MEDS: amLODIPine BESYLATE 5 MG TAB PO SCH (09:00)
[2022-02-21] MEDS: METOPROLOL TARTRATE 50 MG TAB GT SCH ×2 (09:00→21:36)
[2022-02-21 10:41] LABS: Albumin 3.7 g/dL (3.4-5.0); Bilirubin, Direct 0.3 mg/dL (0-0.2); Magnesium 2.3 mg/dL (1.6-2.6)
[2022-02-21 10:45] LABS: Bilirubin, Total 0.8 mg/dL (0.2-1.0); Phosphorus 2.5 mg/dL (2.5-4.90)
[2022-02-21] MEDS: CHOLESTYRAMINE 4 GM POWDER GT SCH ×2 (11:00→22:29)
[2022-02-21] MEDS: PANTOPRAZOLE 40 MG/10 ML VIAL INJ IV SCH (11:10)
[2022-02-21] MEDS ORDERED: METOCLOPRAMIDE HCL 5MG/ml INJ 2ml VIAL IV SCH (18:00)
[2022-02-21] MEDS ORDERED: Nepro With Carb Steady 1 Liter Bottle GT SCH (18:15)
[2022-02-21] MEDS ORDERED: TPN PER PHARMACY IV NR ×7 (20:00)
[2022-02-22] MEDS: ACCU-CHEK COMFORT CURVE STRIP VI SCH ×4 (00:01→18:11)
[2022-02-22] MEDS: METOCLOPRAMIDE HCL 5MG/ml INJ 2ml VIAL IV SCH ×4 (00:01→17:27)
[2022-02-22] MEDS: InsuLIN REG 1unit/0.01ml Soln (100units/ml) SC SCH ×4 (00:04→18:13)
[2022-02-22 05:00] VITALS: BP 153/66
[2022-02-22 07:46] LABS: Albumin 3.2 g/dL (3.4-5.0); Calcium 9.9 mg/dL (8.5-10.1); Magnesium 2.5 mg/dL (1.6-2.6); Phosphorus 3.8 mg/dL (2.5-4.90); Potassium 3.7 mmol/L (3.5-5.1)
[2022-02-22] MEDS: amLODIPine BESYLATE 5 MG TAB PO SCH (09:00)
[2022-02-22 09:20] VITALS: BP 134/60
[2022-02-22] MEDS: METOPROLOL TARTRATE 50 MG TAB GT SCH ×2 (09:39→20:48)
[2022-02-22] MEDS: PANTOPRAZOLE 40 MG/10 ML VIAL INJ IV SCH (09:39)
[2022-02-22] MEDS: AMIODARONE HCL 200 MG TAB PEG SCH (09:39)
[2022-02-22] MEDS: CHOLESTYRAMINE 4 GM POWDER GT SCH (12:15)
[2022-02-22] MEDS ORDERED: DEXTROSE (50%) 50ML SYRG IV PRN (17:00)
[2022-02-22 17:28] VITALS: BP 110/59
[2022-02-22] MEDS ORDERED: Nepro With Carb Steady 1 Liter Bottle GT SCH (20:00)
[2022-02-22] MEDS ORDERED: TPN PER PHARMACY IV NR ×9 (20:00)
[2022-02-22 22:00] VITALS: BP 110/62
[2022-02-23] MEDS: METOCLOPRAMIDE HCL 5MG/ml INJ 2ml VIAL IV SCH ×4 (00:39→17:57)
[2022-02-23] MEDS: CHOLESTYRAMINE 4 GM POWDER GT SCH ×2 (00:39→11:44)
[2022-02-23] MEDS: ACCU-CHEK COMFORT CURVE STRIP VI SCH ×4 (00:40→17:57)
[2022-02-23] MEDS: InsuLIN REG 1unit/0.01ml Soln (100units/ml) SC SCH ×4 (01:04→17:58)
[2022-02-23 05:00] VITALS: BP 91/45
[2022-02-23 07:52] LABS: Hematocrit 28.8 % (36.0-46.0); Hemoglobin 9.1 g/dL (12.2-16.2); Mean Corpuscular Hemoglobin 27.3 pg (28.0-32.0); Mean Corpuscular Hgb Conc. 31.5 g/dL (32.0-36.0); Mean Corpuscular Volume 86.6 fL (80.0-100.0); Red Blood Cells 3.32 10^6/uL (4.0-5.20); White Blood Cell 21.3 10^3/uL (4.4-10.8)
[2022-02-23 07:54] LABS: Red Cell Distribution Width 20.4 % (11.8-14.3)
[2022-02-23 07:56] LABS: Basophils % (manual) 0 (0.0-2.0); Blast Cells 0; Metamyelocytes % 0; Myelocytes % 0; Promyelocytes % 0; Reactive Lymphocytes 0
[2022-02-23 08:08] LABS: Albumin 2.9 g/dL (3.4-5.0); BUN/Creatinine Ratio 15.9; Calcium 9.7 mg/dL (8.5-10.1); Magnesium 2.1 mg/dL (1.6-2.6); Potassium 4.1 mmol/L (3.5-5.1)
[2022-02-23 08:11] LABS: Bilirubin, Total 0.5 mg/dL (0.2-1.0); Total Protein 8.3 g/dL (6.4-8.2)
[2022-02-23 08:27] LABS: Band Neutrophils % (manual) 22; Eosinophils % (manual) 2 (0-7); Lymphocytes % (manual) 4 (10.0-50.0); Monocytes % (manual) 3 (0-12)
[2022-02-23 09:00] VITALS: BP 108/51
[2022-02-23] MEDS: METOPROLOL TARTRATE 50 MG TAB GT SCH ×2 (09:11→21:24)
[2022-02-23] MEDS: PANTOPRAZOLE 40 MG/10 ML VIAL INJ IV SCH (09:11)
[2022-02-23] MEDS: AMIODARONE HCL 200 MG TAB PEG SCH (09:14)
[2022-02-23] MEDS: amLODIPine BESYLATE 5 MG TAB PO SCH (09:16)
[2022-02-23 13:00] VITALS: BP 127/62
[2022-02-23 17:00] VITALS: BP 124/50
[2022-02-23] MEDS ORDERED: TPN PER PHARMACY IV NR ×9 (20:00)
[2022-02-23 22:00] VITALS: BP 144/73
[2022-02-24] MEDS: ACCU-CHEK COMFORT CURVE STRIP VI SCH ×5 (00:10→23:36)
[2022-02-24] MEDS: CHOLESTYRAMINE 4 GM POWDER GT SCH ×3 (00:10→23:48)
[2022-02-24] MEDS: METOCLOPRAMIDE HCL 5MG/ml INJ 2ml VIAL IV SCH ×5 (00:10→23:48)
[2022-02-24] MEDS: InsuLIN REG 1unit/0.01ml Soln (100units/ml) SC SCH ×5 (00:35→23:40)
[2022-02-24 05:00] VITALS: BP 146/69
[2022-02-24 06:11] LABS: Albumin 2.9 g/dL (3.4-5.0); BUN/Creatinine Ratio 18.8; Bilirubin, Total 0.5 mg/dL (0.2-1.0); Calcium 9.3 mg/dL (8.5-10.1); Magnesium 2.4 mg/dL (1.6-2.6); Total Protein 8.6 g/dL (6.4-8.2)
[2022-02-24 09:00] VITALS: BP 115/72
[2022-02-24] MEDS: amLODIPine BESYLATE 5 MG TAB PO SCH (09:00)
[2022-02-24] MEDS: PANTOPRAZOLE 40 MG/10 ML VIAL INJ IV SCH (09:00)
[2022-02-24] MEDS: METOPROLOL TARTRATE 50 MG TAB GT SCH ×2 (09:01→20:54)
[2022-02-24] MEDS: AMIODARONE HCL 200 MG TAB PEG SCH (09:02)
[2022-02-24] MEDS ORDERED: SODIUM CHL 0.9% 1000 ML BAG XX ONE (10:45)
[2022-02-24] MEDS: CALCIUM ACETATE 667 MG CAP PO SCH ×2 (12:00→17:34)
[2022-02-24 13:00] VITALS: BP 125/76
[2022-02-24 15:18] VITALS: BP 125/76
[2022-02-24] MEDS ORDERED: TPN PER PHARMACY IV NR ×9 (20:00)
[2022-02-24] MEDS ORDERED: EPOETIN ALFA-EPBX 10,000 UNIT/1ML VIAL SC ONE (21:00)
[2022-02-24 22:00] VITALS: BP 157/76
[2022-02-25 05:36] VITALS: BP 155/65
[2022-02-25] MEDS: ACCU-CHEK COMFORT CURVE STRIP VI SCH ×3 (05:57→18:14)
[2022-02-25] MEDS: InsuLIN REG 1unit/0.01ml Soln (100units/ml) SC SCH ×3 (06:01→18:14)
[2022-02-25] MEDS: METOCLOPRAMIDE HCL 5MG/ml INJ 2ml VIAL IV SCH ×3 (06:03→18:13)
[2022-02-25 07:46] LABS: Hematocrit 29.1 % (36.0-46.0); Hemoglobin 9.3 g/dL (12.2-16.2); Mean Corpuscular Hemoglobin 27.4 pg (28.0-32.0); Mean Corpuscular Hgb Conc. 32.1 g/dL (32.0-36.0); Mean Corpuscular Volume 85.5 fL (80.0-100.0); White Blood Cell 21.7 10^3/uL (4.4-10.8)
[2022-02-25 07:59] LABS: Red Cell Distribution Width 20.4 % (11.8-14.3)
[2022-02-25 08:00] LABS: Basophils % (manual) 0 (0.0-2.0); Blast Cells 0; Eosinophils % (manual) 0 (0-7); Metamyelocytes % 0; Monocytes % (manual) 0 (0-12); Myelocytes % 0; Promyelocytes % 0; Reactive Lymphocytes 0
[2022-02-25 08:06] LABS: Albumin 2.5 g/dL (3.4-5.0); Calcium 9.1 mg/dL (8.5-10.1); Magnesium 2.5 mg/dL (1.6-2.6); Potassium 3.6 mmol/L (3.5-5.1)
[2022-02-25 08:10] LABS: BUN/Creatinine Ratio 16.8; Bilirubin, Total 0.5 mg/dL (0.2-1.0); Phosphorus 1.3 mg/dL (2.5-4.90); Total Protein 8.1 g/dL (6.4-8.2)
[2022-02-25 08:59] LABS: Band Neutrophils % (manual) 1; Lymphocytes % (manual) 8 (10.0-50.0)
[2022-02-25 09:00] VITALS: BP 124/46
[2022-02-25] MEDS: METOPROLOL TARTRATE 50 MG TAB GT SCH ×2 (09:08→22:20)
[2022-02-25] MEDS: CALCIUM ACETATE 667 MG CAP PO SCH ×3 (09:08→18:13)
[2022-02-25] MEDS: AMIODARONE HCL 200 MG TAB PEG SCH (09:09)
[2022-02-25] MEDS: PANTOPRAZOLE 40 MG/10 ML VIAL INJ IV SCH (09:09)
[2022-02-25] MEDS: amLODIPine BESYLATE 5 MG TAB PO SCH (09:09)
[2022-02-25] MEDS ORDERED: SODIUM PHOSP 20MEQ(15MMOL) IN NS 100 ML IV ONE (09:45)
[2022-02-25] MEDS: CHOLESTYRAMINE 4 GM POWDER GT SCH (12:09)
[2022-02-25 13:00] VITALS: BP 139/53
[2022-02-25 16:53] VITALS: BP 119/46
[2022-02-25] MEDS ORDERED: TPN PER PHARMACY IV NR ×9 (20:00)
[2022-02-25 22:00] VITALS: BP 146/59
[2022-02-26] VITALS (7 sets, daily range): BP systolic 107–160; BP diastolic 56–69
[2022-02-26] MEDS: METOCLOPRAMIDE HCL 5MG/ml INJ 2ml VIAL IV SCH ×5 (00:29→23:11)
[2022-02-26] MEDS: CHOLESTYRAMINE 4 GM POWDER GT SCH ×2 (00:29→11:06)
[2022-02-26] MEDS: ACCU-CHEK COMFORT CURVE STRIP VI SCH ×5 (00:29→23:12)
[2022-02-26] MEDS: InsuLIN REG 1unit/0.01ml Soln (100units/ml) SC SCH ×5 (00:43→23:18)
[2022-02-26 05:59] LABS: Hematocrit 28.1 % (36.0-46.0); Hemoglobin 9.3 g/dL (12.2-16.2)
[2022-02-26 06:16] LABS: Albumin 2.5 g/dL (3.4-5.0); Calcium 9.6 mg/dL (8.5-10.1); Magnesium 2.4 mg/dL (1.6-2.6); Potassium 3.7 mmol/L (3.5-5.1)
[2022-02-26 06:19] LABS: BUN/Creatinine Ratio 20.1; Bilirubin, Total 0.6 mg/dL (0.2-1.0); Phosphorus 3.8 mg/dL (2.5-4.90); Total Protein 8.3 g/dL (6.4-8.2)
[2022-02-26] MEDS ORDERED: SODIUM CHL 0.9% 1000 ML BAG XX ONE (07:00)
[2022-02-26] MEDS: METOPROLOL TARTRATE 50 MG TAB GT SCH ×2 (10:17→21:43)
[2022-02-26] MEDS: CALCIUM ACETATE 667 MG CAP PO SCH ×3 (10:17→17:29)
[2022-02-26] MEDS: amLODIPine BESYLATE 5 MG TAB PO SCH (10:18)
[2022-02-26] MEDS: PANTOPRAZOLE 40 MG/10 ML VIAL INJ IV SCH (10:18)
[2022-02-26] MEDS: AMIODARONE HCL 200 MG TAB PEG SCH (10:19)
[2022-02-26] MEDS: ALBUTEROL SULF 2.5 MG/0.5ML(0.5%) NEB SOLN NEB PRN ×2 (14:32→22:13)
[2022-02-26] MEDS: ACETYLCYSTEINE 20%(200MG/ML) SOL 4ML NEB SCH ×2 (14:32→22:14)
[2022-02-26] MEDS: IPRATROPIUM BROM 0.5 MG/2.5ML INH SOL NEB SCH (18:27)
[2022-02-26] MEDS ORDERED: TPN PER PHARMACY IV NR ×9 (20:00)
[2022-02-26] MEDS ORDERED: EPOETIN ALFA-EPBX 10,000 UNIT/1ML VIAL SC ONE (21:00)
[2022-02-27] MEDS: IPRATROPIUM BROM 0.5 MG/2.5ML INH SOL NEB SCH ×5 (00:03→23:44)
[2022-02-27] MEDS: CHOLESTYRAMINE 4 GM POWDER GT SCH ×3 (00:36→23:52)
[2022-02-27 05:00] VITALS: BP 160/70
[2022-02-27] MEDS: METOCLOPRAMIDE HCL 5MG/ml INJ 2ml VIAL IV SCH ×4 (05:17→23:52)
[2022-02-27] MEDS: ACCU-CHEK COMFORT CURVE STRIP VI SCH ×4 (05:17→23:53)
[2022-02-27] MEDS: InsuLIN REG 1unit/0.01ml Soln (100units/ml) SC SCH ×3 (05:24→18:26)
[2022-02-27 06:14] LABS: Hemoglobin 9.4 g/dL (12.2-16.2)
[2022-02-27 06:19] LABS: Hematocrit 29.3 % (36.0-46.0)
[2022-02-27] MEDS: MORPHINE SULFATE INJ 2 MG/ml SYRG IV PRN (06:27)
[2022-02-27 06:32] LABS: Magnesium 1.8 mg/dL (1.6-2.6); Potassium 5.4 mmol/L (3.5-5.1)
[2022-02-27] MEDS: ALBUTEROL SULF 2.5 MG/0.5ML(0.5%) NEB SOLN NEB PRN ×4 (06:33→23:44)
[2022-02-27] MEDS: ACETYLCYSTEINE 20%(200MG/ML) SOL 4ML NEB SCH ×3 (06:33→18:21)
[2022-02-27 06:39] LABS: Albumin 2.5 g/dL (3.4-5.0); BUN/Creatinine Ratio 23.6; Bilirubin, Total 0.6 mg/dL (0.2-1.0); Calcium 9.5 mg/dL (8.5-10.1); Phosphorus 5.6 mg/dL (2.5-4.90); Total Protein 8.6 g/dL (6.4-8.2)
[2022-02-27] MEDS ORDERED: SODIUM CHL 0.9% 1000 ML BAG XX ONE (07:00)
[2022-02-27] MEDS ORDERED: SODIUM BICARBONATE 8.4 % INJ 50ML VIAL IV ONE (08:30)
[2022-02-27 09:00] VITALS: BP_SYST 141; BP_SYST 148; BP_DIAS 61; BP_DIAS 72
[2022-02-27] MEDS: AMIODARONE HCL 200 MG TAB PEG SCH (09:00)
[2022-02-27] MEDS: amLODIPine BESYLATE 5 MG TAB PO SCH (09:00)
[2022-02-27] MEDS: METOPROLOL TARTRATE 50 MG TAB GT SCH ×2 (09:00→20:51)
[2022-02-27] MEDS: CALCIUM ACETATE 667 MG CAP PO SCH ×3 (09:28→18:27)
[2022-02-27] MEDS: PANTOPRAZOLE 40 MG/10 ML VIAL INJ IV SCH (09:29)
[2022-02-27] MEDS ORDERED: AMINO ACID INFUSION IN D10W 1,000 ML IV NR (10:45)
[2022-02-27] MEDS ORDERED: ALBUMIN 25% 100 ML IV ONE ×3 (12:15→13:15)
[2022-02-27 13:00] VITALS: BP 148/78
[2022-02-27 17:00] VITALS: BP 141/61
[2022-02-27] MEDS ORDERED: TPN PER PHARMACY IV NR ×9 (20:00)
[2022-02-27] MEDS ORDERED: EPOETIN ALFA-EPBX 10,000 UNIT/1ML VIAL SC ONE (21:00)
[2022-02-27 22:00] VITALS: BP 139/51
[2022-02-28] MEDS: InsuLIN REG 1unit/0.01ml Soln (100units/ml) SC SCH ×4 (00:06→18:28)
[2022-02-28] MEDS: MORPHINE SULFATE INJ 2 MG/ml SYRG IV PRN (02:00)
[2022-02-28 05:00] VITALS: BP 148/55
[2022-02-28] MEDS: ACCU-CHEK COMFORT CURVE STRIP VI SCH ×3 (05:21→18:28)
[2022-02-28] MEDS: METOCLOPRAMIDE HCL 5MG/ml INJ 2ml VIAL IV SCH ×3 (05:22→18:14)
[2022-02-28 05:45] LABS: Basophils # (auto) 0.1 10 ^3/uL (0-0.2); Basophils % (auto) 0.4 % (0.0-2.0); Eosinophils # (auto) 0.2 10 ^3/uL (0-0.8); Hematocrit 24.8 % (36.0-46.0); Hemoglobin 7.9 g/dL (12.2-16.2); Mean Corpuscular Hemoglobin 26.7 pg (28.0-32.0); Mean Corpuscular Hgb Conc. 31.7 g/dL (32.0-36.0); Mean Corpuscular Volume 84.1 fL (80.0-100.0); Monocytes # (auto) 0.7 10 ^3/uL (0-1.3); Monocytes % (auto) 3.5 % (0.0-12.0); Neutrophils # (auto) 17.2 10 ^3/uL (1.6-8.6); Neutrophils % (auto) 90.1 % (37.0-80.0); Nucleated Red Blood Cells % 0.1 %; Red Blood Cells 2.95 10^6/uL (4.0-5.20); White Blood Cell 19.1 10^3/uL (4.4-10.8)
[2022-02-28 05:49] LABS: Red Cell Distribution Width 20.2 % (11.8-14.3)
[2022-02-28 06:09] LABS: Potassium 4.1 mmol/L (3.5-5.1)
[2022-02-28] MEDS: ACETYLCYSTEINE 20%(200MG/ML) SOL 4ML NEB SCH ×2 (06:17→11:56)
[2022-02-28] MEDS: IPRATROPIUM BROM 0.5 MG/2.5ML INH SOL NEB SCH ×3 (06:17→18:27)
[2022-02-28 06:24] LABS: Albumin 3.2 g/dL (3.4-5.0); BUN/Creatinine Ratio 24.2; Calcium 9.4 mg/dL (8.5-10.1); Magnesium 2.1 mg/dL (1.6-2.6)
[2022-02-28 06:26] LABS: Bilirubin, Total 0.5 mg/dL (0.2-1.0); Phosphorus 4.1 mg/dL (2.5-4.90); Total Protein 7.9 g/dL (6.4-8.2)
[2022-02-28 08:59] VITALS: BP 118/60
[2022-02-28] MEDS: AMIODARONE HCL 200 MG TAB PEG SCH (09:00)
[2022-02-28] MEDS: CALCIUM ACETATE 667 MG CAP PO SCH (09:31)
[2022-02-28] MEDS: PANTOPRAZOLE 40 MG/10 ML VIAL INJ IV SCH (09:31)
[2022-02-28] MEDS: METOPROLOL TARTRATE 50 MG TAB GT SCH ×2 (09:36→21:00)
[2022-02-28] MEDS: amLODIPine BESYLATE 5 MG TAB PO SCH (09:38)
[2022-02-28] MEDS: ALBUTEROL SULF 2.5 MG/0.5ML(0.5%) NEB SOLN NEB PRN (11:56)
[2022-02-28] MEDS: CHOLESTYRAMINE 4 GM POWDER GT SCH ×2 (12:21→23:30)
[2022-02-28] MEDS: DOXYCYCLINE 100MG/250ML 250 ML IV SCH ×2 (12:21→23:31)
[2022-02-28 13:00] VITALS: BP 140/59
[2022-02-28 17:00] VITALS: BP 142/56
[2022-02-28] MEDS: FREE WATER GT SCH (18:15)
[2022-02-28] MEDS ORDERED: TPN PER PHARMACY IV NR ×9 (20:00)
[2022-02-28 22:00] VITALS: BP 87/48
[2022-02-28 22:38] VITALS: BP 114/57
[2022-03-01] MEDS: ACETYLCYSTEINE 20%(200MG/ML) SOL 4ML NEB SCH ×3 (00:18→11:58)
[2022-03-01] MEDS: IPRATROPIUM BROM 0.5 MG/2.5ML INH SOL NEB SCH ×4 (00:18→18:44)
[2022-03-01] MEDS: ALBUTEROL SULF 2.5 MG/0.5ML(0.5%) NEB SOLN NEB PRN ×2 (00:18→18:44)
[2022-03-01] MEDS: METOCLOPRAMIDE HCL 5MG/ml INJ 2ml VIAL IV SCH ×5 (01:41→23:31)
[2022-03-01 05:00] VITALS: BP 131/58
[2022-03-01] MEDS: FREE WATER GT SCH ×5 (05:53→23:32)
[2022-03-01] MEDS: InsuLIN REG 1unit/0.01ml Soln (100units/ml) SC SCH ×4 (05:55→17:50)
[2022-03-01] MEDS: ACCU-CHEK COMFORT CURVE STRIP VI SCH ×5 (05:55→23:33)
[2022-03-01 06:11] LABS: Potassium 4.4 mmol/L (3.5-5.1)
[2022-03-01 06:24] LABS: Albumin 2.7 g/dL (3.4-5.0); BUN/Creatinine Ratio 27.1; Bilirubin, Total 0.4 mg/dL (0.2-1.0); Calcium 9.1 mg/dL (8.5-10.1)
[2022-03-01 09:36] VITALS: BP 113/60
[2022-03-01] MEDS: PANTOPRAZOLE 40 MG/10 ML VIAL INJ IV SCH (09:40)
[2022-03-01] MEDS: amLODIPine BESYLATE 5 MG TAB PO SCH (09:40)
[2022-03-01] MEDS: METOPROLOL TARTRATE 50 MG TAB GT SCH ×2 (09:40→20:19)
[2022-03-01] MEDS: AMIODARONE HCL 200 MG TAB PEG SCH (09:41)
[2022-03-01] MEDS: DOXYCYCLINE 100MG/250ML 250 ML IV SCH ×2 (11:38→23:32)
[2022-03-01] MEDS: CHOLESTYRAMINE 4 GM POWDER GT SCH ×2 (11:38→23:32)
[2022-03-01 12:59] VITALS: BP 120/63
[2022-03-01 17:00] VITALS: BP 124/61
[2022-03-01] MEDS ORDERED: TPN PER PHARMACY IV NR ×9 (20:00)
[2022-03-01 22:00] VITALS: BP 139/60
[2022-03-02] MEDS: IPRATROPIUM BROM 0.5 MG/2.5ML INH SOL NEB SCH ×4 (00:22→18:09)
[2022-03-02] MEDS: ALBUTEROL SULF 2.5 MG/0.5ML(0.5%) NEB SOLN NEB PRN ×2 (00:22→18:09)
[2022-03-02 05:00] VITALS: BP 127/54
[2022-03-02] MEDS: METOCLOPRAMIDE HCL 5MG/ml INJ 2ml VIAL IV SCH ×4 (05:58→23:11)
[2022-03-02] MEDS: FREE WATER GT SCH ×2 (05:58→12:20)
[2022-03-02] MEDS: ACCU-CHEK COMFORT CURVE STRIP VI SCH ×4 (05:59→23:11)
[2022-03-02] MEDS: InsuLIN REG 1unit/0.01ml Soln (100units/ml) SC SCH ×5 (06:10→23:22)
[2022-03-02] MEDS ORDERED: SODIUM CHL 0.9% 1000 ML BAG XX ONE (07:00)
[2022-03-02 07:26] LABS: Basophils # (auto) 0.1 10 ^3/uL (0-0.2); Basophils % (auto) 0.7 % (0.0-2.0); Hemoglobin 8.6 g/dL (12.2-16.2); Mean Corpuscular Hemoglobin 26.6 pg (28.0-32.0); Red Blood Cells 3.24 10^6/uL (4.0-5.20)
[2022-03-02 07:32] LABS: Eosinophils # (auto) 0.3 10 ^3/uL (0-0.8); Eosinophils % (auto) 1.4 % (0.0-7.0); Lymphocytes # (auto) 1.1 10 ^3/uL (0.4-5.4); Lymphocytes % (auto) 5.3 % (10.0-50.0); Mean Corpuscular Hgb Conc. 30.8 g/dL (32.0-36.0); Mean Corpuscular Volume 86.3 fL (80.0-100.0); Monocytes # (auto) 0.7 10 ^3/uL (0-1.3); Monocytes % (auto) 3.1 % (0.0-12.0); Neutrophils # (auto) 19.1 10 ^3/uL (1.6-8.6); Neutrophils % (auto) 89.5 % (37.0-80.0); Nucleated Red Blood Cells % 0.3 %; White Blood Cell 21.4 10^3/uL (4.4-10.8)
[2022-03-02 07:51] LABS: Albumin 2.5 g/dL (3.4-5.0); BUN/Creatinine Ratio 30.3; Calcium 9.3 mg/dL (8.5-10.1); Magnesium 2.2 mg/dL (1.6-2.6); Potassium 3.9 mmol/L (3.5-5.1)
[2022-03-02 07:54] LABS: Bilirubin, Total 0.6 mg/dL (0.2-1.0); Total Protein 7.5 g/dL (6.4-8.2)
[2022-03-02 08:30] VITALS: BP 150/54
[2022-03-02 08:52] VITALS: BP 127/54
[2022-03-02] MEDS: amLODIPine BESYLATE 5 MG TAB PO SCH (09:39)
[2022-03-02] MEDS: METOPROLOL TARTRATE 50 MG TAB GT SCH ×2 (09:39→20:03)
[2022-03-02] MEDS: PANTOPRAZOLE 40 MG/10 ML VIAL INJ IV SCH (09:40)
[2022-03-02] MEDS: AMIODARONE HCL 200 MG TAB PEG SCH (09:41)
[2022-03-02] MEDS: DOXYCYCLINE 100MG/250ML 250 ML IV SCH ×2 (12:20→23:11)
[2022-03-02] MEDS: CHOLESTYRAMINE 4 GM POWDER GT SCH ×2 (12:20→23:10)
[2022-03-02 12:30] VITALS: BP 144/64
[2022-03-02 16:30] VITALS: BP 133/50
[2022-03-02] MEDS ORDERED: TPN PER PHARMACY IV NR ×7 (20:00)
[2022-03-02] MEDS ORDERED: EPOETIN ALFA-EPBX 10,000 UNIT/1ML VIAL SC ONE (21:00)
[2022-03-02 21:56] VITALS: BP 131/52
[2022-03-03] VITALS (8 sets, daily range): BP systolic 126–169; BP diastolic 49–72
[2022-03-03] MEDS: ALBUTEROL SULF 2.5 MG/0.5ML(0.5%) NEB SOLN NEB PRN ×4 (00:26→18:34)
[2022-03-03] MEDS: IPRATROPIUM BROM 0.5 MG/2.5ML INH SOL NEB SCH ×5 (00:26→23:29)
[2022-03-03] MEDS: ACCU-CHEK COMFORT CURVE STRIP VI SCH ×4 (05:29→23:14)
[2022-03-03] MEDS: METOCLOPRAMIDE HCL 5MG/ml INJ 2ml VIAL IV SCH ×4 (05:29→23:14)
[2022-03-03] MEDS: InsuLIN REG 1unit/0.01ml Soln (100units/ml) SC SCH ×4 (05:37→23:17)
[2022-03-03 05:41] LABS: Hematocrit 26.4 % (36.0-46.0); Hemoglobin 8.7 g/dL (12.2-16.2); Mean Corpuscular Hemoglobin 27.1 pg (28.0-32.0); Mean Corpuscular Hgb Conc. 32.8 g/dL (32.0-36.0); Mean Corpuscular Volume 82.6 fL (80.0-100.0); Red Cell Distribution Width 19.8 % (11.8-14.3); White Blood Cell 23.5 10^3/uL (4.4-10.8)
[2022-03-03 05:55] LABS: Albumin 2.3 g/dL (3.4-5.0); Calcium 9.4 mg/dL (8.5-10.1); Potassium 3.9 mmol/L (3.5-5.1)
[2022-03-03 05:58] LABS: BUN/Creatinine Ratio 31.3; Magnesium 1.8 mg/dL (1.6-2.6)
[2022-03-03 06:01] LABS: Bilirubin, Total 0.6 mg/dL (0.2-1.0); Phosphorus 4.1 mg/dL (2.5-4.90); Total Protein 7.3 g/dL (6.4-8.2)
[2022-03-03 06:15] LABS: Basophils % (manual) 0 (0.0-2.0); Blast Cells 0; Eosinophils % (manual) 0 (0-7); Metamyelocytes % 0; Myelocytes % 0; Promyelocytes % 0; Reactive Lymphocytes 0
[2022-03-03 08:01] LABS: Band Neutrophils % (manual) 3; Lymphocytes % (manual) 2 (10.0-50.0); Monocytes % (manual) 3 (0-12)
[2022-03-03] MEDS: AMIODARONE HCL 200 MG TAB PEG SCH (09:00)
[2022-03-03] MEDS: METOPROLOL TARTRATE 50 MG TAB GT SCH ×2 (09:00→20:07)
[2022-03-03] MEDS: amLODIPine BESYLATE 5 MG TAB PO SCH (09:00)
[2022-03-03] MEDS: PANTOPRAZOLE 40 MG/10 ML VIAL INJ IV SCH (09:00)
[2022-03-03] MEDS ORDERED: ALBUMIN 25% 100 ML IV PRN (09:30)
[2022-03-03] MEDS: DOXYCYCLINE 100MG/250ML 250 ML IV SCH ×2 (11:00→23:14)
[2022-03-03] MEDS: CHOLESTYRAMINE 4 GM POWDER GT SCH ×2 (11:00→23:14)
[2022-03-03] MEDS ORDERED: TPN PER PHARMACY IV NR ×10 (20:00)
[2022-03-04 04:49] LABS: Albumin 2.5 g/dL (3.4-5.0); Calcium 9.4 mg/dL (8.5-10.1); Potassium 3.5 mmol/L (3.5-5.1)
[2022-03-04 04:52] LABS: BUN/Creatinine Ratio 30.9; Magnesium 1.9 mg/dL (1.6-2.6)
[2022-03-04 04:54] LABS: Bilirubin, Total 0.6 mg/dL (0.2-1.0); Phosphorus 2.3 mg/dL (2.5-4.90); Total Protein 7.1 g/dL (6.4-8.2)
[2022-03-04] MEDS: METOCLOPRAMIDE HCL 5MG/ml INJ 2ml VIAL IV SCH ×4 (04:57→23:04)
[2022-03-04] MEDS: ACCU-CHEK COMFORT CURVE STRIP VI SCH ×4 (04:58→23:22)
[2022-03-04 05:00] VITALS: BP 130/55
[2022-03-04] MEDS: InsuLIN REG 1unit/0.01ml Soln (100units/ml) SC SCH ×4 (05:03→23:22)
[2022-03-04] MEDS: ALBUTEROL SULF 2.5 MG/0.5ML(0.5%) NEB SOLN NEB PRN ×4 (06:06→23:51)
[2022-03-04] MEDS: IPRATROPIUM BROM 0.5 MG/2.5ML INH SOL NEB SCH ×4 (06:06→23:51)
[2022-03-04 08:00] VITALS: BP 111/34
[2022-03-04] MEDS ORDERED: SODIUM PHOSPHATES 40 MEQ in D5W 5% 250 ML IV ONE (09:00)
[2022-03-04] MEDS: amLODIPine BESYLATE 5 MG TAB PO SCH (09:16)
[2022-03-04] MEDS: METOPROLOL TARTRATE 50 MG TAB GT SCH ×2 (09:17→21:07)
[2022-03-04] MEDS: PANTOPRAZOLE 40 MG/10 ML VIAL INJ IV SCH (09:18)
[2022-03-04] MEDS: AMIODARONE HCL 200 MG TAB PEG SCH (09:18)
[2022-03-04] MEDS ORDERED: POTASSIUM PHOSPHATE 22 MEQ in SODIUM CHL 0.9% 100 ML IV ONE (09:45)
[2022-03-04 12:00] VITALS: BP 114/38
[2022-03-04] MEDS: CHOLESTYRAMINE 4 GM POWDER GT SCH ×2 (12:04→23:03)
[2022-03-04] MEDS: DOXYCYCLINE 100MG/250ML 250 ML IV SCH ×2 (12:04→23:04)
[2022-03-04 16:26] VITALS: BP 120/39
[2022-03-04] MEDS ORDERED: TPN PER PHARMACY IV NR ×11 (20:00)
[2022-03-04 22:00] VITALS: BP 165/57
[2022-03-05] VITALS (7 sets, daily range): BP systolic 122–161; BP diastolic 42–89
[2022-03-05] MEDS: IPRATROPIUM BROM 0.5 MG/2.5ML INH SOL NEB SCH ×3 (06:03→18:04)
[2022-03-05] MEDS: ACCU-CHEK COMFORT CURVE STRIP VI SCH ×4 (06:26→23:10)
[2022-03-05] MEDS: InsuLIN REG 1unit/0.01ml Soln (100units/ml) SC SCH ×4 (06:29→23:10)
[2022-03-05] MEDS: METOPROLOL TARTRATE 50 MG TAB GT SCH ×2 (06:31→21:01)
[2022-03-05] MEDS: METOCLOPRAMIDE HCL 5MG/ml INJ 2ml VIAL IV SCH ×4 (06:32→23:02)
[2022-03-05 09:00] LABS: Albumin 2.4 g/dL (3.4-5.0); Calcium 9.2 mg/dL (8.5-10.1); Magnesium 2.2 mg/dL (1.6-2.6); Potassium 4.9 mmol/L (3.5-5.1)
[2022-03-05] MEDS: amLODIPine BESYLATE 5 MG TAB PO SCH (09:00)
[2022-03-05 09:03] LABS: BUN/Creatinine Ratio 32.1; Bilirubin, Total 0.8 mg/dL (0.2-1.0); Phosphorus 3.8 mg/dL (2.5-4.90); Total Protein 7.5 g/dL (6.4-8.2)
[2022-03-05] MEDS: PANTOPRAZOLE 40 MG/10 ML VIAL INJ IV SCH (09:07)
[2022-03-05] MEDS: AMIODARONE HCL 200 MG TAB PEG SCH (09:07)
[2022-03-05] MEDS: CHOLESTYRAMINE 4 GM POWDER GT SCH ×2 (10:42→23:02)
[2022-03-05] MEDS: DOXYCYCLINE 100MG/250ML 250 ML IV SCH ×2 (11:03→23:03)
[2022-03-05 12:08] LABS: Basophils # (auto) 0.1 10 ^3/uL (0-0.2); Eosinophils # (auto) 0.2 10 ^3/uL (0-0.8); Eosinophils % (auto) 0.7 % (0.0-7.0); Lymphocytes # (auto) 0.8 10 ^3/uL (0.4-5.4); Monocytes # (auto) 0.5 10 ^3/uL (0-1.3); Neutrophils # (auto) 22.4 10 ^3/uL (1.6-8.6)
[2022-03-05 12:10] LABS: Basophils % (auto) 0.4 % (0.0-2.0); Hematocrit 24.7 % (36.0-46.0); Hemoglobin 7.8 g/dL (12.2-16.2); Lymphocytes % (auto) 3.3 % (10.0-50.0); Mean Corpuscular Hemoglobin 26.4 pg (28.0-32.0); Mean Corpuscular Hgb Conc. 31.7 g/dL (32.0-36.0); Mean Corpuscular Volume 83.4 fL (80.0-100.0); Neutrophils % (auto) 93.6 % (37.0-80.0); Nucleated Red Blood Cells % 0.2 %; Red Blood Cells 2.97 10^6/uL (4.0-5.20); Red Cell Distribution Width 20.6 % (11.8-14.3); White Blood Cell 23.9 10^3/uL (4.4-10.8)
[2022-03-05] MEDS ORDERED: SODIUM CHL 0.9% 1000 ML BAG XX ONE (12:15)
[2022-03-05 12:39] LABS: BUN/Creatinine Ratio 32.5; Calcium 9.4 mg/dL (8.5-10.1); Potassium 4.5 mmol/L (3.5-5.1)
[2022-03-05] MEDS: ALBUMIN 25% 100 ML IV SCH ×2 (13:00→14:00)
[2022-03-05] MEDS ORDERED: CATHFLO ACTIVASE (ALTEPLASE) 2 MG VIAL IV ONE (14:45)
[2022-03-05] MEDS: ALBUTEROL SULF 2.5 MG/0.5ML(0.5%) NEB SOLN NEB PRN (18:04)
[2022-03-05] MEDS ORDERED: TPN PER PHARMACY IV NR ×9 (20:00)
[2022-03-05] MEDS ORDERED: EPOETIN ALFA-EPBX 10,000 UNIT/1ML VIAL SC ONE (21:00)
[2022-03-06] MEDS: IPRATROPIUM BROM 0.5 MG/2.5ML INH SOL NEB SCH ×4 (00:20→18:30)
[2022-03-06] MEDS: ALBUTEROL SULF 2.5 MG/0.5ML(0.5%) NEB SOLN NEB PRN ×4 (00:20→18:30)
[2022-03-06 04:54] VITALS: BP 136/44
[2022-03-06] MEDS: ACCU-CHEK COMFORT CURVE STRIP VI SCH ×3 (05:45→17:55)
[2022-03-06] MEDS: METOCLOPRAMIDE HCL 5MG/ml INJ 2ml VIAL IV SCH ×3 (05:45→17:59)
[2022-03-06] MEDS: InsuLIN REG 1unit/0.01ml Soln (100units/ml) SC SCH ×3 (05:52→17:56)
[2022-03-06 06:00] LABS: Potassium 3.5 mmol/L (3.5-5.1)
[2022-03-06 06:14] LABS: Albumin 2.7 g/dL (3.4-5.0); BUN/Creatinine Ratio 29.7; Bilirubin, Total 0.9 mg/dL (0.2-1.0); Calcium 9.1 mg/dL (8.5-10.1); Magnesium 2.1 mg/dL (1.6-2.6); Phosphorus 2.9 mg/dL (2.5-4.90); Total Protein 6.7 g/dL (6.4-8.2)
[2022-03-06 09:00] VITALS: BP 123/50
[2022-03-06] MEDS: amLODIPine BESYLATE 5 MG TAB GT SCH ×2 (09:00→09:14)
[2022-03-06] MEDS: PANTOPRAZOLE 40 MG/10 ML VIAL INJ IV SCH (09:11)
[2022-03-06] MEDS: AMIODARONE HCL 200 MG TAB PEG SCH (09:13)
[2022-03-06] MEDS: METOPROLOL TARTRATE 50 MG TAB GT SCH ×2 (09:13→21:00)
[2022-03-06] MEDS: CHOLESTYRAMINE 4 GM POWDER GT SCH ×2 (10:55→23:56)
[2022-03-06] MEDS: DOXYCYCLINE 100MG/250ML 250 ML IV SCH ×2 (10:56→23:30)
[2022-03-06 13:00] VITALS: BP 117/45
[2022-03-06 17:04] VITALS: BP 109/40
[2022-03-06] MEDS ORDERED: TPN PER PHARMACY IV NR ×11 (20:00)
[2022-03-06 21:34] VITALS: BP 113/42
[2022-03-06 22:27] LABS: Hematocrit 18.1 % (36.0-46.0)
[2022-03-06 22:45] LABS: Hemoglobin 5.7 g/dL (12.2-16.2)
[2022-03-07] VITALS (18 sets, daily range): BP systolic 104–158; BP diastolic 41–59
[2022-03-07] MEDS: IPRATROPIUM BROM 0.5 MG/2.5ML INH SOL NEB SCH ×4 (00:20→18:21)
[2022-03-07] MEDS: ALBUTEROL SULF 2.5 MG/0.5ML(0.5%) NEB SOLN NEB PRN ×4 (00:20→18:21)
[2022-03-07] MEDS: InsuLIN REG 1unit/0.01ml Soln (100units/ml) SC SCH ×5 (00:46→23:46)
[2022-03-07] MEDS: METOCLOPRAMIDE HCL 5MG/ml INJ 2ml VIAL IV SCH ×5 (00:51→23:41)
[2022-03-07] MEDS: ACCU-CHEK COMFORT CURVE STRIP VI SCH ×5 (06:14→23:41)
[2022-03-07 07:21] LABS: Hematocrit 17.2 % (36.0-46.0)
[2022-03-07 07:34] LABS: Hemoglobin 5.6 g/dL (12.2-16.2)
[2022-03-07 07:36] LABS: Potassium 3.8 mmol/L (3.5-5.1)
[2022-03-07 07:49] LABS: Albumin 2.4 g/dL (3.4-5.0); BUN/Creatinine Ratio 31.8; Bilirubin, Total 0.7 mg/dL (0.2-1.0); Calcium 9.4 mg/dL (8.5-10.1); Magnesium 2.4 mg/dL (1.6-2.6); Phosphorus 3.2 mg/dL (2.5-4.90); Total Protein 6.9 g/dL (6.4-8.2)
[2022-03-07] MEDS: PANTOPRAZOLE 40 MG/10 ML VIAL INJ IV SCH (08:48)
[2022-03-07] MEDS: AMIODARONE HCL 200 MG TAB PEG SCH (08:49)
[2022-03-07] MEDS: amLODIPine BESYLATE 5 MG TAB GT SCH (08:50)
[2022-03-07] MEDS: METOPROLOL TARTRATE 50 MG TAB GT SCH ×2 (08:50→21:39)
[2022-03-07] MEDS ORDERED: SODIUM CHL 0.9% 1000 ML BAG XX ONE (10:00)
[2022-03-07 10:21] LABS: Basophils # (auto) 0.1 10 ^3/uL (0-0.2); Eosinophils # (auto) 0.3 10 ^3/uL (0-0.8); Mean Corpuscular Hemoglobin 26.9 pg (28.0-32.0)
[2022-03-07 10:23] LABS: Basophils % (auto) 0.7 % (0.0-2.0); Eosinophils % (auto) 1.6 % (0.0-7.0); Lymphocytes % (auto) 5.7 % (10.0-50.0); Mean Corpuscular Hgb Conc. 32.2 g/dL (32.0-36.0); Mean Corpuscular Volume 83.6 fL (80.0-100.0); Monocytes # (auto) 0.5 10 ^3/uL (0-1.3); Neutrophils # (auto) 16.3 10 ^3/uL (1.6-8.6); Nucleated Red Blood Cells % 0.1 %; Red Blood Cells 2.03 10^6/uL (4.0-5.20); White Blood Cell 18.3 10^3/uL (4.4-10.8)
[2022-03-07 10:27] LABS: Red Cell Distribution Width 20.3 % (11.8-14.3)
[2022-03-07 10:31] LABS: Hemoglobin 5.5 g/dL (12.2-16.2)
[2022-03-07] MEDS: CHOLESTYRAMINE 4 GM POWDER GT SCH ×2 (11:48→23:41)
[2022-03-07] MEDS: DOXYCYCLINE 100MG/250ML 250 ML IV SCH ×2 (12:54→23:41)
[2022-03-07 14:59] LABS: Basophils # (auto) 0.2 10 ^3/uL (0-0.2); Basophils % (auto) 0.9 % (0.0-2.0); Eosinophils # (auto) 0.2 10 ^3/uL (0-0.8); Eosinophils % (auto) 1.1 % (0.0-7.0); Hematocrit 32.2 % (36.0-46.0); Hemoglobin 10.7 g/dL (12.2-16.2); Lymphocytes # (auto) 0.9 10 ^3/uL (0.4-5.4); Lymphocytes % (auto) 4.4 % (10.0-50.0); Mean Corpuscular Hemoglobin 27.6 pg (28.0-32.0); Mean Corpuscular Hgb Conc. 33.2 g/dL (32.0-36.0); Mean Corpuscular Volume 83.1 fL (80.0-100.0); Monocytes # (auto) 0.6 10 ^3/uL (0-1.3); Neutrophils # (auto) 18.6 10 ^3/uL (1.6-8.6); Neutrophils % (auto) 90.6 % (37.0-80.0); Nucleated Red Blood Cells % 0.3 %; Red Blood Cells 3.88 10^6/uL (4.0-5.20); Red Cell Distribution Width 16.5 % (11.8-14.3); White Blood Cell 20.5 10^3/uL (4.4-10.8)
[2022-03-07] MEDS ORDERED: TPN PER PHARMACY IV NR ×10 (20:00)
[2022-03-07] MEDS ORDERED: EPOETIN ALFA-EPBX 10,000 UNIT/1ML VIAL SC ONE (21:00)
[2022-03-08] VITALS (7 sets, daily range): BP systolic 141–156; BP diastolic 49–62
[2022-03-08] MEDS: IPRATROPIUM BROM 0.5 MG/2.5ML INH SOL NEB SCH ×4 (00:49→18:34)
[2022-03-08] MEDS: ALBUTEROL SULF 2.5 MG/0.5ML(0.5%) NEB SOLN NEB PRN ×4 (00:49→18:34)
[2022-03-08] MEDS: InsuLIN REG 1unit/0.01ml Soln (100units/ml) SC SCH ×3 (06:00→18:00)
[2022-03-08] MEDS: METOCLOPRAMIDE HCL 5MG/ml INJ 2ml VIAL IV SCH ×3 (06:10→17:47)
[2022-03-08] MEDS: ACCU-CHEK COMFORT CURVE STRIP VI SCH ×3 (06:10→18:00)
[2022-03-08 06:53] LABS: Albumin 2.5 g/dL (3.4-5.0); Calcium 9.3 mg/dL (8.5-10.1); Potassium 3.5 mmol/L (3.5-5.1)
[2022-03-08 06:59] LABS: Bilirubin, Total 1.2 mg/dL (0.2-1.0); Total Protein 7.3 g/dL (6.4-8.2)
[2022-03-08 07:27] LABS: Basophils # (auto) 0.1 10 ^3/uL (0-0.2); Basophils % (auto) 0.7 % (0.0-2.0); Eosinophils # (auto) 0.3 10 ^3/uL (0-0.8); Eosinophils % (auto) 1.5 % (0.0-7.0); Hematocrit 28.4 % (36.0-46.0); Hemoglobin 9.9 g/dL (12.2-16.2); Lymphocytes # (auto) 1.1 10 ^3/uL (0.4-5.4); Lymphocytes % (auto) 6.3 % (10.0-50.0); Mean Corpuscular Hemoglobin 28.6 pg (28.0-32.0); Mean Corpuscular Hgb Conc. 34.7 g/dL (32.0-36.0); Mean Corpuscular Volume 82.5 fL (80.0-100.0); Monocytes # (auto) 0.8 10 ^3/uL (0-1.3); Monocytes % (auto) 4.5 % (0.0-12.0); Neutrophils # (auto) 15.1 10 ^3/uL (1.6-8.6); Nucleated Red Blood Cells % 0.1 %; Red Blood Cells 3.45 10^6/uL (4.0-5.20); Red Cell Distribution Width 16.7 % (11.8-14.3); White Blood Cell 17.4 10^3/uL (4.4-10.8)
[2022-03-08] MEDS: METOPROLOL TARTRATE 50 MG TAB GT SCH ×2 (08:48→20:39)
[2022-03-08] MEDS: amLODIPine BESYLATE 5 MG TAB GT SCH (08:49)
[2022-03-08] MEDS: AMIODARONE HCL 200 MG TAB PEG SCH (08:49)
[2022-03-08] MEDS: PANTOPRAZOLE 40 MG/10 ML VIAL INJ IV SCH (08:49)
[2022-03-08] MEDS: CHOLESTYRAMINE 4 GM POWDER GT SCH ×2 (11:15→23:26)
[2022-03-08] MEDS: DOXYCYCLINE 100MG/250ML 250 ML IV SCH ×2 (11:15→23:25)
[2022-03-08] MEDS ORDERED: TPN PER PHARMACY IV NR ×11 (20:00)
[2022-03-09] VITALS (30 sets, daily range): BP systolic 137–170; BP diastolic 53–72
[2022-03-09] MEDS: ACCU-CHEK COMFORT CURVE STRIP VI SCH ×4 (00:10→17:34)
[2022-03-09] MEDS: METOCLOPRAMIDE HCL 5MG/ml INJ 2ml VIAL IV SCH ×4 (00:10→17:24)
[2022-03-09] MEDS: ALBUTEROL SULF 2.5 MG/0.5ML(0.5%) NEB SOLN NEB PRN ×4 (00:40→18:38)
[2022-03-09] MEDS: IPRATROPIUM BROM 0.5 MG/2.5ML INH SOL NEB SCH ×4 (00:40→18:38)
[2022-03-09 05:14] LABS: Albumin 2.2 g/dL (3.4-5.0); BUN/Creatinine Ratio 33.1; Calcium 9.4 mg/dL (8.5-10.1); Potassium 3.7 mmol/L (3.5-5.1)
[2022-03-09 05:16] LABS: Bilirubin, Total 1.1 mg/dL (0.2-1.0); Phosphorus 3.8 mg/dL (2.5-4.90); Total Protein 7.2 g/dL (6.4-8.2)
[2022-03-09] MEDS: InsuLIN REG 1unit/0.01ml Soln (100units/ml) SC SCH ×4 (05:48→17:25)
[2022-03-09] MEDS: METOPROLOL TARTRATE 50 MG TAB GT SCH ×2 (09:22→21:00)
[2022-03-09] MEDS: PANTOPRAZOLE 40 MG/10 ML VIAL INJ IV SCH (09:22)
[2022-03-09] MEDS: amLODIPine BESYLATE 5 MG TAB GT SCH (09:23)
[2022-03-09] MEDS: AMIODARONE HCL 200 MG TAB PEG SCH (09:24)
[2022-03-09] MEDS: CHOLESTYRAMINE 4 GM POWDER GT SCH ×2 (11:38→23:00)
[2022-03-09] MEDS: DOXYCYCLINE 100MG/250ML 250 ML IV SCH (11:38)
[2022-03-09] MEDS ORDERED: TPN PER PHARMACY IV NR ×11 (20:00)
[2022-03-10] VITALS (60 sets, daily range): BP systolic 96–181; BP diastolic 41–82
[2022-03-10] MEDS: METOCLOPRAMIDE HCL 5MG/ml INJ 2ml VIAL IV SCH ×4 (00:03→18:14)
[2022-03-10] MEDS: DOXYCYCLINE 100MG/250ML 250 ML IV SCH ×3 (00:03→23:13)
[2022-03-10] MEDS: ACCU-CHEK COMFORT CURVE STRIP VI SCH ×4 (00:09→17:54)
[2022-03-10] MEDS: ALBUTEROL SULF 2.5 MG/0.5ML(0.5%) NEB SOLN NEB PRN ×2 (00:14→18:21)
[2022-03-10] MEDS: IPRATROPIUM BROM 0.5 MG/2.5ML INH SOL NEB SCH ×4 (00:14→18:21)
[2022-03-10 04:17] LABS: Basophils # (auto) 0.1 10 ^3/uL (0-0.2); Basophils % (auto) 0.7 % (0.0-2.0); Eosinophils # (auto) 0.3 10 ^3/uL (0-0.8); Eosinophils % (auto) 1.7 % (0.0-7.0); Hematocrit 32.5 % (36.0-46.0); Hemoglobin 10.8 g/dL (12.2-16.2); Lymphocytes # (auto) 1.2 10 ^3/uL (0.4-5.4); Mean Corpuscular Hemoglobin 27.8 pg (28.0-32.0); Mean Corpuscular Hgb Conc. 33.3 g/dL (32.0-36.0); Mean Corpuscular Volume 83.5 fL (80.0-100.0); Monocytes # (auto) 0.8 10 ^3/uL (0-1.3); Monocytes % (auto) 4.7 % (0.0-12.0); Neutrophils # (auto) 14.4 10 ^3/uL (1.6-8.6); Neutrophils % (auto) 85.9 % (37.0-80.0); Nucleated Red Blood Cells % 0.1 %; Red Blood Cells 3.88 10^6/uL (4.0-5.20); Red Cell Distribution Width 17.4 % (11.8-14.3); White Blood Cell 16.8 10^3/uL (4.4-10.8)
[2022-03-10 04:36] LABS: Albumin 2.2 g/dL (3.4-5.0); BUN/Creatinine Ratio 34.8; Calcium 9.2 mg/dL (8.5-10.1); Magnesium 2.1 mg/dL (1.6-2.6); Potassium 3.9 mmol/L (3.5-5.1)
[2022-03-10 04:38] LABS: Bilirubin, Total 1.2 mg/dL (0.2-1.0); Phosphorus 4.5 mg/dL (2.5-4.90); Total Protein 7.4 g/dL (6.4-8.2)
[2022-03-10] MEDS: InsuLIN REG 1unit/0.01ml Soln (100units/ml) SC SCH ×4 (06:27→17:54)
[2022-03-10] MEDS: METOPROLOL TARTRATE 50 MG TAB GT SCH ×2 (09:00→20:50)
[2022-03-10] MEDS: amLODIPine BESYLATE 5 MG TAB GT SCH (09:00)
[2022-03-10] MEDS: PANTOPRAZOLE 40 MG/10 ML VIAL INJ IV SCH (09:07)
[2022-03-10] MEDS: AMIODARONE HCL 200 MG TAB PEG SCH (09:07)
[2022-03-10 10:37] LABS: Hematocrit 35.1 % (36.0-46.0); Hemoglobin 11.9 g/dL (12.2-16.2); Mean Corpuscular Hemoglobin 28.2 pg (28.0-32.0); Mean Corpuscular Hgb Conc. 33.9 g/dL (32.0-36.0); Red Blood Cells 4.23 10^6/uL (4.0-5.20); Red Cell Distribution Width 17.1 % (11.8-14.3); White Blood Cell 16.3 10^3/uL (4.4-10.8)
[2022-03-10 10:48] LABS: Basophils % (manual) 0 (0.0-2.0); Blast Cells 0; Myelocytes % 0; Promyelocytes % 0; Reactive Lymphocytes 0
[2022-03-10 10:59] LABS: Calcium 9.1 mg/dL (8.5-10.1); Potassium 4.1 mmol/L (3.5-5.1)
[2022-03-10 11:03] LABS: BUN/Creatinine Ratio 35.8
[2022-03-10] MEDS: CHOLESTYRAMINE 4 GM POWDER GT SCH ×2 (11:33→23:00)
[2022-03-10] MEDS ORDERED: SODIUM CHL 0.9% 1000 ML BAG XX ONE (12:00)
[2022-03-10 12:11] LABS: Band Neutrophils % (manual) 44; Eosinophils % (manual) 2 (0-7); Lymphocytes % (manual) 13 (10.0-50.0); Metamyelocytes % 2; Monocytes % (manual) 5 (0-12)
[2022-03-10] MEDS: ONDANSETRON HCL 4 MG/2 ML VIAL IV PRN (14:57)
[2022-03-10] MEDS: MORPHINE SULFATE INJ 2 MG/ml SYRG IV PRN (15:36)
[2022-03-10] MEDS ORDERED: TPN PER PHARMACY IV NR ×10 (20:00)
[2022-03-10] MEDS: hydrALAZINE HCL 20 MG/ML VL IV PRN (23:22)
[2022-03-11] VITALS (81 sets, daily range): BP systolic 109–182; BP diastolic 29–68
[2022-03-11] MEDS: METOCLOPRAMIDE HCL 5MG/ml INJ 2ml VIAL IV SCH ×5 (00:01→23:42)
[2022-03-11] MEDS: MORPHINE SULFATE INJ 2 MG/ml SYRG IV PRN ×3 (00:02→17:13)
[2022-03-11] MEDS: ACCU-CHEK COMFORT CURVE STRIP VI SCH ×5 (00:03→23:47)
[2022-03-11] MEDS: IPRATROPIUM BROM 0.5 MG/2.5ML INH SOL NEB SCH ×4 (01:15→18:29)
[2022-03-11] MEDS: ALBUTEROL SULF 2.5 MG/0.5ML(0.5%) NEB SOLN NEB PRN ×4 (01:15→18:29)
[2022-03-11] MEDS: InsuLIN REG 1unit/0.01ml Soln (100units/ml) SC SCH ×5 (05:45→23:47)
[2022-03-11 05:55] LABS: Calcium 8.1 mg/dL (8.5-10.1); Potassium 3.5 mmol/L (3.5-5.1)
[2022-03-11 05:57] LABS: BUN/Creatinine Ratio 32.3
[2022-03-11 06:00] LABS: Bilirubin, Total 1.2 mg/dL (0.2-1.0); Total Protein 6.8 g/dL (6.4-8.2)
[2022-03-11] MEDS ORDERED: POTASSIUM CHL 20MEQ/100ML 100 ML IV ONE (08:45)
[2022-03-11] MEDS: METOPROLOL TARTRATE 50 MG TAB GT SCH ×2 (09:24→20:49)
[2022-03-11] MEDS: amLODIPine BESYLATE 5 MG TAB GT SCH (09:24)
[2022-03-11] MEDS: PANTOPRAZOLE 40 MG/10 ML VIAL INJ IV SCH (09:24)
[2022-03-11] MEDS: AMIODARONE HCL 200 MG TAB PEG SCH (09:25)
[2022-03-11] MEDS: DOXYCYCLINE 100MG/250ML 250 ML IV SCH ×2 (11:21→23:16)
[2022-03-11] MEDS: CHOLESTYRAMINE 4 GM POWDER GT SCH ×2 (12:15→23:00)
[2022-03-11] MEDS: TPN PER PHARMACY IV NR ×11 (20:00)
[2022-03-12] VITALS (82 sets, daily range): BP systolic 112–171; BP diastolic 27–60
[2022-03-12] MEDS: ALBUTEROL SULF 2.5 MG/0.5ML(0.5%) NEB SOLN NEB PRN ×2 (00:11→19:00)
[2022-03-12] MEDS: IPRATROPIUM BROM 0.5 MG/2.5ML INH SOL NEB SCH ×3 (00:11→19:01)
[2022-03-12] MEDS: MORPHINE SULFATE INJ 2 MG/ml SYRG IV PRN ×2 (00:32→14:51)
[2022-03-12] MEDS: METOCLOPRAMIDE HCL 5MG/ml INJ 2ml VIAL IV SCH ×4 (05:33→23:30)
[2022-03-12] MEDS: InsuLIN REG 1unit/0.01ml Soln (100units/ml) SC SCH ×4 (05:37→23:42)
[2022-03-12] MEDS: ACCU-CHEK COMFORT CURVE STRIP VI SCH ×4 (05:37→23:42)
[2022-03-12 05:46] LABS: BUN/Creatinine Ratio 36.5; Calcium 8.7 mg/dL (8.5-10.1); Potassium 4.7 mmol/L (3.5-5.1)
[2022-03-12 05:48] LABS: Bilirubin, Total 1.2 mg/dL (0.2-1.0); Phosphorus 3.6 mg/dL (2.5-4.90); Total Protein 6.9 g/dL (6.4-8.2)
[2022-03-12 07:41] LABS: Basophils # (auto) 0.1 10 ^3/uL (0-0.2); Basophils % (auto) 0.8 % (0.0-2.0); Eosinophils # (auto) 0.3 10 ^3/uL (0-0.8); Eosinophils % (auto) 1.8 % (0.0-7.0); Hematocrit 28.9 % (36.0-46.0); Hemoglobin 9.6 g/dL (12.2-16.2); Lymphocytes % (auto) 5.6 % (10.0-50.0); Mean Corpuscular Hgb Conc. 33.1 g/dL (32.0-36.0); Mean Corpuscular Volume 84.8 fL (80.0-100.0); Monocytes # (auto) 0.5 10 ^3/uL (0-1.3); Monocytes % (auto) 2.8 % (0.0-12.0); Neutrophils # (auto) 15.1 10 ^3/uL (1.6-8.6); Nucleated Red Blood Cells % 0.7 %; Red Blood Cells 3.41 10^6/uL (4.0-5.20); Red Cell Distribution Width 17.4 % (11.8-14.3)
[2022-03-12] MEDS: amLODIPine BESYLATE 5 MG TAB GT SCH (08:27)
[2022-03-12] MEDS: PANTOPRAZOLE 40 MG/10 ML VIAL INJ IV SCH (08:27)
[2022-03-12] MEDS: METOPROLOL TARTRATE 50 MG TAB GT SCH ×2 (08:28→20:44)
[2022-03-12] MEDS: AMIODARONE HCL 200 MG TAB PEG SCH (08:29)
[2022-03-12] MEDS ORDERED: SODIUM CHL 0.9% 1000 ML BAG XX ONE (09:45)
[2022-03-12] MEDS: CHOLESTYRAMINE 4 GM POWDER GT SCH ×2 (09:57→23:28)
[2022-03-12] MEDS: DOXYCYCLINE 100MG/250ML 250 ML IV SCH ×2 (10:26→23:28)
[2022-03-12] MEDS: hydrALAZINE HCL 20 MG/ML VL IV PRN (15:26)
[2022-03-12] MEDS: TPN PER PHARMACY IV NR ×11 (19:59)
[2022-03-12] MEDS ORDERED: TPN PER PHARMACY IV NR ×10 (20:00)
[2022-03-12] MEDS ORDERED: EPOETIN ALFA-EPBX 10,000 UNIT/1ML VIAL SC ONE (21:00)
[2022-03-13] VITALS (67 sets, daily range): BP systolic 103–175; BP diastolic 19–55
[2022-03-13] MEDS: IPRATROPIUM BROM 0.5 MG/2.5ML INH SOL NEB SCH ×4 (00:18→17:59)
[2022-03-13] MEDS: ALBUTEROL SULF 2.5 MG/0.5ML(0.5%) NEB SOLN NEB PRN ×4 (00:18→17:59)
[2022-03-13] MEDS: hydrALAZINE HCL 20 MG/ML VL IV PRN (01:01)
[2022-03-13 05:27] LABS: Albumin 1.9 g/dL (3.4-5.0); Calcium 8.1 mg/dL (8.5-10.1); Magnesium 2.1 mg/dL (1.6-2.6)
[2022-03-13 05:33] LABS: Bilirubin, Total 1.3 mg/dL (0.2-1.0); Phosphorus 2.6 mg/dL (2.5-4.90); Total Protein 6.9 g/dL (6.4-8.2)
[2022-03-13] MEDS: METOCLOPRAMIDE HCL 5MG/ml INJ 2ml VIAL IV SCH ×3 (06:00→17:42)
[2022-03-13] MEDS: InsuLIN REG 1unit/0.01ml Soln (100units/ml) SC SCH ×4 (07:00→23:59)
[2022-03-13] MEDS ORDERED: SODIUM CHL 0.9% 1000 ML BAG XX ONE (07:00)
[2022-03-13] MEDS: ACCU-CHEK COMFORT CURVE STRIP VI SCH ×4 (07:00→23:59)
[2022-03-13] MEDS: amLODIPine BESYLATE 5 MG TAB GT SCH (09:00)
[2022-03-13] MEDS: METOPROLOL TARTRATE 50 MG TAB GT SCH ×2 (09:00→21:00)
[2022-03-13] MEDS: PANTOPRAZOLE 40 MG/10 ML VIAL INJ IV SCH (11:12)
[2022-03-13] MEDS: DOXYCYCLINE 100MG/250ML 250 ML IV SCH ×2 (11:13→22:35)
[2022-03-13] MEDS: AMIODARONE HCL 200 MG TAB PEG SCH (11:13)
[2022-03-13] MEDS: CHOLESTYRAMINE 4 GM POWDER GT SCH ×2 (11:52→22:35)
[2022-03-13] MEDS ORDERED: TPN PER PHARMACY IV NR ×10 (20:00)
[2022-03-13] MEDS ORDERED: EPOETIN ALFA-EPBX 10,000 UNIT/1ML VIAL SC ONE (21:00)
[2022-03-14] VITALS (33 sets, daily range): BP systolic 122–162; BP diastolic 23–66
[2022-03-14] MEDS: METOCLOPRAMIDE HCL 5MG/ml INJ 2ml VIAL IV SCH ×4 (00:04→18:05)
[2022-03-14] MEDS: IPRATROPIUM BROM 0.5 MG/2.5ML INH SOL NEB SCH ×4 (00:14→18:31)
[2022-03-14] MEDS: ALBUTEROL SULF 2.5 MG/0.5ML(0.5%) NEB SOLN NEB PRN ×4 (00:14→18:31)
[2022-03-14 05:24] LABS: Basophils # (auto) 0.1 10 ^3/uL (0-0.2); Basophils % (auto) 0.6 % (0.0-2.0); Eosinophils # (auto) 0.2 10 ^3/uL (0-0.8); Hematocrit 26.2 % (36.0-46.0); Hemoglobin 8.5 g/dL (12.2-16.2); Lymphocytes # (auto) 0.9 10 ^3/uL (0.4-5.4); Lymphocytes % (auto) 5.4 % (10.0-50.0); Mean Corpuscular Hemoglobin 28.1 pg (28.0-32.0); Mean Corpuscular Hgb Conc. 32.6 g/dL (32.0-36.0); Monocytes # (auto) 0.8 10 ^3/uL (0-1.3); Monocytes % (auto) 4.7 % (0.0-12.0); Neutrophils # (auto) 15.1 10 ^3/uL (1.6-8.6); Neutrophils % (auto) 88.3 % (37.0-80.0); Nucleated Red Blood Cells % 0.7 %; Red Blood Cells 3.04 10^6/uL (4.0-5.20); Red Cell Distribution Width 17.4 % (11.8-14.3); White Blood Cell 17.1 10^3/uL (4.4-10.8)
[2022-03-14 05:37] LABS: Albumin 1.8 g/dL (3.4-5.0); Calcium 7.9 mg/dL (8.5-10.1); Potassium 3.7 mmol/L (3.5-5.1)
[2022-03-14 05:42] LABS: BUN/Creatinine Ratio 34.3; Bilirubin, Total 1.2 mg/dL (0.2-1.0); Magnesium 2.4 mg/dL (1.6-2.6); Phosphorus 2.8 mg/dL (2.5-4.90); Total Protein 7.2 g/dL (6.4-8.2)
[2022-03-14] MEDS: ACCU-CHEK COMFORT CURVE STRIP VI SCH ×3 (06:00→18:04)
[2022-03-14] MEDS: InsuLIN REG 1unit/0.01ml Soln (100units/ml) SC SCH ×3 (06:00→18:00)
[2022-03-14] MEDS: PANTOPRAZOLE 40 MG/10 ML VIAL INJ IV SCH (09:14)
[2022-03-14] MEDS: METOPROLOL TARTRATE 50 MG TAB GT SCH (09:14)
[2022-03-14] MEDS: AMIODARONE HCL 200 MG TAB PEG SCH (09:15)
[2022-03-14] MEDS: amLODIPine BESYLATE 5 MG TAB GT SCH (09:17)
[2022-03-14] MEDS: DOXYCYCLINE 100MG/250ML 250 ML IV SCH (12:54)
[2022-03-14] MEDS: CHOLESTYRAMINE 4 GM POWDER GT SCH (12:54)
[2022-03-14] MEDS ORDERED: TPN PER PHARMACY IV NR ×11 (20:00)
[2022-03-15] VITALS (24 sets, daily range): BP systolic 140–164; BP diastolic 36–62
[2022-03-15] MEDS: IPRATROPIUM BROM 0.5 MG/2.5ML INH SOL NEB SCH ×4 (00:14→18:26)
[2022-03-15] MEDS: METOPROLOL TARTRATE 50 MG TAB GT SCH ×3 (00:19→22:46)
[2022-03-15] MEDS: CHOLESTYRAMINE 4 GM POWDER GT SCH ×3 (00:20→22:45)
[2022-03-15] MEDS: METOCLOPRAMIDE HCL 5MG/ml INJ 2ml VIAL IV SCH ×5 (00:20→22:46)
[2022-03-15] MEDS: DOXYCYCLINE 100MG/250ML 250 ML IV SCH ×3 (00:20→22:46)
[2022-03-15] MEDS: InsuLIN REG 1unit/0.01ml Soln (100units/ml) SC SCH ×4 (06:00→18:19)
[2022-03-15] MEDS: ACCU-CHEK COMFORT CURVE STRIP VI SCH ×4 (06:00→18:19)
[2022-03-15 06:07] LABS: Albumin 1.9 g/dL (3.4-5.0); Magnesium 2.4 mg/dL (1.6-2.6); Potassium 4.7 mmol/L (3.5-5.1)
[2022-03-15 06:11] LABS: BUN/Creatinine Ratio 38.1; Bilirubin, Total 1.6 mg/dL (0.2-1.0); Phosphorus 4.2 mg/dL (2.5-4.90); Total Protein 7.3 g/dL (6.4-8.2)
[2022-03-15] MEDS: ALBUTEROL SULF 2.5 MG/0.5ML(0.5%) NEB SOLN NEB PRN ×2 (06:29→18:26)
[2022-03-15] MEDS: PANTOPRAZOLE 40 MG/10 ML VIAL INJ IV SCH (08:41)
[2022-03-15] MEDS: amLODIPine BESYLATE 5 MG TAB GT SCH (08:42)
[2022-03-15] MEDS: AMIODARONE HCL 200 MG TAB PEG SCH (08:44)
[2022-03-15] MEDS ORDERED: TPN PER PHARMACY IV NR ×19 (20:00)
[2022-03-16] VITALS (29 sets, daily range): BP systolic 148–180; BP diastolic 48–80
[2022-03-16] MEDS: ALBUTEROL SULF 2.5 MG/0.5ML(0.5%) NEB SOLN NEB PRN ×2 (00:47→06:23)
[2022-03-16] MEDS: IPRATROPIUM BROM 0.5 MG/2.5ML INH SOL NEB SCH ×4 (00:47→18:37)
[2022-03-16] MEDS: hydrALAZINE HCL 20 MG/ML VL IV PRN (02:27)
[2022-03-16 05:37] LABS: Hematocrit 27.8 % (36.0-46.0); Hemoglobin 8.9 g/dL (12.2-16.2)
[2022-03-16 05:56] LABS: % Iron Saturation 43.6 % (15-50)
[2022-03-16] MEDS: METOCLOPRAMIDE HCL 5MG/ml INJ 2ml VIAL IV SCH ×3 (06:00→18:10)
[2022-03-16] MEDS: InsuLIN REG 1unit/0.01ml Soln (100units/ml) SC SCH ×4 (06:00→18:10)
[2022-03-16] MEDS: ACCU-CHEK COMFORT CURVE STRIP VI SCH ×4 (06:00→18:11)
[2022-03-16 06:09] LABS: Potassium 4.5 mmol/L (3.5-5.1)
[2022-03-16 06:17] LABS: Albumin 1.8 g/dL (3.4-5.0); BUN/Creatinine Ratio 44.9; Bilirubin, Total 1.9 mg/dL (0.2-1.0); Calcium 8.3 mg/dL (8.5-10.1); Magnesium 2.4 mg/dL (1.6-2.6); Phosphorus 4.8 mg/dL (2.5-4.90); Total Protein 7.3 g/dL (6.4-8.2)
[2022-03-16] MEDS ORDERED: SODIUM CHL 0.9% 1000 ML BAG XX ONE ×2 (07:00)
[2022-03-16] MEDS: METOPROLOL TARTRATE 50 MG TAB GT SCH ×2 (09:00→21:00)
[2022-03-16] MEDS: amLODIPine BESYLATE 5 MG TAB GT SCH (09:00)
[2022-03-16] MEDS: PANTOPRAZOLE 40 MG/10 ML VIAL INJ IV SCH (09:09)
[2022-03-16] MEDS: AMIODARONE HCL 200 MG TAB PEG SCH (09:10)
[2022-03-16] MEDS: CHOLESTYRAMINE 4 GM POWDER GT SCH ×2 (11:05→23:25)
[2022-03-16] MEDS: DOXYCYCLINE 100MG/250ML 250 ML IV SCH ×2 (11:05→23:38)
[2022-03-16] MEDS ORDERED: TPN PER PHARMACY IV NR ×8 (20:00)
[2022-03-16] MEDS ORDERED: EPOETIN ALFA-EPBX 10,000 UNIT/1ML VIAL SC ONE (21:00)
[2022-03-16] MEDS: TPN PER PHARMACY IV NR ×8 (21:24)
[2022-03-17] VITALS (29 sets, daily range): BP systolic 137–185; BP diastolic 43–90
[2022-03-17] MEDS: IPRATROPIUM BROM 0.5 MG/2.5ML INH SOL NEB SCH ×4 (00:09→18:32)
[2022-03-17] MEDS: METOCLOPRAMIDE HCL 5MG/ml INJ 2ml VIAL IV SCH ×4 (03:06→18:09)
[2022-03-17] MEDS: ONDANSETRON HCL 4 MG/2 ML VIAL IV PRN (03:06)
[2022-03-17 05:02] LABS: Hematocrit 28.2 % (36.0-46.0); Hemoglobin 9.2 g/dL (12.2-16.2)
[2022-03-17 05:18] LABS: Albumin 1.8 g/dL (3.4-5.0); Calcium 8.3 mg/dL (8.5-10.1); Magnesium 2.4 mg/dL (1.6-2.6); Potassium 5.1 mmol/L (3.5-5.1)
[2022-03-17 05:21] LABS: % Iron Saturation 69.9 % (15-50)
[2022-03-17 05:22] LABS: BUN/Creatinine Ratio 46.2
[2022-03-17 05:23] LABS: Bilirubin, Total 1.7 mg/dL (0.2-1.0); Phosphorus 4.7 mg/dL (2.5-4.90); Total Protein 7.2 g/dL (6.4-8.2)
[2022-03-17] MEDS: InsuLIN REG 1unit/0.01ml Soln (100units/ml) SC SCH ×4 (06:00→18:10)
[2022-03-17] MEDS: ACCU-CHEK COMFORT CURVE STRIP VI SCH ×4 (06:00→18:13)
[2022-03-17] MEDS ORDERED: SODIUM CHL 0.9% 1000 ML BAG XX ONE ×2 (07:00)
[2022-03-17] MEDS: amLODIPine BESYLATE 5 MG TAB GT SCH (09:00)
[2022-03-17] MEDS: METOPROLOL TARTRATE 50 MG TAB GT SCH ×2 (09:00→22:28)
[2022-03-17] MEDS: AMIODARONE HCL 200 MG TAB PEG SCH (09:05)
[2022-03-17] MEDS: PANTOPRAZOLE 40 MG/10 ML VIAL INJ IV SCH (09:05)
[2022-03-17 10:13] LABS: Basophils # (auto) 0.1 10 ^3/uL (0-0.2); Basophils % (auto) 0.7 % (0.0-2.0); Eosinophils # (auto) 0.1 10 ^3/uL (0-0.8); Eosinophils % (auto) 0.4 % (0.0-7.0); Hematocrit 28.6 % (36.0-46.0); Hemoglobin 9.2 g/dL (12.2-16.2); Lymphocytes # (auto) 0.9 10 ^3/uL (0.4-5.4); Lymphocytes % (auto) 6.2 % (10.0-50.0); Mean Corpuscular Hemoglobin 27.5 pg (28.0-32.0); Mean Corpuscular Hgb Conc. 32.3 g/dL (32.0-36.0); Monocytes # (auto) 0.7 10 ^3/uL (0-1.3); Monocytes % (auto) 4.7 % (0.0-12.0); Neutrophils # (auto) 13.2 10 ^3/uL (1.6-8.6); Nucleated Red Blood Cells % 0.6 %; Red Blood Cells 3.36 10^6/uL (4.0-5.20); Red Cell Distribution Width 17.6 % (11.8-14.3)
[2022-03-17] MEDS: DOXYCYCLINE 100MG/250ML 250 ML IV SCH (11:00)
[2022-03-17] MEDS: CHOLESTYRAMINE 4 GM POWDER GT SCH (15:01)
[2022-03-17] MEDS: hydrALAZINE HCL 20 MG/ML VL IV PRN (15:24)
[2022-03-17] MEDS: ALBUTEROL SULF 2.5 MG/0.5ML(0.5%) NEB SOLN NEB PRN (18:32)
[2022-03-17] MEDS: TPN PER PHARMACY IV NR ×8 (19:43)
[2022-03-17] MEDS ORDERED: TPN PER PHARMACY IV NR ×7 (20:00)
[2022-03-17] MEDS ORDERED: EPOETIN ALFA-EPBX 10,000 UNIT/1ML VIAL SC ONE (21:00)
[2022-03-17] MEDS: hydrALAZINE HCL 25 MG TAB PO SCH (22:00)
[2022-03-18] VITALS (47 sets, daily range): BP systolic 131–173; BP diastolic 36–106
[2022-03-18] MEDS: ALBUTEROL SULF 2.5 MG/0.5ML(0.5%) NEB SOLN NEB PRN ×3 (00:27→23:29)
[2022-03-18] MEDS: IPRATROPIUM BROM 0.5 MG/2.5ML INH SOL NEB SCH ×5 (00:27→23:29)
[2022-03-18 04:47] LABS: Basophils # (auto) 0.1 10 ^3/uL (0-0.2); Basophils % (auto) 0.9 % (0.0-2.0); Eosinophils # (auto) 0.2 10 ^3/uL (0-0.8); Eosinophils % (auto) 1.1 % (0.0-7.0); Hematocrit 25.4 % (36.0-46.0); Hemoglobin 8.5 g/dL (12.2-16.2); Lymphocytes # (auto) 1.1 10 ^3/uL (0.4-5.4); Lymphocytes % (auto) 8.4 % (10.0-50.0); Mean Corpuscular Hemoglobin 28.1 pg (28.0-32.0); Mean Corpuscular Hgb Conc. 33.4 g/dL (32.0-36.0); Mean Corpuscular Volume 84.3 fL (80.0-100.0); Monocytes # (auto) 0.9 10 ^3/uL (0-1.3); Monocytes % (auto) 6.8 % (0.0-12.0); Neutrophils # (auto) 10.9 10 ^3/uL (1.6-8.6); Neutrophils % (auto) 82.8 % (37.0-80.0); Nucleated Red Blood Cells % 2.1 %; Red Blood Cells 3.01 10^6/uL (4.0-5.20); Red Cell Distribution Width 17.6 % (11.8-14.3); White Blood Cell 13.2 10^3/uL (4.4-10.8)
[2022-03-18 05:01] LABS: Albumin 1.7 g/dL (3.4-5.0); Calcium 7.9 mg/dL (8.5-10.1); Magnesium 2.4 mg/dL (1.6-2.6); Potassium 4.3 mmol/L (3.5-5.1)
[2022-03-18 05:05] LABS: Bilirubin, Total 2.3 mg/dL (0.2-1.0); Phosphorus 3.5 mg/dL (2.5-4.90); Total Protein 6.8 g/dL (6.4-8.2)
[2022-03-18] MEDS: METOCLOPRAMIDE HCL 5MG/ml INJ 2ml VIAL IV SCH ×5 (05:54→23:46)
[2022-03-18] MEDS: ACCU-CHEK COMFORT CURVE STRIP VI SCH ×5 (05:54→23:49)
[2022-03-18] MEDS: InsuLIN REG 1unit/0.01ml Soln (100units/ml) SC SCH ×5 (05:54→23:49)
[2022-03-18] MEDS: PANTOPRAZOLE 40 MG/10 ML VIAL INJ IV SCH (08:33)
[2022-03-18] MEDS: METOPROLOL TARTRATE 50 MG TAB GT SCH ×2 (08:33→20:38)
[2022-03-18] MEDS: amLODIPine BESYLATE 5 MG TAB GT SCH (08:33)
[2022-03-18] MEDS: AMIODARONE HCL 200 MG TAB PEG SCH (08:34)
[2022-03-18] MEDS: hydrALAZINE HCL 25 MG TAB PO SCH (08:34)
[2022-03-18] MEDS: DOXYCYCLINE 100MG/250ML 250 ML IV SCH ×2 (11:30)
[2022-03-18] MEDS: CHOLESTYRAMINE 4 GM POWDER GT SCH ×3 (11:30→23:15)
[2022-03-18] MEDS ORDERED: [UNRECOGNIZED DRUG - OTHER] IV NR ×7 (18:15)
[2022-03-18] MEDS ORDERED: SODIUM ACETATE IV NR ×7 (18:15)
[2022-03-18] MEDS ORDERED: amLODIPine BESYLATE 5 MG TAB GT SCH (18:15)
[2022-03-18] MEDS ORDERED: METOPROLOL TARTRATE 50 MG TAB GT SCH (18:15)
[2022-03-18] MEDS ORDERED: SODIUM CHLORIDE IV NR ×7 (18:15)
[2022-03-18] MEDS ORDERED: MAGNESIUM SULF IV NR ×7 (18:15)
[2022-03-18] MEDS ORDERED: TPN PER PHARMACY IV NR ×10 (20:00)
[2022-03-19] VITALS (102 sets, daily range): BP systolic 117–167; BP diastolic 30–69
[2022-03-19 05:03] LABS: Hematocrit 26.8 % (36.0-46.0); Hemoglobin 8.7 g/dL (12.2-16.2)
[2022-03-19 05:21] LABS: Albumin 1.7 g/dL (3.4-5.0); Calcium 8.3 mg/dL (8.5-10.1); Magnesium 2.5 mg/dL (1.6-2.6); Potassium 4.3 mmol/L (3.5-5.1)
[2022-03-19 05:24] LABS: % Iron Saturation 73.3 % (15-50); Bilirubin, Total 2.4 mg/dL (0.2-1.0); Phosphorus 3.9 mg/dL (2.5-4.90)
[2022-03-19 05:31] LABS: BUN/Creatinine Ratio 44.1
[2022-03-19] MEDS: METOCLOPRAMIDE HCL 5MG/ml INJ 2ml VIAL IV SCH ×4 (05:49→23:56)
[2022-03-19] MEDS: ACCU-CHEK COMFORT CURVE STRIP VI SCH ×4 (05:50→23:56)
[2022-03-19] MEDS: InsuLIN REG 1unit/0.01ml Soln (100units/ml) SC SCH ×4 (05:52→23:57)
[2022-03-19] MEDS ORDERED: SODIUM CHL 0.9% 1000 ML BAG XX ONE ×2 (07:00)
[2022-03-19] MEDS: IPRATROPIUM BROM 0.5 MG/2.5ML INH SOL NEB SCH ×3 (07:39→18:00)
[2022-03-19] MEDS ORDERED: ALBUMIN 25% 100 ML, ALBUMIN 25% 100 ML IV ONE (08:00)
[2022-03-19] MEDS: METOPROLOL TARTRATE 50 MG TAB GT SCH ×2 (09:00→20:50)
[2022-03-19] MEDS: amLODIPine BESYLATE 5 MG TAB GT SCH (09:00)
[2022-03-19] MEDS: AMIODARONE HCL 200 MG TAB PEG SCH (09:00)
[2022-03-19] MEDS ORDERED: ALBUMIN 25% 200 ML IV ONE (09:18)
[2022-03-19 10:07] LABS: Basophils # (auto) 0.1 10 ^3/uL (0-0.2); Eosinophils # (auto) 0.2 10 ^3/uL (0-0.8); Hemoglobin 8.3 g/dL (12.2-16.2); Lymphocytes # (auto) 0.8 10 ^3/uL (0.4-5.4); Monocytes # (auto) 0.8 10 ^3/uL (0-1.3); Monocytes % (auto) 7.1 % (0.0-12.0); Neutrophils # (auto) 9.8 10 ^3/uL (1.6-8.6)
[2022-03-19 10:12] LABS: Basophils % (auto) 0.7 % (0.0-2.0); Eosinophils % (auto) 1.4 % (0.0-7.0); Hematocrit 25.6 % (36.0-46.0); Lymphocytes % (auto) 6.9 % (10.0-50.0); Mean Corpuscular Hemoglobin 27.5 pg (28.0-32.0); Mean Corpuscular Hgb Conc. 32.5 g/dL (32.0-36.0); Mean Corpuscular Volume 84.5 fL (80.0-100.0); Neutrophils % (auto) 83.9 % (37.0-80.0); Nucleated Red Blood Cells % 1.9 %; Red Blood Cells 3.03 10^6/uL (4.0-5.20); Red Cell Distribution Width 17.3 % (11.8-14.3); White Blood Cell 11.6 10^3/uL (4.4-10.8)
[2022-03-19] MEDS: PANTOPRAZOLE 40 MG/10 ML VIAL INJ IV SCH (10:28)
[2022-03-19 12:24] LABS: BUN/Creatinine Ratio 38.7; Calcium 8.7 mg/dL (8.5-10.1); Potassium 3.6 mmol/L (3.5-5.1)
[2022-03-19] MEDS: ALBUTEROL SULF 2.5 MG/0.5ML(0.5%) NEB SOLN NEB PRN (15:07)
[2022-03-19] MEDS ORDERED: TPN*HIGH CONC* PER PHARMACY IV NR ×9 (20:00)
[2022-03-19] MEDS ORDERED: EPOETIN ALFA-EPBX 10,000 UNIT/1ML VIAL SC ONE (21:00)
[2022-03-20] VITALS (74 sets, daily range): BP systolic 123–201; BP diastolic 32–68
[2022-03-20] MEDS: IPRATROPIUM BROM 0.5 MG/2.5ML INH SOL NEB SCH ×4 (00:20→18:29)
[2022-03-20 05:37] LABS: Potassium 3.8 mmol/L (3.5-5.1)
[2022-03-20 05:46] LABS: Albumin 2.4 g/dL (3.4-5.0); BUN/Creatinine Ratio 38.1; Bilirubin, Total 3.1 mg/dL (0.2-1.0); Calcium 8.5 mg/dL (8.5-10.1); Magnesium 2.2 mg/dL (1.6-2.6); Phosphorus 3.4 mg/dL (2.5-4.90)
[2022-03-20] MEDS: InsuLIN REG 1unit/0.01ml Soln (100units/ml) SC SCH ×2 (06:00→11:40)
[2022-03-20] MEDS: ACCU-CHEK COMFORT CURVE STRIP VI SCH ×3 (06:07→17:57)
[2022-03-20] MEDS: METOCLOPRAMIDE HCL 5MG/ml INJ 2ml VIAL IV SCH ×3 (06:07→17:57)
[2022-03-20] MEDS: METOPROLOL TARTRATE 50 MG TAB GT SCH ×2 (10:09→22:32)
[2022-03-20] MEDS: amLODIPine BESYLATE 5 MG TAB GT SCH (10:10)
[2022-03-20] MEDS: hydrALAZINE HCL 20 MG/ML VL IV PRN ×2 (11:24→20:55)
[2022-03-20] MEDS ORDERED: TPN*HIGH CONC* PER PHARMACY IV NR ×8 (20:00)
[2022-03-21] VITALS (23 sets, daily range): BP systolic 106–182; BP diastolic 28–74
[2022-03-21] MEDS: IPRATROPIUM BROM 0.5 MG/2.5ML INH SOL NEB SCH ×4 (00:09→18:11)
[2022-03-21] MEDS: ACCU-CHEK COMFORT CURVE STRIP VI SCH ×4 (00:17→17:48)
[2022-03-21] MEDS: InsuLIN REG 1unit/0.01ml Soln (100units/ml) SC SCH ×5 (00:17→17:58)
[2022-03-21] MEDS: METOCLOPRAMIDE HCL 5MG/ml INJ 2ml VIAL IV SCH ×5 (00:17→23:03)
[2022-03-21 06:51] LABS: Basophils # (auto) 0.1 10 ^3/uL (0-0.2); Basophils % (auto) 0.4 % (0.0-2.0); Eosinophils # (auto) 0.1 10 ^3/uL (0-0.8); Mean Corpuscular Hemoglobin 26.3 pg (28.0-32.0); Monocytes # (auto) 0.4 10 ^3/uL (0-1.3)
[2022-03-21 06:53] LABS: Eosinophils % (auto) 0.5 % (0.0-7.0); Hematocrit 26.7 % (36.0-46.0); Hemoglobin 8.3 g/dL (12.2-16.2); Lymphocytes # (auto) 0.7 10 ^3/uL (0.4-5.4); Lymphocytes % (auto) 4.1 % (10.0-50.0); Mean Corpuscular Hgb Conc. 31.3 g/dL (32.0-36.0); Monocytes % (auto) 2.6 % (0.0-12.0); Neutrophils # (auto) 14.9 10 ^3/uL (1.6-8.6); Neutrophils % (auto) 92.4 % (37.0-80.0); Nucleated Red Blood Cells % 1.3 %; Red Blood Cells 3.17 10^6/uL (4.0-5.20); White Blood Cell 16.1 10^3/uL (4.4-10.8)
[2022-03-21] MEDS ORDERED: SODIUM CHL 0.9% 1000 ML BAG XX ONE (07:00)
[2022-03-21 07:02] LABS: Magnesium 2.3 mg/dL (1.6-2.6); Potassium 3.9 mmol/L (3.5-5.1)
[2022-03-21 07:08] LABS: Albumin 2.2 g/dL (3.4-5.0); BUN/Creatinine Ratio 37.8; Bilirubin, Direct 2.3 mg/dL (0-0.2); Calcium 8.6 mg/dL (8.5-10.1); Phosphorus 3.7 mg/dL (2.5-4.90)
[2022-03-21] MEDS: METOPROLOL TARTRATE 50 MG TAB GT SCH ×2 (09:00→20:23)
[2022-03-21] MEDS: amLODIPine BESYLATE 5 MG TAB GT SCH (09:00)
[2022-03-21] MEDS ORDERED: TPN*HIGH CONC* PER PHARMACY IV NR ×10 (20:00)
[2022-03-21] MEDS ORDERED: EPOETIN ALFA-EPBX 10,000 UNIT/1ML VIAL SC ONE (21:00)
[2022-03-22] VITALS (22 sets, daily range): BP systolic 120–153; BP diastolic 27–53
[2022-03-22] MEDS: IPRATROPIUM BROM 0.5 MG/2.5ML INH SOL NEB SCH ×4 (00:02→18:40)
[2022-03-22] MEDS: ACCU-CHEK COMFORT CURVE STRIP VI SCH ×4 (00:05→17:18)
[2022-03-22] MEDS: InsuLIN REG 1unit/0.01ml Soln (100units/ml) SC SCH ×4 (00:11→17:18)
[2022-03-22] MEDS: METOCLOPRAMIDE HCL 5MG/ml INJ 2ml VIAL IV SCH ×3 (05:10→17:20)
[2022-03-22 05:33] LABS: Calcium 8.6 mg/dL (8.5-10.1)
[2022-03-22 05:36] LABS: Albumin 1.9 g/dL (3.4-5.0); BUN/Creatinine Ratio 34.5; Magnesium 2.2 mg/dL (1.6-2.6)
[2022-03-22 05:39] LABS: Bilirubin, Total 2.6 mg/dL (0.2-1.0); Phosphorus 2.6 mg/dL (2.5-4.90); Total Protein 6.9 g/dL (6.4-8.2)
[2022-03-22] MEDS: amLODIPine BESYLATE 5 MG TAB GT SCH (09:32)
[2022-03-22] MEDS: METOPROLOL TARTRATE 50 MG TAB GT SCH ×2 (09:32→20:56)
[2022-03-22] MEDS ORDERED: TPN*HIGH CONC* PER PHARMACY IV NR ×7 (20:00)
[2022-03-23] VITALS (23 sets, daily range): BP systolic 125–174; BP diastolic 29–69
[2022-03-23] MEDS: IPRATROPIUM BROM 0.5 MG/2.5ML INH SOL NEB SCH ×5 (00:07→23:23)
[2022-03-23] MEDS: METOCLOPRAMIDE HCL 5MG/ml INJ 2ml VIAL IV SCH ×4 (00:51→18:01)
[2022-03-23 05:13] LABS: Albumin 1.9 g/dL (3.4-5.0); Calcium 8.4 mg/dL (8.5-10.1); Magnesium 2.4 mg/dL (1.6-2.6)
[2022-03-23 05:30] LABS: BUN/Creatinine Ratio 33.7; Bilirubin, Total 1.9 mg/dL (0.2-1.0); Phosphorus 3.1 mg/dL (2.5-4.90)
[2022-03-23] MEDS: ACCU-CHEK COMFORT CURVE STRIP VI SCH ×4 (06:00→18:01)
[2022-03-23] MEDS: InsuLIN REG 1unit/0.01ml Soln (100units/ml) SC SCH ×4 (06:00→17:55)
[2022-03-23] MEDS: METOPROLOL TARTRATE 50 MG TAB GT SCH ×2 (09:00→22:31)
[2022-03-23] MEDS: amLODIPine BESYLATE 5 MG TAB GT SCH (09:00)
[2022-03-23 10:26] LABS: Hemoglobin 7.4 g/dL (12.2-16.2)
[2022-03-23 17:40] LABS: INR 1.24 (0.9-1.15)
[2022-03-23] MEDS ORDERED: TPN PER PHARMACY IV NR ×8 (20:00)
[2022-03-23] MEDS: PANTOPRAZOLE 40 MG/10 ML VIAL INJ IV SCH (22:31)
[2022-03-24] VITALS (46 sets, daily range): BP systolic 117–172; BP diastolic 29–102
[2022-03-24] MEDS: METOCLOPRAMIDE HCL 5MG/ml INJ 2ml VIAL IV SCH (00:50)
[2022-03-24 04:55] LABS: Basophils # (auto) 0.1 10 ^3/uL (0-0.2); Basophils % (auto) 0.5 % (0.0-2.0); Eosinophils # (auto) 0.2 10 ^3/uL (0-0.8); Eosinophils % (auto) 1.1 % (0.0-7.0); Hematocrit 22.6 % (36.0-46.0); Hemoglobin 7.1 g/dL (12.2-16.2); Lymphocytes # (auto) 0.9 10 ^3/uL (0.4-5.4); Lymphocytes % (auto) 6.4 % (10.0-50.0); Mean Corpuscular Hemoglobin 26.5 pg (28.0-32.0); Mean Corpuscular Hgb Conc. 31.3 g/dL (32.0-36.0); Mean Corpuscular Volume 84.8 fL (80.0-100.0); Monocytes # (auto) 0.8 10 ^3/uL (0-1.3); Monocytes % (auto) 5.1 % (0.0-12.0); Neutrophils # (auto) 12.9 10 ^3/uL (1.6-8.6); Neutrophils % (auto) 86.9 % (37.0-80.0); Nucleated Red Blood Cells % 0.3 %; Red Blood Cells 2.66 10^6/uL (4.0-5.20); Red Cell Distribution Width 18.6 % (11.8-14.3); White Blood Cell 14.9 10^3/uL (4.4-10.8)
[2022-03-24 05:07] LABS: INR 1.25 (0.9-1.15); Partial Thromboplastin Time 44.7 sec (23.6-33.0)
[2022-03-24 05:13] LABS: Magnesium 2.2 mg/dL (1.6-2.6); Potassium 4.5 mmol/L (3.5-5.1)
[2022-03-24 05:31] LABS: Albumin 1.9 g/dL (3.4-5.0); BUN/Creatinine Ratio 35.3; Bilirubin, Direct 1.3 mg/dL (0-0.2); Bilirubin, Total 1.9 mg/dL (0.2-1.0); Calcium 8.9 mg/dL (8.5-10.1); Phosphorus 3.9 mg/dL (2.5-4.90)
[2022-03-24] MEDS: ACCU-CHEK COMFORT CURVE STRIP VI SCH ×4 (06:00→18:00)
[2022-03-24] MEDS: InsuLIN REG 1unit/0.01ml Soln (100units/ml) SC SCH ×4 (06:00→18:00)
[2022-03-24] MEDS: IPRATROPIUM BROM 0.5 MG/2.5ML INH SOL NEB SCH ×3 (06:02→18:56)
[2022-03-24] MEDS: amLODIPine BESYLATE 5 MG TAB GT SCH (09:00)
[2022-03-24] MEDS: METOPROLOL TARTRATE 50 MG TAB GT SCH ×2 (09:00→21:44)
[2022-03-24] MEDS: PANTOPRAZOLE 40 MG/10 ML VIAL INJ IV SCH ×2 (11:02→21:44)
[2022-03-24] MEDS ORDERED: SODIUM CHLORIDE LOCK 10 ML ONE (12:50)
[2022-03-24] MEDS ORDERED: LIDOCAINE VISCOUS 2% 15ML UD ONE (12:50)
[2022-03-24] MEDS ORDERED: EPINEPHrine HCL 1 MG/10 ML SYRG ONE (12:50)
[2022-03-24] MEDS ORDERED: MIDAZOLAM HCL 5 MG/ML-1ML VIAL ONE (12:50)
[2022-03-24] MEDS ORDERED: diphenhdrAMINE HCL 50 MG/1 ML VL ONE (12:50)
[2022-03-24] MEDS ORDERED: fentaNYL CITRATE 100 MCG/2 ML VL ONE (12:51)
[2022-03-24] MEDS ORDERED: [UNRECOGNIZED DRUG - OTHER] IV NR ×8 (19:30)
[2022-03-24] MEDS ORDERED: SODIUM ACETATE IV NR ×8 (19:30)
[2022-03-24] MEDS ORDERED: POTASSIUM CHLORIDE IV NR ×8 (19:30)
[2022-03-24] MEDS ORDERED: SODIUM PHOSPHATES IV NR ×8 (19:30)
[2022-03-24] MEDS ORDERED: TPN*HIGH CONC* PER PHARMACY IV NR ×8 (20:00)
[2022-03-25] VITALS (45 sets, daily range): BP systolic 102–171; BP diastolic 32–78
[2022-03-25] MEDS: IPRATROPIUM BROM 0.5 MG/2.5ML INH SOL NEB SCH ×3 (00:47→18:30)
[2022-03-25] MEDS: hydrALAZINE HCL 20 MG/ML VL IV PRN (04:27)
[2022-03-25 05:17] LABS: Basophils # (auto) 0.1 10 ^3/uL (0-0.2); Basophils % (auto) 0.3 % (0.0-2.0); Eosinophils # (auto) 0.1 10 ^3/uL (0-0.8); Eosinophils % (auto) 0.8 % (0.0-7.0); Hematocrit 26.5 % (36.0-46.0); Hemoglobin 8.8 g/dL (12.2-16.2); Lymphocytes # (auto) 0.8 10 ^3/uL (0.4-5.4); Mean Corpuscular Hemoglobin 27.3 pg (28.0-32.0); Mean Corpuscular Hgb Conc. 33.1 g/dL (32.0-36.0); Mean Corpuscular Volume 82.6 fL (80.0-100.0); Monocytes % (auto) 6.1 % (0.0-12.0); Neutrophils % (auto) 87.8 % (37.0-80.0); Nucleated Red Blood Cells % 0.1 %; Red Cell Distribution Width 17.3 % (11.8-14.3); White Blood Cell 15.9 10^3/uL (4.4-10.8)
[2022-03-25 07:05] LABS: Calcium 8.8 mg/dL (8.5-10.1); Magnesium 2.2 mg/dL (1.6-2.6); Potassium 4.3 mmol/L (3.5-5.1)
[2022-03-25 07:23] LABS: BUN/Creatinine Ratio 26.9; Bilirubin, Direct 1.5 mg/dL (0-0.2); Bilirubin, Total 2.3 mg/dL (0.2-1.0); Total Protein 7.5 g/dL (6.4-8.2)
[2022-03-25] MEDS ORDERED: SODIUM CHLORIDE LOCK 10 ML ONE (07:27)
[2022-03-25] MEDS ORDERED: FLUMAZENIL 0.1 MG/ML INJ 10ML MDV IV ONE (07:27)
[2022-03-25] MEDS ORDERED: NALOXONE HCL 0.4 MG/ML VIAL ONE (07:27)
[2022-03-25] MEDS ORDERED: diphenhdrAMINE HCL 50 MG/1 ML VL ONE (07:28)
[2022-03-25] MEDS ORDERED: MIDAZOLAM HCL 5 MG/ML-1ML VIAL ONE ×2 (07:28→07:36)
[2022-03-25] MEDS ORDERED: fentaNYL CITRATE 100 MCG/2 ML VL ONE ×2 (07:28→07:37)
[2022-03-25] MEDS ORDERED: LIDOCAINE VISCOUS 2% 15ML UD ONE (07:29)
[2022-03-25] MEDS ORDERED: EPINEPHrine HCL 1 MG/10 ML SYRG ONE (07:29)
[2022-03-25] MEDS ORDERED: MIDAZOLAM HCL 5 MG/ML-1ML VIAL IV ONE (08:38)
[2022-03-25] MEDS ORDERED: fentaNYL CITRATE 100 MCG/2 ML VL IV ONE (08:38)
[2022-03-25] MEDS: PANTOPRAZOLE 40 MG/10 ML VIAL INJ IV SCH ×2 (09:32→21:15)
[2022-03-25] MEDS: METOPROLOL TARTRATE 50 MG TAB GT SCH ×2 (09:33→21:16)
[2022-03-25] MEDS: amLODIPine BESYLATE 5 MG TAB GT SCH (09:34)
[2022-03-25] MEDS ORDERED: CLINIMIX PER PHARMACY 0 ML IV SCH (09:45)
[2022-03-25] MEDS ORDERED: DEXTROSE (50%) 50ML SYRG IV SCH (10:30)
[2022-03-25] MEDS ORDERED: SODIUM CHL 0.9% 1000 ML BAG XX ONE (11:30)
[2022-03-25] MEDS: InsuLIN REG 1unit/0.01ml Soln (100units/ml) SC SCH ×2 (12:00→17:47)
[2022-03-25] MEDS: ACCU-CHEK COMFORT CURVE STRIP VI SCH ×2 (12:25→17:47)
[2022-03-25] MEDS ORDERED: CLINIMIX PER PHARMACY IV NR (20:00)
[2022-03-25] MEDS ORDERED: EPOETIN ALFA-EPBX 10,000 UNIT/1ML VIAL SC ONE (21:00)
[2022-03-26] VITALS (10 sets, daily range): BP systolic 119–160; BP diastolic 39–89
[2022-03-26] MEDS: IPRATROPIUM BROM 0.5 MG/2.5ML INH SOL NEB SCH ×5 (00:01→23:57)
[2022-03-26 05:34] LABS: Calcium 8.3 mg/dL (8.5-10.1); Magnesium 1.8 mg/dL (1.6-2.6); Potassium 3.4 mmol/L (3.5-5.1)
[2022-03-26 05:56] LABS: Albumin 1.9 g/dL (3.4-5.0); BUN/Creatinine Ratio 22.4; Bilirubin, Direct 1.1 mg/dL (0-0.2); Bilirubin, Total 1.7 mg/dL (0.2-1.0); Phosphorus 2.1 mg/dL (2.5-4.90); Total Protein 6.7 g/dL (6.4-8.2)
[2022-03-26] MEDS: InsuLIN REG 1unit/0.01ml Soln (100units/ml) SC SCH ×4 (06:00→16:23)
[2022-03-26] MEDS: ACCU-CHEK COMFORT CURVE STRIP VI SCH ×4 (06:00→16:24)
[2022-03-26] MEDS ORDERED: SODIUM CHL 0.9% 1000 ML BAG XX ONE (07:00)
[2022-03-26] MEDS: amLODIPine BESYLATE 5 MG TAB GT SCH (09:00)
[2022-03-26] MEDS ORDERED: POTASSIUM PHOSPHATE 11 MEQ in SODIUM CHL 0.9% 100 ML IV ONE (10:15)
[2022-03-26] MEDS: PANTOPRAZOLE 40 MG/10 ML VIAL INJ IV SCH ×2 (10:17→23:53)
[2022-03-26] MEDS: METOPROLOL TARTRATE 50 MG TAB GT SCH ×2 (10:18→21:15)
[2022-03-26 11:39] LABS: Eosinophils # (auto) 0.1 10 ^3/uL (0-0.8); Hematocrit 26.1 % (36.0-46.0); Hemoglobin 8.1 g/dL (12.2-16.2); Monocytes # (auto) 0.7 10 ^3/uL (0-1.3); Nucleated Red Blood Cells % 0.4 %; Red Blood Cells 3.06 10^6/uL (4.0-5.20)
[2022-03-26 11:41] LABS: Basophils # (auto) 0.1 10 ^3/uL (0-0.2); Basophils % (auto) 0.5 % (0.0-2.0); Lymphocytes # (auto) 0.7 10 ^3/uL (0.4-5.4); Lymphocytes % (auto) 6.2 % (10.0-50.0); Mean Corpuscular Hemoglobin 26.4 pg (28.0-32.0); Mean Corpuscular Hgb Conc. 30.9 g/dL (32.0-36.0); Mean Corpuscular Volume 85.2 fL (80.0-100.0); Monocytes % (auto) 5.7 % (0.0-12.0); Neutrophils % (auto) 86.6 % (37.0-80.0); Red Cell Distribution Width 18.2 % (11.8-14.3); White Blood Cell 11.6 10^3/uL (4.4-10.8)
[2022-03-26] MEDS: hydrALAZINE HCL 20 MG/ML VL IV PRN (12:52)
[2022-03-26] MEDS ORDERED: AMINO ACID INFUSION IN D10W 1,000 ML IV NR (20:00)
[2022-03-26] MEDS ORDERED: EPOETIN ALFA-EPBX 10,000 UNIT/1ML VIAL SC ONE (21:00)
[2022-03-27] MEDS: ACCU-CHEK COMFORT CURVE STRIP VI SCH ×5 (00:40→22:35)
[2022-03-27 05:06] VITALS: BP 151/49
[2022-03-27] MEDS: InsuLIN REG 1unit/0.01ml Soln (100units/ml) SC SCH ×5 (06:00→22:38)
[2022-03-27 06:06] LABS: Albumin 1.9 g/dL (3.4-5.0); BUN/Creatinine Ratio 20.9; Calcium 8.5 mg/dL (8.5-10.1); Potassium 3.3 mmol/L (3.5-5.1)
[2022-03-27] MEDS: IPRATROPIUM BROM 0.5 MG/2.5ML INH SOL NEB SCH ×3 (06:06→18:15)
[2022-03-27 06:21] LABS: Bilirubin, Total 1.3 mg/dL (0.2-1.0); Phosphorus 1.7 mg/dL (2.5-4.90); Total Protein 6.8 g/dL (6.4-8.2)
[2022-03-27 08:02] VITALS: BP 154/66
[2022-03-27] MEDS: PANTOPRAZOLE 40 MG/10 ML VIAL INJ IV SCH ×2 (09:53→22:34)
[2022-03-27] MEDS: METOPROLOL TARTRATE 50 MG TAB GT SCH ×2 (09:53→22:34)
[2022-03-27] MEDS: amLODIPine BESYLATE 5 MG TAB GT SCH (09:54)
[2022-03-27] MEDS: hydrALAZINE HCL 20 MG/ML VL IV PRN (11:48)
[2022-03-27 11:53] VITALS: BP 182/51
[2022-03-27] MEDS ORDERED: POTASSIUM PHOSPHATE 44 MEQ in D5W 5% 250 ML IV ONE (13:00)
[2022-03-27 17:00] VITALS: BP 123/47
[2022-03-27] MEDS ORDERED: AMINO ACID INFUSION IN D10W 1,000 ML IV NR (20:00)
[2022-03-27 21:40] VITALS: BP_SYST 140; BP_SYST 143; BP_DIAS 62; BP_DIAS 75
[2022-03-27] MEDS ORDERED: SODIUM CHLORIDE 0.9 % NEB SOLN 3ML NEB ONE (21:52)
[2022-03-28] MEDS: IPRATROPIUM BROM 0.5 MG/2.5ML INH SOL NEB SCH ×4 (04:03→18:14)
[2022-03-28 04:51] VITALS: BP_SYST 140; BP_SYST 159; BP_DIAS 54; BP_DIAS 74
[2022-03-28 05:06] LABS: Basophils # (auto) 0 10 ^3/uL (0-0.2); Basophils % (auto) 0.4 % (0.0-2.0); Eosinophils # (auto) 0.2 10 ^3/uL (0-0.8); Eosinophils % (auto) 1.8 % (0.0-7.0); Hemoglobin 8.5 g/dL (12.2-16.2); Lymphocytes # (auto) 0.7 10 ^3/uL (0.4-5.4); Lymphocytes % (auto) 6.1 % (10.0-50.0); Mean Corpuscular Hemoglobin 26.8 pg (28.0-32.0); Mean Corpuscular Hgb Conc. 31.5 g/dL (32.0-36.0); Mean Corpuscular Volume 85.2 fL (80.0-100.0); Monocytes # (auto) 0.5 10 ^3/uL (0-1.3); Monocytes % (auto) 4.7 % (0.0-12.0); Neutrophils # (auto) 9.8 10 ^3/uL (1.6-8.6); Nucleated Red Blood Cells % 0.4 %; Red Blood Cells 3.17 10^6/uL (4.0-5.20); Red Cell Distribution Width 18.6 % (11.8-14.3); White Blood Cell 11.3 10^3/uL (4.4-10.8)
[2022-03-28 05:20] LABS: Albumin 1.8 g/dL (3.4-5.0); Magnesium 1.8 mg/dL (1.6-2.6)
[2022-03-28 05:21] LABS: Albumin 1.8 g/dL (3.4-5.0)
[2022-03-28] MEDS: ACCU-CHEK COMFORT CURVE STRIP VI SCH ×3 (05:23→17:39)
[2022-03-28] MEDS: InsuLIN REG 1unit/0.01ml Soln (100units/ml) SC SCH ×3 (05:23→17:40)
[2022-03-28 05:37] LABS: BUN/Creatinine Ratio 20.7; Bilirubin, Direct 0.8 mg/dL (0-0.2); Bilirubin, Total 1.2 mg/dL (0.2-1.0); Bilirubin, Total 1.3 mg/dL (0.2-1.0); Total Protein 6.9 g/dL (6.4-8.2)
[2022-03-28 08:40] VITALS: BP 159/54
[2022-03-28 09:19] VITALS: BP 160/50
[2022-03-28 12:29] VITALS: BP 177/42
[2022-03-28] MEDS: METOPROLOL TARTRATE 50 MG TAB GT SCH ×2 (13:15→21:27)
[2022-03-28] MEDS: amLODIPine BESYLATE 5 MG TAB GT SCH (13:16)
[2022-03-28] MEDS: PANTOPRAZOLE 40 MG/10 ML VIAL INJ IV SCH ×2 (13:16→21:28)
[2022-03-28 17:03] VITALS: BP 144/42
[2022-03-28] MEDS ORDERED: CLINIMIX PER PHARMACY IV NR (20:00)
[2022-03-28 22:00] VITALS: BP 144/45
[2022-03-29] MEDS: ACCU-CHEK COMFORT CURVE STRIP VI SCH ×4 (00:22→17:15)
[2022-03-29] MEDS: InsuLIN REG 1unit/0.01ml Soln (100units/ml) SC SCH ×4 (00:23→17:27)
[2022-03-29 05:00] VITALS: BP 140/45
[2022-03-29 05:28] LABS: Eosinophils # (auto) 0.2 10 ^3/uL (0-0.8); Eosinophils % (auto) 1.5 % (0.0-7.0); Hemoglobin 8.4 g/dL (12.2-16.2); Monocytes # (auto) 0.7 10 ^3/uL (0-1.3); White Blood Cell 14.7 10^3/uL (4.4-10.8)
[2022-03-29 05:33] LABS: Basophils # (auto) 0 10 ^3/uL (0-0.2); Basophils % (auto) 0.3 % (0.0-2.0); Hematocrit 26.4 % (36.0-46.0); Lymphocytes # (auto) 0.8 10 ^3/uL (0.4-5.4); Lymphocytes % (auto) 5.6 % (10.0-50.0); Mean Corpuscular Hemoglobin 27.1 pg (28.0-32.0); Mean Corpuscular Hgb Conc. 31.7 g/dL (32.0-36.0); Mean Corpuscular Volume 85.6 fL (80.0-100.0); Neutrophils # (auto) 12.9 10 ^3/uL (1.6-8.6); Neutrophils % (auto) 87.6 % (37.0-80.0); Nucleated Red Blood Cells % 0.2 %; Red Blood Cells 3.09 10^6/uL (4.0-5.20); Red Cell Distribution Width 18.6 % (11.8-14.3)
[2022-03-29 05:52] LABS: Potassium 4.1 mmol/L (3.5-5.1)
[2022-03-29 06:04] LABS: Albumin 1.7 g/dL (3.4-5.0); BUN/Creatinine Ratio 20.2; Bilirubin, Direct 0.7 mg/dL (0-0.2); Bilirubin, Total 1.2 mg/dL (0.2-1.0); Calcium 7.5 mg/dL (8.5-10.1); Magnesium 1.9 mg/dL (1.6-2.6); Phosphorus 3.3 mg/dL (2.5-4.90); Total Protein 6.6 g/dL (6.4-8.2)
[2022-03-29 09:00] VITALS: BP 117/59
[2022-03-29] MEDS: amLODIPine BESYLATE 5 MG TAB GT SCH (09:43)
[2022-03-29] MEDS: PANTOPRAZOLE 40 MG/10 ML VIAL INJ IV SCH ×2 (09:43→22:32)
[2022-03-29] MEDS: METOPROLOL TARTRATE 50 MG TAB GT SCH ×2 (09:44→21:08)
[2022-03-29 13:00] VITALS: BP 118/65
[2022-03-29 16:38] VITALS: BP 125/68
[2022-03-29] MEDS ORDERED: CLINIMIX PER PHARMACY IV NR (20:00)
[2022-03-29 22:00] VITALS: BP 118/58
[2022-03-30] MEDS: ACCU-CHEK COMFORT CURVE STRIP VI SCH ×2 (00:24→05:47)
[2022-03-30 05:00] VITALS: BP 126/69
[2022-03-30] MEDS: InsuLIN REG 1unit/0.01ml Soln (100units/ml) SC SCH ×2 (05:50)
[2022-03-30 07:14] LABS: Basophils % (auto) 0.4 % (0.0-2.0); Lymphocytes # (auto) 0.9 10 ^3/uL (0.4-5.4); Monocytes # (auto) 0.7 10 ^3/uL (0-1.3); Neutrophils # (auto) 11.8 10 ^3/uL (1.6-8.6); Nucleated Red Blood Cells % 0.1 %
[2022-03-30 07:19] LABS: Basophils # (auto) 0 10 ^3/uL (0-0.2); Eosinophils # (auto) 0.3 10 ^3/uL (0-0.8); Eosinophils % (auto) 1.9 % (0.0-7.0); Hematocrit 25.8 % (36.0-46.0); Hemoglobin 8.2 g/dL (12.2-16.2); Lymphocytes % (auto) 6.9 % (10.0-50.0); Mean Corpuscular Hemoglobin 27.1 pg (28.0-32.0); Mean Corpuscular Volume 84.8 fL (80.0-100.0); Neutrophils % (auto) 85.8 % (37.0-80.0); Red Blood Cells 3.04 10^6/uL (4.0-5.20); Red Cell Distribution Width 19.1 % (11.8-14.3); White Blood Cell 13.8 10^3/uL (4.4-10.8)
[2022-03-30 07:37] LABS: Potassium 4.1 mmol/L (3.5-5.1)
[2022-03-30 07:46] LABS: Albumin 1.7 g/dL (3.4-5.0); BUN/Creatinine Ratio 21.2; Calcium 7.7 mg/dL (8.5-10.1); Magnesium 1.9 mg/dL (1.6-2.6); Phosphorus 3.7 mg/dL (2.5-4.90); Total Protein 6.6 g/dL (6.4-8.2)
[2022-03-30 09:00] VITALS: BP 127/43
[2022-03-30] MEDS: METOPROLOL TARTRATE 50 MG TAB GT SCH ×2 (09:00→21:34)
[2022-03-30] MEDS: PANTOPRAZOLE 40 MG/10 ML VIAL INJ IV SCH ×2 (09:04→21:34)
[2022-03-30] MEDS: amLODIPine BESYLATE 5 MG TAB GT SCH (12:45)
[2022-03-30 13:00] VITALS: BP 145/56
[2022-03-30 17:00] VITALS: BP 144/51
[2022-03-30] MEDS: Nepro With Carb Steady 1 Liter Bottle GT SCH (18:01)
[2022-03-30 22:00] VITALS: BP 138/54
[2022-03-31] VITALS (7 sets, daily range): BP systolic 107–149; BP diastolic 32–79
[2022-03-31 07:58] LABS: Hemoglobin 8.4 g/dL (12.2-16.2); Mean Corpuscular Hemoglobin 26.5 pg (28.0-32.0); Mean Corpuscular Volume 85.5 fL (80.0-100.0); Red Blood Cells 3.15 10^6/uL (4.0-5.20); White Blood Cell 18.2 10^3/uL (4.4-10.8)
[2022-03-31 08:06] LABS: Band Neutrophils % (manual) 0; Basophils % (manual) 0 (0.0-2.0); Blast Cells 0; Eosinophils % (manual) 0 (0-7); Metamyelocytes % 0; Myelocytes % 0; Promyelocytes % 0; Reactive Lymphocytes 0
[2022-03-31 08:15] LABS: BUN/Creatinine Ratio 18.3; Calcium 7.9 mg/dL (8.5-10.1); Potassium 3.8 mmol/L (3.5-5.1)
[2022-03-31] MEDS: amLODIPine BESYLATE 5 MG TAB GT SCH (09:13)
[2022-03-31] MEDS: PANTOPRAZOLE 40 MG/10 ML VIAL INJ IV SCH ×2 (09:13→21:30)
[2022-03-31] MEDS: METOPROLOL TARTRATE 50 MG TAB GT SCH ×2 (09:14→21:30)
[2022-03-31 09:23] LABS: Lymphocytes % (manual) 4 (10.0-50.0); Monocytes % (manual) 7 (0-12)
[2022-04-01] VITALS (7 sets, daily range): BP systolic 136–158; BP diastolic 40–79
[2022-04-01 05:00] LABS: Basophils # (auto) 0.1 10 ^3/uL (0-0.2); Basophils % (auto) 0.4 % (0.0-2.0); Eosinophils # (auto) 0.4 10 ^3/uL (0-0.8); Eosinophils % (auto) 2.1 % (0.0-7.0); Hematocrit 25.4 % (36.0-46.0); Hemoglobin 8.1 g/dL (12.2-16.2); Lymphocytes # (auto) 0.8 10 ^3/uL (0.4-5.4); Lymphocytes % (auto) 4.4 % (10.0-50.0); Mean Corpuscular Hgb Conc. 31.8 g/dL (32.0-36.0); Monocytes # (auto) 0.9 10 ^3/uL (0-1.3); Monocytes % (auto) 5.3 % (0.0-12.0); Neutrophils # (auto) 15.4 10 ^3/uL (1.6-8.6); Neutrophils % (auto) 87.8 % (37.0-80.0); Red Blood Cells 2.99 10^6/uL (4.0-5.20); Red Cell Distribution Width 19.4 % (11.8-14.3); White Blood Cell 17.6 10^3/uL (4.4-10.8)
[2022-04-01 05:12] LABS: Albumin 1.7 g/dL (3.4-5.0)
[2022-04-01 05:28] LABS: BUN/Creatinine Ratio 17.6; Bilirubin, Direct 0.6 mg/dL (0-0.2); Total Protein 6.8 g/dL (6.4-8.2)
[2022-04-01] MEDS ORDERED: SODIUM CHL 0.9% 1000 ML BAG XX ONE (07:00)
[2022-04-01] MEDS: amLODIPine BESYLATE 5 MG TAB GT SCH (09:00)
[2022-04-01] MEDS: METOPROLOL TARTRATE 50 MG TAB GT SCH ×2 (09:00→22:01)
[2022-04-01] MEDS: PANTOPRAZOLE 40 MG/10 ML VIAL INJ IV SCH ×2 (09:03→22:01)
[2022-04-01] MEDS ORDERED: EPOETIN ALFA-EPBX 10,000 UNIT/1ML VIAL SC ONE (21:00)
[2022-04-02 05:00] VITALS: BP 157/45
[2022-04-02 06:47] LABS: Basophils # (auto) 0.1 10 ^3/uL (0-0.2); Basophils % (auto) 0.4 % (0.0-2.0); Eosinophils # (auto) 0.3 10 ^3/uL (0-0.8); Lymphocytes # (auto) 0.7 10 ^3/uL (0.4-5.4)
[2022-04-02 06:48] LABS: Eosinophils % (auto) 1.7 % (0.0-7.0); Hematocrit 24.2 % (36.0-46.0); Hemoglobin 7.7 g/dL (12.2-16.2); Lymphocytes % (auto) 4.5 % (10.0-50.0); Mean Corpuscular Hemoglobin 27.5 pg (28.0-32.0); Mean Corpuscular Hgb Conc. 31.9 g/dL (32.0-36.0); Mean Corpuscular Volume 86.4 fL (80.0-100.0); Monocytes # (auto) 1.2 10 ^3/uL (0-1.3); Monocytes % (auto) 7.5 % (0.0-12.0); Neutrophils # (auto) 13.3 10 ^3/uL (1.6-8.6); Neutrophils % (auto) 85.9 % (37.0-80.0); White Blood Cell 15.5 10^3/uL (4.4-10.8)
[2022-04-02 06:55] LABS: BUN/Creatinine Ratio 13.1; Calcium 8.1 mg/dL (8.5-10.1); Potassium 3.1 mmol/L (3.5-5.1)
[2022-04-02 09:00] VITALS: BP 168/43
[2022-04-02] MEDS: METOPROLOL TARTRATE 50 MG TAB GT SCH ×2 (09:45→20:48)
[2022-04-02] MEDS: PANTOPRAZOLE 40 MG/10 ML VIAL INJ IV SCH ×2 (09:45→22:15)
[2022-04-02] MEDS: amLODIPine BESYLATE 5 MG TAB GT SCH (09:45)
[2022-04-02 10:32] LABS: BUN/Creatinine Ratio 13.3; Calcium 8.1 mg/dL (8.5-10.1)
[2022-04-02 10:37] LABS: Basophils # (auto) 0.1 10 ^3/uL (0-0.2); Basophils % (auto) 0.5 % (0.0-2.0); Eosinophils # (auto) 0.3 10 ^3/uL (0-0.8); Hematocrit 25.8 % (36.0-46.0); Hemoglobin 8.1 g/dL (12.2-16.2); Lymphocytes # (auto) 0.7 10 ^3/uL (0.4-5.4); Lymphocytes % (auto) 4.7 % (10.0-50.0); Mean Corpuscular Hemoglobin 26.8 pg (28.0-32.0); Mean Corpuscular Hgb Conc. 31.3 g/dL (32.0-36.0); Mean Corpuscular Volume 85.5 fL (80.0-100.0); Monocytes % (auto) 6.8 % (0.0-12.0); Neutrophils # (auto) 12.6 10 ^3/uL (1.6-8.6); Red Blood Cells 3.01 10^6/uL (4.0-5.20); Red Cell Distribution Width 18.8 % (11.8-14.3); White Blood Cell 14.7 10^3/uL (4.4-10.8)
[2022-04-02 13:00] VITALS: BP 160/61
[2022-04-02] MEDS: POTASSIUM CHL 20MEQ/100ML 100 ML IV SCH ×2 (13:12→14:43)
[2022-04-02 16:43] VITALS: BP_SYST 156; BP_SYST 165; BP_DIAS 62
[2022-04-02 17:38] VITALS: BP 147/82
[2022-04-02 22:00] VITALS: BP 147/71
[2022-04-03] VITALS (7 sets, daily range): BP systolic 127–170; BP diastolic 52–80
[2022-04-03 05:24] LABS: Basophils # (auto) 0.1 10 ^3/uL (0-0.2); Basophils % (auto) 0.5 % (0.0-2.0); Lymphocytes # (auto) 0.7 10 ^3/uL (0.4-5.4); Neutrophils # (auto) 11.8 10 ^3/uL (1.6-8.6)
[2022-04-03 05:27] LABS: Eosinophils # (auto) 0.3 10 ^3/uL (0-0.8); Hematocrit 24.4 % (36.0-46.0); Hemoglobin 7.8 g/dL (12.2-16.2); Lymphocytes % (auto) 5.1 % (10.0-50.0); Mean Corpuscular Hemoglobin 27.1 pg (28.0-32.0); Mean Corpuscular Hgb Conc. 32.1 g/dL (32.0-36.0); Mean Corpuscular Volume 84.4 fL (80.0-100.0); Monocytes # (auto) 0.8 10 ^3/uL (0-1.3); Monocytes % (auto) 6.1 % (0.0-12.0); Neutrophils % (auto) 86.3 % (37.0-80.0); Red Blood Cells 2.89 10^6/uL (4.0-5.20); Red Cell Distribution Width 18.8 % (11.8-14.3); White Blood Cell 13.6 10^3/uL (4.4-10.8)
[2022-04-03 05:33] LABS: Albumin 1.8 g/dL (3.4-5.0)
[2022-04-03 05:49] LABS: BUN/Creatinine Ratio 13.3; Bilirubin, Direct 0.6 mg/dL (0-0.2); Total Protein 6.8 g/dL (6.4-8.2)
[2022-04-03] MEDS ORDERED: SODIUM CHL 0.9% 1000 ML BAG XX ONE (07:00)
[2022-04-03] MEDS: amLODIPine BESYLATE 5 MG TAB GT SCH (09:00)
[2022-04-03] MEDS: METOPROLOL TARTRATE 50 MG TAB GT SCH ×2 (09:00→22:20)
[2022-04-03] MEDS: PANTOPRAZOLE 40 MG/10 ML VIAL INJ IV SCH ×2 (09:54→22:21)
[2022-04-03] MEDS ORDERED: EPOETIN ALFA-EPBX 10,000 UNIT/1ML VIAL SC ONE (21:00)
[2022-04-03] MEDS: hydrALAZINE HCL 20 MG/ML VL IV PRN (23:28)
[2022-04-04] MEDS: Nepro With Carb Steady 1 Liter Bottle GT SCH (00:14)
[2022-04-04 05:00] VITALS: BP 154/63
[2022-04-04 05:48] LABS: Basophils # (auto) 0.1 10 ^3/uL (0-0.2); Basophils % (auto) 0.6 % (0.0-2.0); Eosinophils # (auto) 0.3 10 ^3/uL (0-0.8); Hematocrit 24.8 % (36.0-46.0); Hemoglobin 7.9 g/dL (12.2-16.2); Mean Corpuscular Hemoglobin 26.9 pg (28.0-32.0); Mean Corpuscular Hgb Conc. 31.8 g/dL (32.0-36.0); Red Blood Cells 2.93 10^6/uL (4.0-5.20); White Blood Cell 12.4 10^3/uL (4.4-10.8)
[2022-04-04 05:50] LABS: Eosinophils % (auto) 2.2 % (0.0-7.0); Lymphocytes # (auto) 0.8 10 ^3/uL (0.4-5.4); Lymphocytes % (auto) 6.8 % (10.0-50.0); Mean Corpuscular Volume 84.7 fL (80.0-100.0); Monocytes # (auto) 0.7 10 ^3/uL (0-1.3); Neutrophils # (auto) 10.5 10 ^3/uL (1.6-8.6); Neutrophils % (auto) 84.4 % (37.0-80.0); Red Cell Distribution Width 19.1 % (11.8-14.3)
[2022-04-04 05:57] LABS: Albumin 1.7 g/dL (3.4-5.0); Calcium 7.9 mg/dL (8.5-10.1); Potassium 3.9 mmol/L (3.5-5.1)
[2022-04-04 06:01] LABS: BUN/Creatinine Ratio 13.1; Bilirubin, Direct 0.6 mg/dL (0-0.2); Bilirubin, Total 0.9 mg/dL (0.2-1.0); Total Protein 6.8 g/dL (6.4-8.2)
[2022-04-04 09:00] VITALS: BP 148/42
[2022-04-04] MEDS: METOPROLOL TARTRATE 50 MG TAB GT SCH ×2 (10:02→22:20)
[2022-04-04] MEDS: PANTOPRAZOLE 40 MG/10 ML VIAL INJ IV SCH ×2 (10:03→22:20)
[2022-04-04] MEDS: amLODIPine BESYLATE 5 MG TAB GT SCH (10:05)
[2022-04-04 13:00] VITALS: BP 150/53
[2022-04-04 16:31] VITALS: BP 157/43
[2022-04-04 21:59] VITALS: BP 157/75
[2022-04-04] MEDS: hydrALAZINE HCL 20 MG/ML VL IV PRN (23:32)
[2022-04-05 04:42] VITALS: BP 157/55
[2022-04-05 06:30] LABS: Basophils # (auto) 0.1 10 ^3/uL (0-0.2); Basophils % (auto) 0.5 % (0.0-2.0); Eosinophils # (auto) 0.4 10 ^3/uL (0-0.8); Eosinophils % (auto) 2.5 % (0.0-7.0); Hemoglobin 7.9 g/dL (12.2-16.2); Lymphocytes # (auto) 0.9 10 ^3/uL (0.4-5.4); Lymphocytes % (auto) 6.5 % (10.0-50.0); Mean Corpuscular Hemoglobin 26.8 pg (28.0-32.0); Mean Corpuscular Hgb Conc. 31.6 g/dL (32.0-36.0); Mean Corpuscular Volume 84.8 fL (80.0-100.0); Monocytes # (auto) 0.7 10 ^3/uL (0-1.3); Neutrophils # (auto) 12.2 10 ^3/uL (1.6-8.6); Neutrophils % (auto) 85.5 % (37.0-80.0); Red Blood Cells 2.95 10^6/uL (4.0-5.20); Red Cell Distribution Width 18.4 % (11.8-14.3); White Blood Cell 14.3 10^3/uL (4.4-10.8)
[2022-04-05 06:43] LABS: Calcium 8.5 mg/dL (8.5-10.1)
[2022-04-05 06:45] LABS: BUN/Creatinine Ratio 13.4
[2022-04-05 09:00] VITALS: BP 174/65
[2022-04-05] MEDS: amLODIPine BESYLATE 5 MG TAB GT SCH (09:00)
[2022-04-05] MEDS: METOPROLOL TARTRATE 50 MG TAB GT SCH ×2 (09:00→22:28)
[2022-04-05] MEDS ORDERED: ALBUMIN 25% 100 ML IV PRN (10:30)
[2022-04-05] MEDS: PANTOPRAZOLE 40 MG/10 ML VIAL INJ IV SCH ×2 (10:53→22:28)
[2022-04-05 13:00] VITALS: BP 175/82
[2022-04-05 17:20] VITALS: BP 158/60
[2022-04-05] MEDS: Nepro With Carb Steady 1 Liter Bottle GT SCH (20:07)
[2022-04-05 22:00] VITALS: BP 173/66
[2022-04-05] MEDS: hydrALAZINE HCL 20 MG/ML VL IV PRN (22:28)
[2022-04-06 05:00] VITALS: BP 169/67
[2022-04-06] MEDS: hydrALAZINE HCL 20 MG/ML VL IV PRN ×3 (05:15→22:28)
[2022-04-06 06:30] LABS: Basophils # (auto) 0.1 10 ^3/uL (0-0.2); Basophils % (auto) 0.4 % (0.0-2.0); Eosinophils # (auto) 0.3 10 ^3/uL (0-0.8); Eosinophils % (auto) 2.3 % (0.0-7.0); Hematocrit 27.3 % (36.0-46.0); Hemoglobin 8.5 g/dL (12.2-16.2); Lymphocytes # (auto) 0.6 10 ^3/uL (0.4-5.4); Lymphocytes % (auto) 4.3 % (10.0-50.0); Mean Corpuscular Hemoglobin 26.7 pg (28.0-32.0); Mean Corpuscular Hgb Conc. 30.9 g/dL (32.0-36.0); Mean Corpuscular Volume 86.4 fL (80.0-100.0); Monocytes # (auto) 0.5 10 ^3/uL (0-1.3); Monocytes % (auto) 3.5 % (0.0-12.0); Neutrophils % (auto) 89.5 % (37.0-80.0); Red Blood Cells 3.16 10^6/uL (4.0-5.20); Red Cell Distribution Width 18.7 % (11.8-14.3); White Blood Cell 13.4 10^3/uL (4.4-10.8)
[2022-04-06 06:34] LABS: Potassium 3.9 mmol/L (3.5-5.1)
[2022-04-06 06:47] LABS: Albumin 2.1 g/dL (3.4-5.0); BUN/Creatinine Ratio 12.5; Bilirubin, Direct 0.6 mg/dL (0-0.2); Bilirubin, Total 0.9 mg/dL (0.2-1.0); Calcium 8.6 mg/dL (8.5-10.1); Total Protein 7.3 g/dL (6.4-8.2)
[2022-04-06 09:00] VITALS: BP 111/63
[2022-04-06] MEDS: amLODIPine BESYLATE 5 MG TAB GT SCH (09:15)
[2022-04-06] MEDS: METOPROLOL TARTRATE 50 MG TAB GT SCH ×2 (09:15→22:27)
[2022-04-06] MEDS: PANTOPRAZOLE 40 MG/10 ML VIAL INJ IV SCH ×2 (09:16→22:27)
[2022-04-06 12:52] VITALS: BP 156/56
[2022-04-06 13:41] VITALS: BP 156/56
[2022-04-06 17:17] VITALS: BP_DIAS 64
[2022-04-06] MEDS ORDERED: HEPARIN 1,000 UNITS/ml 1ML VIAL IV ONE ×5 (18:15)
[2022-04-06] MEDS ORDERED: SODIUM CHL 0.9% 1000 ML BAG XX ONE (18:45)
[2022-04-06 22:00] VITALS: BP 159/63
[2022-04-07] MEDS: hydrALAZINE HCL 20 MG/ML VL IV PRN (04:41)
[2022-04-07 05:00] VITALS: BP 172/71
[2022-04-07 06:35] LABS: Calcium 8.7 mg/dL (8.5-10.1); Potassium 3.8 mmol/L (3.5-5.1)
[2022-04-07 06:37] LABS: BUN/Creatinine Ratio 8.8
[2022-04-07 06:55] LABS: Basophils # (auto) 0.1 10 ^3/uL (0-0.2); Basophils % (auto) 0.6 % (0.0-2.0); Eosinophils # (auto) 0.3 10 ^3/uL (0-0.8); Eosinophils % (auto) 1.9 % (0.0-7.0); Lymphocytes # (auto) 0.9 10 ^3/uL (0.4-5.4); Lymphocytes % (auto) 6.3 % (10.0-50.0); Mean Corpuscular Hemoglobin 27.3 pg (28.0-32.0); Mean Corpuscular Hgb Conc. 31.8 g/dL (32.0-36.0); Mean Corpuscular Volume 85.8 fL (80.0-100.0); Monocytes # (auto) 0.7 10 ^3/uL (0-1.3); Monocytes % (auto) 5.3 % (0.0-12.0); Neutrophils # (auto) 12.1 10 ^3/uL (1.6-8.6); Neutrophils % (auto) 85.9 % (37.0-80.0); Nucleated Red Blood Cells % 0.1 %; Red Blood Cells 2.92 10^6/uL (4.0-5.20)
[2022-04-07 09:00] VITALS: BP 139/39
[2022-04-07] MEDS ORDERED: TPN PER PHARMACY 0 ML IV SCH (12:00)
[2022-04-07 13:00] VITALS: BP 155/39
[2022-04-07 13:09] LABS: Magnesium 2.1 mg/dL (1.6-2.6); Phosphorus 1.3 mg/dL (2.5-4.90)
[2022-04-07 13:34] LABS: Basophils # (auto) 0.2 10 ^3/uL (0-0.2); Basophils % (auto) 1.6 % (0.0-2.0); Eosinophils # (auto) 0.3 10 ^3/uL (0-0.8); Eosinophils % (auto) 1.9 % (0.0-7.0); Hematocrit 26.3 % (36.0-46.0); Lymphocytes # (auto) 0.9 10 ^3/uL (0.4-5.4); Lymphocytes % (auto) 6.8 % (10.0-50.0); Mean Corpuscular Hgb Conc. 30.6 g/dL (32.0-36.0); Mean Corpuscular Volume 85.2 fL (80.0-100.0); Monocytes # (auto) 0.6 10 ^3/uL (0-1.3); Monocytes % (auto) 4.4 % (0.0-12.0); Neutrophils # (auto) 11.8 10 ^3/uL (1.6-8.6); Neutrophils % (auto) 85.3 % (37.0-80.0); Nucleated Red Blood Cells % 0.1 %; Red Blood Cells 3.08 10^6/uL (4.0-5.20); White Blood Cell 13.8 10^3/uL (4.4-10.8)
[2022-04-07 13:35] LABS: Calcium 8.7 mg/dL (8.5-10.1)
[2022-04-07] MEDS: METOPROLOL TARTRATE 50 MG TAB GT SCH ×2 (14:36→23:42)
[2022-04-07] MEDS: PANTOPRAZOLE 40 MG/10 ML VIAL INJ IV SCH ×2 (14:37→23:08)
[2022-04-07] MEDS: amLODIPine BESYLATE 5 MG TAB GT SCH (14:37)
[2022-04-07] MEDS ORDERED: SODIUM PHOSP 40 MEQ in D5W 5% 250 ML IV ONE (15:30)
[2022-04-07 17:00] VITALS: BP 162/30
[2022-04-07] MEDS ORDERED: AMINO ACID INFUSION IN D10W 1,000 ML IV NR (20:00)
[2022-04-07 22:00] VITALS: BP 139/43
[2022-04-08] VITALS (7 sets, daily range): BP systolic 119–188; BP diastolic 33–66
[2022-04-08] MEDS ORDERED: DEXTROSE (50%) 50ML SYRG IV SCH
[2022-04-08] MEDS ORDERED: ACCU-CHEK COMFORT CURVE STRIP VI SCH
[2022-04-08] MEDS ORDERED: InsuLIN REG 1unit/0.01ml Soln (100units/ml) SC SCH
[2022-04-08] MEDS: ACETAMINOPHEN 325 MG TAB PO PRN (00:23)
[2022-04-08] MEDS ORDERED: VANCOMYCIN PER PHARMACY 0 MG IV SCH (09:00)
[2022-04-08] MEDS: METOPROLOL TARTRATE 50 MG TAB GT SCH ×2 (09:38→21:48)
[2022-04-08] MEDS: amLODIPine BESYLATE 5 MG TAB GT SCH (09:41)
[2022-04-08] MEDS: PANTOPRAZOLE 40 MG/10 ML VIAL INJ IV SCH ×2 (09:41→21:49)
[2022-04-08] MEDS ORDERED: VANCOMYCIN 1GM/250ML 250 ML IV ONE (10:00)
[2022-04-08] MEDS: hydrALAZINE HCL 20 MG/ML VL IV PRN (12:37)
[2022-04-08] MEDS: hydrALAZINE HCL 25 MG TAB GT SCH ×2 (16:08→22:57)
[2022-04-09] VITALS (7 sets, daily range): BP systolic 107–170; BP diastolic 31–76
[2022-04-09] MEDS: ACETAMINOPHEN 325 MG TAB PO PRN (01:03)
[2022-04-09] MEDS: hydrALAZINE HCL 25 MG TAB GT SCH ×3 (05:27→22:43)
[2022-04-09 06:40] LABS: BUN/Creatinine Ratio 11.3; Calcium 8.2 mg/dL (8.5-10.1); Potassium 4.1 mmol/L (3.5-5.1)
[2022-04-09 06:45] LABS: Albumin 1.9 g/dL (3.4-5.0)
[2022-04-09 06:46] LABS: Basophils # (auto) 0.1 10 ^3/uL (0-0.2); Eosinophils % (auto) 2.3 % (0.0-7.0); Neutrophils # (auto) 13.2 10 ^3/uL (1.6-8.6)
[2022-04-09 06:48] LABS: Basophils % (auto) 0.6 % (0.0-2.0); Bilirubin, Direct 0.5 mg/dL (0-0.2); Bilirubin, Total 0.8 mg/dL (0.2-1.0); Eosinophils # (auto) 0.3 10 ^3/uL (0-0.8); Hematocrit 25.8 % (36.0-46.0); Lymphocytes % (auto) 6.5 % (10.0-50.0); Mean Corpuscular Hemoglobin 26.8 pg (28.0-32.0); Mean Corpuscular Hgb Conc. 31.2 g/dL (32.0-36.0); Mean Corpuscular Volume 85.9 fL (80.0-100.0); Monocytes # (auto) 0.8 10 ^3/uL (0-1.3); Neutrophils % (auto) 85.6 % (37.0-80.0); Red Cell Distribution Width 18.5 % (11.8-14.3); Total Protein 7.3 g/dL (6.4-8.2); White Blood Cell 15.3 10^3/uL (4.4-10.8)
[2022-04-09] MEDS: PANTOPRAZOLE 40 MG/10 ML VIAL INJ IV SCH ×2 (09:23→22:41)
[2022-04-09] MEDS: METOPROLOL TARTRATE 50 MG TAB GT SCH ×2 (09:23→22:42)
[2022-04-09] MEDS: amLODIPine BESYLATE 5 MG TAB GT SCH (09:24)
[2022-04-10 05:00] VITALS: BP 129/44
[2022-04-10] MEDS: hydrALAZINE HCL 25 MG TAB GT SCH ×3 (05:40→23:17)
[2022-04-10] MEDS ORDERED: SODIUM CHL 0.9% 1000 ML BAG XX ONE (07:00)
[2022-04-10 07:33] LABS: Albumin 1.8 g/dL (3.4-5.0); Bilirubin, Direct 0.5 mg/dL (0-0.2); Bilirubin, Total 0.9 mg/dL (0.2-1.0); Total Protein 7.1 g/dL (6.4-8.2)
[2022-04-10 08:00] VITALS: BP 139/60
[2022-04-10 09:00] VITALS: BP 139/42
[2022-04-10] MEDS ORDERED: GASTROGRAFIN 30 ML SOL ONE (09:37)
[2022-04-10] MEDS: PANTOPRAZOLE 40 MG/10 ML VIAL INJ IV SCH ×2 (10:16→21:15)
[2022-04-10] MEDS: METOPROLOL TARTRATE 50 MG TAB GT SCH ×2 (10:18→21:15)
[2022-04-10] MEDS: amLODIPine BESYLATE 5 MG TAB GT SCH (10:18)
[2022-04-10 13:00] VITALS: BP 143/38
[2022-04-10 17:00] VITALS: BP 132/51
[2022-04-10] MEDS ORDERED: VANCOMYCIN 500 MG in D5W 5% 100 ML IV ONE (20:00)
[2022-04-10 22:00] VITALS: BP 160/43
[2022-04-11 05:00] VITALS: BP 125/44
[2022-04-11] MEDS: hydrALAZINE HCL 25 MG TAB GT SCH ×3 (06:09→22:00)
[2022-04-11] MEDS ORDERED: SODIUM CHL 0.9% 1000 ML BAG XX ONE (07:00)
[2022-04-11 08:05] VITALS: BP 127/75
[2022-04-11 09:00] VITALS: BP 127/35
[2022-04-11] MEDS: PANTOPRAZOLE 40 MG/10 ML VIAL INJ IV SCH ×2 (09:52→21:44)
[2022-04-11] MEDS: amLODIPine BESYLATE 5 MG TAB GT SCH (09:53)
[2022-04-11] MEDS: METOPROLOL TARTRATE 50 MG TAB GT SCH ×2 (09:54→21:00)
[2022-04-11 10:36] LABS: Basophils # (auto) 0.1 10 ^3/uL (0-0.2); Eosinophils # (auto) 0.2 10 ^3/uL (0-0.8); Hemoglobin 7.9 g/dL (12.2-16.2); Lymphocytes # (auto) 0.8 10 ^3/uL (0.4-5.4); Neutrophils # (auto) 13.4 10 ^3/uL (1.6-8.6)
[2022-04-11 10:38] LABS: Basophils % (auto) 0.4 % (0.0-2.0); Eosinophils % (auto) 1.5 % (0.0-7.0); Hematocrit 25.6 % (36.0-46.0); Lymphocytes % (auto) 5.4 % (10.0-50.0); Mean Corpuscular Hgb Conc. 30.8 g/dL (32.0-36.0); Mean Corpuscular Volume 84.2 fL (80.0-100.0); Monocytes # (auto) 0.6 10 ^3/uL (0-1.3); Monocytes % (auto) 3.8 % (0.0-12.0); Neutrophils % (auto) 88.9 % (37.0-80.0); Nucleated Red Blood Cells % 0.1 %; Red Blood Cells 3.03 10^6/uL (4.0-5.20); Red Cell Distribution Width 18.2 % (11.8-14.3); White Blood Cell 15.1 10^3/uL (4.4-10.8)
[2022-04-11 10:50] LABS: BUN/Creatinine Ratio 10.7; Calcium 7.7 mg/dL (8.5-10.1)
[2022-04-11 12:52] VITALS: BP 122/46
[2022-04-11 16:36] VITALS: BP 106/40
[2022-04-11] MEDS ORDERED: EPOETIN ALFA-EPBX 10,000 UNIT/1ML VIAL SC ONE (21:00)
[2022-04-11 21:55] VITALS: BP 110/26
[2022-04-12 05:00] VITALS: BP 132/27
[2022-04-12] MEDS: hydrALAZINE HCL 25 MG TAB GT SCH ×3 (06:00→22:10)
[2022-04-12 08:00] VITALS: BP 141/60
[2022-04-12] MEDS: METOPROLOL TARTRATE 50 MG TAB GT SCH ×2 (10:00→21:00)
[2022-04-12] MEDS: PANTOPRAZOLE 40 MG/10 ML VIAL INJ IV SCH ×2 (10:01→22:10)
[2022-04-12] MEDS: amLODIPine BESYLATE 5 MG TAB GT SCH (10:01)
[2022-04-12] MEDS: ACETAMINOPHEN 325 MG TAB PO PRN (11:17)
[2022-04-12 13:00] VITALS: BP 135/48
[2022-04-12 17:00] VITALS: BP 124/53
[2022-04-12 22:00] VITALS: BP 142/43
[2022-04-13] VITALS (7 sets, daily range): BP systolic 145–185; BP diastolic 49–75
[2022-04-13] MEDS: hydrALAZINE HCL 25 MG TAB GT SCH ×3 (05:25→23:20)
[2022-04-13] MEDS: ACETAMINOPHEN 325 MG TAB PO PRN (05:25)
[2022-04-13] MEDS: METOPROLOL TARTRATE 50 MG TAB GT SCH ×2 (09:03→23:19)
[2022-04-13] MEDS: amLODIPine BESYLATE 5 MG TAB GT SCH (09:04)
[2022-04-13] MEDS: PANTOPRAZOLE 40 MG/10 ML VIAL INJ IV SCH ×2 (09:04→23:19)
[2022-04-13 11:08] LABS: Albumin 2.3 g/dL (3.4-5.0); BUN/Creatinine Ratio 10.6; Calcium 8.4 mg/dL (8.5-10.1); Potassium 3.6 mmol/L (3.5-5.1)
[2022-04-13 11:10] LABS: Bilirubin, Total 0.7 mg/dL (0.2-1.0); Total Protein 7.5 g/dL (6.4-8.2)
[2022-04-14] VITALS (8 sets, daily range): BP systolic 156–174; BP diastolic 59–76
[2022-04-14] MEDS: hydrALAZINE HCL 25 MG TAB GT SCH ×3 (06:19→22:20)
[2022-04-14] MEDS ORDERED: SODIUM CHL 0.9% 1000 ML BAG XX ONE (07:00)
[2022-04-14] MEDS: amLODIPine BESYLATE 5 MG TAB GT SCH (08:59)
[2022-04-14] MEDS: METOPROLOL TARTRATE 50 MG TAB GT SCH ×2 (08:59→21:02)
[2022-04-14 10:41] LABS: Basophils # (auto) 0.1 10 ^3/uL (0-0.2); Eosinophils # (auto) 0.2 10 ^3/uL (0-0.8); Monocytes # (auto) 0.7 10 ^3/uL (0-1.3)
[2022-04-14 10:46] LABS: Basophils % (auto) 0.3 % (0.0-2.0); Eosinophils % (auto) 0.9 % (0.0-7.0); Hematocrit 20.1 % (36.0-46.0); Lymphocytes # (auto) 1.1 10 ^3/uL (0.4-5.4); Lymphocytes % (auto) 5.4 % (10.0-50.0); Mean Corpuscular Hemoglobin 26.4 pg (28.0-32.0); Mean Corpuscular Hgb Conc. 31.4 g/dL (32.0-36.0); Monocytes % (auto) 3.7 % (0.0-12.0); Neutrophils # (auto) 17.9 10 ^3/uL (1.6-8.6); Neutrophils % (auto) 89.7 % (37.0-80.0); Red Blood Cells 2.39 10^6/uL (4.0-5.20)
[2022-04-14] MEDS: PANTOPRAZOLE 40 MG/10 ML VIAL INJ IV SCH ×2 (10:46→22:20)
[2022-04-14 11:04] LABS: Hemoglobin 6.3 g/dL (12.2-16.2)
[2022-04-14 11:05] LABS: BUN/Creatinine Ratio 10.3; Potassium 3.3 mmol/L (3.5-5.1)
[2022-04-14] MEDS ORDERED: VANCOMYCIN 500 MG in D5W 5% 100 ML IV ONE (16:00)
[2022-04-14] MEDS ORDERED: EPOETIN ALFA-EPBX 10,000 UNIT/1ML VIAL SC ONE (21:00)
[2022-04-14] MEDS: ACETAMINOPHEN 325 MG TAB PO PRN (21:18)
[2022-04-15] VITALS (7 sets, daily range): BP systolic 130–174; BP diastolic 53–88
[2022-04-15] MEDS: hydrALAZINE HCL 25 MG TAB GT SCH ×3 (06:25→23:34)
[2022-04-15] MEDS: METOPROLOL TARTRATE 50 MG TAB GT SCH ×2 (09:25→22:34)
[2022-04-15] MEDS: amLODIPine BESYLATE 5 MG TAB GT SCH (09:25)
[2022-04-15] MEDS: PANTOPRAZOLE 40 MG/10 ML VIAL INJ IV SCH ×2 (09:26→22:35)
[2022-04-15 11:40] LABS: Eosinophils # (auto) 0.1 10 ^3/uL (0-0.8); Eosinophils % (auto) 0.5 % (0.0-7.0); Monocytes # (auto) 0.6 10 ^3/uL (0-1.3); Monocytes % (auto) 2.9 % (0.0-12.0); Neutrophils % (auto) 91.4 % (37.0-80.0); Nucleated Red Blood Cells % 0.1 %
[2022-04-15 11:43] LABS: Basophils # (auto) 0.1 10 ^3/uL (0-0.2); Basophils % (auto) 0.3 % (0.0-2.0); Hematocrit 32.2 % (36.0-46.0); Hemoglobin 9.9 g/dL (12.2-16.2); Lymphocytes % (auto) 4.9 % (10.0-50.0); Mean Corpuscular Hemoglobin 26.5 pg (28.0-32.0); Mean Corpuscular Hgb Conc. 30.8 g/dL (32.0-36.0); Neutrophils # (auto) 18.8 10 ^3/uL (1.6-8.6); Red Blood Cells 3.74 10^6/uL (4.0-5.20); White Blood Cell 20.6 10^3/uL (4.4-10.8)
[2022-04-15] MEDS ORDERED: DEXTROSE (50%) 50ML SYRG IV PRN (12:45)
[2022-04-15] MEDS ORDERED: InsuLIN REG 1unit/0.01ml Soln (100units/ml) IV ONE (13:15)
[2022-04-15] MEDS: ACCU-CHEK COMFORT CURVE STRIP VI SCH (17:38)
[2022-04-15] MEDS: InsuLIN REG 1unit/0.01ml Soln (100units/ml) SC SCH (17:39)
[2022-04-16] MEDS: ACCU-CHEK COMFORT CURVE STRIP VI SCH ×4 (00:35→18:00)
[2022-04-16] MEDS: InsuLIN REG 1unit/0.01ml Soln (100units/ml) SC SCH ×4 (00:39→18:34)
[2022-04-16 05:00] VITALS: BP 154/63
[2022-04-16] MEDS ORDERED: SODIUM CHL 0.9% 1000 ML BAG XX ONE (07:00)
[2022-04-16] MEDS: hydrALAZINE HCL 25 MG TAB GT SCH ×3 (07:01→22:52)
[2022-04-16 07:05] LABS: Hematocrit 28.8 % (36.0-46.0); Hemoglobin 9.1 g/dL (12.2-16.2)
[2022-04-16 08:50] VITALS: BP 120/70
[2022-04-16] MEDS: amLODIPine BESYLATE 5 MG TAB GT SCH (09:00)
[2022-04-16] MEDS: METOPROLOL TARTRATE 50 MG TAB GT SCH ×2 (09:00→21:52)
[2022-04-16] MEDS: PANTOPRAZOLE 40 MG/10 ML VIAL INJ IV SCH ×2 (11:33→21:54)
[2022-04-16 13:00] VITALS: BP 100/54
[2022-04-16] MEDS ORDERED: ALBUMIN 25% 100 ML IV SCH (13:00)
[2022-04-16] MEDS ORDERED: VANCOMYCIN 500 MG in D5W 5% 100 ML IV ONE (16:00)
[2022-04-16 17:00] VITALS: BP 102/75
[2022-04-16] MEDS ORDERED: EPOETIN ALFA-EPBX 10,000 UNIT/1ML VIAL SC ONE (21:00)
[2022-04-16 22:00] VITALS: BP 125/46
[2022-04-17] MEDS: ACCU-CHEK COMFORT CURVE STRIP VI SCH ×5 (00:16→23:15)
[2022-04-17] MEDS: InsuLIN REG 1unit/0.01ml Soln (100units/ml) SC SCH ×5 (00:21→23:17)
[2022-04-17] MEDS: hydrALAZINE HCL 25 MG TAB GT SCH ×3 (06:00→22:45)
[2022-04-17 06:01] LABS: INR 1.08 (0.9-1.15)
[2022-04-17 08:00] VITALS: BP_SYST 126; BP_SYST 138; BP_DIAS 53; BP_DIAS 60
[2022-04-17] MEDS ORDERED: LIDOCAINE 2%HCL (LOCAL ANESTH.) INJ 10ml MDV ONE (10:27)
[2022-04-17 12:00] VITALS: BP 157/99
[2022-04-17] MEDS: PANTOPRAZOLE 40 MG/10 ML VIAL INJ IV SCH ×2 (12:05→22:46)
[2022-04-17] MEDS: amLODIPine BESYLATE 5 MG TAB GT SCH (12:07)
[2022-04-17] MEDS: METOPROLOL TARTRATE 50 MG TAB GT SCH ×2 (12:08→21:19)
[2022-04-17 16:00] VITALS: BP 129/47
[2022-04-17 21:42] VITALS: BP 122/48
[2022-04-18 04:54] VITALS: BP 144/55
[2022-04-18] MEDS: hydrALAZINE HCL 25 MG TAB GT SCH ×3 (05:05→22:05)
[2022-04-18] MEDS: ACCU-CHEK COMFORT CURVE STRIP VI SCH ×3 (05:15→17:38)
[2022-04-18] MEDS: InsuLIN REG 1unit/0.01ml Soln (100units/ml) SC SCH ×3 (05:21→17:45)
[2022-04-18 08:00] VITALS: BP 135/53
[2022-04-18] MEDS: amLODIPine BESYLATE 5 MG TAB GT SCH (10:03)
[2022-04-18] MEDS: PANTOPRAZOLE 40 MG/10 ML VIAL INJ IV SCH ×2 (10:04→22:04)
[2022-04-18 11:33] LABS: BUN/Creatinine Ratio 13.1; Calcium 8.8 mg/dL (8.5-10.1); Potassium 3.7 mmol/L (3.5-5.1)
[2022-04-18 11:54] LABS: Eosinophils # (auto) 0.2 10 ^3/uL (0-0.8); Hematocrit 28.7 % (36.0-46.0); Mean Corpuscular Hgb Conc. 31.2 g/dL (32.0-36.0); Monocytes # (auto) 0.5 10 ^3/uL (0-1.3); Neutrophils # (auto) 14.2 10 ^3/uL (1.6-8.6); Red Blood Cells 3.38 10^6/uL (4.0-5.20)
[2022-04-18 11:56] LABS: Basophils # (auto) 0.1 10 ^3/uL (0-0.2); Basophils % (auto) 0.5 % (0.0-2.0); Eosinophils % (auto) 1.1 % (0.0-7.0); Lymphocytes # (auto) 1.1 10 ^3/uL (0.4-5.4); Lymphocytes % (auto) 7.1 % (10.0-50.0); Mean Corpuscular Hemoglobin 26.5 pg (28.0-32.0); Mean Corpuscular Volume 85.1 fL (80.0-100.0); Monocytes % (auto) 2.9 % (0.0-12.0); Neutrophils % (auto) 88.4 % (37.0-80.0); Nucleated Red Blood Cells % 0.4 %; Red Cell Distribution Width 18.2 % (11.8-14.3); White Blood Cell 16.1 10^3/uL (4.4-10.8)
[2022-04-18 12:00] VITALS: BP 138/59
[2022-04-18 16:00] VITALS: BP 135/53
[2022-04-18 22:00] VITALS: BP 146/61
[2022-04-19] MEDS: ACCU-CHEK COMFORT CURVE STRIP VI SCH ×5 (00:20→23:45)
[2022-04-19] MEDS: InsuLIN REG 1unit/0.01ml Soln (100units/ml) SC SCH ×5 (00:22→23:49)
[2022-04-19 05:00] VITALS: BP 122/50
[2022-04-19] MEDS: hydrALAZINE HCL 25 MG TAB GT SCH ×3 (05:52→21:44)
[2022-04-19 08:15] VITALS: BP 119/50
[2022-04-19] MEDS: PANTOPRAZOLE 40 MG/10 ML VIAL INJ IV SCH ×2 (09:51→21:44)
[2022-04-19 12:10] VITALS: BP 137/56
[2022-04-19 16:25] VITALS: BP 128/56
[2022-04-19 22:00] VITALS: BP 138/53
[2022-04-20 05:00] VITALS: BP 155/64
[2022-04-20] MEDS: InsuLIN REG 1unit/0.01ml Soln (100units/ml) SC SCH ×4 (05:26→23:32)
[2022-04-20] MEDS: ACCU-CHEK COMFORT CURVE STRIP VI SCH ×4 (05:51→23:32)
[2022-04-20] MEDS: hydrALAZINE HCL 25 MG TAB GT SCH ×3 (05:52→21:45)
[2022-04-20] MEDS: Nepro With Carb Steady 1 Liter Bottle GT SCH (06:15)
[2022-04-20 09:00] VITALS: BP 124/32
[2022-04-20 10:05] LABS: INR 1.05 (0.9-1.15); Partial Thromboplastin Time 32.3 sec (24.6-33.4)
[2022-04-20] MEDS: PANTOPRAZOLE 40 MG/10 ML VIAL INJ IV SCH ×2 (10:14→21:45)
[2022-04-20 10:38] LABS: Basophils # (auto) 0.1 10 ^3/uL (0-0.2); Eosinophils # (auto) 0.3 10 ^3/uL (0-0.8); Lymphocytes # (auto) 1.2 10 ^3/uL (0.4-5.4); Nucleated Red Blood Cells % 0.1 %; Red Cell Distribution Width 18.5 % (11.8-14.3)
[2022-04-20 10:39] LABS: Basophils % (auto) 0.3 % (0.0-2.0); Eosinophils % (auto) 1.8 % (0.0-7.0); Hematocrit 28.5 % (36.0-46.0); Hemoglobin 8.9 g/dL (12.2-16.2); Mean Corpuscular Hemoglobin 26.2 pg (28.0-32.0); Mean Corpuscular Volume 84.3 fL (80.0-100.0); Monocytes # (auto) 0.8 10 ^3/uL (0-1.3); Neutrophils # (auto) 17.2 10 ^3/uL (1.6-8.6); Neutrophils % (auto) 87.9 % (37.0-80.0); Red Blood Cells 3.38 10^6/uL (4.0-5.20); White Blood Cell 19.6 10^3/uL (4.4-10.8)
[2022-04-20 11:03] LABS: BUN/Creatinine Ratio 15.5; Calcium 9.1 mg/dL (8.5-10.1); Potassium 4.3 mmol/L (3.5-5.1)
[2022-04-20 13:00] VITALS: BP 124/34
[2022-04-20 17:00] VITALS: BP 118/40
[2022-04-20 22:00] VITALS: BP 146/58
[2022-04-21] VITALS (7 sets, daily range): BP systolic 132–155; BP diastolic 53–71
[2022-04-21] MEDS: ACCU-CHEK COMFORT CURVE STRIP VI SCH ×3 (05:07→18:23)
[2022-04-21] MEDS: InsuLIN REG 1unit/0.01ml Soln (100units/ml) SC SCH ×3 (05:07→18:00)
[2022-04-21] MEDS: hydrALAZINE HCL 25 MG TAB GT SCH ×3 (05:08→21:58)
[2022-04-21] MEDS ORDERED: SODIUM CHL 0.9% 1000 ML BAG XX ONE (07:00)
[2022-04-21] MEDS: PANTOPRAZOLE 40 MG/10 ML VIAL INJ IV SCH ×2 (09:51→21:58)
[2022-04-21] MEDS ORDERED: MEROPENEM 500MG IVPB 50 ML IV SCH (16:00)
[2022-04-21] MEDS: MEROPENEM 500MG IVPB 50 ML IV SCH (17:13)
[2022-04-22] MEDS: InsuLIN REG 1unit/0.01ml Soln (100units/ml) SC SCH ×4 (01:14→18:02)
[2022-04-22] MEDS: ACCU-CHEK COMFORT CURVE STRIP VI SCH ×4 (01:14→17:56)
[2022-04-22 05:00] VITALS: BP 161/68
[2022-04-22] MEDS: hydrALAZINE HCL 25 MG TAB GT SCH ×3 (06:04→21:55)
[2022-04-22 08:55] VITALS: BP 136/52
[2022-04-22] MEDS: PANTOPRAZOLE 40 MG/10 ML VIAL INJ IV SCH ×2 (09:51→21:54)
[2022-04-22 13:00] VITALS: BP 142/56
[2022-04-22 16:45] VITALS: BP 156/58
[2022-04-22 17:01] VITALS: BP 148/62
[2022-04-22] MEDS: MEROPENEM 500MG IVPB 50 ML IV SCH (17:25)
[2022-04-22 21:36] VITALS: BP 143/61
[2022-04-23] MEDS: ACCU-CHEK COMFORT CURVE STRIP VI SCH ×4 (00:13→17:16)
[2022-04-23] MEDS: InsuLIN REG 1unit/0.01ml Soln (100units/ml) SC SCH ×4 (00:14→17:17)
[2022-04-23 05:03] VITALS: BP 126/49
[2022-04-23] MEDS: hydrALAZINE HCL 25 MG TAB GT SCH ×3 (05:33→22:16)
[2022-04-23 06:18] LABS: Basophils # (auto) 0.1 10 ^3/uL (0-0.2); Hemoglobin 8.2 g/dL (12.2-16.2); White Blood Cell 22.6 10^3/uL (4.4-10.8)
[2022-04-23 06:21] LABS: Basophils % (auto) 0.3 % (0.0-2.0); Eosinophils # (auto) 0.2 10 ^3/uL (0-0.8); Eosinophils % (auto) 0.9 % (0.0-7.0); Lymphocytes % (auto) 4.3 % (10.0-50.0); Mean Corpuscular Hemoglobin 26.5 pg (28.0-32.0); Mean Corpuscular Hgb Conc. 31.6 g/dL (32.0-36.0); Mean Corpuscular Volume 83.8 fL (80.0-100.0); Monocytes # (auto) 0.8 10 ^3/uL (0-1.3); Monocytes % (auto) 3.4 % (0.0-12.0); Neutrophils # (auto) 20.6 10 ^3/uL (1.6-8.6); Neutrophils % (auto) 91.1 % (37.0-80.0); Red Cell Distribution Width 18.1 % (11.8-14.3)
[2022-04-23 06:25] LABS: BUN/Creatinine Ratio 16.2; Calcium 8.9 mg/dL (8.5-10.1); Potassium 4.1 mmol/L (3.5-5.1)
[2022-04-23 08:16] VITALS: BP 120/49
[2022-04-23 12:34] VITALS: BP 141/48
[2022-04-23] MEDS ORDERED: VANCOMYCIN 1GM/250ML 250 ML IV ONE (14:30)
[2022-04-23 15:03] VITALS: BP 138/79
[2022-04-23 16:33] VITALS: BP 123/48
[2022-04-23] MEDS: MEROPENEM 500MG IVPB 50 ML IV SCH (16:44)
[2022-04-23 22:00] VITALS: BP 142/55
[2022-04-24] VITALS (7 sets, daily range): BP systolic 108–155; BP diastolic 36–61
[2022-04-24] MEDS: ACCU-CHEK COMFORT CURVE STRIP VI SCH ×4 (00:30→17:13)
[2022-04-24] MEDS: InsuLIN REG 1unit/0.01ml Soln (100units/ml) SC SCH ×4 (00:31→18:25)
[2022-04-24] MEDS: hydrALAZINE HCL 25 MG TAB GT SCH ×3 (06:49→22:17)
[2022-04-24] MEDS: MEROPENEM 500MG IVPB 50 ML IV SCH (17:44)
[2022-04-24] MEDS ORDERED: VANCOMYCIN 500 MG in D5W 5% 100 ML IV ONE (18:00)
[2022-04-25] VITALS (7 sets, daily range): BP systolic 128–143; BP diastolic 55–59
[2022-04-25] MEDS: hydrALAZINE HCL 25 MG TAB GT SCH ×3 (06:00→21:57)
[2022-04-25] MEDS: InsuLIN REG 1unit/0.01ml Soln (100units/ml) SC SCH ×5 (06:29→23:44)
[2022-04-25] MEDS: ACCU-CHEK COMFORT CURVE STRIP VI SCH ×5 (06:29→23:44)
[2022-04-25 08:07] LABS: Calcium 8.8 mg/dL (8.5-10.1); Potassium 4.2 mmol/L (3.5-5.1)
[2022-04-25 08:08] LABS: Basophils # (auto) 0.1 10 ^3/uL (0-0.2); Basophils % (auto) 0.2 % (0.0-2.0); Eosinophils # (auto) 0.4 10 ^3/uL (0-0.8); Eosinophils % (auto) 1.4 % (0.0-7.0); Hematocrit 25.1 % (36.0-46.0); Lymphocytes # (auto) 1.1 10 ^3/uL (0.4-5.4); Lymphocytes % (auto) 4.3 % (10.0-50.0); Mean Corpuscular Hemoglobin 26.4 pg (28.0-32.0); Mean Corpuscular Hgb Conc. 31.8 g/dL (32.0-36.0); Mean Corpuscular Volume 83.1 fL (80.0-100.0); Monocytes # (auto) 0.6 10 ^3/uL (0-1.3); Monocytes % (auto) 2.6 % (0.0-12.0); Neutrophils # (auto) 22.9 10 ^3/uL (1.6-8.6); Neutrophils % (auto) 91.5 % (37.0-80.0); Red Blood Cells 3.02 10^6/uL (4.0-5.20); Red Cell Distribution Width 18.6 % (11.8-14.3); White Blood Cell 25.1 10^3/uL (4.4-10.8)
[2022-04-25 08:09] LABS: BUN/Creatinine Ratio 15.4
[2022-04-25] MEDS: MEROPENEM 500MG IVPB 50 ML IV SCH (17:41)
[2022-04-25] MEDS: ACETAMINOPHEN 325 MG TAB PO PRN (23:55)
[2022-04-26] VITALS (7 sets, daily range): BP systolic 124–154; BP diastolic 58–68
[2022-04-26] MEDS: hydrALAZINE HCL 25 MG TAB GT SCH ×3 (06:00→22:00)
[2022-04-26] MEDS: InsuLIN REG 1unit/0.01ml Soln (100units/ml) SC SCH ×3 (06:28→18:32)
[2022-04-26] MEDS: ACCU-CHEK COMFORT CURVE STRIP VI SCH ×3 (06:28→18:35)
[2022-04-26] MEDS: MEROPENEM 500MG IVPB 50 ML IV SCH (16:42)
[2022-04-26] MEDS ORDERED: VANCOMYCIN 500 MG in D5W 5% 100 ML IV ONE (17:00)
[2022-04-27] VITALS (9 sets, daily range): BP systolic 90–145; BP diastolic 48–64
[2022-04-27] MEDS: ACETAMINOPHEN 325 MG TAB PO PRN ×2 (05:22→07:31)
[2022-04-27 05:29] LABS: Albumin 2.1 g/dL (3.4-5.0); Calcium 8.5 mg/dL (8.5-10.1); Potassium 4.2 mmol/L (3.5-5.1)
[2022-04-27] MEDS: hydrALAZINE HCL 25 MG TAB GT SCH ×3 (05:31→22:00)
[2022-04-27 05:45] LABS: BUN/Creatinine Ratio 16.2; Bilirubin, Total 0.9 mg/dL (0.2-1.0); Total Protein 7.9 g/dL (6.4-8.2)
[2022-04-27] MEDS: InsuLIN REG 1unit/0.01ml Soln (100units/ml) SC SCH ×4 (06:01→17:49)
[2022-04-27] MEDS: ACCU-CHEK COMFORT CURVE STRIP VI SCH ×4 (06:02→18:17)
[2022-04-27] MEDS ORDERED: SODIUM CHL 0.9% 1000 ML BAG XX ONE (06:45)
[2022-04-27 09:58] LABS: INR 1.13 (0.9-1.15)
[2022-04-27] MEDS ORDERED: LIDOCAINE 2%HCL (LOCAL ANESTH.) INJ 10ml MDV ONE (11:49)
[2022-04-27] MEDS ORDERED: HEPARIN SODIUM (PORCINE) 5000 UNITS/ML 1ML VIAL ONE (12:56)
[2022-04-27] MEDS ORDERED: MIDAZOLAM HCL 2MG/2ML 2ml VIAL (1mg/ml) ONE (12:56)
[2022-04-27] MEDS ORDERED: fentaNYL CITRATE 100 MCG/2 ML VL ONE (12:56)
[2022-04-27] MEDS: MEROPENEM 500MG IVPB 50 ML IV SCH (17:30)
[2022-04-27] MEDS ORDERED: EPOETIN ALFA-EPBX 4,000 UNIT/ML VIAL SC ONE (21:00)
[2022-04-27] MEDS ORDERED: EPOETIN ALFA-EPBX 10,000 UNIT/1ML VIAL SC ONE (21:00)
[2022-04-28 04:36] VITALS: BP 157/62
[2022-04-28] MEDS: hydrALAZINE HCL 25 MG TAB GT SCH ×2 (05:45→14:00)
[2022-04-28] MEDS: InsuLIN REG 1unit/0.01ml Soln (100units/ml) SC SCH ×5 (06:20→23:41)
[2022-04-28] MEDS: ACCU-CHEK COMFORT CURVE STRIP VI SCH ×5 (06:20→23:41)
[2022-04-28 07:16] LABS: Basophils # (auto) 0 10 ^3/uL (0-0.2); Eosinophils # (auto) 0 10 ^3/uL (0-0.8); Hematocrit 27.5 % (36.0-46.0); Monocytes # (auto) 0.3 10 ^3/uL (0-1.3)
[2022-04-28 07:18] LABS: Basophils % (auto) 0.2 % (0.0-2.0); Eosinophils % (auto) 0.4 % (0.0-7.0); Hemoglobin 8.7 g/dL (12.2-16.2); Lymphocytes # (auto) 0.6 10 ^3/uL (0.4-5.4); Lymphocytes % (auto) 4.8 % (10.0-50.0); Mean Corpuscular Hemoglobin 25.9 pg (28.0-32.0); Mean Corpuscular Hgb Conc. 31.5 g/dL (32.0-36.0); Mean Corpuscular Volume 82.1 fL (80.0-100.0); Monocytes % (auto) 2.7 % (0.0-12.0); Neutrophils # (auto) 10.8 10 ^3/uL (1.6-8.6); Neutrophils % (auto) 91.9 % (37.0-80.0); Red Blood Cells 3.35 10^6/uL (4.0-5.20); Red Cell Distribution Width 18.2 % (11.8-14.3); White Blood Cell 11.8 10^3/uL (4.4-10.8)
[2022-04-28 09:00] VITALS: BP 177/79
[2022-04-28 13:00] VITALS: BP 185/57
[2022-04-28 16:20] VITALS: BP 182/64
[2022-04-28] MEDS: ONDANSETRON HCL 4 MG/2 ML VIAL IV PRN (17:20)
[2022-04-28] MEDS: MEROPENEM 500MG IVPB 50 ML IV SCH (17:24)
[2022-04-28 21:55] VITALS: BP 166/76
[2022-04-29 05:00] VITALS: BP 142/63
[2022-04-29] MEDS: InsuLIN REG 1unit/0.01ml Soln (100units/ml) SC SCH ×3 (06:00→18:36)
[2022-04-29] MEDS: ACCU-CHEK COMFORT CURVE STRIP VI SCH ×3 (06:18→18:36)
[2022-04-29 06:35] LABS: Albumin 2.2 g/dL (3.4-5.0); Bilirubin, Direct 0.4 mg/dL (0-0.2)
[2022-04-29 06:39] LABS: Bilirubin, Total 0.6 mg/dL (0.2-1.0); Total Protein 8.1 g/dL (6.4-8.2)
[2022-04-29] MEDS ORDERED: SODIUM CHL 0.9% 1000 ML BAG XX ONE (07:00)
[2022-04-29 09:00] VITALS: BP 180/71
[2022-04-29 12:48] VITALS: BP 177/76
[2022-04-29 17:01] VITALS: BP 160/68
[2022-04-29] MEDS: MEROPENEM 500MG IVPB 50 ML IV SCH (18:36)
[2022-04-29] MEDS ORDERED: EPOETIN ALFA-EPBX 10,000 UNIT/1ML VIAL SC ONE (21:00)
[2022-04-29 22:00] VITALS: BP 162/70
[2022-04-30] VITALS (7 sets, daily range): BP systolic 135–169; BP diastolic 55–67
[2022-04-30] MEDS: ACETAMINOPHEN 325 MG TAB PO PRN ×2 (04:58→06:38)
[2022-04-30] MEDS: InsuLIN REG 1unit/0.01ml Soln (100units/ml) SC SCH ×4 (05:44→18:00)
[2022-04-30] MEDS: ACCU-CHEK COMFORT CURVE STRIP VI SCH ×4 (05:44→18:18)
[2022-04-30 06:39] LABS: Albumin 2.1 g/dL (3.4-5.0); Bilirubin, Direct 0.4 mg/dL (0-0.2)
[2022-04-30 06:45] LABS: Bilirubin, Total 0.6 mg/dL (0.2-1.0); Total Protein 7.9 g/dL (6.4-8.2)
[2022-04-30] MEDS: MEROPENEM 500MG IVPB 50 ML IV SCH (19:58)
[2022-05-01] VITALS (8 sets, daily range): BP systolic 136–197; BP diastolic 66–79
[2022-05-01] MEDS: hydrALAZINE HCL 20 MG/ML VL IV PRN (04:30)
[2022-05-01] MEDS: InsuLIN REG 1unit/0.01ml Soln (100units/ml) SC SCH ×5 (06:00→23:37)
[2022-05-01] MEDS: ACCU-CHEK COMFORT CURVE STRIP VI SCH ×5 (06:04→23:37)
[2022-05-01 07:02] LABS: Albumin 2.2 g/dL (3.4-5.0); Bilirubin, Direct 0.4 mg/dL (0-0.2); Bilirubin, Total 0.7 mg/dL (0.2-1.0); Total Protein 8.2 g/dL (6.4-8.2)
[2022-05-01] MEDS ORDERED: Nepro With Carb Steady 1 Liter Bottle GT SCH (09:15)
[2022-05-01] MEDS: MEROPENEM 500MG IVPB 50 ML IV SCH (17:03)
[2022-05-02 04:50] VITALS: BP 158/69
[2022-05-02] MEDS: InsuLIN REG 1unit/0.01ml Soln (100units/ml) SC SCH ×4 (05:40→23:43)
[2022-05-02] MEDS: ACCU-CHEK COMFORT CURVE STRIP VI SCH ×4 (05:40→23:43)
[2022-05-02 09:00] VITALS: BP 185/77
[2022-05-02] MEDS: hydrALAZINE HCL 20 MG/ML VL IV PRN (09:03)
[2022-05-02] MEDS: hydrALAZINE HCL 20 MG/ML VL IV SCH ×3 (12:00→23:14)
[2022-05-02 12:42] VITALS: BP 156/77
[2022-05-02 13:00] VITALS: BP 151/76
[2022-05-02 17:00] VITALS: BP 138/69
[2022-05-02] MEDS: MEROPENEM 500MG IVPB 50 ML IV SCH (17:55)
[2022-05-02 21:20] VITALS: BP 194/84
[2022-05-03] VITALS (7 sets, daily range): BP systolic 145–156; BP diastolic 64–74
[2022-05-03] MEDS: ACCU-CHEK COMFORT CURVE STRIP VI SCH ×3 (05:38→17:44)
[2022-05-03] MEDS: InsuLIN REG 1unit/0.01ml Soln (100units/ml) SC SCH ×3 (05:38→17:43)
[2022-05-03] MEDS: hydrALAZINE HCL 20 MG/ML VL IV SCH ×3 (05:48→17:44)
[2022-05-03 06:01] LABS: Calcium 8.3 mg/dL (8.5-10.1); Potassium 3.1 mmol/L (3.5-5.1)
[2022-05-03 06:03] LABS: BUN/Creatinine Ratio 10.6
[2022-05-03] MEDS: MEROPENEM 500MG IVPB 50 ML IV SCH (17:00)
[2022-05-04] MEDS: hydrALAZINE HCL 20 MG/ML VL IV SCH ×4 (00:30→18:01)
[2022-05-04] MEDS: ACCU-CHEK COMFORT CURVE STRIP VI SCH ×4 (00:34→17:53)
[2022-05-04 05:00] VITALS: BP 158/67
[2022-05-04] MEDS: InsuLIN REG 1unit/0.01ml Soln (100units/ml) SC SCH ×4 (06:00→17:53)
[2022-05-04 07:12] LABS: Albumin 2.1 g/dL (3.4-5.0); Bilirubin, Direct 0.3 mg/dL (0-0.2); Bilirubin, Total 0.6 mg/dL (0.2-1.0); Total Protein 7.9 g/dL (6.4-8.2)
[2022-05-04 08:00] VITALS: BP 152/80
[2022-05-04 09:00] VITALS: BP 168/78
[2022-05-04 13:00] VITALS: BP 153/69
[2022-05-04 17:00] VITALS: BP 154/68
[2022-05-04] MEDS: MEROPENEM 500MG IVPB 50 ML IV SCH (17:00)
[2022-05-04 22:00] VITALS: BP 131/67
[2022-05-05] VITALS (7 sets, daily range): BP systolic 142–174; BP diastolic 63–77
[2022-05-05] MEDS: ACCU-CHEK COMFORT CURVE STRIP VI SCH ×4 (00:52→18:30)
[2022-05-05] MEDS: hydrALAZINE HCL 20 MG/ML VL IV SCH ×4 (00:52→18:55)
[2022-05-05] MEDS: InsuLIN REG 1unit/0.01ml Soln (100units/ml) SC SCH ×4 (06:00→18:00)
[2022-05-05 06:24] LABS: Albumin 2.2 g/dL (3.4-5.0); Bilirubin, Direct 0.4 mg/dL (0-0.2); Bilirubin, Total 0.8 mg/dL (0.2-1.0); Total Protein 8.1 g/dL (6.4-8.2)
[2022-05-05] MEDS: MEROPENEM 500MG IVPB 50 ML IV SCH (18:29)
[2022-05-06] VITALS (7 sets, daily range): BP systolic 82–174; BP diastolic 42–77
[2022-05-06] MEDS: hydrALAZINE HCL 20 MG/ML VL IV SCH ×4 (00:18→18:07)
[2022-05-06] MEDS: ACCU-CHEK COMFORT CURVE STRIP VI SCH ×4 (00:18→18:07)
[2022-05-06] MEDS: InsuLIN REG 1unit/0.01ml Soln (100units/ml) SC SCH ×4 (01:31→18:09)
[2022-05-06 08:28] LABS: Basophils # (auto) 0.1 10 ^3/uL (0-0.2); Basophils % (auto) 0.2 % (0.0-2.0); Eosinophils # (auto) 0.1 10 ^3/uL (0-0.8); Eosinophils % (auto) 0.3 % (0.0-7.0); Hematocrit 28.9 % (36.0-46.0); Hemoglobin 8.8 g/dL (12.2-16.2); Lymphocytes # (auto) 0.5 10 ^3/uL (0.4-5.4); Mean Corpuscular Hemoglobin 25.7 pg (28.0-32.0); Mean Corpuscular Hgb Conc. 30.3 g/dL (32.0-36.0); Mean Corpuscular Volume 84.9 fL (80.0-100.0); Monocytes # (auto) 0.7 10 ^3/uL (0-1.3); Monocytes % (auto) 2.8 % (0.0-12.0); Neutrophils # (auto) 23.9 10 ^3/uL (1.6-8.6); Neutrophils % (auto) 94.7 % (37.0-80.0); Red Blood Cells 3.41 10^6/uL (4.0-5.20); Red Cell Distribution Width 19.7 % (11.8-14.3); White Blood Cell 25.2 10^3/uL (4.4-10.8)
[2022-05-06 08:49] LABS: Albumin 2.2 g/dL (3.4-5.0); Calcium 8.7 mg/dL (8.5-10.1); Potassium 3.3 mmol/L (3.5-5.1)
[2022-05-06 08:54] LABS: BUN/Creatinine Ratio 8.3; Bilirubin, Total 0.7 mg/dL (0.2-1.0); Total Protein 8.2 g/dL (6.4-8.2)
[2022-05-06] MEDS ORDERED: SODIUM CHL 0.9% 1000 ML BAG XX ONE (09:00)
[2022-05-06] MEDS ORDERED: ALBUMIN 25% 100 ML IV ONE (09:50)
[2022-05-06] MEDS: MEROPENEM 500MG IVPB 50 ML IV SCH (18:51)
[2022-05-06] MEDS ORDERED: EPOETIN ALFA-EPBX 10,000 UNIT/1ML VIAL SC ONE (21:00)
[2022-05-07] MEDS: hydrALAZINE HCL 20 MG/ML VL IV SCH ×4 (00:31→17:52)
[2022-05-07] MEDS: InsuLIN REG 1unit/0.01ml Soln (100units/ml) SC SCH ×4 (00:52→17:42)
[2022-05-07 05:00] VITALS: BP 151/66
[2022-05-07] MEDS: ACCU-CHEK COMFORT CURVE STRIP VI SCH ×4 (06:07→17:42)
[2022-05-07 09:00] VITALS: BP 140/68
[2022-05-07 13:00] VITALS: BP 132/64
[2022-05-07] MEDS: METOCLOPRAMIDE HCL 5MG/ml INJ 2ml VIAL IV SCH ×2 (13:09→21:40)
[2022-05-07 17:00] VITALS: BP 120/61
[2022-05-07] MEDS: MEROPENEM 500MG IVPB 50 ML IV SCH (17:44)
[2022-05-07 22:00] VITALS: BP 95/26
[2022-05-08] VITALS (8 sets, daily range): BP systolic 116–168; BP diastolic 49–71
[2022-05-08] MEDS: ACCU-CHEK COMFORT CURVE STRIP VI SCH ×4 (00:21→16:41)
[2022-05-08] MEDS: InsuLIN REG 1unit/0.01ml Soln (100units/ml) SC SCH ×4 (06:00→16:42)
[2022-05-08] MEDS: METOCLOPRAMIDE HCL 5MG/ml INJ 2ml VIAL IV SCH ×3 (06:22→22:16)
[2022-05-08] MEDS: hydrALAZINE HCL 20 MG/ML VL IV SCH ×4 (06:22→16:50)
[2022-05-08] MEDS: ONDANSETRON HCL 4 MG/2 ML VIAL IV PRN (06:23)
[2022-05-08] MEDS: PANTOPRAZOLE 40 MG/10 ML VIAL INJ IV SCH (16:49)
[2022-05-09] MEDS: hydrALAZINE HCL 20 MG/ML VL IV SCH ×5 (01:10→23:21)
[2022-05-09 05:00] VITALS: BP 163/69
[2022-05-09 05:46] LABS: Basophils # (auto) 0.1 10 ^3/uL (0-0.2); Basophils % (auto) 0.5 % (0.0-2.0); Eosinophils # (auto) 0 10 ^3/uL (0-0.8); Hemoglobin 7.8 g/dL (12.2-16.2); Lymphocytes # (auto) 0.9 10 ^3/uL (0.4-5.4); Mean Corpuscular Volume 84.2 fL (80.0-100.0); Monocytes # (auto) 0.6 10 ^3/uL (0-1.3)
[2022-05-09 05:48] LABS: Eosinophils % (auto) 0.1 % (0.0-7.0); Hematocrit 24.7 % (36.0-46.0); Lymphocytes % (auto) 8.1 % (10.0-50.0); Mean Corpuscular Hemoglobin 26.5 pg (28.0-32.0); Mean Corpuscular Hgb Conc. 31.5 g/dL (32.0-36.0); Monocytes % (auto) 5.1 % (0.0-12.0); Neutrophils # (auto) 9.5 10 ^3/uL (1.6-8.6); Neutrophils % (auto) 86.2 % (37.0-80.0); Red Blood Cells 2.93 10^6/uL (4.0-5.20)
[2022-05-09] MEDS: InsuLIN REG 1unit/0.01ml Soln (100units/ml) SC SCH ×5 (06:00→23:23)
[2022-05-09] MEDS: ACCU-CHEK COMFORT CURVE STRIP VI SCH ×5 (06:00→23:21)
[2022-05-09 06:06] LABS: Potassium 3.1 mmol/L (3.5-5.1)
[2022-05-09 06:11] LABS: Albumin 2.2 g/dL (3.4-5.0); BUN/Creatinine Ratio 8.7; Bilirubin, Total 0.7 mg/dL (0.2-1.0); Calcium 8.1 mg/dL (8.5-10.1); Phosphorus 2.8 mg/dL (2.5-4.90); Total Protein 7.3 g/dL (6.4-8.2)
[2022-05-09] MEDS: METOCLOPRAMIDE HCL 5MG/ml INJ 2ml VIAL IV SCH ×3 (06:32→22:42)
[2022-05-09] MEDS ORDERED: SODIUM CHL 0.9% 1000 ML BAG XX ONE (07:00)
[2022-05-09 09:23] VITALS: BP 179/73
[2022-05-09] MEDS ORDERED: POTASSIUM CHL 20MEQ/100ML 100 ML IV ONE (11:15)
[2022-05-09 13:00] VITALS: BP 169/65
[2022-05-09] MEDS: PANTOPRAZOLE 40 MG/10 ML VIAL INJ IV SCH (13:53)
[2022-05-09] MEDS: ONDANSETRON HCL 4 MG/2 ML VIAL IV PRN (17:17)
[2022-05-09 17:18] VITALS: BP 136/54
[2022-05-09 20:00] VITALS: BP 136/53
[2022-05-09] MEDS ORDERED: EPOETIN ALFA-EPBX 10,000 UNIT/1ML VIAL SC ONE (21:00)
[2022-05-09 22:00] VITALS: BP 160/72
[2022-05-10 05:00] VITALS: BP 154/67
[2022-05-10] MEDS: ACCU-CHEK COMFORT CURVE STRIP VI SCH ×3 (05:52→17:48)
[2022-05-10] MEDS: METOCLOPRAMIDE HCL 5MG/ml INJ 2ml VIAL IV SCH (05:52)
[2022-05-10] MEDS: hydrALAZINE HCL 20 MG/ML VL IV SCH ×3 (05:52→17:47)
[2022-05-10] MEDS: InsuLIN REG 1unit/0.01ml Soln (100units/ml) SC SCH ×3 (06:00→17:50)
[2022-05-10 08:00] VITALS: BP 159/68
[2022-05-10 08:57] VITALS: BP 159/68
[2022-05-10] MEDS: PANTOPRAZOLE 40 MG/10 ML VIAL INJ IV SCH (12:08)
[2022-05-10 13:13] VITALS: BP 144/62
[2022-05-10 16:46] VITALS: BP 134/54
[2022-05-10 19:56] VITALS: BP 159/68
[2022-05-10] MEDS ORDERED: EPOETIN ALFA-EPBX 10,000 UNIT/1ML VIAL SC ONE (21:00)
[2022-05-11] VITALS (7 sets, daily range): BP systolic 130–141; BP diastolic 55–67
[2022-05-11] MEDS: ACCU-CHEK COMFORT CURVE STRIP VI SCH ×5 (00:09→23:47)
[2022-05-11] MEDS: InsuLIN REG 1unit/0.01ml Soln (100units/ml) SC SCH ×5 (00:09→23:54)
[2022-05-11] MEDS: hydrALAZINE HCL 20 MG/ML VL IV SCH ×5 (00:23→23:48)
[2022-05-11] MEDS: PANTOPRAZOLE 40 MG/10 ML VIAL INJ IV SCH (09:44)
[2022-05-12 05:00] VITALS: BP 147/60
[2022-05-12] MEDS: ACCU-CHEK COMFORT CURVE STRIP VI SCH ×3 (05:32→18:00)
[2022-05-12] MEDS: hydrALAZINE HCL 20 MG/ML VL IV SCH ×3 (05:33→18:00)
[2022-05-12] MEDS: InsuLIN REG 1unit/0.01ml Soln (100units/ml) SC SCH ×3 (05:47→19:11)
[2022-05-12] MEDS ORDERED: SODIUM CHL 0.9% 1000 ML BAG XX ONE (07:00)
[2022-05-12 09:00] VITALS: BP 111/39
[2022-05-12] MEDS: PANTOPRAZOLE 40 MG/10 ML VIAL INJ IV SCH (09:54)
[2022-05-12] MEDS: B-COMPLEX W/ C & FOLIC ACID(NEPHROVITE TAB) NG SCH ×2 (09:54→10:00)
[2022-05-12] MEDS ORDERED: ALBUMIN 25% 100 ML IV PRN (11:00)
[2022-05-12] MEDS ORDERED: ACETAMINOPHEN 650 mg PER 20.3 mL UD GT PRN (13:00)
[2022-05-12 17:00] VITALS: BP 95/52
[2022-05-12] MEDS ORDERED: EPOETIN ALFA-EPBX 10,000 UNIT/1ML VIAL SC ONE (21:00)
[2022-05-12 22:00] VITALS: BP 131/57
[2022-05-13] VITALS (8 sets, daily range): BP systolic 137–157; BP diastolic 48–68
[2022-05-13] MEDS: ACCU-CHEK COMFORT CURVE STRIP VI SCH ×5 (00:19→23:44)
[2022-05-13] MEDS: hydrALAZINE HCL 20 MG/ML VL IV SCH ×5 (00:19→23:43)
[2022-05-13] MEDS: InsuLIN REG 1unit/0.01ml Soln (100units/ml) SC SCH ×5 (00:33→23:51)
[2022-05-13 06:52] LABS: Basophils # (auto) 0.1 10 ^3/uL (0-0.2); Basophils % (auto) 0.4 % (0.0-2.0); Eosinophils # (auto) 0.1 10 ^3/uL (0-0.8); Eosinophils % (auto) 0.6 % (0.0-7.0); Hematocrit 24.7 % (36.0-46.0); Hemoglobin 7.5 g/dL (12.2-16.2); Lymphocytes # (auto) 1.2 10 ^3/uL (0.4-5.4); Lymphocytes % (auto) 6.8 % (10.0-50.0); Mean Corpuscular Hemoglobin 26.9 pg (28.0-32.0); Mean Corpuscular Hgb Conc. 30.3 g/dL (32.0-36.0); Mean Corpuscular Volume 88.7 fL (80.0-100.0); Monocytes # (auto) 0.7 10 ^3/uL (0-1.3); Monocytes % (auto) 3.9 % (0.0-12.0); Neutrophils # (auto) 16.1 10 ^3/uL (1.6-8.6); Neutrophils % (auto) 88.3 % (37.0-80.0); Nucleated Red Blood Cells % 0.2 %; Potassium 3.9 mmol/L (3.5-5.1); Red Blood Cells 2.79 10^6/uL (4.0-5.20); Red Cell Distribution Width 19.9 % (11.8-14.3); White Blood Cell 18.3 10^3/uL (4.4-10.8)
[2022-05-13 07:01] LABS: Albumin 2.3 g/dL (3.4-5.0); BUN/Creatinine Ratio 11.1; Bilirubin, Total 0.6 mg/dL (0.2-1.0); Calcium 9.1 mg/dL (8.5-10.1); Total Protein 7.4 g/dL (6.4-8.2)
[2022-05-13] MEDS: B-COMPLEX W/ C & FOLIC ACID(NEPHROVITE TAB) NG SCH (10:00)
[2022-05-13] MEDS: PANTOPRAZOLE 40 MG/10 ML VIAL INJ IV SCH (10:28)
[2022-05-13] MEDS ORDERED: GASTROGRAFIN 30 ML SOL ONE (16:48)
[2022-05-14] VITALS (82 sets, daily range): BP systolic 51–188; BP diastolic 28–72
[2022-05-14] MEDS ORDERED: ALBUMIN 5% 250 ML IV ONE (04:15)
[2022-05-14] MEDS ORDERED: NOREPINEPHRINE 8 MG/250ML KIT 250 ML IV ONE (05:03)
[2022-05-14] MEDS: NOREPINEPHRINE 8 MG/250ML KIT 250 ML IV SCH (05:05)
[2022-05-14] MEDS: InsuLIN REG 1unit/0.01ml Soln (100units/ml) SC SCH ×4 (06:00→23:36)
[2022-05-14] MEDS: ACCU-CHEK COMFORT CURVE STRIP VI SCH ×4 (06:22→23:36)
[2022-05-14] MEDS ORDERED: SODIUM CHL 0.9% 1000 ML BAG XX ONE (07:00)
[2022-05-14] MEDS: PANTOPRAZOLE 40 MG/10 ML VIAL INJ IV SCH (09:38)
[2022-05-14] MEDS: B-COMPLEX W/ C & FOLIC ACID(NEPHROVITE TAB) NG SCH (09:38)
[2022-05-14] MEDS: hydrALAZINE HCL 20 MG/ML VL IV SCH ×4 (11:40→23:35)
[2022-05-14] MEDS ORDERED: EPOETIN ALFA-EPBX 10,000 UNIT/1ML VIAL SC ONE (21:00)
[2022-05-15] VITALS (97 sets, daily range): BP systolic 79–172; BP diastolic 39–73
[2022-05-15] MEDS: NOREPINEPHRINE 8 MG/250ML KIT 250 ML IV SCH (05:00)
[2022-05-15] MEDS: ACCU-CHEK COMFORT CURVE STRIP VI SCH ×3 (05:26→18:24)
[2022-05-15] MEDS: hydrALAZINE HCL 20 MG/ML VL IV SCH ×3 (05:26→17:37)
[2022-05-15] MEDS: InsuLIN REG 1unit/0.01ml Soln (100units/ml) SC SCH ×3 (05:41→18:26)
[2022-05-15] MEDS: B-COMPLEX W/ C & FOLIC ACID(NEPHROVITE TAB) NG SCH (12:15)
[2022-05-15] MEDS: PANTOPRAZOLE 40 MG/10 ML VIAL INJ IV SCH (12:15)
[2022-05-16] VITALS (54 sets, daily range): BP systolic 104–167; BP diastolic 51–78
[2022-05-16 03:29] LABS: Basophils # (auto) 0 10 ^3/uL (0-0.2); Basophils % (auto) 0.2 % (0.0-2.0); Eosinophils # (auto) 0 10 ^3/uL (0-0.8); Monocytes # (auto) 0.4 10 ^3/uL (0-1.3); Nucleated Red Blood Cells % 0.1 %; Red Cell Distribution Width 18.9 % (11.8-14.3)
[2022-05-16 03:31] LABS: Hematocrit 22.2 % (36.0-46.0); Lymphocytes # (auto) 0.8 10 ^3/uL (0.4-5.4); Lymphocytes % (auto) 4.1 % (10.0-50.0); Mean Corpuscular Hemoglobin 26.3 pg (28.0-32.0); Mean Corpuscular Volume 84.9 fL (80.0-100.0); Monocytes % (auto) 2.3 % (0.0-12.0); Neutrophils % (auto) 93.4 % (37.0-80.0); Red Blood Cells 2.62 10^6/uL (4.0-5.20); White Blood Cell 19.3 10^3/uL (4.4-10.8)
[2022-05-16 03:42] LABS: Hemoglobin 6.9 g/dL (12.2-16.2)
[2022-05-16 03:48] LABS: BUN/Creatinine Ratio 28.1; Calcium 8.6 mg/dL (8.5-10.1); Phosphorus 4.2 mg/dL (2.5-4.90); Potassium 3.6 mmol/L (3.5-5.1)
[2022-05-16] MEDS: NOREPINEPHRINE 8 MG/250ML KIT 250 ML IV SCH (05:00)
[2022-05-16] MEDS: Nepro With Carb Steady 1 Liter Bottle GT SCH (05:44)
[2022-05-16] MEDS: hydrALAZINE HCL 20 MG/ML VL IV SCH ×5 (06:00→23:53)
[2022-05-16] MEDS: B-COMPLEX W/ C & FOLIC ACID(NEPHROVITE TAB) NG SCH (09:10)
[2022-05-16] MEDS: PANTOPRAZOLE 40 MG/10 ML VIAL INJ IV SCH (09:32)
[2022-05-16] MEDS ORDERED: cloNIDine 0.3 mg/24hr 7DAY PATCH TD SCH (20:00)
[2022-05-16] MEDS: METOCLOPRAMIDE HCL 5MG/ml INJ 2ml VIAL IV SCH (21:56)
[2022-05-17 05:00] VITALS: BP 146/69
[2022-05-17] MEDS: METOCLOPRAMIDE HCL 5MG/ml INJ 2ml VIAL IV SCH ×3 (05:31→21:30)
[2022-05-17] MEDS: hydrALAZINE HCL 20 MG/ML VL IV SCH ×4 (05:31→23:53)
[2022-05-17 08:15] VITALS: BP 131/63
[2022-05-17] MEDS: B-COMPLEX W/ C & FOLIC ACID(NEPHROVITE TAB) NG SCH (09:33)
[2022-05-17] MEDS: PANTOPRAZOLE 40 MG/10 ML VIAL INJ IV SCH (09:33)
[2022-05-17 12:15] VITALS: BP 116/66
[2022-05-17 16:35] VITALS: BP 100/55
[2022-05-17 19:30] VITALS: BP 100/55
[2022-05-17 22:00] VITALS: BP 119/59
[2022-05-17] MEDS: Nepro With Carb Steady 1 Liter Bottle GT SCH (23:18)
[2022-05-18 05:00] VITALS: BP 97/48
[2022-05-18] MEDS: hydrALAZINE HCL 20 MG/ML VL IV SCH ×4 (05:10→23:26)
[2022-05-18 05:28] LABS: Albumin 2.2 g/dL (3.4-5.0); BUN/Creatinine Ratio 31.8; Calcium 8.1 mg/dL (8.5-10.1); Potassium 3.9 mmol/L (3.5-5.1)
[2022-05-18 05:31] LABS: Bilirubin, Total 0.6 mg/dL (0.2-1.0)
[2022-05-18] MEDS: METOCLOPRAMIDE HCL 5MG/ml INJ 2ml VIAL IV SCH ×3 (05:31→22:09)
[2022-05-18 05:33] LABS: Basophils # (auto) 0 10 ^3/uL (0-0.2); Eosinophils # (auto) 0 10 ^3/uL (0-0.8); Hemoglobin 7.2 g/dL (12.2-16.2); Lymphocytes # (auto) 0.3 10 ^3/uL (0.4-5.4); Monocytes # (auto) 0.1 10 ^3/uL (0-1.3); Nucleated Red Blood Cells % 0.2 %
[2022-05-18 05:35] LABS: Basophils % (auto) 0.2 % (0.0-2.0); Hematocrit 22.5 % (36.0-46.0); Lymphocytes % (auto) 3.6 % (10.0-50.0); Mean Corpuscular Hemoglobin 27.5 pg (28.0-32.0); Mean Corpuscular Volume 85.9 fL (80.0-100.0); Monocytes % (auto) 0.9 % (0.0-12.0); Neutrophils # (auto) 8.1 10 ^3/uL (1.6-8.6); Neutrophils % (auto) 95.3 % (37.0-80.0); Red Blood Cells 2.62 10^6/uL (4.0-5.20); Red Cell Distribution Width 19.6 % (11.8-14.3); White Blood Cell 8.5 10^3/uL (4.4-10.8)
[2022-05-18] MEDS ORDERED: ALBUMIN 25% 50 ML IV ONE (07:15)
[2022-05-18 09:00] VITALS: BP 121/65
[2022-05-18] MEDS: B-COMPLEX W/ C & FOLIC ACID(NEPHROVITE TAB) NG SCH (10:00)
[2022-05-18] MEDS: PANTOPRAZOLE 40 MG/10 ML VIAL INJ IV SCH (10:04)
[2022-05-18] MEDS: ACCU-CHEK COMFORT CURVE STRIP VI SCH ×2 (11:56→16:38)
[2022-05-18] MEDS: InsuLIN REG 1unit/0.01ml Soln (100units/ml) SC SCH ×2 (11:59→17:30)
[2022-05-18 13:00] VITALS: BP 102/47
[2022-05-18 17:20] VITALS: BP 101/45
[2022-05-18] MEDS: ALBUMIN 25% 50 ML IV SCH (21:59)
[2022-05-18 22:00] VITALS: BP 69/35
[2022-05-18] MEDS ORDERED: InsuLIN REG 1unit/0.01ml Soln (100units/ml) SC SCH (22:00)
[2022-05-18] MEDS ORDERED: SODIUM CHLORIDE 0.9% 500 ML IV ONE (22:00)
[2022-05-18 23:58] VITALS: BP 68/32
[2022-05-19] VITALS (66 sets, daily range): BP systolic 47–166; BP diastolic 20–55
[2022-05-19] MEDS ORDERED: ACCU-CHEK COMFORT CURVE STRIP VI SCH
[2022-05-19] MEDS: ACCU-CHEK COMFORT CURVE STRIP VI SCH ×4 (00:12→18:13)
[2022-05-19] MEDS: InsuLIN REG 1unit/0.01ml Soln (100units/ml) SC SCH ×4 (00:15→18:00)
[2022-05-19] MEDS: ALBUMIN 25% 50 ML IV SCH ×4 (03:32→22:00)
[2022-05-19] MEDS: hydrALAZINE HCL 20 MG/ML VL IV SCH ×4 (05:58→22:42)
[2022-05-19] MEDS: METOCLOPRAMIDE HCL 5MG/ml INJ 2ml VIAL IV SCH (06:06)
[2022-05-19] MEDS ORDERED: SODIUM CHLORIDE 0.9% 1,000 ML IV SCH (07:00)
[2022-05-19] MEDS ORDERED: SODIUM CHL 0.9% 1000 ML BAG XX ONE (07:00)
[2022-05-19] MEDS: B-COMPLEX W/ C & FOLIC ACID(NEPHROVITE TAB) NG SCH (10:00)
[2022-05-19] MEDS ORDERED: SODIUM CHLORIDE 0.9% 500 ML IV ONE (11:30)
[2022-05-19] MEDS: PANTOPRAZOLE 40 MG/10 ML VIAL INJ IV SCH (12:28)
[2022-05-19] MEDS ORDERED: NOREPINEPHRINE 8 MG/250ML KIT 250 ML IV ONE (18:56)
[2022-05-19] MEDS: NOREPINEPHRINE 8 MG/250ML KIT 250 ML IV SCH (19:18)
[2022-05-19] MEDS ORDERED: EPOETIN ALFA-EPBX 10,000 UNIT/1ML VIAL SC ONE (21:00)
[2022-05-20] VITALS (112 sets, daily range): BP systolic 48–183; BP diastolic 21–110
[2022-05-20] MEDS: InsuLIN REG 1unit/0.01ml Soln (100units/ml) SC SCH ×4 (00:47→18:00)
[2022-05-20] MEDS: ACCU-CHEK COMFORT CURVE STRIP VI SCH ×4 (00:47→18:12)
[2022-05-20] MEDS: NOREPINEPHRINE 8 MG/250ML KIT 250 ML IV SCH ×2 (03:00→09:29)
[2022-05-20] MEDS: ALBUMIN 25% 50 ML IV SCH ×3 (04:00→15:18)
[2022-05-20] MEDS: hydrALAZINE HCL 20 MG/ML VL IV SCH ×3 (06:00→18:00)
[2022-05-20] MEDS: B-COMPLEX W/ C & FOLIC ACID(NEPHROVITE TAB) NG SCH (10:00)
[2022-05-20 11:18] LABS: Basophils # (auto) 0 10 ^3/uL (0-0.2); Eosinophils # (auto) 0 10 ^3/uL (0-0.8); Hematocrit 25.4 % (36.0-46.0); Lymphocytes # (auto) 0.4 10 ^3/uL (0.4-5.4)
[2022-05-20 11:20] LABS: Basophils % (auto) 0.3 % (0.0-2.0); Eosinophils % (auto) 0.4 % (0.0-7.0); Hemoglobin 7.5 g/dL (12.2-16.2); Lymphocytes % (auto) 5.7 % (10.0-50.0); Mean Corpuscular Hemoglobin 26.3 pg (28.0-32.0); Mean Corpuscular Hgb Conc. 29.6 g/dL (32.0-36.0); Mean Corpuscular Volume 88.8 fL (80.0-100.0); Monocytes # (auto) 0.1 10 ^3/uL (0-1.3); Monocytes % (auto) 1.2 % (0.0-12.0); Neutrophils # (auto) 6.6 10 ^3/uL (1.6-8.6); Neutrophils % (auto) 92.4 % (37.0-80.0); Nucleated Red Blood Cells % 0.4 %; Red Blood Cells 2.86 10^6/uL (4.0-5.20); Red Cell Distribution Width 19.7 % (11.8-14.3); White Blood Cell 7.2 10^3/uL (4.4-10.8)
[2022-05-20 11:31] LABS: Albumin 2.3 g/dL (3.4-5.0); Calcium 8.7 mg/dL (8.5-10.1)
[2022-05-20 11:34] LABS: BUN/Creatinine Ratio 28.1; Bilirubin, Total 0.7 mg/dL (0.2-1.0); Total Protein 6.8 g/dL (6.4-8.2)
[2022-05-20 11:47] LABS: INR 1.37 (0.9-1.15); Partial Thromboplastin Time 47.9 sec (24.6-33.4)
[2022-05-20 11:54] LABS: Potassium 2.9 mmol/L (3.5-5.1)
[2022-05-20] MEDS: DEXTROSE (50%) 50ML SYRG IV PRN ×2 (12:59→18:13)
[2022-05-20] MEDS ORDERED: POTASSIUM EFFERVESENT TAB 25 MEQ PO ONE (13:00)
[2022-05-20] MEDS ORDERED: NOREPINEPHRINE BITARTRATE 32 MG in SODIUM CHL 0.9% 218 ML IV SCH (15:00)
[2022-05-20] MEDS ORDERED: NOREPINEPHRINE 8 MG/250ML KIT 250 ML IV ONE (15:06)
[2022-05-20] MEDS: PANTOPRAZOLE 40 MG/10 ML VIAL INJ IV SCH (15:30)
[2022-05-20] MEDS ORDERED: SODIUM CHLORIDE 0.9% 250 ML IV ONE (16:00)
[2022-05-20] MEDS ORDERED: VASOPRESSIN 50 UNITS in D5W 5% 247.5 ML IV SCH (16:15)
[2022-05-20] MEDS ORDERED: ALBUMIN 25% 50 ML IV ONE (16:15)
[2022-05-20] MEDS ORDERED: SODIUM BICARBONATE 8.4 % INJ 50ML VIAL IV ONE ×2 (17:06→17:15)
[2022-05-21] VITALS (39 sets, daily range): BP systolic 25–122; BP diastolic 11–51
[2022-05-21] MEDS: ACCU-CHEK COMFORT CURVE STRIP VI SCH ×2 (00:02→06:00)
[2022-05-21] MEDS: DEXTROSE (50%) 50ML SYRG IV PRN ×2 (00:04→05:56)
[2022-05-21] MEDS ORDERED: SODIUM BICARBONATE 8.4 % INJ 50ML VIAL IV ONE ×3 (03:00→07:15)
[2022-05-21] MEDS ORDERED: PHENYLEPHRINE INJ 80 MG in SODIUM CHL 0.9% 242 ML IV SCH (03:00)
[2022-05-21] MEDS ORDERED: PHENYLEPHRINE IV 250 ML IV ONE (03:01)
[2022-05-21] MEDS ORDERED: PHENYLEPHRINE HCL 10 MG/ML VL ONE (03:06)
[2022-05-21] MEDS: hydrALAZINE HCL 20 MG/ML VL IV SCH ×2 (05:55)
[2022-05-21] MEDS: InsuLIN REG 1unit/0.01ml Soln (100units/ml) SC SCH ×2 (05:55)
[2022-05-21 06:00] LABS: Potassium 3.5 mmol/L (3.5-5.1)
[2022-05-21 06:24] LABS: Albumin 2.4 g/dL (3.4-5.0); Calcium 9.4 mg/dL (8.5-10.1)
[2022-05-21 06:26] LABS: Bilirubin, Total 0.6 mg/dL (0.2-1.0); Total Protein 6.2 g/dL (6.4-8.2)
== END 2022-05-21 14:40 | DRG 3 ==
LOC: EDBD 23:26 → ER 23:36 → TELE 11-08 04:42 → ER 11-08 05:10 → TELE-WESTW 11-08 06:29 → ICU WEST 11-28 20:13 → TELE-CENTR 01-30 15:01 → ICU WEST 03-09 12:14 → DOU IN ICU 03-10 18:27 → TELE-CENTR 03-26 08:30 → ICU CENTRL 05-14 04:55 → TELE-EAST 05-16 19:05 → DOU IN ICU 05-19 18:13 → ICU CENTRL 05-21 05:25
PROVIDERS: ADMIT Nurse Practitioner Family; ATTEND Nurse Practitioner
PROC: 5A1D70Z Performance of Urinary Filtration, Intermittent, Less than 6 Hours Per Day (ICD-10-PCS; 2021-11-11)
PROC: 5A1D70Z Performance of Urinary Filtration, Intermittent, Less than 6 Hours Per Day (ICD-10-PCS; 2021-11-13)
PROC: 0JPT3XZ Removal of Tunneled Vascular Access Device from Trunk Subcutaneous Tissue and Fascia, Percutaneous Approach (ICD-10-PCS; 2021-11-13)
PROC: 02PY33Z Removal of Infusion Device from Great Vessel, Percutaneous Approach (ICD-10-PCS; 2021-11-13)
PROC: 0W9B3ZZ Drainage of Left Pleural Cavity, Percutaneous Approach (ICD-10-PCS; 2021-11-14)
PROC: B54MZZA Ultrasonography of Right Upper Extremity Veins, Guidance (ICD-10-PCS; 2021-11-18)
PROC: 05HB33Z Insertion of Infusion Device into Right Basilic Vein, Percutaneous Approach (ICD-10-PCS; 2021-11-18)
PROC: 0W9B3ZZ Drainage of Left Pleural Cavity, Percutaneous Approach (ICD-10-PCS; 2021-11-20)
PROC: 5A1D70Z Performance of Urinary Filtration, Intermittent, Less than 6 Hours Per Day (ICD-10-PCS; 2021-11-21)
PROC: 0JH63XZ Insertion of Tunneled Vascular Access Device into Chest Subcutaneous Tissue and Fascia, Percutaneous Approach (ICD-10-PCS; 2021-11-21)
PROC: 02H633Z Insertion of Infusion Device into Right Atrium, Percutaneous Approach (ICD-10-PCS; 2021-11-21)
PROC: B5181ZA Fluoroscopy of Superior Vena Cava using Low Osmolar Contrast, Guidance (ICD-10-PCS; 2021-11-21)
PROC: B548ZZA Ultrasonography of Superior Vena Cava, Guidance (ICD-10-PCS; 2021-11-21)
PROC: 5A1D70Z Performance of Urinary Filtration, Intermittent, Less than 6 Hours Per Day (ICD-10-PCS; 2021-11-24)
PROC: 0W9B3ZZ Drainage of Left Pleural Cavity, Percutaneous Approach (ICD-10-PCS; 2021-11-25)
PROC: 5A1D70Z Performance of Urinary Filtration, Intermittent, Less than 6 Hours Per Day (ICD-10-PCS; 2021-11-26)
PROC: 5A12012 Performance of Cardiac Output, Single, Manual (ICD-10-PCS; 2021-11-28)
PROC: 5A1955Z Respiratory Ventilation, Greater than 96 Consecutive Hours (ICD-10-PCS; 2021-11-28)
PROC: 0BH17EZ Insertion of Endotracheal Airway into Trachea, Via Natural or Artificial Opening (ICD-10-PCS; 2021-11-28)
PROC: 5A1D70Z Performance of Urinary Filtration, Intermittent, Less than 6 Hours Per Day (ICD-10-PCS; 2021-11-28)
PROC: 30233N1 Transfusion of Nonautologous Red Blood Cells into Peripheral Vein, Percutaneous Approach (ICD-10-PCS; 2021-12-01)
PROC: 5A1D70Z Performance of Urinary Filtration, Intermittent, Less than 6 Hours Per Day (ICD-10-PCS; 2021-12-01)
PROC: 5A1D70Z Performance of Urinary Filtration, Intermittent, Less than 6 Hours Per Day (ICD-10-PCS; 2021-12-03)
PROC: 06HY33Z Insertion of Infusion Device into Lower Vein, Percutaneous Approach (ICD-10-PCS; 2021-12-03)
PROC: 5A1D70Z Performance of Urinary Filtration, Intermittent, Less than 6 Hours Per Day (ICD-10-PCS; 2021-12-05)
PROC: 5A1D70Z Performance of Urinary Filtration, Intermittent, Less than 6 Hours Per Day (ICD-10-PCS; 2021-12-09)
PROC: 5A1D70Z Performance of Urinary Filtration, Intermittent, Less than 6 Hours Per Day (ICD-10-PCS; 2021-12-11)
PROC: 5A1D70Z Performance of Urinary Filtration, Intermittent, Less than 6 Hours Per Day (ICD-10-PCS; 2021-12-13)
PROC: 5A1D70Z Performance of Urinary Filtration, Intermittent, Less than 6 Hours Per Day (ICD-10-PCS; 2021-12-16)
PROC: 5A1D70Z Performance of Urinary Filtration, Intermittent, Less than 6 Hours Per Day (ICD-10-PCS; 2021-12-19)
PROC: 5A1D70Z Performance of Urinary Filtration, Intermittent, Less than 6 Hours Per Day (ICD-10-PCS; 2021-12-21)
PROC: 5A1D70Z Performance of Urinary Filtration, Intermittent, Less than 6 Hours Per Day (ICD-10-PCS; 2021-12-23)
PROC: 0B110F4 Bypass Trachea to Cutaneous with Tracheostomy Device, Open Approach (ICD-10-PCS; 2021-12-25)
PROC: 5A1D70Z Performance of Urinary Filtration, Intermittent, Less than 6 Hours Per Day (ICD-10-PCS; 2021-12-26)
PROC: 5A1D70Z Performance of Urinary Filtration, Intermittent, Less than 6 Hours Per Day (ICD-10-PCS; 2021-12-31)
PROC: 5A1D70Z Performance of Urinary Filtration, Intermittent, Less than 6 Hours Per Day (ICD-10-PCS; 2022-01-02)
PROC: 5A1D70Z Performance of Urinary Filtration, Intermittent, Less than 6 Hours Per Day (ICD-10-PCS; 2022-01-06)
PROC: 5A1D70Z Performance of Urinary Filtration, Intermittent, Less than 6 Hours Per Day (ICD-10-PCS; 2022-01-07)
PROC: 5A1D70Z Performance of Urinary Filtration, Intermittent, Less than 6 Hours Per Day (ICD-10-PCS; 2022-01-08)
PROC: 0QB10ZZ Excision of Sacrum, Open Approach (ICD-10-PCS; principal; 2022-01-09 12:24)
PROC: 5A1D70Z Performance of Urinary Filtration, Intermittent, Less than 6 Hours Per Day (ICD-10-PCS; 2022-01-12)
PROC: 5A1D70Z Performance of Urinary Filtration, Intermittent, Less than 6 Hours Per Day (ICD-10-PCS; 2022-01-13)
PROC: 5A1D70Z Performance of Urinary Filtration, Intermittent, Less than 6 Hours Per Day (ICD-10-PCS; 2022-01-14)
PROC: 5A1D70Z Performance of Urinary Filtration, Intermittent, Less than 6 Hours Per Day (ICD-10-PCS; 2022-01-16)
PROC: 05HD33Z Insertion of Infusion Device into Right Cephalic Vein, Percutaneous Approach (ICD-10-PCS; 2022-01-16)
PROC: B54MZZA Ultrasonography of Right Upper Extremity Veins, Guidance (ICD-10-PCS; 2022-01-16)
PROC: 5A1D70Z Performance of Urinary Filtration, Intermittent, Less than 6 Hours Per Day (ICD-10-PCS; 2022-01-18)
PROC: 06HY33Z Insertion of Infusion Device into Lower Vein, Percutaneous Approach (ICD-10-PCS; 2022-01-18)
PROC: 5A1D70Z Performance of Urinary Filtration, Intermittent, Less than 6 Hours Per Day (ICD-10-PCS; 2022-01-20)
PROC: 5A1D70Z Performance of Urinary Filtration, Intermittent, Less than 6 Hours Per Day (ICD-10-PCS; 2022-01-21)
PROC: 5A1D70Z Performance of Urinary Filtration, Intermittent, Less than 6 Hours Per Day (ICD-10-PCS; 2022-01-22)
PROC: 0D20XUZ Change Feeding Device in Upper Intestinal Tract, External Approach (ICD-10-PCS; 2022-01-23)
PROC: 0DJ08ZZ Inspection of Upper Intestinal Tract, Via Natural or Artificial Opening Endoscopic (ICD-10-PCS; 2022-01-23)
PROC: 0D20XUZ Change Feeding Device in Upper Intestinal Tract, External Approach (ICD-10-PCS; 2022-01-23)
PROC: 5A1D70Z Performance of Urinary Filtration, Intermittent, Less than 6 Hours Per Day (ICD-10-PCS; 2022-01-23)
PROC: 5A1D70Z Performance of Urinary Filtration, Intermittent, Less than 6 Hours Per Day (ICD-10-PCS; 2022-01-27)
PROC: 5A1D70Z Performance of Urinary Filtration, Intermittent, Less than 6 Hours Per Day (ICD-10-PCS; 2022-01-28)
PROC: 5A1D70Z Performance of Urinary Filtration, Intermittent, Less than 6 Hours Per Day (ICD-10-PCS; 2022-01-30)
PROC: 5A1D70Z Performance of Urinary Filtration, Intermittent, Less than 6 Hours Per Day (ICD-10-PCS; 2022-01-31)
PROC: 5A1D70Z Performance of Urinary Filtration, Intermittent, Less than 6 Hours Per Day (ICD-10-PCS; 2022-02-03)
PROC: 5A1D70Z Performance of Urinary Filtration, Intermittent, Less than 6 Hours Per Day (ICD-10-PCS; 2022-02-05)
PROC: 5A1D70Z Performance of Urinary Filtration, Intermittent, Less than 6 Hours Per Day (ICD-10-PCS; 2022-02-08)
PROC: 5A1D70Z Performance of Urinary Filtration, Intermittent, Less than 6 Hours Per Day (ICD-10-PCS; 2022-02-09)
PROC: 5A1D70Z Performance of Urinary Filtration, Intermittent, Less than 6 Hours Per Day (ICD-10-PCS; 2022-02-13)
PROC: 5A1D70Z Performance of Urinary Filtration, Intermittent, Less than 6 Hours Per Day (ICD-10-PCS; 2022-02-18)
PROC: 5A1D70Z Performance of Urinary Filtration, Intermittent, Less than 6 Hours Per Day (ICD-10-PCS; 2022-02-20)
PROC: 5A1D70Z Performance of Urinary Filtration, Intermittent, Less than 6 Hours Per Day (ICD-10-PCS; 2022-02-24)
PROC: 5A1D70Z Performance of Urinary Filtration, Intermittent, Less than 6 Hours Per Day (ICD-10-PCS; 2022-02-27)
PROC: 5A1D70Z Performance of Urinary Filtration, Intermittent, Less than 6 Hours Per Day (ICD-10-PCS; 2022-03-03)
PROC: 5A1D70Z Performance of Urinary Filtration, Intermittent, Less than 6 Hours Per Day (ICD-10-PCS; 2022-03-05)
PROC: 5A1D70Z Performance of Urinary Filtration, Intermittent, Less than 6 Hours Per Day (ICD-10-PCS; 2022-03-07)
PROC: 5A1D70Z Performance of Urinary Filtration, Intermittent, Less than 6 Hours Per Day (ICD-10-PCS; 2022-03-10)
PROC: 5A1D70Z Performance of Urinary Filtration, Intermittent, Less than 6 Hours Per Day (ICD-10-PCS; 2022-03-12)
PROC: 5A1D70Z Performance of Urinary Filtration, Intermittent, Less than 6 Hours Per Day (ICD-10-PCS; 2022-03-13)
PROC: 5A1D70Z Performance of Urinary Filtration, Intermittent, Less than 6 Hours Per Day (ICD-10-PCS; 2022-03-17)
PROC: 5A1D70Z Performance of Urinary Filtration, Intermittent, Less than 6 Hours Per Day (ICD-10-PCS; 2022-03-19)
PROC: 5A1D70Z Performance of Urinary Filtration, Intermittent, Less than 6 Hours Per Day (ICD-10-PCS; 2022-03-21)
PROC: 5A1D70Z Performance of Urinary Filtration, Intermittent, Less than 6 Hours Per Day (ICD-10-PCS; 2022-03-24)
PROC: 06HY33Z Insertion of Infusion Device into Lower Vein, Percutaneous Approach (ICD-10-PCS; 2022-03-24)
PROC: 0DJ08ZZ Inspection of Upper Intestinal Tract, Via Natural or Artificial Opening Endoscopic (ICD-10-PCS; 2022-03-25)
PROC: 0DJ08ZZ Inspection of Upper Intestinal Tract, Via Natural or Artificial Opening Endoscopic (ICD-10-PCS; 2022-03-25)
PROC: 5A1D70Z Performance of Urinary Filtration, Intermittent, Less than 6 Hours Per Day (ICD-10-PCS; 2022-03-25)
PROC: 5A1D70Z Performance of Urinary Filtration, Intermittent, Less than 6 Hours Per Day (ICD-10-PCS; 2022-03-26)
PROC: 5A1D70Z Performance of Urinary Filtration, Intermittent, Less than 6 Hours Per Day (ICD-10-PCS; 2022-03-30)
PROC: 5A1D70Z Performance of Urinary Filtration, Intermittent, Less than 6 Hours Per Day (ICD-10-PCS; 2022-04-01)
PROC: 5A1D70Z Performance of Urinary Filtration, Intermittent, Less than 6 Hours Per Day (ICD-10-PCS; 2022-04-05)
PROC: 5A1D70Z Performance of Urinary Filtration, Intermittent, Less than 6 Hours Per Day (ICD-10-PCS; 2022-04-06)
PROC: 5A1D70Z Performance of Urinary Filtration, Intermittent, Less than 6 Hours Per Day (ICD-10-PCS; 2022-04-11)
PROC: 5A1D70Z Performance of Urinary Filtration, Intermittent, Less than 6 Hours Per Day (ICD-10-PCS; 2022-04-14)
PROC: 5A1D70Z Performance of Urinary Filtration, Intermittent, Less than 6 Hours Per Day (ICD-10-PCS; 2022-04-16)
PROC: 5A1D70Z Performance of Urinary Filtration, Intermittent, Less than 6 Hours Per Day (ICD-10-PCS; 2022-04-27)
PROC: 02HV33Z Insertion of Infusion Device into Superior Vena Cava, Percutaneous Approach (ICD-10-PCS; 2022-04-29)
PROC: B5181ZA Fluoroscopy of Superior Vena Cava using Low Osmolar Contrast, Guidance (ICD-10-PCS; 2022-04-29)
PROC: 5A1D70Z Performance of Urinary Filtration, Intermittent, Less than 6 Hours Per Day (ICD-10-PCS; 2022-04-30)
PROC: 5A1D70Z Performance of Urinary Filtration, Intermittent, Less than 6 Hours Per Day (ICD-10-PCS; 2022-05-03)
PROC: 5A1D70Z Performance of Urinary Filtration, Intermittent, Less than 6 Hours Per Day (ICD-10-PCS; 2022-05-06)
PROC: 5A1D70Z Performance of Urinary Filtration, Intermittent, Less than 6 Hours Per Day (ICD-10-PCS; 2022-05-10)
PROC: 5A1D70Z Performance of Urinary Filtration, Intermittent, Less than 6 Hours Per Day (ICD-10-PCS; 2022-05-12)
PROC: 5A1D70Z Performance of Urinary Filtration, Intermittent, Less than 6 Hours Per Day (ICD-10-PCS; 2022-05-14)
PROC: 5A1D70Z Performance of Urinary Filtration, Intermittent, Less than 6 Hours Per Day (ICD-10-PCS; 2022-05-19)
PROC: 02HV33Z Insertion of Infusion Device into Superior Vena Cava, Percutaneous Approach (ICD-10-PCS; 2022-05-20)
PROC: 03HY32Z Insertion of Monitoring Device into Upper Artery, Percutaneous Approach (ICD-10-PCS; 2022-05-20)
PROC: 5A12012 Performance of Cardiac Output, Single, Manual (ICD-10-PCS; 2022-05-21)
DX: A41.51 Sepsis due to Escherichia coli [E. coli] (principal); L89.154 Pressure ulcer of sacral region, stage 4; N18.6 End stage renal disease; J18.9 Pneumonia, unspecified organism; R65.21 Severe sepsis with septic shock; E43 Unspecified severe protein-calorie malnutrition; J96.21 Acute and chronic respiratory failure with hypoxia; I50.31 Acute diastolic (congestive) heart failure; G92.9 Unspecified toxic encephalopathy; I13.2 Hypertensive heart and chronic kidney disease with heart failure and with stage 5 chronic kidney disease, or end stage renal disease; N39.0 Urinary tract infection, site not specified; E87.1 Hypo-osmolality and hyponatremia; Z99.11 Dependence on respirator [ventilator] status; K94.23 Gastrostomy malfunction; G93.1 Anoxic brain damage, not elsewhere classified; I48.20 Chronic atrial fibrillation, unspecified; Z16.12 Extended spectrum beta lactamase (ESBL) resistance; Z16.23 Resistance to quinolones and fluoroquinolones; J98.11 Atelectasis; E11.649 Type 2 diabetes mellitus with hypoglycemia without coma; E11.65 Type 2 diabetes mellitus with hyperglycemia; L89.619 Pressure ulcer of right heel, unspecified stage; K29.70 Gastritis, unspecified, without bleeding; K29.80 Duodenitis without bleeding; I46.9 Cardiac arrest, cause unspecified; Z20.822 Contact with and (suspected) exposure to COVID-19; I48.0 Paroxysmal atrial fibrillation; D50.0 Iron deficiency anemia secondary to blood loss (chronic); E66.9 Obesity, unspecified; Z68.30 Body mass index [BMI] 30.0-30.9, adult; L98.429 Non-pressure chronic ulcer of back with unspecified severity; D69.6 Thrombocytopenia, unspecified; D63.1 Anemia in chronic kidney disease; E11.22 Type 2 diabetes mellitus with diabetic chronic kidney disease; E78.00 Pure hypercholesterolemia, unspecified; Z79.01 Long term (current) use of anticoagulants; Z79.899 Other long term (current) drug therapy; Z86.73 Personal history of transient ischemic attack (TIA), and cerebral infarction without residual deficits; Z90.710 Acquired absence of both cervix and uterus; Z99.2 Dependence on renal dialysis
CPT/HCPCS: 36415; 36558; 36600; 70450; 71045; 71046; 71250; 74018; 74176; 76536; 76604; 76705; 76881; 76942; 77001; 80048; 80053; 80069; 80074; 80076; 80202; 81001; 82040; 82105; 82140; 82150; 82248; 82270; 82306; 82378; 82565; 82607; 82728; 82746; 82805; 82962; 83036; 83540; 83550; 83605; 83735; 83880; 83970; 83986; 84100; 84443; 84478; 84484; 85007; 85014; 85018; 85025; 85027; 85610; 85730; 86301; 86850; 86900; 86901; 86920; 87040; 87070; 87075; 87077; 87081; 87086; 87088; 87186; 87205; 87340; 87493; 89051; 90935; 92950; 93005; 93306; 93971; 94002; 94003; 94640; 94667; 94668; 94762; 95819; 96365; 96366; 99152; 99153; 99291; A4605; C9113; G0378; J0330; J0690; J1642; J1815; J2001; J2185; J2248; J2250; J2405; J2543; J2704; J3480; J3490; J7060; J7131; P9047; Q9967